=== PATIENT | female | born 1945 | race Asian ===

== ENCOUNTER → 2017-02-09 | Outpatient (CLI) | payer BC ==
[~2017-02-09] MED LIST: CRDCD180 PO; LISI-461 PO; MULT-506 PO
[2017-02-09 10:14] LABS: MANUAL MICROSCOPIC REQUIRED? NO; REVIEW REQ? NO; URINE APPEARANCE CLEAR (CLEAR); URINE BILIRUBIN NEG (NEG); URINE COLOR YELLOW; URINE NITRITE NEG (NEG); URINE SPECIFIC GRAVITY 1.023 (1.000-1.030); UROBILINOGEN NEG (NEG)
[2017-02-09 10:34] LABS: ALT/SGPT 24 U/L (12-78); AST/SGOT 18 U/L (15-37); BLOOD UREA NITROGEN 24 mg/dl (7-18); BUN/CREATININE RATIO 44.8 (10-20); CALCIUM 8.8 mg/dl (8.5-10.1); CARBON DIOXIDE 32 mmol/L (21-32); CHLORIDE 105 mmol/L (98-107); CHOLESTEROL 242 mg/dl (0-200); CREATININE 0.54 mg/dl (0.60-1.20); GLUCOSE 89 mg/dl (70-99); POTASSIUM 4.1 mmol/L (3.5-5.1); SODIUM 140 mmol/L (136-145); TRIGLYCERIDES 47 mg/dl (0-150); VERY LOW DENSITY LIPOPROT CALC 9 mg/dl
[2017-02-09 10:36] LABS: ALB/GLOB RATIO 1.1 (0.9-2); ALKALINE PHOSPHATASE 50 U/L (45-117); CHOLESTEROL/HDL RATIO 2.9; HDL CHOLESTEROL 83 mg/dl; LDL CHOLESTEROL CALCULATED 150 mg/dl
== END | disposition home or self-care (01) ==
LOC: C.LAB1850 09:17
PROVIDERS: ATTEND Internal Medicine
DX: M25.551 Pain in right hip (principal); Z11.59 Encounter for screening for other viral diseases; M81.0 Age-related osteoporosis without current pathological fracture; R31.9 Hematuria, unspecified

== ENCOUNTER → 2017-09-25 | Outpatient (CLI) | payer BC ==
--- NOTE | 2017-09-25 13:20 | DIAGNOSTIC IMAGING REPORT ---
PELVIS AND RIGHT HIP 1 VIEW CLINICAL HISTORY: RIGHT HIP PAIN COMPARISON STUDY: Right hip 07/20/2016. FINDINGS: Progressive deformity/flattening of the right femoral head. There is severe osteoarthritis within the right hip with [id number] articulation. There is a shallow right acetabulum due to the progressive collapse of the acetabular roof. There is subchondral sclerosis and subchondral cystic change within the superior acetabulum and right femoral head. No acute fracture. Persistent lateral subluxation of the right femoral head in relation to the acetabulum due to the shallow acetabulum. The sacrum appears intact. Normal left hip. IMPRESSION: 1. Progressive collapse of the right acetabular roof and progressive deformity/collapse of the right femoral head. 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 2. There is a right-sided shallow acetabulum due to the collapse of the acetabular roof with persistent mild lateral subluxation of the femoral head and relation to the acetabulum. 3. Normal left hip. Electronically signed by: Jules Wang M.D. 09/25/2017 1:19 PM Dictated Date/Time: 09/25/2017 1:15 PM
== END | disposition home or self-care (01) ==
LOC: C.RDSM 11:12
PROVIDERS: ATTEND Physician Assistant
DX: M25.551 Pain in right hip (principal); R93.7 Abnormal findings on diagnostic imaging of other parts of musculoskeletal system

== ENCOUNTER → 2017-09-25 | Outpatient (CLI) | payer BC ==
[2017-09-25 13:49] LABS: ALB/GLOB RATIO 1.2 (0.9-2); ALKALINE PHOSPHATASE 54 U/L (45-117); ALT/SGPT 21 U/L (12-78); AST/SGOT 17 U/L (15-37); BLOOD UREA NITROGEN 34 mg/dl (7-18); BUN/CREATININE RATIO 64.6 (10-20); CALCIUM 8.5 mg/dl (8.5-10.1); CARBON DIOXIDE 27 mmol/L (21-32); CHLORIDE 104 mmol/L (98-107); CHOLESTEROL 232 mg/dl (0-200); CHOLESTEROL/HDL RATIO 2.8; CREATININE 0.53 mg/dl (0.60-1.20); GLUCOSE 86 mg/dl (70-99); HDL CHOLESTEROL 84 mg/dl; LDL CHOLESTEROL CALCULATED 133 mg/dl; POTASSIUM 3.7 mmol/L (3.5-5.1); SODIUM 139 mmol/L (136-145); TRIGLYCERIDES 74 mg/dl (0-150); VERY LOW DENSITY LIPOPROT CALC 15 mg/dl
[2017-09-25 13:55] LABS: THYROID STIMULATING HORMONE 0.274 uIu/ml (0.300-4.500)
[2017-09-25 14:54] LABS: URINE APPEARANCE CLEAR (CLEAR); URINE BILIRUBIN NEG (NEG); URINE COLOR YELLOW; URINE NITRITE NEG (NEG); URINE SPECIFIC GRAVITY 1.026 (1.000-1.030); UROBILINOGEN NEG (NEG); ZZUR CULT IF INDIC CLEAN CATCH NO
[2017-09-25 14:56] LABS: MANUAL MICROSCOPIC REQUIRED? NO; REVIEW REQ? NO
== END | disposition home or self-care (01) ==
LOC: C.LAB1850 12:06
PROVIDERS: ATTEND Internal Medicine
DX: Z11.59 Encounter for screening for other viral diseases (principal); E78.5 Hyperlipidemia, unspecified; M81.0 Age-related osteoporosis without current pathological fracture; R31.9 Hematuria, unspecified

== ENCOUNTER → 2017-10-08 | Outpatient (CLI) | payer BC ==
--- NOTE | 2017-10-08 14:20 | DIAGNOSTIC IMAGING REPORT ---
CT SCAN OF THE RIGHT HIP WITHOUT IV CONTRAST CLINICAL HISTORY: Osteoarthritis. 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 COMPARISON STUDY: Radiographs of the right hip dated 09/25/2017. Pelvic CT dated 04/26/2007. TECHNIQUE: CT scan of the right hip is performed from the bony pelvis to the right femoral shaft. Images are reviewed in the axial, sagittal, and coronal planes. 3-D reformats are created and assessed. IV contrast was not administered for this examination. A dose lowering technique was utilized adhering to the principles of ALARA. CT DOSE: 294.10 mGy.cm FINDINGS: The skeletal structures are osteopenic. No fracture is seen. No lytic or blastic lesion is identified. There is advanced osteoarthritic change and joint space loss in the right hip. There is flattening of the femoral head with extensive bony sclerosis, large osteophytes, and subchondral cyst formation. Similar changes are present within the right acetabulum. The acetabulum appears slightly shallow, and bony overgrowth is noted along the acetabular roof. There is a joint effusion, with fluid in the iliopsoas bursa. The right sacroiliac joint is normal in appearance. There is generalized atrophy of the regional musculature. The bladder is normal as visualized. There is no right pelvic sidewall or inguinal lymphadenopathy. IMPRESSION: 1. Osteopenia with advanced osteoarthritic change involving the right hip as above. 2. There is subchondral collapse of the femoral head. Avascular necrosis is considered less likely due to similar appearing change within the acetabulum. 3. There is a joint effusion, with fluid in the right iliopsoas bursa. Dictated: 10/08/2017 1:46 PM Transcribed: 10/08/2017 2:20 PM [facility] Electronically signed by: Stan Steele M.D. 10/08/2017 2:30 PM Dictated Date/Time: 10/08/2017 1:46 PM
== END | disposition home or self-care (01) ==
LOC: C.CTS 13:28
PROVIDERS: ATTEND Physical Medicine & Rehabilitation Sports Medicine
DX: M16.11 Unilateral primary osteoarthritis, right hip (principal); Q65.89 Other specified congenital deformities of hip; M85.851 Other specified disorders of bone density and structure, right thigh; M25.451 Effusion, right hip

== ENCOUNTER → 2017-10-18 | Outpatient (CLI) | payer BC ==
[2017-10-18 10:27] LABS: THYROID STIMULATING HORMONE 0.578 uIu/ml (0.300-4.500)
== END | disposition home or self-care (01) ==
LOC: C.LAB1850 08:19
PROVIDERS: ATTEND Internal Medicine
DX: R31.9 Hematuria, unspecified (principal); E05.90 Thyrotoxicosis, unspecified without thyrotoxic crisis or storm

== ENCOUNTER → 2017-10-29 | Outpatient (CLI) | payer BC | END | disposition home or self-care (01) | LOC: C.MAMM 08:17 | PROVIDERS: ATTEND Internal Medicine | DX: M81.0 Age-related osteoporosis without current pathological fracture (principal); M25.551 Pain in right hip; Z78.0 Asymptomatic menopausal state ==

== ENCOUNTER → 2017-12-13 | Outpatient (CLI) | payer BC, OTHER ==
--- NOTE | 2017-12-12 10:33 | DIAGNOSTIC IMAGING REPORT ---
PELVIS 1 OR 2 VIEWS CLINICAL HISTORY: Right hip pain. Preoperative evaluation. COMPARISON STUDY: Right hip radiograph July 20, [address] of the right hip October 08, 2017. FINDINGS: The right acetabulum is shallow. There is marked right hip joint space narrowing with extensive subchondral lucency and sclerosis within the right femoral head and acetabulum. No fracture is identified. There is significant remodeling with flattening of the right femoral head. IMPRESSION: 1. End-stage osteoarthritis of the right hip with flattening of the right femoral head, marked joint space narrowing and extensive subchondral sclerosis/cystic change. 2. Shallow right acetabulum. This suggests hip dysplasia. Electronically signed by: Rudolph Monae M.D. 12/12/2017 10:31 AM Dictated Date/Time: 12/12/2017 10:29 AM
[~2017-12-13] MED LIST changes: +ACET-1256 PO; +ASCA500 PO; +CHOL1000 PO; +GLUC10007 PO
== END | disposition home or self-care (01) ==
LOC: C.RDSM 15:10
PROVIDERS: ATTEND Physician Assistant
DX: M16.11 Unilateral primary osteoarthritis, right hip (principal); Q65.89 Other specified congenital deformities of hip

== ENCOUNTER 2018-01-08 08:32 | Inpatient (IN) | payer BC, OTHER ==
[2017-12-14 08:16] VITALS: BMI 21.0
--- NOTE | 2017-12-14 08:49 | PAT Medication Instructions ---
Service Date Dec 14, 2017. Current Home Medication List Acetaminophen (Tylenol), 1,000 MG PO Q8 PRN for Pain Ascorbic Acid (Vitamin C), 1 TAB PO QAM Cholecalciferol (Vitamin D3), 1 TAB PO QAM Diltiazem HCl (Diltiazem HCl ER), 180 MG PO HS Glucosamine Sulfate (Glucosamine), 1,000 MG PO QAM Lisinopril (Lisinopril), 10 MG PO HS Medication Instructions For Your Scheduled Surgery - Hold the following medications 2 weeks prior to surgery: Glucosamine Sulfate (Glucosamine), 1,000 MG PO QAM - Hold the following medications 24 hours prior to surgery: Lisinopril (Lisinopril), 10 MG PO HS - Hold the following medications the morning of surgery: Ascorbic Acid (Vitamin C), 1 TAB PO QAM Cholecalciferol (Vitamin D3), 1 TAB PO QAM - Take the following medications the morning of surgery with a sip of water: Acetaminophen (Tylenol), 1,000 MG PO Q8 PRN for Pain (okay to take up to 4 hours prior to surgery if needed) - Take the following medications as scheduled the night before surgery: Diltiazem HCl (Diltiazem HCl ER), 180 MG PO HS Acetaminophen (Tylenol), 1,000 MG PO Q8 PRN for Pain (if needed) If you have any questions please call us at [phone] or [phone] or [phone]
--- NOTE | 2017-12-14 09:43 | DIAGNOSTIC IMAGING REPORT ---
CHEST 2 VIEWS ROUTINE CLINICAL HISTORY: Preoperative chest COMPARISON STUDY: No previous studies for comparison. FINDINGS: The heart is normal in size. There is mild prominence of central pulmonary arteries. There is no focal pulmonary consolidation. There is no failure. There are no pleural effusions. There is minor right basilar atelectasis. There is a thoracolumbar scoliosis.[ IMPRESSION: No active disease in the chest. Electronically signed by: Apolinar Bean M.D. 12/14/2017 9:42 AM Dictated Date/Time: 12/14/2017 9:41 AM
[2017-12-14 10:15] LABS: BASO % 0.4 %; BASO ABS # 0.02 K/uL (0-0.2); EOS % 2.7 %; EOS ABS # 0.12 K/uL (0-0.5); HEMATOCRIT 37.8 % (37-47); LYMPH % 19.4 %; LYMPH ABS # 0.87 K/uL (1.2-3.4); MEAN CELL VOLUME 97.2 fL (80-100); MEAN CORPUSCULAR HEMOGLOBIN 30.8 pg (25-34); MEAN CORPUSCULAR HGB CONC 31.7 g/dl (32-36); MONO % 7.8 %; MONO ABS # 0.35 K/uL (0.11-0.59); NEUT % 69.7 %; NEUT ABS # 3.13 K/uL (1.4-6.5); PLATELET COUNT 223 K/uL (130-400); RED CELL DISTRIBUTION WIDTH CV 12.7 % (11.5-14.5); RED CELL DISTRIBUTION WIDTH SD 44.6 fL (36.4-46.3); WHITE BLOOD COUNT 4.49 K/uL (4.8-10.8)
[2017-12-14 10:43] LABS: INR 0.9 (0.9-1.1); PTT PATIENT 23.6 SECONDS (21.0-31.0)
[2017-12-14 11:38] LABS: CALCIUM 8.8 mg/dl (8.5-10.1); CREATININE 0.71 mg/dl (0.60-1.20); POTASSIUM 4.2 mmol/L (3.5-5.1)
--- NOTE | 2017-12-25 16:02 | HISTORY & PHYSICAL EXAMINATION ---
DATE OF ADMISSION: 01/08/2018 CHIEF COMPLAINT: Right hip pain. HISTORY OF PRESENT ILLNESS: This 72-year-old female presents to the office with complaints of right hip pain that has been ongoing for the last 3 years. She is unsure if it started after a fall or another injury. She walks for approximately 30-40 minutes daily on her treadmill. Pain has become worse with time. It is causing her to limp. She notes a leg length discrepancy that she thinks has been present from . It did not bother her until the last several years. No numbness or tingling. X-ray and CT scan imaging have been obtained. She elects to proceed with right total hip arthroplasty in hopes of alleviating her discomfort. Pain is affecting her ADLs and is worse with weightbearing. It does radiate around her hip and into the groin as well as the proximal thigh. PAST MEDICAL HISTORY: Significant for hypertension, elevated cholesterol, asthma, and arthritis. PREVIOUS SURGERIES: in 1974 and 1977. FAMILY HISTORY: Noncontributory. SOCIAL HISTORY: The patient is . Lives by herself. Retired. No tobacco use and no ETOH use. ALLERGIES: KNOWN ALLERGY TO PENICILLIN, WHICH CAUSES A RASH. THIS OCCURRED APPROXIMATELY 30 YEARS AGO. CURRENT MEDICATIONS: Tylenol Arthritis p.o. b.i.d., vitamin D 3000 units daily, diltiazem 180 mg p.o. daily, lisinopril 10 mg p.o. daily, tramadol 50 mg p.o. q. 6 hours p.r.n., and OTC calcium tablets daily. REVIEW OF SYSTEMS: Significant for above stated conditions. Otherwise, unremarkable. PHYSICAL EXAMINATION: GENERAL: Well-developed and well-nourished elderly female in no acute distress. Sitting in a chair. Alert and oriented. Small stature. SKIN: Warm and dry with good turgor. No rashes or lesions. No ecchymosis or erythema. HEENT: Normocephalic and atraumatic. Eyes PERRLA, EOMI. Nares patent bilaterally without turbinate enlargement. Oropharynx without erythema or exudate. No lesions noted. Uvula midline. Oral mucosa moist. Dental caps and fillings are noted. HEART: RRR. No MGR. LUNGS: Clear to auscultation bilaterally. No crackles, rhonchi or wheezing. Good air movement. ABDOMEN: Bowel sounds present x4. Soft and nontender. No organomegaly. No masses. MUSCULOSKELETAL: Right hip has no obvious asymmetry or deformity. She has discomfort with palpation over the anterior flexion crease. She has some generalized soreness present around the lateral aspect of the hip and greater trochanter. Supple motion of the hips with passive flexion as well as internal and external rotation. Crepitus is palpable. Significantly antalgic gait with noticeable limp. The right leg is approximately a cm short. NEUROLOGIC: Gross sensation is intact across the upper and lower extremities by soft touch. Cranial nerves II-XII are intact. Peripheral pulses are 2+. DATA: Radiographic imaging previously obtained shows right hip dysplasia with superolateral migration of the femoral head. Periarticular osteophytes, subchondral sclerosis, and joint space narrowing are all present. IMPRESSION: Right hip degenerative joint disease/hip dysplasia. PLAN: Postoperative prescriptions for Percocet and Coumadin will be provided at discharge from the hospital. Medical clearance has been requested from her PCP, Dr. Smith. Prescription has been provided for a walker. She will obtain a cane. Anticipate discharge to either [facility] or [facility]. As a backup, she is willing to consider home health with frequent visits from friends. Informed written consent will be obtained in the morning of surgery.
[2018-01-08] VITALS (9 sets, daily range): BP systolic 100–143; BP diastolic 53–77; PULSE 60–71; TEMP 36.7–36.9; O2SAT 95–100; Ht 152.4 cm; Wt 48.8 kg
[~2018-01-08] VITALS: Ht 152.4 cm; Wt 48.8 kg
[~2018-01-08 08:32] MED LIST changes: +BUPIVACAINE 0.25% 30 ML VIAL ONE; +BUPIVACAINE 0.5 % 5 MG/1 ML PF 10ML VIAL ONE; +CEFAZOLIN 2000MG IV PUSH 15 ML IV SCH; +LACTATED RINGER'S 1000ML 1,000 ML IV SCH; +LACTATED RINGER'S 1000ML 500 ML IV SCH; +LACTATED RINGER'S 1000ML IV SCH; -MULT-506 PO; +ROPIVACAINE 5MG/ML 30 ML 150 MG, BUPIVACAINE 0.5% MPF INJ 30 ML, EpINEphrine HCL INJ 0.... INFIL SCH; +ROPIVACAINE 5MG/ML 30 ML 150 MG, BUPIVACAINE/EPINEPHR 0.5% MPF 30 ML, KETOROLAC TROMETH... INFIL SCH; +TRANEXAMIC ACID INJ 1,000 MG x 1 Bag Preop IV SCH
--- NOTE | 2018-01-08 08:51 | History & Physical Bridge Note ---
H&P Re-Evaluation Bridge Note: I have examined the patient, reviewed the History & Physical and in the interval since the performance of the History & Physical I have noted the following changes of clinical significance: consent obtained.questions answered. No changes noted
[2018-01-08] MEDS ORDERED: EpHEDrine SULFATE INJ 50 MG/ML AMP IV PRN (09:15)
[2018-01-08] MEDS ORDERED: HYDROmorphone INJ 1 MG/ML SYR IV PRN (09:15)
[2018-01-08] MEDS ORDERED: ONDANSETRON INJ 2 MG/ML 2 ML VIAL IV PRN ×2 (09:15→12:30)
[2018-01-08] MEDS ORDERED: PHENYLEPHRINE 100MCG/ML 5ML SYR IV PRN (09:15)
[2018-01-08] MEDS ORDERED: FENTANYL CITRATE INJ 50 MCG/1 ML 2 ML VIAL IV PRN (09:15)
[2018-01-08] MEDS ORDERED: ATROPINE SULFATE 0.1 MG/ML 5ML SYR IV PRN (09:15)
[2018-01-08] MEDS ORDERED: MIDAZOLAM HCL 1 MG/ML 2ML VIAL ONE ×2 (09:19→11:06)
[2018-01-08] MEDS ORDERED: FENTANYL CITRATE INJ 50 MCG/1 ML 2 ML VIAL ONE (09:19)
[2018-01-08] MEDS ORDERED: POVIDONE-IODINE OP SOLN 30 ML BTL ONE (10:27)
[2018-01-08] MEDS ORDERED: ORTHO JOINT ANESTHETIC ONE (10:27)
[2018-01-08] MEDS ORDERED: LIDOCAINE HCL 2% 2 ML VIAL (20MG/ML) ONE (11:14)
[2018-01-08] MEDS ORDERED: PROPOFOL IV EMULSION 10 MG/ML 20 ML VIAL IV ONE (11:14)
[2018-01-08] MEDS ORDERED: ONDANSETRON INJ 2 MG/ML 2 ML VIAL ONE (11:14)
--- NOTE | 2018-01-08 12:11 | [facility] Post Operative Brief Note ---
Immediate Operative Summary Operative Date Jan 08, 2018. Pre-Operative Diagnosis Right Hip Degenerative Joint Disease/Hip Dysplasia Post-Operative Diagnosis Right Hip Degenerative Joint Disease/Hip Dysplasia Procedure(s) Performed Right Total Hip Arthroplasty--Uncemented Surgeon Dr. Dalton Painter Shipyard Surgeon(s) JAIDA Foster Estimated Blood Loss 200 ml Findings Consistent with Post-Op Diagnosis Fluids (cc crystalloids) 1500cc Specimens A. Right Femoral Head Drains None Anesthesia Type Spinal MAC Complication(s) none Disposition Accompanied Pt To Recover: no Disposition: Recovery Room / PACU
[2018-01-08] MEDS ORDERED: DiphenhydrAMINE HCL 50 MG/ML VIAL IV PRN (12:30)
[2018-01-08] MEDS ORDERED: MAGNESIUM HYDROXIDE SUSP 30 ML UDC PO PRN (12:30)
[2018-01-08] MEDS ORDERED: ALUMINUM/MAGNESIUM/SIMETH (MAALOX MAX) 30 ML UDC PO PRN (12:30)
[2018-01-08] MEDS ORDERED: BISACODYL 10 MG SUPP PR PRN (12:30)
[2018-01-08] MEDS ORDERED: MoRPHine SULFATE 2 MG/ML CARP IV PRN ×2 (12:30→14:45)
[2018-01-08] MEDS ORDERED: METOCLOPRAMIDE HCL INJ 5 MG/ML 2 ML VIAL IV PRN (12:30)
--- NOTE | 2018-01-08 12:43 | [facility] Operative Report ---
Operative Report Operative Date Jan 08, 2018. Pre-Operative Diagnosis Right Hip Degenerative Joint Disease/Hip Dysplasia Post-Operative Diagnosis Right Hip Degenerative Joint Disease/Hip Dysplasia Procedure(s) Performed Right Total Hip Arthroplasty--Uncemented Surgeon Dr. Dalton Case Consultant Surgeon(s) JAIDA Paniagua Estimated Blood Loss 200 ml Findings Right hip congenital dysplasia, DJD Fluids 1500cc Specimens A. Right Femoral Head Drains None Anesthesia Type Spinal MAC Complication(s) none Disposition no Recovery Room / PACU Indications This 72 year old female presented to the office with complaints of long- standing right hip pain. She also had a leg length discrepancy from previous congenital dysplasia of the right hip. She had tried conservative care measures including activity modification, oral pain medication, and oral anti- inflammatories without improvement. She elected to proceed with surgical intervention after being educated about potential risks and outcomes. Preoperative imaging was obtained. Description of Procedure Patient was administered a spinal anesthetic and then taken to the operating room where she was given sedation. She was prepped and draped in usual sterile fashion. Please see Dr. Dalton's operative report for specifics of the procedure. I was present for the entire case from initial patient positioning through final wound closure. Assistance was provided in tissue traction, hemostasis, trial implant placement, final implant placement, and final wound closure. Patient was taken to the recovery room in satisfactory condition. I attest to the content of the Intraoperative Record and any orders documented therein. Any exceptions are noted below.
--- NOTE | 2018-01-08 12:43 | OPERATIVE REPORT ---
DATE OF OPERATION: 01/08/2018 SURGEON: Dr. Dalton. ASSISTANTS: Gabino; Adam student, Bryant; no resident or fellow available. PREOPERATIVE DIAGNOSIS: Osteoarthritis, right hip with congenital dysplasia. POSTOPERATIVE DIAGNOSIS: Same. OPERATION PERFORMED: Noncemented right total hip replacement. PERIOPERATIVE SITUATION: Medically cleared female with intractable hip pain. Physical exam, x-ray and CT scan consistent with dysplasia of the hip with roughly a type 2 deformity. At this point in time, options were discussed with her and she wants to proceed with total hip replacement possible femoral head autograft versus shims if needed. I also noted that she was relatively well lateralized and we would be able to medialize by reaming. DESCRIPTION OF PROCEDURE: The patient appropriately identified, site verified, consent verified, 2 grams of Ancef confirmed as being given. The right lower extremity was prepped and draped in usual routine fashion with the patient in the left lateral decubitus position. Posterior approach to the hip was then made, sharp dissection carried to skin and blunt dissection down to the fascia, the fascia was then incised under direct vision. Care was taken to protect the sciatic nerve. She was lean. The short external rotators were all scarred, they were released, the capsule was then T'd and preserved as best as possible. The hip was dislocated. The femoral neck was resected leaving approximately 5 mm above the lesser trochanter. Serial reaming was carried out once the labrum and pulvinar was excised and we found the true center and was reamed from there and enlarged. It was medialized. Once this was done, a 48 cup was able to be positioned with excellent coverage, impacted into position with excellent rim fit. An additional 6.5 x 25 screw was placed with excellent purchase. The trial liner was seated and some minor osteophytes were removed inferiorly. The femur was then flexed and internally rotated and the proximal femur prepared with a box strapper, lateralizing rasp, canal finder and serial broaching up to a size 1. Multiple reductions were carried out with a high offset +9 getting the leg lengths almost equal. The hip was very stable. Flexion to over 110 degrees with internal rotation at 90 degrees to 50-60 degrees with no dislocation was found. Leg lengths were relatively equal, there was no dislocatability in extension and external rotation. The hip was then dislocated. all the trial elements were removed. The hole eliminator seated, permanent liner seated, permanent head and neck seated and the hip reduced, it was stable as was before. The wound was irrigated with Betadine Pulsavac and then closed with #2 Vicryl for the capsule and the short external rotators, #2 Vicryl for the IT band, 2-0 Vicryl for subcutaneous layer and stainless steel clips for skin. ESTIMATED BLOOD LOSS: Roughly 200 mL. CRYSTALLOID: Roughly 1500 mL. PATHOLOGY: Pending on the bone. SUMMARY OF IMPLANTS: A size 48 cup, hole eliminator 6.5 x 25 screw. The cup was an acetabular shell sector multi hole cup, femoral Tri-Lock stem size 1, high offset 32 x 48 neutral liners and a 32 head +9 for the femoral head. This is Articul/Manny femoral head. DISPOSITION: The patient was transferred to recovery room in satisfactory condition having tolerated the procedure well. DVT prophylaxis with Coumadin. I attest to the content of the Intraoperative Record and any orders documented therein. Any exceptions are noted below. BEBED
--- NOTE | 2018-01-08 13:07 | DIAGNOSTIC IMAGING REPORT ---
PELVIS 1 OR 2 VIEW ROUTINE HISTORY: 72 years-old Female R hip s/p LAY status post right hip total joint arthroplasty. Reported dysplasia of the right hip COMPARISON: Pelvis radiographs 12/12/2017 TECHNIQUE: Portable AP view of the pelvis FINDINGS: Postoperative changes from recent right hip total joint arthroplasty. Overlying skin marvin are noted in addition to expected postsurgical soft tissue swelling and deep tissue air. Alignment is satisfactory and the hardware appears to be intact. Mild degenerative changes about the left femoral acetabular joint. IMPRESSION: Right hip total joint arthroplasty with satisfactory alignment. The above report was generated using voice recognition software. It may contain grammatical, syntax or spelling errors. Electronically signed by: Wellington Mendoza M.D. 01/08/2018 1:06 PM Dictated Date/Time: 01/08/2018 1:05 PM
--- NOTE | 2018-01-08 13:49 | Anesthesiology Progress Note ---
Anesthesia Post Op Note Date & Time Jan 08, 2018 at 13:48 Vital Signs Pain Intensity: 0 Vital Signs Past 12 Hours Date Time Temp Pulse Resp B/P (MAP) Pulse Ox O2 Delivery O2 Flow Rate FiO2 01/08/18 13:41 119/59 01/08/18 13:40 36.6 60 16 119/59 100 Nasal Cannula 2 01/08/18 13:38 60 14 100 01/08/18 13:38 60 14 01/08/18 13:36 107/57 01/08/18 13:33 66 15 100 01/08/18 13:33 63 15 01/08/18 13:31 106/56 01/08/18 13:28 58 16 01/08/18 13:28 63 16 100 01/08/18 13:26 112/56 01/08/18 13:23 59 15 01/08/18 13:23 60 15 100 01/08/18 13:21 115/62 01/08/18 13:18 62 16 01/08/18 13:18 61 16 100 01/08/18 13:16 110/61 01/08/18 13:13 60 14 01/08/18 13:13 60 14 100 01/08/18 13:12 61 16 100 01/08/18 13:12 61 16 01/08/18 13:11 108/60 01/08/18 13:07 60 14 100 01/08/18 13:07 60 14 01/08/18 13:06 104/61 01/08/18 13:02 62 14 100 01/08/18 13:02 62 14 01/08/18 13:01 107/60 01/08/18 12:57 64 15 100 01/08/18 12:57 60 15 01/08/18 12:56 105/59 01/08/18 12:52 63 15 01/08/18 12:52 63 15 100 01/08/18 12:51 101/58 01/08/18 12:47 62 14 01/08/18 12:47 62 14 100 01/08/18 12:46 106/59 01/08/18 12:42 63 14 100 01/08/18 12:42 62 14 01/08/18 12:41 103/62 01/08/18 12:37 62 14 100 01/08/18 12:37 63 14 01/08/18 12:36 108/62 01/08/18 12:35 64 14 01/08/18 12:35 64 14 100 01/08/18 12:31 99/61 01/08/18 12:30 65 15 100 01/08/18 12:30 65 15 01/08/18 12:26 103/59 01/08/18 12:25 36.2 68 16 103/59 97 Nasal Cannula 2 01/08/18 12:25 67 77/62 98 01/08/18 12:25 67 01/08/18 08:55 36.9 71 20 143/72 96 Room Air Notes Mental Status: alert / awake / arousable, participated in evaluation Pt Amnestic to Procedure: Yes Nausea / Vomiting: adequately controlled Pain: adequately controlled Airway Patency, RR, SpO2: stable & adequate BP & HR: stable & adequate Hydration State: stable & adequate Neuraxial Anesthesia: was administered, sensory block is resolving Anesthetic Complications: no major complications apparent
[2018-01-08] MEDS ORDERED: MoRPHine SULFATE 4 MG/ML 1 ML CARP\\VIAL IV PRN (14:45)
[2018-01-08] MEDS ORDERED: D5W AND 1/2NSS + 20MEQ KCL 1,000 ML IV SCH (15:00)
[2018-01-08] MEDS: ACETAMINOPHEN IV 1,000 MG in EMPTY BAG 0 ML IV SCH ×2 (15:25→23:14)
[2018-01-08] MEDS ORDERED: WARFARIN SOD 5 MG TAB PO SCH (16:00)
[2018-01-08] MEDS ORDERED: PNEUMOCOCCAL ADMINISTRATION CHARGE ONE (16:00)
[2018-01-08] MEDS ORDERED: PNEUMOCOCCAL POLYSACCHARIDES 25 MCG/0.5 ML VIAL/SYR IM. ONE (16:00)
--- NOTE | 2018-01-08 17:41 | PROGRESS NOTE ---
DATE: 01/08/2018 SUBJECTIVE: Postop check status post right total knee replacement for dysplasia. At this point in time, the patient is comfortable. She ate some lunch. She notes that she has no chest pain, shortness of breath, fever, chills, nausea, vomiting or headache. OBJECTIVE: Vital signs are stable. She is afebrile. Neurovascular check femoral sciatic nerve is intact right lower extremity, left lower extremity. The calves are nontender. DATA: Postop x-rays look excellent. ASSESSMENT AND PLAN: Overall, doing well. Continue with postop care pathway. Likely discharge home tomorrow with home services. Coumadin dose per INR results. Please note that Terell Lloyd will discharge the patient tomorrow as I will be in [place].
[2018-01-08] MEDS: FERROUS GLUCONATE 324 MG TAB PO SCH (17:54)
[2018-01-08] MEDS ORDERED: TRANEXAMIC ACID INJ 1,000 MG in SODIUM CHLORIDE 0.9% 100ML 100 ML IV SCH (18:00)
[2018-01-08] MEDS: KETOROLAC TROMETHAMINE 15 MG/ML VIAL IV. SCH ×2 (18:01→23:14)
[2018-01-08] MEDS: OXYCODONE HCL IR 5 MG TAB (IMMEDIATE RELEASE) PO PRN (19:53)
[2018-01-08] MEDS: DOCUSATE SODIUM 100 MG CAP PO SCH (19:54)
[2018-01-08] MEDS ORDERED: LISINOPRIL 10 MG TAB PO SCH (21:00)
[2018-01-08] MEDS ORDERED: DILTIAZEM HCL 180 MG CAPCR PO SCH (21:00)
[2018-01-08] MEDS ORDERED: CEFTRIAXONE SOD INJ 1 GM in DEXTROSE 5% ADD-VANTAGE 50ML 50 ML IV SCH (22:00)
[2018-01-09 03:47] VITALS: BP 125/70; PULSE 53; TEMP 36.7; O2SAT 98
[2018-01-09] MEDS: OXYCODONE HCL IR 5 MG TAB (IMMEDIATE RELEASE) PO PRN (05:13)
[2018-01-09] MEDS: KETOROLAC TROMETHAMINE 15 MG/ML VIAL IV. SCH ×2 (05:15→12:57)
[2018-01-09 05:54] LABS: EOS % 0.1 %; EOS ABS # 0.01 K/uL (0-0.5); HEMATOCRIT 29.2 % (37-47); HEMOGLOBIN 9.3 g/dL (12.0-16.0); IG# 0.03 K/uL (0.00-0.02); LYMPH % 8.5 %; LYMPH ABS # 0.74 K/uL (1.2-3.4); MEAN CELL VOLUME 96.7 fL (80-100); MEAN CORPUSCULAR HEMOGLOBIN 30.8 pg (25-34); MEAN CORPUSCULAR HGB CONC 31.8 g/dl (32-36); MEAN PLATELET VOLUME 8.7 fL (7.4-10.4); MONO % 7.9 %; MONO ABS # 0.69 K/uL (0.11-0.59); NEUT % 83.2 %; NEUT ABS # 7.27 K/uL (1.4-6.5); PLATELET COUNT 193 K/uL (130-400); RED CELL DISTRIBUTION WIDTH CV 12.8 % (11.5-14.5); RED CELL DISTRIBUTION WIDTH SD 44.7 fL (36.4-46.3); WHITE BLOOD COUNT 8.74 K/uL (4.8-10.8)
[2018-01-09 06:06] LABS: INR 1.1 (0.9-1.1)
[2018-01-09 06:31] LABS: CALCIUM 8.2 mg/dl (8.5-10.1); CREATININE 0.59 mg/dl (0.60-1.20); POTASSIUM 4.1 mmol/L (3.5-5.1)
[2018-01-09] MEDS ORDERED: DEXAMETHASONE INJ 10 MG in SYRINGE 0 ML IV SCH (07:30)
[2018-01-09] MEDS: ACETAMINOPHEN IV 1,000 MG in EMPTY BAG 0 ML IV SCH (07:40)
[2018-01-09 07:49] VITALS: BP 110/67; PULSE 56; TEMP 36.6; O2SAT 97
--- NOTE | 2018-01-09 07:58 | Anesthesiology Progress Note ---
Anesthesia Post Op Note Date & Time Jan 09, 2018 at 07:57 Vital Signs Pain Intensity: 8.0 Vital Signs Past 12 Hours Date Time Temp Pulse Resp B/P (MAP) Pulse Ox O2 Delivery O2 Flow Rate FiO2 01/09/18 07:49 36.6 56 18 110/67 (81) 97 Room Air 01/09/18 03:47 36.7 53 16 125/70 (88) 98 Room Air 01/08/18 23:06 36.8 67 16 107/67 (80) 96 Room Air Notes Mental Status: alert / awake / arousable, participated in evaluation Pt Amnestic to Procedure: Yes Nausea / Vomiting: adequately controlled Pain: adequately controlled Airway Patency, RR, SpO2: stable & adequate BP & HR: stable & adequate Hydration State: stable & adequate Neuraxial Anesthesia: was administered, sensory block resolved Anesthetic Complications: no major complications apparent
[2018-01-09] MEDS ORDERED: MULTIVITAMIN TAB PO SCH (09:00)
[2018-01-09] MEDS ORDERED: PANTOprazole SOD 40 MG TAB PO SCH (09:00)
[2018-01-09] MEDS ORDERED: OXYC-57 PO (09:09)
[2018-01-09] MEDS ORDERED: WARF2TAB PO (09:09)
--- NOTE | 2018-01-09 09:11 | Discharge Instructions ---
Discharge Instructions Date of Service Jan 09, 2018. Admission Reason for Admission: Right Hip Dysplasia Discharge Discharge Diagnosis / Problem: Right hip s/p total hip replacement Discharge Goals Goal(s): Decrease discomfort, Improve function, Increase independence Activity Recommendations Activity Limitations: as noted below Lifting Limitations: gradually increase as tolerated Exercise/Sports Limitations: until after follow-up appointment Shower/Bathe: keep incision dry Driving or Machine Use: No driving until cleared by Dr. Dalton Weightbearing Status: Right weightbearing (as tolerated) . Instructions / Follow-Up Instructions / Follow-Up New Medicine: * You will likely be taking one or more of these medicines: 1. Percocet - Take, as directed, when you need it, every four to six hours to control your pain. 2. Coumadin - Thins your blood to lessen the chance of forming a blood clot. The dose of this is different for each person and is based on your blood tests that are done twice a week. * The most common side effects of pain medicine and iron are nausea and constipation. If nausea or constipation is too much of a problem or if you have any questions about your new medicines or doses, call [facility] at . We will try to help you manage these issues. VERY IMPORTANT TO READ AND REVIEW" Blood Clots and Blood Thinning Medicine: * You are given Coumadin during the immediate post-operative period to lessen the risk of blood clots forming in your legs and/or lungs. Coumadin is usually given for six weeks after surgery. * The prescription is for 2 mg tablets. At discharge, you should understand your dose and take it all at the same time every day, preferably after dinner. * You need to get your blood checked 1 - 2 times per week for six weeks, or as directed. * If your dose needs to change, we will call you. Do not take your medication on the day of the blood test until we call you. * If you don't hear from us after your blood draws, keep taking the same dose. Pain: * The immediate post-operative period after hip replacement surgery is often quite painful. * You are given a prescription for pain medicine. You should take it, as directed, when you need it, especially before physical therapy and before going to bed. Pain that interferes with sleep is very common and can last several months. * You will likely need pain medicine for the first two to four weeks. It will not stop all of the pain. The pain will lessen and as you feel better, you may change to milder pain medicine such as Tylenol. * The most common side effects of pain medicine are nausea and constipation, so don't take more than you need. Physical Therapy: * Follow the "Hip Precautions Instructions." * In some cases, the social sciences instructor at the hospital will arrange to have a therapist come to your house for the first couple of weeks to help you learn these skills. * You need to practice on your own or with the help of a family member as needed. * When you learn these skills, most of the therapy can be done on your own. Home Exercise: * You were shown a series of exercises in the hospital. Do these exercises three to four times each day including the exercises you were shown in physical therapy. Walking: * Get up and walk several times each day. For the first four weeks, try not to stand or walk for more than one hour at a time. If you do stand or walk for more than one hour, you will not hurt anything, but your leg will likely swell. * As you feel comfortable, you may change from the walker or crutches to a cane and then to independent walking. SELF CARE INSTRUCTIONS AFTER TOTAL HIP REPLACEMENT Until the incision and soft tissues around your hip have healed, there is a possibility that the hip prosthesis could dislocate. A. Observe the following precautions to prevent dislocation: 1. Don't bend your hip greater than 90 degrees. 2. Avoid crossing your legs or ankles while standing or lying. 3. Sit with your feet placed 6 inches apart. 4. When sitting, keep your knees below your hips. Sit on a firm surface, avoid deep, soft chairs and couches. Use an elevated toilet seat in the bathroom. 5. Don't bend over at the waist. Use a long handled shoehorn and a sock aid to help you put on your shoes and socks. A granite fabricator can help you pick up attendant objects that are too high or too low to reach. 6. Keep car riding to a minimum for at least one month after surgery. B. Your balance may be shaky for a while. Use crutches or a walker until directed by your doctor. C. Use hand rails when walking on stairs. D. Wear low heeled shoes with non-slip soles. E. Be sure that your floors are free of things that could trip you - throw rugs , electrical cords, small objects. Avoid wet and waxed floors, especially with crutches and canes. F. Try to walk several times a day with rest periods between. G. Continue with all the exercises taught to you in the hospital. Again, make walking a part of your daily routine. VERY IMPORTANT TO READ AND REVIEW A. Take Coumadin, or Lovenox (blood thinning medications) as directed by your doctor. If you are on Coumadin, have a pro-time (blood test) drawn according to your doctor's instructions. This will tell the doctor how well the Coumadin is thinning your blood. B. There are a few signs you need to watch for after you are home. If you notice any of the followin. Increased severe hip pain. Some pain is expected especially when you exercise. 2. Increased swelling in your leg or knee; pain or swelling of the calf muscle in either lower leg. 3. Any fluid drainage from the incision. 4. Shortness of breath or chest pain. TEDs/Elastic Stockings: * The white elastic stockings help limit swelling and prevent blood clots from forming in your legs. The more you wear them, the more they work. * Wear them for six weeks. Prevention of Infection: * Take antibiotics one hour before any dental cleaning, dental work, urological procedure, gastrointestinal procedure or any invasive surgery in order to prevent your new joint from getting infected. * You may get the antibiotics from the doctor performing the procedure or we will call in a prescription to the pharmacy of your choice. Call the office for a prescription at least 2 days prior to your appointment. Things to Watch For: * Drainage from the incision site that occurs more than one week after your surgery. * Severely increased leg pain or swelling. * Increased redness at the incision site. * Fever above 101 degrees Fahrenheit. * Unusual chest pain or shortness of breath. * Unusual pain or burning with urination. Current Hospital Diet Patient's current hospital diet: Regular Diet Discharge Diet Recommended Diet: Regular Diet Procedures Procedures Performed: Right Total Hip Arthroplasty--Uncemented Pending Studies Studies pending at discharge: no Medical Emergencies . Who to Call and When: Medical Emergencies: If at any time you feel your situation is an emergency, please call 911 immediately. . Non-Emergent Contact Non-Emergency issues call your: Primary Care Provider, Surgeon Call Non-Emergent contact if: temperature is above 101, wound has increased drainage, wound has increased redness, wound has increased pain, you have any medication questions . "Provider Documentation" section prepared by Terell Lloyd PA-C. . VTE Core Measure Inpt VTE Proph given/why not?: Warfarin (Coumadin), T.EIwona Stockings, SCD's [place] Drug Monitoring Program Search Results: patient reviewed within database, no issues identified
[2018-01-09] MEDS: DOCUSATE SODIUM 100 MG CAP PO SCH (09:31)
[2018-01-09] MEDS: FERROUS GLUCONATE 324 MG TAB PO SCH ×2 (09:31→12:56)
--- NOTE | 2018-01-09 09:45 | Orthopedic Progress Note ---
Orthopedic Progress Note Date of Service Jan 09, 2018. Subjective Post OP Day: 1 Reports: feeling well, nausea / vomiting, pain controlled w PO medications, Denies: complaints, chest pain, SOB, light headedness, calf pain Additional Notes: States she feels fine. Had nausea earlier but this has resolved. No vomiting. States there is little pain in the hip at this time. Objective calves soft nontender, N/V intact, hip located, capillary refill less than 2 sec., dressing C/D/I, incision C/D/I, A&O x3, toes mobile, CMS intact Scant drainage on dressings. No active bleeding. expected post op edema. Date Time Temp Pulse Resp B/P (MAP) Pulse Ox O2 Delivery O2 Flow Rate FiO2 01/09/18 07:49 36.6 56 18 110/67 (81) 97 Room Air 01/09/18 07:38 Room Air 01/09/18 03:47 36.7 53 16 125/70 (88) 98 Room Air 01/08/18 23:06 36.8 67 16 107/67 (80) 96 Room Air 01/08/18 19:54 60 124/77 (93) 01/08/18 19:30 Room Air 01/08/18 18:16 36.9 66 16 120/71 (87) 95 Room Air 01/08/18 16:55 68 16 104/62 (76) 96 Room Air 01/08/18 15:43 36.8 70 18 100/53 (69) 96 Room Air 01/08/18 15:20 71 16 107/69 (82) 96 Room Air 01/08/18 14:58 68 18 117/68 (84) 99 Room Air 01/08/18 14:20 100 Nasal Cannula 2.0 01/08/18 14:20 36.7 68 17 119/64 (82) 100 Nasal Cannula 2.0 01/08/18 14:20 100 Nasal Cannula 2.0 01/08/18 13:47 61 16 01/08/18 13:47 60 16 100 01/08/18 13:46 120/64 01/08/18 13:42 63 15 01/08/18 13:42 63 15 100 01/08/18 13:41 119/59 01/08/18 13:40 36.6 60 16 119/59 100 Nasal Cannula 2 01/08/18 13:38 60 14 100 01/08/18 13:38 60 14 01/08/18 13:36 107/57 01/08/18 13:33 66 15 100 01/08/18 13:33 63 15 01/08/18 13:31 106/56 01/08/18 13:28 58 16 01/08/18 13:28 63 16 100 01/08/18 13:26 112/56 01/08/18 13:23 59 15 01/08/18 13:23 60 15 100 01/08/18 13:21 115/62 01/08/18 13:18 62 16 01/08/18 13:18 61 16 100 01/08/18 13:16 110/61 01/08/18 13:13 60 14 01/08/18 13:13 60 14 100 01/08/18 13:12 61 16 100 01/08/18 13:12 61 16 01/08/18 13:11 108/60 01/08/18 13:07 60 14 100 01/08/18 13:07 60 14 01/08/18 13:06 104/61 01/08/18 13:02 62 14 100 01/08/18 13:02 62 14 01/08/18 13:01 107/60 01/08/18 12:57 64 15 100 01/08/18 12:57 60 15 01/08/18 12:56 105/59 01/08/18 12:52 63 15 01/08/18 12:52 63 15 100 01/08/18 12:51 101/58 01/08/18 12:47 62 14 01/08/18 12:47 62 14 100 01/08/18 12:46 106/59 01/08/18 12:42 63 14 100 01/08/18 12:42 62 14 01/08/18 12:41 103/62 01/08/18 12:37 62 14 100 01/08/18 12:37 63 14 01/08/18 12:36 108/62 01/08/18 12:35 64 14 01/08/18 12:35 64 14 100 01/08/18 12:31 99/61 01/08/18 12:30 65 15 100 01/08/18 12:30 65 15 01/08/18 12:26 103/59 01/08/18 12:25 36.2 68 16 103/59 97 Nasal Cannula 2 01/08/18 12:25 67 77/62 98 01/08/18 12:25 67 Laboratory Results 24 Hours: Test 01/09/18 05:29 White Blood Count 8.74 K/uL Red Blood Count 3.02 M/uL Hemoglobin 9.3 g/dL Hematocrit 29.2 % Mean Corpuscular Volume 96.7 fL Mean Corpuscular Hemoglobin 30.8 pg Mean Corpuscular Hemoglobin Concent 31.8 g/dl Platelet Count 193 K/uL Mean Platelet Volume 8.7 fL Neutrophils (%) (Auto) 83.2 % Lymphocytes (%) (Auto) 8.5 % Monocytes (%) (Auto) 7.9 % Eosinophils (%) (Auto) 0.1 % Basophils (%) (Auto) 0.0 % Neutrophils # (Auto) 7.27 K/uL Lymphocytes # (Auto) 0.74 K/uL Monocytes # (Auto) 0.69 K/uL Eosinophils # (Auto) 0.01 K/uL Basophils # (Auto) 0.00 K/uL Prothromb Time International Ratio 1.1 Prothrombin Time 11.3 SECONDS Assessment & Plan Assessment: Right hip post op day 1 total hip replacement Plan: PT/OT today then D/C to home with home health coumadin per nomogram. Dose today before D/C Have INR rechecked on Sunday dressing changed this morning by me-wound looks excellent. Ambulating with walker continue TEDs after D/C for 6 weeks Discharge Planning Discharge Planning: home with home health Pain Management: Percocet DVT Prophylaxis: TEDs, SCDs, Coumadin Therapy: Physical Therapy
[2018-01-09 10:14] VITALS: BP 131/56
--- NOTE | 2018-01-09 13:40 | DISCHARGE SUMMARY ---
CHIEF COMPLAINT: Right hip pain. 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 She has been admitted for elective right total hip replacement. 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 It was felt that at this point that she could proceed with reconstruction with potential backup bone extension either by titanium shins or autograft resected femoral head, if needed. HOSPITAL COURSE: Hospital course has been uneventful. She underwent standard replacement by medializing the acetabulum and had no issues. She is ambulatory. She is stable and she is ready for discharge on postop day #1. PAST MEDICAL HISTORY: Marked for hypertension, hypercholesterolemia, asthma, arthritis. PAST SURGICAL HISTORY: Include x2. FAMILY HISTORY: Noncontributory. SOCIAL HISTORY: Reveals she is . She lives by herself. She has a friend that will live with her during her recovery. She is retired. She notes no tobacco or alcohol use. ALLERGIES: PENICILLIN WHICH CAUSES A RASH. She tolerates cephalosporins. PREADMISSION MEDICATIONS: Include Tylenol Arthritis, vitamin D, diltiazem 180 mg p.o. daily, vasotec 10 mg daily, tramadol 50 mg q. 6 hours p.r.n. and [id number] calcium. REVIEW OF SYSTEMS: Reveals no chest pain, shortness of breath, fever, chills, nausea, vomiting or headache. Postop course has been uneventful. ASSESSMENT: Status post right total hip replacement. PLAN AND RECOMMENDATIONS: At this point in time, will discharge home. Coumadin 4 mg daily. Check INR on Sunday. Keep INR 1.8-2.2. Follow up in 2 weeks for staple removal. Continue all her other home medications except anti-inflammatories. JAZZ
[2018-01-09] MEDS ORDERED: ACETAMINOPHEN 325 MG TAB PO PRN (14:00)
[2018-01-09 15:06] VITALS: BP 99/61; PULSE 77; TEMP 36.7; O2SAT 98
[2018-01-09 15:56] VITALS: BP 99/61; PULSE 77; TEMP 36.7; O2SAT 98
[2018-01-09] MEDS ORDERED: WARFARIN SOD 5 MG TAB PO SCH (16:00)
== END 2018-01-09 18:00 | disposition home health service (06) | DRG 470 ==
LOC: C.ACU 08:32 → C.3E 08:35 → ENRESERV 13:39
PROVIDERS: ADMIT Physical Medicine & Rehabilitation Sports Medicine; ATTEND Physical Medicine & Rehabilitation Sports Medicine
PROC: 0SR90JA Replacement of Right Hip Joint with Synthetic Substitute, Uncemented, Open Approach (ICD-10-PCS; principal; 2018-01-08 11:00)
DX: M16.11 Unilateral primary osteoarthritis, right hip (principal); Q65.89 Other specified congenital deformities of hip; E78.00 Pure hypercholesterolemia, unspecified; I10 Essential (primary) hypertension; J45.909 Unspecified asthma, uncomplicated; Z88.0 Allergy status to penicillin

== ENCOUNTER → 2018-01-11 | Outpatient (CLI) | payer BC ==
[~2018-01-11] MED LIST changes: -BUPIVACAINE 0.25% 30 ML VIAL ONE; -BUPIVACAINE 0.5 % 5 MG/1 ML PF 10ML VIAL ONE; -CEFAZOLIN 2000MG IV PUSH 15 ML IV SCH; -GLUC10007 PO; -LACTATED RINGER'S 1000ML 1,000 ML IV SCH; -LACTATED RINGER'S 1000ML 500 ML IV SCH; -LACTATED RINGER'S 1000ML IV SCH; +OXYC-57 PO; -ROPIVACAINE 5MG/ML 30 ML 150 MG, BUPIVACAINE 0.5% MPF INJ 30 ML, EpINEphrine HCL INJ 0.... INFIL SCH; -ROPIVACAINE 5MG/ML 30 ML 150 MG, BUPIVACAINE/EPINEPHR 0.5% MPF 30 ML, KETOROLAC TROMETH... INFIL SCH; -TRANEXAMIC ACID INJ 1,000 MG x 1 Bag Preop IV SCH; +WARF2TAB PO
== END | disposition home or self-care (01) ==
LOC: C.LABSPEC 09:03
PROVIDERS: ATTEND Physical Medicine & Rehabilitation Sports Medicine
DX: Z79.01 Long term (current) use of anticoagulants (principal)

== ENCOUNTER → 2018-01-15 | Outpatient (CLI) | payer BC ==
[2018-01-15 10:50] LABS: INR 2.1 (0.9-1.1)
== END | disposition home or self-care (01) ==
LOC: C.LABSPEC 10:06
PROVIDERS: ATTEND Physical Medicine & Rehabilitation Sports Medicine
DX: Z51.81 Encounter for therapeutic drug level monitoring (principal); Z79.01 Long term (current) use of anticoagulants

== ENCOUNTER → 2018-01-18 | Outpatient (CLI) | payer BC ==
[2018-01-18 10:13] LABS: INR 1.4 (0.9-1.1)
== END | disposition home or self-care (01) ==
LOC: C.LABSPEC 09:58
PROVIDERS: ATTEND Physical Medicine & Rehabilitation Sports Medicine
DX: Z51.81 Encounter for therapeutic drug level monitoring (principal); Z79.01 Long term (current) use of anticoagulants

== ENCOUNTER → 2018-01-22 | Outpatient (CLI) | payer BC ==
[2018-01-22 11:15] LABS: INR 1.5 (0.9-1.1)
== END | disposition home or self-care (01) ==
LOC: C.LABSPEC 10:52
PROVIDERS: ATTEND Physical Medicine & Rehabilitation Sports Medicine
DX: Z79.01 Long term (current) use of anticoagulants (principal); Z51.81 Encounter for therapeutic drug level monitoring

== ENCOUNTER → 2018-03-04 | Outpatient (CLI) | payer BC | END | disposition home or self-care (01) | LOC: C.RDSM 14:33 | PROVIDERS: ATTEND Physical Medicine & Rehabilitation Sports Medicine | DX: Q65.89 Other specified congenital deformities of hip (principal); M16.11 Unilateral primary osteoarthritis, right hip; Z96.641 Presence of right artificial hip joint; Z88.0 Allergy status to penicillin ==

== ENCOUNTER → 2018-03-28 | Outpatient (CLI) | payer BC ==
--- NOTE | 2018-03-28 09:56 | DIAGNOSTIC IMAGING REPORT ---
KUB CLINICAL HISTORY: 72 years-old Female presenting with R31.9 [id number]. TECHNIQUE: Single supine view of the abdomen was obtained. COMPARISON: CT from 04/26/2007. FINDINGS: Cholelithiasis may be present. Moderate stool burden noted throughout the colon with a marked stool burden in the right colon. Nonobstructive bowel gas pattern. No gross pneumoperitoneum allowing for supine technique. Allowing for bowel gas and stool, no calcifications to suggest nephrolithiasis. Degenerative changes of the spine. Dextroscoliotic curvature of the lumbar spine centered at L2-3. Total right hip arthroplasty. IMPRESSION: 1. Significant stool burden suggest constipation. This limits evaluation for renal calculi. Noncontrast CT could be obtained if clinically indicated. 2. Cholelithiasis. Electronically signed by: Darrell Gomez M.D. 03/28/2018 9:55 AM Dictated Date/Time: 03/28/2018 9:53 AM
== END | disposition home or self-care (01) ==
LOC: C.RAD1850 09:43
PROVIDERS: ATTEND Internal Medicine
DX: R31.9 Hematuria, unspecified (principal); K80.20 Calculus of gallbladder without cholecystitis without obstruction

== ENCOUNTER 2019-12-05 08:12 | Inpatient (IN) ==
[2019-12-05] MEDS ORDERED: DEXAMETHASONE SOD INJ 4 MG/ML VIAL IV STA (08:54)
[2019-12-05] MEDS ORDERED: ACETAMINOPHEN 500 MG TAB PO STA (08:55)
[2019-12-05] MEDS ORDERED: GABAPENTIN 100 MG CAP PO ONE (08:57)
[2019-12-05] MEDS ORDERED: SODIUM CHLORIDE 0.9% 1000ML 1,000 ML IV SCH (09:00)
--- NOTE | 2019-12-05 09:01 | Emergency Department Note ---
ED Visit Note I saw this patient in conjunction with Dr. Laura, and agree with the impression and assessment as outlined in his documentation. For all pertinent details and findings regarding this patient's care please see his documentation.. . Resident Activity Tracking Resident Involvement: Resident Care Provided Care Provided: Adult ED
--- NOTE | 2019-12-05 09:12 | Emergency Department Note ---
Entered by Louie Lane acting as a scribe for Aj Laura DO History of Present Illness General Chief complaint: Back Injury/Pain Stated complaint: LOWER BACK PAIN Time Seen by Provider: 12/05/19 08:21 Source: patient Limitations: no limitations History of Present Illness Location: back Pain Consistency: + other (worsening) Maximum Pain Intensity: 10 Quality: + sharp and + constant Exacerbated By: + other (bending over) Associated symptoms: + other (numbness, tingling) The patient is a 74 year old female who presents to the Emergency Room with complaints of constant low back pain. The patient states she was in the ED last week and received an MRI. She states her MRI showed significant spinal changes. She notes she saw Dr. Brian's office and was given Gabapentin. She states her pain is worsening. She notes she has sharp pain in her back when she is trying to bend. She states she has been having numbness and tingling. Home Medications Home Medications Medication Instructions Recorded Confirmed Type diltiazem HCl 180 mg capsule,24 180 mg PO DAILY #90 cap 04/16/19 12/05/19 Rx hr,extended release lisinopril 10 mg tablet 10 mg PO DAILY #90 tab 04/16/19 12/05/19 Rx azathioprine 50 mg tablet 50 mg PO DAILY #30 tab 04/17/19 12/05/19 Rx cholecalciferol (vitamin D3) 400 unit PO DAILY 11/28/19 12/05/19 History [Vitamin D3] gabapentin 100 mg PO Q8H PRN #30 cap 11/28/19 12/05/19 Rx multivitamin 1 tab PO DAILY 11/28/19 12/05/19 History oxycodone 5 mg PO Q8H PRN #10 tab 11/28/19 12/05/19 Rx Allergies Allergy/AdvReac Type Severity Reaction Status Date / Time cat dander Allergy Unknown "HAYFEVER" Verified 12/05/19 08:49 dog dander Allergy Unknown "HAYFEVER, Verified 12/05/19 08:49 ASTHMA SYMPTOMS" Penicillins Allergy Unknown HIVES, Verified 12/05/19 08:49 "OCCURED A LONG TIME AGO" doxycycline AdvReac Verified 12/05/19 08:49 pravastatin AdvReac Verified 12/05/19 08:49 rosuvastatin [From Crestor] AdvReac Verified 12/05/19 08:49 warfarin [From Coumadin] AdvReac Verified 12/05/19 08:49 Past Med/Surg History Medical History Anxiety disorder (Acute) Asthma (Acute) Atopic dermatitis (Acute) DJD (degenerative joint disease) of hip (Resolved) Gait disturbance (Acute) Hematuria (Acute) Hyperlipidemia (Acute) Hypertension (Acute) Hyperthyroidism (Acute) Iliotibial band syndrome (Acute) Leg length discrepancy (Acute) Local reaction to bee sting (Resolved) LVH (left ventricular hypertrophy) (Acute) Menopause (Acute) Nephrolithiasis (Acute) Osteoporosis (Acute) Surgical History H/O section History of hip surgery S/P carpal tunnel release Family History Brother Hypertension Mother Hypertension Sister Hypertension Social History Preferred Language: Somali Communication Ability: Effective Visual Impairment: No Limitations Hearing Ability: Normal Commission Broker Required: No marital status: Current Living Situation: Alone current occupational status: retired Feels Safe at Home: Yes Smoking Status: Never smoker Hx Alcohol Use: No Hx Substance Use: No Childhood Exposure to Second-Hand Smoke: Yes Dental Care, Regularly: Yes Physical Activity Frequency: Daily Seatbelt Use: always Sunscreen Use: No Review of Systems See HPI for pertinent positives & negatives. and A total of 10 systems reviewed and were otherwise negative Physical Exam Vital Signs Vital Signs - 24 hr 12/05/19 08:16 12/05/19 10:09 12/05/19 12:00 Temperature 36.9 C Temperature Source Oral Pulse Rate - Lying Pulse Rate 88 Pulse Rate [Right Finger] 76 74 Pulse Rhythm [Right Finger] Regular Regular Pulse Strength [Right Finger] Normal Normal Respiratory Rate 16 18 16 Respiratory Effort / Characteristics Non-Labored Non-Labored Spontaneous Non-Labored Spontaneous Respiratory Depth Normal Normal Normal Respiratory Pattern Regular Agonal Blood Pressure - Lying Blood Pressure - Sitting Blood Pressure 162/91 H Blood Pressure [Right Arm] 148/71 H 169/89 H Blood Pressure Mean 114 Blood Pressure Mean [Right Arm] 96 115 Blood Pressure Position Sitting Blood Pressure Position [Right Arm] Sitting Lying Pulse Oximetry 100 100 97 Oxygen Delivery Method Room Air Room Air Room Air Sepsis Recent Fever Within 48 Hours No Sepsis New/Unexplained Change in Mental Status No Sepsis Action Taken by Nursing No Action Required 12/05/19 13:49 12/05/19 13:52 Temperature Temperature Source Pulse Rate - Lying 90 Pulse Rate Pulse Rate [Right Finger] Pulse Rhythm [Right Finger] Pulse Strength [Right Finger] Respiratory Rate Respiratory Effort / Characteristics Respiratory Depth Respiratory Pattern Blood Pressure - Lying 151/95 H 151/95 H Blood Pressure - Sitting 173/88 H 173/88 H Blood Pressure Blood Pressure [Right Arm] Blood Pressure Mean Blood Pressure Mean [Right Arm] Blood Pressure Position Blood Pressure Position [Right Arm] Pulse Oximetry 100 Oxygen Delivery Method Sepsis Recent Fever Within 48 Hours Sepsis New/Unexplained Change in Mental Status Sepsis Action Taken by Nursing GENERAL: The patient is awake and alert. She is somewhat anxious appearing but overall comfortable. EYES: The conjunctivae are clear. The pupils are round and reactive. EARS, NOSE, MOUTH AND THROAT: The nose is without any evidence of any deformity. Mucous membranes are moist.Tongue is midline NECK: The neck is nontender and supple. RESPIRATORY: Normal respiratory effort is noted. There is no evidence of wheezing rhonchi or rales to auscultation. CARDIOVASCULAR: Regular rate and rhythm noted. There no murmurs rubs or gallops normal S1 normal S2 GASTROINTESTINAL: The abdomen is soft. Bowel sounds are present in all q uadrants. Abdomen is nontender. BACK: There is low lumbar spine tenderness to palpation. Range of motion appears limited secondary to pain but intact. MUSCULOSKELETAL/EXTREMITIES: There is no evidence of gross deformity. Full range of motion is noted in the hips and shoulders. SKIN: There is no obvious evidence of any rash. There are no petechiae, pallor or cyanosis noted. NEUROLOGIC: Patient is awake alert and oriented x3. Patellar tendon reflexes are 2+ bilaterally. Great toe raise is symmetric. Achilles tendon reflexes are diminished but symmetric. Course Course 0836: The patient was evaluated in room B9, and a complete history and physical examination were performed. Administered Medications Sodium Chloride (Nss 1000ml) 1,000 mls @ 100 mls/hr IV .Q10H BRITTANY Stop: 12/05/19 18:59 Last Admin: 12/05/19 09:39 Dose: 100 mls/hr Documented by: [id number] Discontinued Medications Acetaminophen (Tylenol) 1,000 mg PO NOW STA Stop: 12/05/19 08:56 Last Admin: 12/05/19 09:39 Dose: 1,000 mg Documented by: [id number] Dexamethasone (Decadron) 10 mg IV NOW STA Stop: 12/05/19 08:55 Last Admin: 12/05/19 09:39 Dose: 10 mg Documented by: [id number] Gabapentin (Neurontin) 100 mg PO NOW ONE Stop: 12/05/19 08:58 Last Admin: 12/05/19 09:39 Dose: 100 mg Documented by: [id number] Ceftriaxone Sodium (Rocephin) 1,000 mg in 50 mls @ 100 mls/hr IV NOW STA Stop: 12/05/19 14:06 Last Infusion: 12/05/19 15:22 Dose: 0 mls/hr Documented by: [id number] Admin: 12/05/19 14:30 Dose: 100 mls/hr Documented by: [id number] Oxycodone/Acetaminophen (Percocet 5mg/325mg) 1 tab PO NOW STA Stop: 12/05/19 11:31 Last Admin: 12/05/19 11:36 Dose: 1 tab Documented by: [id number] Medical Decision Making Differential Diagnosis Differential diagnoses includes but is not limited to lumbar radiculopathy, muscle strain, fracture, cauda equina, mass, and disc herniation. Medical Records Attestation: I reviewed the patient's medical records. Home Medications Current Medication List: was personally reviewed by me Laboratory Data Attestation: I reviewed the patient's lab results. Result diagrams: 12/05/19 11:47 12/05/19 11:47 Lab Results 12/05/19 12/05/19 12/05/19 Range/Units 11:47 11:47 11:50 WBC 13.88 H (4.8-10.8) K/uL RBC 3.19 L (4.2-5.4) M/uL Hgb 10.3 L (12.0-16.0) g/dL Hct 32.0 L (37-47) % MCV 100.3 H (80-100) fL MCH 32.3 (25-34) pg MCHC 32.2 (32-36) g/dL RDW Std Deviation 52.2 H (36.4-46.3) fL RDW Coeff of Enedelia 14.3 (11.5-14.5) % Plt Count 343 (130-400) K/uL MPV 8.2 (7.4-10.4) fL Immature Gran % (Auto) 0.9 % Neut % (Auto) 94.5 % Lymph % (Auto) 2.1 % Millard % (Auto) 2.3 % Eos % (Auto) 0.1 % Baso % (Auto) 0.1 % Immature Gran # (Auto) 0.12 H (0.00-0.02) K/uL Neut # (Auto) 13.13 H (1.4-6.5) K/uL Lymph # (Auto) 0.29 L (1.2-3.4) K/uL Millard # (Auto) 0.32 (0.11-0.59) K/uL Eos # (Auto) 0.01 (0-0.5) K/uL Baso # (Auto) 0.01 (0-0.2) K/uL Sodium 138 (136-145) mmol/L Potassium 4.7 (3.5-5.1) mmol/L Chloride 105 (98-107) mmol/L Carbon Dioxide 30 (21-32) mmol/L Anion Gap 3.0 (3-11) BUN 19 H (7-18) mg/dl Creatinine 0.65 (0.6-1.2) mg/dl Est Cr Clr Drug Dosing 55.4 ml/min Est GFR ( Amer) 102.1 Est GFR (Non-Af Amer) 88.1 BUN/Creatinine Ratio 28.7 H (10-20) Glucose 111 H (70-99) mg/dl Calcium 8.5 (8.5-10.1) mg/dl Urine Color Yellow Urine Appearance Cloudy A (Clear) Urine pH 7.0 (4.5-7.5) Ur Specific [place] 1.017 (1.000-1.030) Urine Protein Trace H (Negative) Urine Glucose (UA) 1+ H (Negative) Urine Ketones 1+ H (Negative) Urine Blood 2+ H (Negative) Urine Nitrite Positive A (Negative) Urine Bilirubin Negative (Negative) Urine Urobilinogen Negative (Negative) Ur Leukocyte Esterase 3+ H (Negative) Urine WBC (Auto) >30 H (0-5) /hpf Urine RBC (Auto) 5-10 H (0-4) /hpf U Hyaline Cast (Auto) 10-30 H (0-5) /lpf U Epithel Cells (Auto) 5-10 H (0-5) /lpf Urine Bacteria (Auto) 4+ H (Negative) Blood Pressure Blood Pressure Findings: Elevated blood pressure Blood Pressure Disposition: Referred to patients primary care provider STEPHANIE Houser The patient is a 74-year-old female who presented to the emergency department for an evaluation of back pain. The patient appears to have musculoskeletal back pain. She has pain with movement and her pain is significantly improved with any rest and holding still. Saab a week ago with similar complaints. At that time she had an MRI of the back. No surgical findings were noted and she did follow-up with orthopedic spine follow-up. She was started on medications for pain but is only had minimal relief. The patient was also found to have signs of urinary tract infection on urinalysis today she was treated with pain medication as well as IV antibiotics in the emergency department. She was reevaluated multiple times. Her pain was only minimally improved. We discussed her case with the on-call emergency department nurse case management. The patient was referred to [facility] for inpatient physical therapy. We are still awaiting final disposition. The patient was evaluated by OT and PT in the emergency department. Impression & Plan Low back pain, UTI (urinary tract infection) Discharge Plan Visit Data Chief Complaint: Back Injury/Pain Stated Complaint: LOWER BACK PAIN ED Provider: Aj Laura ED Midlevel Provider: Rajan Chaudhari Discharge Problem: Low back pain, UTI (urinary tract infection) Forms Stand Alone Forms: [employer] Prescriptions Prescriptions: No Action lisinopril 10 mg tablet 10 mg PO DAILY Qty: 90 RF: 3 diltiazem HCl 180 mg capsule,extended release 24 hr 180 mg PO DAILY Qty: 90 RF: 3 azathioprine 50 mg tablet 50 mg PO DAILY Qty: 30 RF: 2 multivitamin Tablet 1 tab PO DAILY RF: 0 cholecalciferol (vitamin D3) [Vitamin D3] 10 mcg (400 unit) Tablet 400 unit PO DAILY RF: 0 gabapentin 100 mg capsule 100 mg PO Q8H PRN (Reason: pain) Qty: 30 RF: 0 oxycodone 5 mg tablet 5 mg PO Q8H PRN (Reason: pain) Qty: 10 RF: 0 Discharge Problem: Low back pain Qualifiers: Chronicity: unspecified Back pain laterality: unspecified Sciatica presence: unspecified whether sciatica present Qualified Code(s): M54.5 - Low back pain UTI (urinary tract infection) Qualifiers: Urinary tract infection type: site unspecified Hematuria presence: without hematuria Qualified Code(s): N39.0 - Urinary tract infection, site not specified The scribe's documentation has been prepared under my direction and personally reviewed by me in its entirety. I confirm that the note above accurately reflects all work, treatment, procedures, and medical decision making performed by me.
[2019-12-05] MEDS ORDERED: OXYCODONE/ACETAMINOPHEN 5mg/325mg TAB PO STA (11:30)
[2019-12-05 12:02] LABS: Basophils # (auto) 0.01 K/uL (0-0.2); Basophils % (auto) 0.1 %; Eosinophils # (auto) 0.01 K/uL (0-0.5); Eosinophils % (auto) 0.1 %; Hemoglobin 10.3 g/dL (12.0-16.0); Immature Granulocytes # (auto) 0.12 K/uL (0.00-0.02); Immature Granulocytes % (auto) 0.9 %; Lymphocytes # (auto) 0.29 K/uL (1.2-3.4); Lymphocytes % (auto) 2.1 %; Mean Corpuscular Hemoglobin 32.3 pg (25-34); Mean Corpuscular Hgb Conc 32.2 g/dL (32-36); Mean Corpuscular Volume 100.3 fL (80-100); Mean Platelet Volume 8.2 fL (7.4-10.4); Monocytes # (auto) 0.32 K/uL (0.11-0.59); Monocytes % (auto) 2.3 %; Neutrophils # (auto) 13.13 K/uL (1.4-6.5); Neutrophils % (auto) 94.5 %; Platelet Count 343 K/uL (130-400); RDW Coefficient of Variation 14.3 % (11.5-14.5); RDW Standard Deviation 52.2 fL (36.4-46.3); Red Blood Count 3.19 M/uL (4.2-5.4); White Blood Count 13.88 K/uL (4.8-10.8)
[2019-12-05 12:10] LABS: Appearance Urine Cloudy (Clear); Bacteria Urine Automated 4+ (Negative); Bilirubin Urine Negative (Negative); Blood Urine 2+ (Negative); Color Urine Yellow; Glucose Urine UA 1+ (Negative); Ketones Urine 1+ (Negative); Leukocyte Esterase Urine 3+ (Negative); Nitrite Urine Positive (Negative); Protein Urine Trace (Negative); Specific Gravity Urine 1.017 (1.000-1.030); Urobilinogen Urine Negative (Negative); WBC Urine Automated >30 /hpf (0-5)
[2019-12-05 12:14] LABS: BUN Creatinine Ratio 28.7 (10-20); Calcium 8.5 mg/dl (8.5-10.1); Creatinine Clr Calc Pharmacy 55.4 ml/min; Est GFR (African American) 102.1; Est GFR (Non-African American) 88.1; Potassium 4.7 mmol/L (3.5-5.1)
[2019-12-05] MEDS ORDERED: cefTRIAXone SODIUM 1,000 MG/50 ML BAG IV STA (13:37)
--- NOTE | 2019-12-05 17:08 | History & Physical Report ---
Date of Service December 05, 2019 Assessment & Plan (1) Spinal stenosis: Admit to [facility] on telemetry Vital signs every 4 hours Pain management Monitor electrolytes and replenish Discussed with Dr. Brian orthopedic he will see the patient and make a plan of treatment. Physical and Occupational Therapy DVT prophylaxis SCDs and teds Full code Present on Admission?: Yes (2) UTI (urinary tract infection): Started ceftriaxone in the ER Continue ceftriaxone empirically Follow-up with urine culture Gentle IV fluid hydration Present on Admission?: Yes (3) Lumbar radiculopathy: As the above Present on Admission?: Yes (4) Hypertension: Continue home medicine diltiazem 180 mg p.o. daily, lisinopril 10 mg p.o. daily. Present on Admission?: Yes (5) Hyperlipidemia: Lipid panel pending. Patient is not on statins due to allergic reactions. Present on Admission?: Yes (6) Gait disturbance: Physical and Occupational Therapy Present on Admission?: Yes History of Present Illness Chief Complaint: Lower back pain Primary Care Provider: Neal Perkins MD The patient is a 74 years old female with past medical history of LVH, hypothyroidism, hypertension, hyperlipidemia, anxiety disorder, low back pain who presented to the emergency room with a complaint of constant low back pain. The patient states that she was in the emergency room last week and she had an MRI done. Patient states that her MRI shows significant spinal stenosis. She stated that she saw Dr. Brian and she was given gabapentin. She has scheduled appointment with Dr. Brian in December. Patient states that her pain is worsening and it is unbearable. Patient reports that she has numbness and tingling in lower extremities. Patient reports that she still is able to control her urine and bowels. Patient denies fever, chills, chest pain, shortness of breath, abdominal pain, hematuria, dysuria, syncope or near syncope. Labs are reviewed: WBC is 13.88, hemoglobin 10.3, hematocrit 32, platelets 343, sodium 138, potassium 4.7, chloride 105, carbon dioxide 30, anion gap 3, BUN 19, creatinine 0.65, GFR 88.1, calcium 8.5. Urine is cloudy with trace protein and 2+ blood positive nitrates positive leukocyte esterase over 30 WBCs and epithelial cells 5-10. Lumbar MRI shows: Severe multilevel degenerative changes. Severe multi focal spinal stenosis L4-L5, moderate narrowing of the left neural foramina. Mild to moderate multi-factorial narrowing of the spinal canal at L2-L3 and L3-L4. 9 mm synovial cyst ganglion cyst posterolateral to the thecal sac at S1. The displaces the thecal sac in the left anterolateral fashion. Severe multilevel degenerative disc changes throughout. Urine culture pending. The decision was made to admit patient to [facility] on telemetry for urinary tract infection and lower back pain associated with moderate to severe spinal stenosis associated with tingling and numbness in the lower extremities. Allergies Allergy/AdvReac Type Severity Reaction Status Date / Time cat dander Allergy Unknown "HAYFEVER" Verified 12/05/19 08:49 dog dander Allergy Unknown "HAYFEVER, Verified 12/05/19 08:49 ASTHMA SYMPTOMS" Penicillins Allergy Unknown HIVES, Verified 12/05/19 08:49 "OCCURED A LONG TIME AGO" doxycycline AdvReac Verified 12/05/19 08:49 pravastatin AdvReac Verified 12/05/19 08:49 rosuvastatin [From Crestor] AdvReac Verified 12/05/19 08:49 warfarin [From Coumadin] AdvReac Verified 12/05/19 08:49 Home Medications Home Medications Medication Instructions Recorded Confirmed Type diltiazem HCl 180 mg capsule,24 180 mg PO DAILY #90 cap 04/16/19 12/05/19 Rx hr,extended release lisinopril 10 mg tablet 10 mg PO DAILY #90 tab 04/16/19 12/05/19 Rx azathioprine 50 mg tablet 50 mg PO DAILY #30 tab 04/17/19 12/05/19 Rx cholecalciferol (vitamin D3) 400 unit PO DAILY 11/28/19 12/05/19 History [Vitamin D3] gabapentin 100 mg PO Q8H PRN #30 cap 11/28/19 12/05/19 Rx multivitamin 1 tab PO DAILY 11/28/19 12/05/19 History oxycodone 5 mg PO Q8H PRN #10 tab 11/28/19 12/05/19 Rx Past Med/Surg History Medical History Anxiety disorder (Acute) Asthma (Acute) Atopic dermatitis (Acute) DJD (degenerative joint disease) of hip (Resolved) Gait disturbance (Acute) Hematuria (Acute) Hyperlipidemia (Acute) Hypertension (Acute) Hyperthyroidism (Acute) Iliotibial band syndrome (Acute) Leg length discrepancy (Acute) Local reaction to bee sting (Resolved) LVH (left ventricular hypertrophy) (Acute) Menopause (Acute) Nephrolithiasis (Acute) Osteoporosis (Acute) Surgical History H/O section History of hip surgery S/P carpal tunnel release Family History Brother Hypertension Mother Hypertension Sister Hypertension Social History Preferred Language: Icelandic Communication Ability: Effective Visual Impairment: No Limitations Hearing Ability: Normal Regional Maintenance Manager Required: No Beliefs That Will Affect Care: None marital status: Current Living Situation: Alone current occupational status: retired Other Information That Helps Us Care for You: No Feels Safe at Home: Yes Safety Concerns: Feels Safe At This Time Smoking Status: Never smoker Do You Dip or Chew Tobacco: No ; Hx Alcohol Use: No Hx Substance Use: No Childhood Exposure to Second-Hand Smoke: Yes Dental Care, Regularly: Yes Physical Activity Frequency: Daily Seatbelt Use: always Sunscreen Use: No Review of Systems Review of Systems: All systems reviewed & are unremarkable except as noted in HPI & below Physical Exam Constitutional: WD/WN, vitals as above well developed and + ill appearing Eyes: PERRL, conjunctivae normal, anicteric sclerae ENMT: external ear and nose normal, oropharynx normal Neck: trachea midline, no thyromegaly Respiratory: normal respiratory effort, lungs clear to auscultation Cardiovascular: Heart Sounds: normal S1 and normal S2 Palpation: + palpable S3 Vessels: dorsalis pedis pulses present Gastrointestinal (Abdomen): normal bowel sounds, soft, nontender, no hepatosplenomegaly Musculoskeletal: no cyanosis or clubbing, extremities motor strength 5/5 Skin: no rashes, warm and dry Neurologic: Gait: + shuffling gait Decreased sensation in lower extremities bilaterally and burning neuropathy. Psychiatric: A+Ox3, euthymic affect Lymphatic: no cervical or axillary lymphadenopathy Results & Data Vital Signs (Past 12 Hours) Vital Signs Temp Pulse Pulse Resp BP BP Pulse Ox 12/05/19 16:00 65 16 149/81 H 99 12/05/19 13:52 100 12/05/19 12:00 74 16 169/89 H 97 12/05/19 10:09 76 18 148/71 H 100 12/05/19 08:16 36.9 C 88 16 162/91 H 100 Code Status & VTE Plan Code Status Full code VTE Prophylaxis Plan VTE Prophylaxis will be ordered: Yes PG Care Time/CCT Total # of Minutes Spent Total Time Spent with Patient: Total time spent is greater than 50% in coordination of care (as documented) at patient's floor/unit and/or counseling patient: Coding Level of Care Code 70715 Initial Inpt Care Lvl 3 Diagnoses Spinal stenosis M48.00 UTI (urinary tract infection) N39.0 Hematuria presence: without hematuria Urinary tract infection type: site unspecified Lumbar radiculopathy M54.16 Hypertension I10 Hyperlipidemia E78.5 Gait disturbance R26.9 (1) UTI (urinary tract infection) Hematuria presence: without hematuria Urinary tract infection type: site unspecified Qualified Code(s): N39.0 - Urinary tract infection, site not specified
[2019-12-05] MEDS ORDERED: GABAPENTIN 100 MG CAP PO PRN (18:03)
[2019-12-05] MEDS ORDERED: cefTRIAXone SODIUM 2,000 MG in DEXTROSE 5% 50 ML IV SCH (18:03)
[2019-12-05] MEDS ORDERED: ONDANSETRON INJ 2 MG/ML 2 ML VIAL IV PRN (18:03)
[2019-12-05] MEDS ORDERED: MAGNESIUM HYDROXIDE SUSP 30 ML UDC PO PRN (18:03)
[2019-12-05] MEDS ORDERED: ALUMINUM/MAGNESIUM SUSP 30 ML UDC PO PRN (18:03)
[2019-12-05] MEDS ORDERED: PHENAZOPYRIDINE HCL 100 MG TAB PO PRN (18:03)
[2019-12-05] MEDS ORDERED: ACETAMINOPHEN 325 MG TAB PO PRN (18:03)
[2019-12-05] MEDS ORDERED: POLYETHYLENE (MIRALAX) 17 GM PACK PO PRN (18:03)
[2019-12-05] MEDS: OXYCODONE/ACETAMINOPHEN 5mg/325mg TAB PO PRN (18:42)
[2019-12-05] MEDS: SODIUM CHLORIDE 0.9% 1000ML 1,000 ML IV SCH (19:08)
[2019-12-06] MEDS: OXYCODONE/ACETAMINOPHEN 5mg/325mg TAB PO PRN (00:05)
[2019-12-06] MEDS: OXYCODONE HCL IR 5 MG TAB (IMMEDIATE RELEASE) PO PRN ×3 (01:49→17:04)
[2019-12-06] MEDS: SODIUM CHLORIDE 0.9% 1000ML 1,000 ML IV SCH (07:08)
[2019-12-06] MEDS: lisinopriL 10 MG TAB PO SCH (08:19)
[2019-12-06] MEDS: dilTIAZem ER 180 MG CAPCR PO SCH (08:19)
[2019-12-06] MEDS: GABAPENTIN 100 MG CAP PO SCH ×3 (08:19→23:53)
[2019-12-06] MEDS: MULTIVITAMIN TAB PO SCH (08:20)
[2019-12-06] MEDS: azaTHIOprine 50 MG TAB PO SCH (08:20)
[2019-12-06] MEDS: CHOLECALCIFEROL (VITAMIN D) 400 UNITS TABLET PO SCH (08:20)
[2019-12-06 08:28] LABS: Hematocrit (blood only) 30.9 % (37-47); Hemoglobin 10.1 g/dL (12.0-16.0); Immature Granulocytes # (auto) 0.05 K/uL (0.00-0.02); Immature Granulocytes % (auto) 0.4 %; Mean Corpuscular Hemoglobin 32.3 pg (25-34); Mean Corpuscular Hgb Conc 32.7 g/dL (32-36); Mean Corpuscular Volume 98.7 fL (80-100); Mean Platelet Volume 8.4 fL (7.4-10.4); Monocytes # (auto) 0.55 K/uL (0.11-0.59); Monocytes % (auto) 4.6 %; Neutrophils # (auto) 10.81 K/uL (1.4-6.5); Platelet Count 370 K/uL (130-400); RDW Coefficient of Variation 14.2 % (11.5-14.5); RDW Standard Deviation 51.2 fL (36.4-46.3); Red Blood Count 3.13 M/uL (4.2-5.4); White Blood Count 12.01 K/uL (4.8-10.8)
[2019-12-06 09:04] LABS: Albumin Level 2.1 gm/dl (3.4-5.0); BUN Creatinine Ratio 33.6 (10-20); Calcium 8.4 mg/dl (8.5-10.1); Creatinine Clr Calc Pharmacy 55.4 ml/min; Est GFR (African American) 102.1; Est GFR (Non-African American) 88.1; Potassium 4.2 mmol/L (3.5-5.1)
[2019-12-06 09:07] LABS: Albumin Globulin Ratio 0.5 (0.9-2); Bilirubin,Total 0.3 mg/dl (0.2-1); Globulin 4.4 gm/dl (2.5-4.0); Total Protein 6.5 gm/dl (6.4-8.2)
[2019-12-06 09:49] LABS: Estimated Average Glucose 103 mg/dl; Hemoglobin A1C 5.2 % (4.5-5.6)
--- NOTE | 2019-12-06 10:43 | Orthopedic Consultation ---
Date of Consultation December 06, 2019 Assessment & Plan (1) Neurogenic claudication due to lumbar spinal stenosis: I will discuss with this patient regarding her diagnosis and clinical presentation. This time she could consider surgical intervention. Would require a lumbar decompression and fusion at L4-5 and L5-S1. Risk benefits pros cons and alternatives were outlined in detail. At this point we will have her cleared medically and plan for possible surgery Sunday. As soon as possible to alleviate her neural pressure and begin recovery ambulation. Patient understands and agrees. Present on Admission?: Yes History of Present Illness Reason for Consultation: Back and leg pain Attending Physician: Henrique Hernandez, DO History of Present Illness This is a very pleasant 74-year-old female that presents with a marked decline in status over the past several weeks. She does have evidence of severe spinal stenosis that is affected her ability to stand and ambulate due to significant bilateral leg pain. She has been in the emergency room twice now. We have seen her in the office and were considering a course of epidural injections however her symptom complex has progressed we are now considering surgical intervention. She denies any loss of bowel bladder function. She does have marked decline in ability to stand and ambulate for any length of time secondary to pain. Allergies Allergy/AdvReac Type Severity Reaction Status Date / Time cat dander Allergy Unknown "HAYFEVER" Verified 12/05/19 08:49 dog dander Allergy Unknown "HAYFEVER, Verified 12/05/19 08:49 ASTHMA SYMPTOMS" Penicillins Allergy Unknown HIVES, Verified 12/05/19 08:49 "OCCURED A LONG TIME AGO" doxycycline AdvReac Verified 12/05/19 08:49 pravastatin AdvReac Verified 12/05/19 08:49 rosuvastatin [From Crestor] AdvReac Verified 12/05/19 08:49 warfarin [From Coumadin] AdvReac Verified 12/05/19 08:49 Home Medications Home Medications Medication Instructions Recorded Confirmed Type diltiazem HCl 180 mg capsule,24 180 mg PO DAILY #90 cap 04/16/19 12/05/19 Rx hr,extended release lisinopril 10 mg tablet 10 mg PO DAILY #90 tab 04/16/19 12/05/19 Rx azathioprine 50 mg tablet 50 mg PO DAILY #30 tab 04/17/19 12/05/19 Rx cholecalciferol (vitamin D3) 400 unit PO DAILY 11/28/19 12/05/19 History [Vitamin D3] gabapentin 100 mg PO Q8H PRN #30 cap 11/28/19 12/05/19 Rx multivitamin 1 tab PO DAILY 11/28/19 12/05/19 History oxycodone 5 mg PO Q8H PRN #10 tab 11/28/19 12/05/19 Rx Patient History Medical History Anxiety disorder (Acute) Asthma (Acute) Atopic dermatitis (Acute) DJD (degenerative joint disease) of hip (Resolved) Gait disturbance (Acute) Hematuria (Acute) Hyperlipidemia (Acute) Hypertension (Acute) Hyperthyroidism (Acute) Iliotibial band syndrome (Acute) Leg length discrepancy (Acute) Local reaction to bee sting (Resolved) LVH (left ventricular hypertrophy) (Acute) Menopause (Acute) Nephrolithiasis (Acute) Osteoporosis (Acute) Surgical History H/O section History of hip surgery S/P carpal tunnel release Family History Brother Hypertension Mother Hypertension Sister Hypertension Social History Preferred Language: Dominican Communication Ability: Effective Visual Impairment: No Limitations Hearing Ability: Normal Goring Cutter Required: No Beliefs That Will Affect Care: None marital status: Current Living Situation: Alone current occupational status: retired Other Information That Helps Us Care for You: No Feels Safe at Home: Yes Safety Concerns: Feels Safe At This Time Smoking Status: Never smoker Do You Dip or Chew Tobacco: No ; Hx Alcohol Use: No Hx Substance Use: No Childhood Exposure to Second-Hand Smoke: Yes Dental Care, Regularly: Yes Physical Activity Frequency: Daily Seatbelt Use: always Sunscreen Use: No Physical Exam Physical Exam: On exam in bed she has reasonable strength testing is able to sit up however not capable of prolonged standing and walking secondary to neurogenic claudicatory complaints. Results & Data Vital Signs (Past 12 Hours) Vital Signs Temp Pulse Pulse Resp BP BP Pulse Ox 12/06/19 07:40 36.7 C 63 18 154/76 H 98 12/06/19 04:15 36.9 C 69 20 163/74 H 99 12/06/19 00:11 69
--- NOTE | 2019-12-06 12:17 | Hospitalist Progress Note ---
Date of Service December 06, 2019 Assessment & Plan (1) Spinal stenosis: - Presented with worsening LLE radiculopathy related to lumbar stenosis. - Most recent MRI 11/28 showed severe multilevel changes, severe stenosis at L4- L5 with moderate left neural foramina narrowing and 9 mm cyst at S1. - Dr. Brian consulted, will likely proceed with surgical intervention on Sunday. - EKG pending for pre-op evaluation. - Tylenol, Toradol and Oxycodone prn pain. - Will need PT/OT evaluation post op - may require rehab placement. (2) Lumbar radiculopathy: - As noted above. (3) UTI (urinary tract infection): - U/a positive, UC pending. - Continue Ceftriaxone for empiric coverage. - IV fluids at 80 cc/hr. (4) Hypertension: - Continue home Diltiazem and Lisinopril as prescribed. (5) Hyperlipidemia: - H/o statin intolerance. - Lipid panel showed total chol 180, LDL 126. (6) Gait disturbance: - Related to spinal stenosis. - PT/OT evaluation prior to discharge. (7) Immunosuppression: - Currently on Imuran 50 mg daily -- will need to discuss with patient to determine indication for medication. (8) Anemia: - Borderline macrocytic anemia noted on labs -- unclear etiology. ?Diagnosis of Rheumatoid arthritis, on Imuran at home -- may be related to previous use of methotrexate. - Will continue to monitor H/H daily -- expect levels to trend down post op. - Will need type and screen for 2 units pre op. - Consider B12 and folate levels. (9) DVT prophylaxis: - SCDs; Heparin q12hr, hold on Sunday for procedure. Dispo: Med/surg with tele; plan for surgical intervention on Sunday with Dr. Brian. Subjective Pt. c/o left leg numbness/tingling that occurs only with movement. She also had right calf pain with movement. Denies pain in low back/legs at rest. She has trouble ambulating due to pain, has not been able to travel far distances. Appetite is also very poor due to pain. Is urinating without difficulty, denies dysuria. Regular BMs at home. Denies improvement in symptoms after starting Gabapentin 100 mg TID over the last month. Evaluated by Dr. Brian this morning, plan for surgical intervention likely on Sunday. Review of Systems Review of Systems: All systems reviewed & are unremarkable except as noted in HPI & below Constitutional: + fatigue, + weakness and + anorexia; no fever and no chills Respiratory: no cough, no dyspnea and no dyspnea on exertion Cardiovascular: no chest pain, no palpitations and no edema Gastrointestinal: no abdominal pain, no nausea, no change in bowel habits, no constipation, no diarrhea/loose stools and no fecal incontinence Genitourinary: no difficulty urinating and no decreased urination Musculoskeletal: + back pain and + radicular pain; no joint pain, no swelling and no body aches Integumentary: no non-healing lesions Physical Exam Physical Exam: General: Resting comfortably HEENT: NC/AT; PERRLA with EOMI; [place] conjunctiva, MMM. No erythema of posterior pharynx Neck: Supple and nontender Cardiac: RRR Lungs: CTA bilaterally Abdomen: Bowel normoactive X 4; Nontender to palpation Back: No spinous tenderness Extremities: Warm. No edema present Neuro: No focal weakness; muscle strength +2/5 bilaterally in lower extremities. Skin: No rash Results & Data Vital Signs (Past 12 Hours) Vital Signs Temp Pulse Resp BP BP Pulse Ox 12/06/19 07:40 36.7 C 63 18 154/76 H 98 12/06/19 04:15 36.9 C 69 20 163/74 H 99 Laboratory Results 12/06/19 12/06/19 12/06/19 Range/Units 08:10 08:10 08:10 WBC 12.01 H (4.8-10.8) K/uL RBC 3.13 L (4.2-5.4) M/uL Hgb 10.1 L (12.0-16.0) g/dL Hct 30.9 L (37-47) % MCV 98.7 (80-100) fL MCH 32.3 (25-34) pg MCHC 32.7 (32-36) g/dL RDW Std Deviation 51.2 H (36.4-46.3) fL RDW Coeff of Enedelia 14.2 (11.5-14.5) % Plt Count 370 (130-400) K/uL MPV 8.4 (7.4-10.4) fL Immature Gran % (Auto) 0.4 % Neut % (Auto) 90.0 % Lymph % (Auto) 5.0 % Divide % (Auto) 4.6 % Eos % (Auto) 0.0 % Baso % (Auto) 0.0 % Immature Gran # (Auto) 0.05 H (0.00-0.02) K/uL Neut # (Auto) 10.81 H (1.4-6.5) K/uL Lymph # (Auto) 0.60 L (1.2-3.4) K/uL Divide # (Auto) 0.55 (0.11-0.59) K/uL Eos # (Auto) 0.00 (0-0.5) K/uL Baso # (Auto) 0.00 (0-0.2) K/uL Sodium 137 (136-145) mmol/L Potassium 4.2 (3.5-5.1) mmol/L Chloride 105 (98-107) mmol/L Carbon Dioxide 28 (21-32) mmol/L Anion Gap 4.0 (3-11) BUN 22 H (7-18) mg/dl Creatinine 0.65 (0.6-1.2) mg/dl Est Cr Clr Drug Dosing 55.4 ml/min Est GFR ( Amer) 102.1 Est GFR (Non-Af Amer) 88.1 BUN/Creatinine Ratio 33.6 H (10-20) Glucose 107 H (70-99) mg/dl Estimat Average Glucose 103 mg/dl Hemoglobin A1c 5.2 (4.5-5.6) % Calcium 8.4 L (8.5-10.1) mg/dl Total Bilirubin 0.3 (0.2-1) mg/dl AST 8 L (15-37) U/L ALT 11 L (12-78) U/L Alkaline Phosphatase 65 (45-117) U/L Total Protein 6.5 (6.4-8.2) gm/dl Albumin 2.1 L (3.4-5.0) gm/dl Globulin 4.4 H (2.5-4.0) gm/dl Albumin/Globulin Ratio 0.5 L (0.9-2) Triglycerides 72 (0-150) mg/dl Cholesterol 180 (0-200) mg/dl LDL Cholesterol, Calc 126 mg/dl VLDL Cholesterol, Calc 14 mg/dl HDL Cholesterol 40 mg/dl Cholesterol/HDL Ratio 5 Urine Color Urine Appearance (Clear) Urine pH (4.5-7.5) Ur Specific [place] (1.000-1.030) Urine Protein (Negative) Urine Glucose (UA) (Negative) Urine Ketones (Negative) Urine Blood (Negative) Urine Nitrite (Negative) Urine Bilirubin (Negative) Urine Urobilinogen (Negative) Ur Leukocyte Esterase (Negative) Urine WBC (Auto) (0-5) /hpf Urine RBC (Auto) (0-4) /hpf U Hyaline Cast (Auto) (0-5) /lpf U Epithel Cells (Auto) (0-5) /lpf Urine Bacteria (Auto) (Negative) 12/05/19 Range/Units 11:50 WBC (4.8-10.8) K/uL RBC (4.2-5.4) M/uL Hgb (12.0-16.0) g/dL Hct (37-47) % MCV (80-100) fL MCH (25-34) pg MCHC (32-36) g/dL RDW Std Deviation (36.4-46.3) fL RDW Coeff of Enedelia (11.5-14.5) % Plt Count (130-400) K/uL MPV (7.4-10.4) fL Immature Gran % (Auto) % Neut % (Auto) % Lymph % (Auto) % Divide % (Auto) % Eos % (Auto) % Baso % (Auto) % Immature Gran # (Auto) (0.00-0.02) K/uL Neut # (Auto) (1.4-6.5) K/uL Lymph # (Auto) (1.2-3.4) K/uL Divide # (Auto) (0.11-0.59) K/uL Eos # (Auto) (0-0.5) K/uL Baso # (Auto) (0-0.2) K/uL Sodium (136-145) mmol/L Potassium (3.5-5.1) mmol/L Chloride (98-107) mmol/L Carbon Dioxide (21-32) mmol/L Anion Gap (3-11) BUN (7-18) mg/dl Creatinine (0.6-1.2) mg/dl Est Cr Clr Drug Dosing ml/min Est GFR ( Amer) Est GFR (Non-Af Amer) BUN/Creatinine Ratio (10-20) Glucose (70-99) mg/dl Estimat Average Glucose mg/dl Hemoglobin A1c (4.5-5.6) % Calcium (8.5-10.1) mg/dl Total Bilirubin (0.2-1) mg/dl AST (15-37) U/L ALT (12-78) U/L Alkaline Phosphatase (45-117) U/L Total Protein (6.4-8.2) gm/dl Albumin (3.4-5.0) gm/dl Globulin (2.5-4.0) gm/dl Albumin/Globulin Ratio (0.9-2) Triglycerides (0-150) mg/dl Cholesterol (0-200) mg/dl LDL Cholesterol, Calc mg/dl VLDL Cholesterol, Calc mg/dl HDL Cholesterol mg/dl Cholesterol/HDL Ratio Urine Color Yellow Urine Appearance Cloudy A (Clear) Urine pH 7.0 (4.5-7.5) Ur Specific [place] 1.017 (1.000-1.030) Urine Protein Trace H (Negative) Urine Glucose (UA) 1+ H (Negative) Urine Ketones 1+ H (Negative) Urine Blood 2+ H (Negative) Urine Nitrite Positive A (Negative) Urine Bilirubin Negative (Negative) Urine Urobilinogen Negative (Negative) Ur Leukocyte Esterase 3+ H (Negative) Urine WBC (Auto) >30 H (0-5) /hpf Urine RBC (Auto) 5-10 H (0-4) /hpf U Hyaline Cast (Auto) 10-30 H (0-5) /lpf U Epithel Cells (Auto) 5-10 H (0-5) /lpf Urine Bacteria (Auto) 4+ H (Negative) PG Care Time/CCT Total # of Minutes Spent Total Time Spent with Patient: Total time spent is greater than 50% in coordination of care (as documented) at patient's floor/unit and/or counseling patient: Coding Level of Care Code 25114 Subseq Hosp Care Lvl 3 Diagnoses Spinal stenosis M48.00 Lumbar radiculopathy M54.16 UTI (urinary tract infection) N39.0 Hematuria presence: without hematuria Urinary tract infection type: site unspecified Hypertension I10 Hyperlipidemia E78.5 Gait disturbance R26.9 Immunosuppression D89.9 Anemia D64.9 DVT prophylaxis Z29.9 (1) UTI (urinary tract infection) Hematuria presence: without hematuria Urinary tract infection type: site unspecified Qualified Code(s): N39.0 - Urinary tract infection, site not specified
[2019-12-06] MEDS: HEPARIN SOD 5,000 UNIT/0.5 ML VIAL SQ SCH ×2 (13:31→23:53)
[2019-12-06] MEDS ORDERED: cefTRIAXone SODIUM 2,000 MG in DEXTROSE 5% 50 ML IV SCH (14:00)
[2019-12-06] MEDS: KETOROLAC TROMETHAMINE 15 MG/ML VIAL IV PRN ×2 (14:58→20:48)
--- NOTE | 2019-12-06 20:20 | Electrocardiogram Report ---
Test Reason : Blood Pressure : / mmHG Vent. Rate : 068 BPM Atrial Rate : 068 BPM P-R Int : 156 ms QRS Dur : 090 ms QT Int : 394 ms P-R-T Axes : -39 -09 030 degrees QTc Int : 418 ms Unusual P axis, possible ectopic atrial rhythm with Premature atrial complexes Abnormal ECG When compared with ECG of 14-DEC-2017 09:01, Ectopic atrial rhythm has replaced Sinus rhythm T wave inversion now evident in Anterior leads Confirmed by Rk Moreland ([id number]) on 12/06/2019 8:20:17 PM Referred By: REFERRED SELF Confirmed By:Espinoza Moreland
[2019-12-07] MEDS: OXYCODONE HCL IR 5 MG TAB (IMMEDIATE RELEASE) PO PRN ×3 (00:48→21:40)
[2019-12-07] MEDS: KETOROLAC TROMETHAMINE 15 MG/ML VIAL IV PRN ×2 (05:51→14:59)
[2019-12-07] MEDS: CHOLECALCIFEROL (VITAMIN D) 400 UNITS TABLET PO SCH (07:52)
[2019-12-07] MEDS: GABAPENTIN 100 MG CAP PO SCH ×2 (07:53→15:00)
[2019-12-07] MEDS: MULTIVITAMIN TAB PO SCH ×2 (07:53→08:45)
[2019-12-07] MEDS: azaTHIOprine 50 MG TAB PO SCH (07:53)
[2019-12-07] MEDS: lisinopriL 10 MG TAB PO SCH (07:54)
[2019-12-07] MEDS: dilTIAZem ER 180 MG CAPCR PO SCH (07:54)
[2019-12-07] MEDS: HEPARIN SOD 5,000 UNIT/0.5 ML VIAL SQ SCH (07:55)
[2019-12-07] MEDS: NITROFURANTOIN MONOHYDRATE 100 MG CAP PO SCH ×2 (08:46→20:24)
--- NOTE | 2019-12-07 10:42 | Hospitalist Progress Note ---
Date of Service December 07, 2019 Assessment & Plan (1) Spinal stenosis: - Presented with worsening LLE radiculopathy related to lumbar stenosis. - Most recent MRI 11/28 showed severe multilevel changes, severe stenosis at L4- L5 with moderate left neural foramina narrowing and 9 mm cyst at S1. - Dr. Brian consulted, plan to proceed with surgical intervention on Sunday. - EKG for pre-op testing showed new T wave inversions, Trop was negative; difficult to eval as pt. cannot ambulate well but she was walking on treadmill 3 miles/day ~2 weeks ago, denied cardiac symptoms with prolonged exercise. - Tylenol, Toradol and Oxycodone prn pain. - PT/OT evaluation post op - may require rehab placement. (2) Lumbar radiculopathy: - As noted above. (3) UTI (urinary tract infection): - U/a positive, UC +MSSA. - Convert Ceftriaxone to Macrobid for 5 day course per sensitivities. (4) Hypertension: - Continue home Diltiazem and Lisinopril as prescribed. (5) Hyperlipidemia: - H/o statin intolerance. - Lipid panel showed total chol 180, LDL 126. (6) Gait disturbance: - Related to spinal stenosis. - PT/OT evaluation prior to discharge. (7) Immunosuppression: - On Imuran 50 mg daily due to h/o atopic dermatitis. (8) Anemia: - Borderline macrocytic anemia noted on labs -- unclear etiology. - Continue to monitor H/H -- expect levels to trend down post op. - Consider B12 and folate levels. (9) DVT prophylaxis: - SCDs; Heparin q12hr, hold Sunday for procedure. Dispo: Med/surg with tele; plan for surgical intervention on Sunday with Dr. Milady sabillon. Subjective Pt. reports back pain/radiculopathy is well controlled with pain medications. She is urinating without difficulty, had BMs yesterday. C/o a headache. Pt. was walking 3 miles daily on the treadmill until ~2 weeks ago, denied chest pain or SOB with exercise. She has not been able to walk far distances since developing increased spinal pain. Denies cardiac history leading to increased surgical risk. Pt. did have T wave inversion changes in anterior leads on pre op EKG, Trop was negative. Review of Systems Review of Systems: All systems reviewed & are unremarkable except as noted in HPI & below Constitutional: + fatigue and + weakness; no fever, no chills and no anorexia Respiratory: no cough, no dyspnea and no dyspnea on exertion Cardiovascular: no chest pain, no palpitations and no edema Gastrointestinal: no abdominal pain, no nausea, no vomiting and no constipation Genitourinary: no difficulty urinating Musculoskeletal: + back pain and + radicular pain; no joint pain Integumentary: no non-healing lesions Physical Exam Physical Exam: General: Resting comfortably HEENT: NC/AT; PERRLA with EOMI; [place] conjunctiva, MMM. No erythema of posterior pharynx Neck: Supple and nontender Cardiac: RRR Lungs: CTA bilaterally Abdomen: Bowel normoactive X 4; Nontender to palpation Back: No spinous tenderness Extremities: Warm. No edema present Neuro: No focal weakness; muscle strength +3/5 bilaterally in lower extremities. Skin: No rash Results & Data Vital Signs (Past 12 Hours) Vital Signs Temp Pulse Pulse Resp BP BP Pulse Ox 12/07/19 07:30 37.0 C 63 18 133/73 97 12/07/19 07:24 64 12/07/19 04:50 36.9 C 62 18 123/71 97 12/07/19 00:00 61 12/06/19 23:29 36.9 C 59 L 18 95/52 L 99 Laboratory Results 12/07/19 Range/Units 08:03 Troponin I < 0.015 (0-0.045) ng/ml PG Care Time/CCT Total # of Minutes Spent Total Time Spent with Patient: Total time spent is greater than 50% in coordination of care (as documented) at patient's floor/unit and/or counseling patient: Coding Level of Care Code 62103 Subseq Hosp Care Lvl 2 Diagnoses Spinal stenosis M48.00 Lumbar radiculopathy M54.16 UTI (urinary tract infection) N39.0 Hematuria presence: without hematuria Urinary tract infection type: site unspecified Hypertension I10 Hyperlipidemia E78.5 Gait disturbance R26.9 Immunosuppression D89.9 Anemia D64.9 DVT prophylaxis Z29.9 (1) UTI (urinary tract infection) Hematuria presence: without hematuria Urinary tract infection type: site unspecified Qualified Code(s): N39.0 - Urinary tract infection, site not specified
--- NOTE | 2019-12-07 10:47 | Orthopedic Progress Note ---
Date of Service December 07, 2019 Assessment & Plan (1) Neurogenic claudication due to lumbar spinal stenosis: This time we will make her n.p.o. after midnight plan for OR in the a.m. Present on Admission?: Yes Subjective Patient still struggling with back and bilateral leg pain Physical Exam Physical Exam: Patient alert and oriented neurologically intact Results & Data Vital Signs (Past 12 Hours) Vital Signs Temp Pulse Pulse Resp BP BP Pulse Ox 12/07/19 07:30 37.0 C 63 18 133/73 97 12/07/19 07:24 64 12/07/19 04:50 36.9 C 62 18 123/71 97 12/07/19 00:00 61 12/06/19 23:29 36.9 C 59 L 18 95/52 L 99
[2019-12-08] MEDS: GABAPENTIN 100 MG CAP PO SCH ×4 (00:38→23:29)
[2019-12-08] MEDS: KETOROLAC TROMETHAMINE 15 MG/ML VIAL IV PRN (02:26)
[2019-12-08 06:47] LABS: Hematocrit (blood only) 29.8 % (37-47); Hemoglobin 9.6 g/dL (12.0-16.0); Mean Corpuscular Hemoglobin 32.3 pg (25-34); Mean Corpuscular Hgb Conc 32.2 g/dL (32-36); Mean Corpuscular Volume 100.3 fL (80-100); Mean Platelet Volume 7.9 fL (7.4-10.4); Platelet Count 270 K/uL (130-400); RDW Standard Deviation 51.7 fL (36.4-46.3); Red Blood Count 2.97 M/uL (4.2-5.4)
[2019-12-08 06:56] LABS: Prothrombin Time 9.9 Seconds (9.0-12.0)
[2019-12-08 07:36] LABS: BUN Creatinine Ratio 31.3 (10-20); Calcium 8.4 mg/dl (8.5-10.1); Est GFR (African American) 103.7; Est GFR (Non-African American) 89.5; Potassium 3.9 mmol/L (3.5-5.1)
[2019-12-08] MEDS: OXYCODONE HCL IR 5 MG TAB (IMMEDIATE RELEASE) PO PRN ×2 (08:25→17:31)
[2019-12-08] MEDS: azaTHIOprine 50 MG TAB PO SCH (08:26)
[2019-12-08] MEDS: NITROFURANTOIN MONOHYDRATE 100 MG CAP PO SCH ×2 (08:26→20:50)
[2019-12-08] MEDS: lisinopriL 10 MG TAB PO SCH (08:26)
[2019-12-08] MEDS: dilTIAZem ER 180 MG CAPCR PO SCH (08:27)
[2019-12-08] MEDS: MULTIVITAMIN TAB PO SCH (08:28)
[2019-12-08] MEDS: CHOLECALCIFEROL (VITAMIN D) 400 UNITS TABLET PO SCH (08:28)
--- NOTE | 2019-12-08 10:48 | Anesthesiology Consultation ---
Date of Service December 08, 2019 Assessment & Plan (1) Encounter for pre-operative examination: Chart Review Chart Review: Acceptable Risk for Surgery History Surgery Operation Date: 12/08/19 08:40 Proposed Procedures p L4-L5, L5-S1 Decompression and Fusion - Rufus Brian DO Height/Weight Height: 5 ft Weight: 48.3 kg Allergies Allergy/AdvReac Type Severity Reaction Status Date / Time cat dander Allergy Unknown "HAYFEVER" Verified 12/05/19 08:49 dog dander Allergy Unknown "HAYFEVER, Verified 12/05/19 08:49 ASTHMA SYMPTOMS" Penicillins Allergy Unknown HIVES, Verified 12/05/19 08:49 "OCCURED A LONG TIME AGO" doxycycline AdvReac Verified 12/05/19 08:49 pravastatin AdvReac Verified 12/05/19 08:49 rosuvastatin [From Crestor] AdvReac Verified 12/05/19 08:49 warfarin [From Coumadin] AdvReac Verified 12/05/19 08:49 Medications Home Medications Medication Instructions Recorded Confirmed Last Taken diltiazem HCl 180 mg capsule,24 180 mg PO DAILY #90 cap 04/16/19 12/05/19 11/27/19 hr,extended release lisinopril 10 mg tablet 10 mg PO DAILY #90 tab 04/16/19 12/05/19 11/27/19 azathioprine 50 mg tablet 50 mg PO DAILY #30 tab 04/17/19 12/05/19 11/27/19 cholecalciferol (vitamin D3) 400 unit PO DAILY 11/28/19 12/05/19 11/27/19 [Vitamin D3] gabapentin 100 mg PO Q8H PRN #30 cap 11/28/19 12/05/19 Unknown multivitamin 1 tab PO DAILY 11/28/19 12/05/19 11/27/19 oxycodone 5 mg PO Q8H PRN #10 tab 11/28/19 12/05/19 Unknown Active Medications Generic Name Dose Route Start Last Admin Trade Name Freq PRN Reason Stop Dose Admin Azathioprine 50 mg 12/06/19 09:00 12/08/19 08:26 Imuran PO 01/05/20 08:59 Not Given DAILY BRITTANY Diltiazem HCl 180 mg 12/06/19 09:00 12/08/19 08:27 Tiazac PO 01/05/20 08:59 180 mg DAILY BRITTANY Administration Gabapentin 100 mg 12/06/19 08:00 12/08/19 08:25 Neurontin PO 01/05/20 07:59 100 mg Q8H BRITTANY Administration Heparin Sodium (Porcine) 5,000 units 12/06/19 13:15 12/07/19 07:55 Heparin Sodium (Porcine) SQ 01/05/20 13:14 5,000 units Q12 BRITTANY Administration Ketorolac Tromethamine 15 mg 12/05/19 18:03 12/08/19 02:26 Toradol IV 12/10/19 18:02 15 mg Q6H PRN Administration Pain Protocol Lisinopril 10 mg 12/06/19 09:00 12/08/19 08:26 Zestril PO 01/05/20 08:59 10 mg DAILY BRITTANY Administration Multivitamins 1 tab 12/06/19 09:00 12/08/19 08:28 Multivitamin Tab PO 01/05/20 08:59 Not Given DAILY BRITTANY Nitrofurantoin Macrocrystals 100 mg 12/07/19 09:00 12/08/19 08:26 Macrobid PO 12/12/19 08:59 100 mg BID BRITTANY Administration Oxycodone HCl 5 mg 12/05/19 18:03 12/08/19 08:25 Roxicodone Immediate Rel PO 12/19/19 18:02 5 mg Q8H PRN Administration pain Phenazopyridine HCl 100 mg 12/05/19 18:03 12/07/19 06:06 Pyridium PO 01/04/20 18:02 100 mg TID PRN Administration Pain Vitamin D 400 units 12/06/19 09:00 12/08/19 08:28 Vitamin D3 PO 01/05/20 08:59 Not Given DAILY BRITTANY NPO Date Last Intake of Fluids: 12/08/19 Time Last Intake of Fluids: 00:00 Past Medical History Medical History (Updated 12/08/19 @ 10:52 by Enrike Dixon MD) Anemia Anxiety disorder (Acute) Asthma (Acute) Atopic dermatitis (Acute) DJD (degenerative joint disease) of hip (Resolved) Gait disturbance (Acute) Hematuria (Acute) Hyperlipidemia (Acute) Hypertension (Acute) Hyperthyroidism (Acute) Iliotibial band syndrome (Acute) Leg length discrepancy (Acute) Local reaction to bee sting (Resolved) LVH (left ventricular hypertrophy) (Acute) Menopause (Acute) Nephrolithiasis (Acute) Osteoporosis (Acute) Past Family History Family History Brother Hypertension Mother Hypertension Sister Hypertension Past Surgical History Surgical History H/O section History of hip surgery S/P carpal tunnel release Social History Smoking Status: Never smoker Do You Dip or Chew Tobacco: No Hx Alcohol Use: No Hx Substance Use: No Physical Exam Vital Signs Last Vital Signs Temp 36.9 C 12/08/19 07:08 Pulse 66 12/08/19 09:38 Resp 16 12/08/19 07:08 BP 132/73 12/08/19 07:08 Pulse Ox 95 12/08/19 07:08 Testing Laboratory Results 12/08/19 06:32 12/08/19 06:32 PT 9.9 Seconds (9.0-12.0) 12/08/19 06:32 INR 1.0 (0.9-1.1) 12/08/19 06:32 Hemoglobin A1c 5.2 % (4.5-5.6) 12/06/19 08:10 Urine Color Yellow 12/05/19 11:50 Urine Appearance Cloudy (Clear) A 12/05/19 11:50 Urine pH 7.0 (4.5-7.5) 12/05/19 11:50 Ur Specific [place] 1.017 (1.000-1.030) 12/05/19 11:50 Urine Protein Trace (Negative) H 12/05/19 11:50 Urine Glucose (UA) 1+ (Negative) H 12/05/19 11:50 Urine Ketones 1+ (Negative) H 12/05/19 11:50 Urine Nitrite Positive (Negative) A 12/05/19 11:50 Ur Leukocyte Esterase 3+ (Negative) H 12/05/19 11:50 Urine WBC (Auto) >30 /hpf (0-5) H 12/05/19 11:50 Urine RBC (Auto) 5-10 /hpf (0-4) H 12/05/19 11:50 U Hyaline Cast (Auto) 10-30 /lpf (0-5) H 12/05/19 11:50 U Epithel Cells (Auto) 5-10 /lpf (0-5) H 12/05/19 11:50 Urine Bacteria (Auto) 4+ (Negative) H 12/05/19 11:50 12/05/19 11:50 Urine Culture - Final Urine,Clean Catch Staphylococcus aureus Electrocardiogram Date: 12/06/19 ectopic atrial rhythm 68 PAC's
[2019-12-08] MEDS ORDERED: ROCURONIUM BROMIDE 10 MG/ML 5 ML VIAL ONE (10:56)
[2019-12-08] MEDS ORDERED: GLYCOPYRROLATE 0.2 MG/ML VIAL ONE (10:56)
[2019-12-08] MEDS ORDERED: ONDANSETRON INJ 2 MG/ML 2 ML VIAL ONE (10:56)
[2019-12-08] MEDS ORDERED: PROPOFOL IV EMULSION 10 MG/ML 20 ML VIAL IV ONE (10:56)
[2019-12-08] MEDS ORDERED: LIDOCAINE HCL 2% 2 ML VIAL/AMP(20MG/ML) INFIL ONE (10:56)
[2019-12-08] MEDS ORDERED: NEOSTIGMINE METHYLSULFATE 1 MG/ML 10ML VIAL ONE (10:56)
[2019-12-08] MEDS ORDERED: DEXAMETHASONE SOD INJ 4 MG/ML VIAL ONE (10:56)
[2019-12-08] MEDS ORDERED: MIDAZOLAM HCL 1 MG/ML 2ML VIAL ONE (10:57)
[2019-12-08] MEDS ORDERED: fentaNYL citrate 100 MCG/2 ML VIAL ONE (10:57)
[2019-12-08] MEDS ORDERED: HYDROmorphone INJ 2 MG/ML SYR/VIAL ONE (10:57)
[2019-12-08] MEDS ORDERED: ONDANSETRON INJ 2 MG/ML 2 ML VIAL IV PRN ×2 (11:15→15:22)
[2019-12-08] MEDS ORDERED: ATROPINE SULFATE 0.1 MG/ML 10ML SYR IV PRN (11:15)
[2019-12-08] MEDS ORDERED: HYDROmorphone INJ 1 MG/ML SYRINGE IV PRN ×2 (11:15→15:22)
[2019-12-08] MEDS ORDERED: DiphenhydrAMINE HCL 50 MG/ML VIAL IV PRN (11:15)
--- NOTE | 2019-12-08 11:20 | History & Physical Bridge Note ---
Date of Service December 08, 2019 History & Physical Bridge Note I have examined the patient, reviewed the History & Physical and in the interval since the performance of the History & Physical I have noted the following changes of clinical significance: Plan for lumbar decompression fusion L4-5 L5-S1
[2019-12-08] MEDS ORDERED: BACITRACIN INJ 50,000 UNIT VIAL ONE (11:27)
[2019-12-08] MEDS ORDERED: BUPIVACAINE/EPINEPHRINE 0.5% MPF 1:200,000 10 ML VIAL ONE (11:27)
[2019-12-08] MEDS ORDERED: GENTAMICIN SULFATE 40 MG/ML 2 ML VIAL ONE (11:28)
[2019-12-08] MEDS ORDERED: VANCOMYCIN HCL 1000MG/20ML VIAL ONE (11:29)
[2019-12-08] MEDS ORDERED: LARYING-O-JET KIT (LTA) ONE (11:56)
--- NOTE | 2019-12-08 12:27 | Hospitalist Progress Note ---
Date of Service December 08, 2019 Assessment & Plan (1) Spinal stenosis: - Presented with worsening LLE radiculopathy related to lumbar stenosis. - Most recent MRI 11/28 showed severe multilevel changes, severe stenosis at L4- L5 with moderate left neural foramina narrowing and 9 mm cyst at S1. - Dr. Brian consulted, plan to proceed with surgical intervention today. - EKG for pre-op with minor T wave inversions; she was walking on treadmill 3 miles/day ~2 weeks ago, denies cardiac symptoms with prolonged exercise. - Tylenol, Toradol and Oxycodone prn pain. - PT/OT evaluation post op - will likely require rehab at discharge. (2) Lumbar radiculopathy: - As noted above. (3) UTI (urinary tract infection): - U/a positive, UC +MSSA. - Continue Macrobid for 5 day course per sensitivities. (4) Hypertension: - Continue home Diltiazem and Lisinopril as prescribed. (5) Hyperlipidemia: - H/o statin intolerance. - Lipid panel showed total chol 180, LDL 126. (6) Gait disturbance: - Related to spinal stenosis. - PT/OT evaluation prior to discharge. (7) Immunosuppression: - On Imuran 50 mg daily due to h/o atopic dermatitis. (8) Anemia: - Borderline macrocytic anemia noted on labs -- unclear etiology. - Continue to monitor H/H -- levels will trend down post op, may require transfusion support. (9) DVT prophylaxis: - SCDs; hold pharmacologic ppx for procedure. Dispo: Med/surg with tele; PT/OT evaluation post op, may require rehab placement. Subjective Pt. is doing well post op. She c/o nausea, denies vomiting. Has mild pain post op as expected & loss of appetite. Review of Systems Review of Systems: All systems reviewed & are unremarkable except as noted in HPI & below Constitutional: + fatigue, + weakness and + anorexia; no fever and no chills Respiratory: no cough, no dyspnea, no dyspnea on exertion and no wheezing Cardiovascular: no chest pain, no palpitations and no edema Gastrointestinal: + nausea; no abdominal pain, no vomiting and no constipation Genitourinary: no difficulty urinating Musculoskeletal: + back pain and + radicular pain; no joint pain Integumentary: no non-healing lesions Physical Exam Physical Exam: General: Resting comfortably HEENT: NC/AT; PERRLA with EOMI; [place] conjunctiva, MMM. No erythema of posterior pharynx Neck: Supple and nontender Cardiac: RRR Lungs: CTA bilaterally Abdomen: Bowel normoactive X 4; Nontender to palpation Extremities: Warm. No edema present Neuro: No focal weakness Skin: No rash Results & Data Vital Signs (Past 12 Hours) Vital Signs Temp Pulse Pulse Resp BP BP Pulse Ox 12/08/19 10:27 36.8 C 65 18 139/73 98 12/08/19 09:38 66 12/08/19 07:08 36.9 C 65 16 132/73 95 12/08/19 03:36 36.9 C 64 18 145/71 H 96 12/08/19 00:46 74 Laboratory Results 12/08/19 12/08/19 12/08/19 Range/Units 06:32 06:32 06:32 WBC 5.90 (4.8-10.8) K/uL RBC 2.97 L (4.2-5.4) M/uL Hgb 9.6 L (12.0-16.0) g/dL Hct 29.8 L (37-47) % MCV 100.3 H (80-100) fL MCH 32.3 (25-34) pg MCHC 32.2 (32-36) g/dL RDW Std Deviation 51.7 H (36.4-46.3) fL RDW Coeff of Enedelia 14.0 (11.5-14.5) % Plt Count 270 (130-400) K/uL MPV 7.9 (7.4-10.4) fL PT 9.9 (9.0-12.0) Seconds INR 1.0 (0.9-1.1) Sodium 139 (136-145) mmol/L Potassium 3.9 (3.5-5.1) mmol/L Chloride 104 (98-107) mmol/L Carbon Dioxide 31 (21-32) mmol/L Anion Gap 4.0 (3-11) BUN 19 H (7-18) mg/dl Creatinine 0.62 (0.6-1.2) mg/dl Est Cr Clr Drug Dosing 58.0 ml/min Est GFR ( Amer) 103.7 Est GFR (Non-Af Amer) 89.5 BUN/Creatinine Ratio 31.3 H (10-20) Glucose 95 (70-99) mg/dl Calcium 8.4 L (8.5-10.1) mg/dl Troponin I (0-0.045) ng/ml 12/07/19 Range/Units 12:10 WBC (4.8-10.8) K/uL RBC (4.2-5.4) M/uL Hgb (12.0-16.0) g/dL Hct (37-47) % MCV (80-100) fL MCH (25-34) pg MCHC (32-36) g/dL RDW Std Deviation (36.4-46.3) fL RDW Coeff of [place] (11.5-14.5) % Plt Count (130-400) K/uL MPV (7.4-10.4) fL PT (9.0-12.0) Seconds INR (0.9-1.1) Sodium (136-145) mmol/L Potassium (3.5-5.1) mmol/L Chloride (98-107) mmol/L Carbon Dioxide (21-32) mmol/L Anion Gap (3-11) BUN (7-18) mg/dl Creatinine (0.6-1.2) mg/dl Est Cr Clr Drug Dosing ml/min Est GFR ( Amer) Est GFR (Non-Af Amer) BUN/Creatinine Ratio (10-20) Glucose (70-99) mg/dl Calcium (8.5-10.1) mg/dl Troponin I < 0.015 (0-0.045) ng/ml PG Care Time/CCT Total # of Minutes Spent Total Time Spent with Patient: Total time spent is greater than 50% in coordination of care (as documented) at patient's floor/unit and/or counseling patient: Coding Level of Care Code 21313 Subseq Hosp Care Lvl 2 Diagnoses Spinal stenosis M48.00 Lumbar radiculopathy M54.16 UTI (urinary tract infection) N39.0 Hematuria presence: without hematuria Urinary tract infection type: site unspecified Hypertension I10 Hyperlipidemia E78.5 Gait disturbance R26.9 Immunosuppression D89.9 Anemia D64.9 DVT prophylaxis Z29.9 (1) UTI (urinary tract infection) Hematuria presence: without hematuria Urinary tract infection type: site unspecified Qualified Code(s): N39.0 - Urinary tract infection, site not specified
[2019-12-08] MEDS ORDERED: FLOSEAL HEMOSTATIC MATRIX 10ML TOP ONE (12:30)
[2019-12-08] MEDS ORDERED: CEFAZOLIN 1000MG 1,000 MG/7.5 ML SYR IV ONE (12:30)
[2019-12-08] MEDS ORDERED: CEFAZOLIN 250 MG/ML 1 GM VIAL ONE (12:58)
[2019-12-08] MEDS ORDERED: SODIUM CHLORIDE 0.9% INJ 10 ML VIAL ONE (12:58)
--- NOTE | 2019-12-08 14:07 | Operative Report ---
Post Operative Report Pre & Post Diagnosis Operation Date: 12/08/19 08:40 Pre-Op Diagnosis: Lumbar Spinal Stenosis with Neurogenic Claudication Spondylolisthesis L4-5 Post-Op Diagnosis: Lumbar Spinal Stenosis with Neurogenic Claudication Spondylolisthesis L4-5 I identified the patient and participated in the time-out.: Yes Procedure Operation Date: 12/08/19 08:40 Actual Procedures #1 lumbar decompression with bilateral medial facetectomies and foraminotomies L3-4 L4-5 L5-S1. #2 posterior spinal fusion L4-5 L5-S1. #3 placement posterior instrumentation L4-5 L5-S1. #4 interbody fusion L4-5 L5-S1. #5 placement of peek cage 10 x 22 mm at L4-5 and 11 x 22 mm at L5-S1 peer #6 placement locally harvested morselized autograft in the posterior lateral gutters. #7 placement infuse collagen sponge combined master graft in the posterior lateral gutters and ostial amp and interbody space. Surgeon Rufus Brian DO Topology Professor Clari Bulter Estimated Blood Loss 200 Findings Consistent with Post-Op Diagnosis Specimens None Indications This is a 74-year-old female who presents with a marked decline in status and ability to ambulate secondary to back and leg pain. After failing a course of nonoperative care she is here for surgical intervention. Description of Procedure Patient was met with preop the case discussed all questions were addressed at that point patient was taken back to the operative suite underwent intubation placed in a prone position the Wesley table on top of the Victoriano frame. All bony prominences well-padded eyes inspected to ensure no external pressure placed upon them. This point the lumbar spine was prepped and draped in normal sterile fashion. Sharp dissection with the assistance pericardial performed down to and exposing the lamina and transverse processes of L4-L5 and sacral ala bilaterally. From caudal cephalad fashion complete laminectomy of L5 L4 and partial laminectomy of L3 was performed including medial facetectomies and foraminotomies addressing severe spinal stenosis. Pedicle screws were then placed in L4-L5 and S1 levels bilaterally with assistance of fluoroscopy and by way of a transforaminal approach on the right a complete discectomy of L5-S1 was performed endplates curetted to subcortical bleeding bone and then 11 x 22 mm peek cage filled with osteo-bone graft tapped in position. And then proceeded to L4-5 and at this time a transforaminal approach on the left was performed complete discectomy performed endplates curetted to subcortical being bone and a 10 x 22 mm peek cage filled with osteo-bone graft tapped position. Appropriate sized rods were then placed locked in position bilaterally. The transverse processes of L for L5 and sacral ala burred to subcortical bleeding bone. Infuse collagen sponge master graft and local autograft was placed in the posterior lateral gutters. 15 round KALYN drain inserted. Incision was then closed with 1 Vicryl the fascia 2-0 Vicryl subcutaneously and 4 Monocryl for final skin closure Steri-Strips dressings placed. Patient will continue PACU stable condition. Please note Clari Butler was present at the entire procedure involved the patient positioning complex portions of the surgery and final skin closure. Lastly spinal cord monitoring was utilized that the procedure no changes noted. I attest to the content of the Intraoperative Record and any orders documented therein. Any exceptions are noted below.
--- NOTE | 2019-12-08 14:22 | Fluoroscopy Report ---
[place] lumbar spine 2-3V CLINICAL HISTORY: L4-L5, L5-S1 Decompression and fusion COMPARISON STUDY: Lumbar spine radiographs November 24, 2019. Lumbar spine MRI November 28, 2019. FLUOROSCOPY TIME: 26 seconds. FLUOROSCOPIC IMAGES: 2 FINDINGS: Fluoroscopy was provided for L4-L5 and L5-S1 discectomies with interbody spacer placement. There is a posterior decompression with bilateral pedicle screws at the L4, L5 and S1 levels. IMPRESSION: Fluoroscopy provided for L4-L5 and L5-S1 discectomies, posterior decompression bilateral pedicle screw fusion. ACT 112: Negative or not required by law. Electronically signed by: Rudolph Monae M.D. 12/08/2019 2:21 PM
--- NOTE | 2019-12-08 14:47 | Anesthesiology Progress Note ---
Date of Service December 08, 2019 Anesthesia Post Procedure Vital Signs Vital Signs: Temp Pulse Pulse Pulse Resp BP BP 12/08/19 14:40 63 18 127/64 12/08/19 14:30 60 17 120/67 12/08/19 14:22 37.2 C 68 18 121/62 12/08/19 10:27 36.8 C 65 18 139/73 12/08/19 09:38 66 12/08/19 07:08 36.9 C 65 16 132/73 12/08/19 03:36 36.9 C 64 18 145/71 H 12/08/19 00:46 74 12/07/19 23:18 37.4 C 71 18 138/73 12/07/19 19:58 37.1 C 69 18 151/78 H 12/07/19 16:20 37.1 C 67 16 131/63 12/07/19 15:07 69 Pulse Ox 12/08/19 14:40 100 12/08/19 14:30 100 12/08/19 14:22 100 12/08/19 10:27 98 12/08/19 09:38 12/08/19 07:08 95 12/08/19 03:36 96 12/08/19 00:46 12/07/19 23:18 97 12/07/19 19:58 99 12/07/19 16:20 97 12/07/19 15:07 Pain Intensity Bilateral Lower Back: Pain Intensity: 8 Transfer of Care Handoff Completed per policy Notes Mental Status: alert / awake / arousable Patient Amnestic to Procedure: Yes Nausea / Vomiting: adequately controlled Pain: adequately controlled Airway Patency, RR, SpO2: stable & adequate BP & HR: stable & adequate Hydration State: stable & adequate Anesthetic Complications: no major complications apparent
[2019-12-08] MEDS ORDERED: ACETAMINOPHEN 500 MG TAB PO PRN (15:22)
[2019-12-08] MEDS ORDERED: TRAMADOL HCL 50 MG TABLET PO PRN (15:22)
[2019-12-08] MEDS ORDERED: HYDROmorphone INJ 0.5 MG/0.5 ML SYR IV PRN (15:22)
[2019-12-08] MEDS ORDERED: METOCLOPRAMIDE HCL INJ 5 MG/ML 2 ML VIAL IV PRN (15:22)
[2019-12-08] MEDS ORDERED: ONDANSETRON 4 MG OD TAB PO PRN (15:22)
[2019-12-08] MEDS ORDERED: MAGNESIUM HYDROXIDE SUSP 30 ML UDC PO PRN (15:22)
[2019-12-08] MEDS ORDERED: bisacodyL 10 MG SUPP PR PRN (15:22)
[2019-12-08] MEDS ORDERED: ALUMINUM/MAGNESIUM SUSP 30 ML UDC PO PRN (15:22)
[2019-12-08] MEDS ORDERED: LORazepam 0.5 MG/1 ML VIAL IV PRN (15:22)
[2019-12-08] MEDS ORDERED: LORazepam 0.5 MG TAB PO PRN (15:22)
[2019-12-08] MEDS ORDERED: DO NOT ADMINISTER FLU VACCINE PRN (15:22)
[2019-12-08] MEDS ORDERED: FAMOTIDINE 20 MG TAB PO PRN (15:22)
[2019-12-08] MEDS ORDERED: PROMETHAZINE HCL 12.5 MG in SODIUM CHLORIDE 0.9% 50 ML IV PRN (15:22)
[2019-12-08] MEDS ORDERED: ACETAMINOPHEN 1,000 MG/100 ML VIAL IV PRN (15:22)
[2019-12-08] MEDS ORDERED: SOD PHOSPHATE/SOD BIPHOSPHATE ENEMA 132 ML BTL PR PRN (15:22)
[2019-12-08] MEDS ORDERED: NALOXONE HCL 0.4 MG/1 ML VIAL/CARP IV PRN (15:22)
[2019-12-08] MEDS ORDERED: DO NOT ADMINISTER PNEUMOCOCCAL VACCINE PRN (15:22)
[2019-12-08] MEDS: SODIUM CHLORIDE 0.9% 1000ML 1,000 ML IV SCH (20:05)
[2019-12-08] MEDS: CEFAZOLIN 1000MG 1,000 MG/7.5 ML SYR IV SCH (20:33)
[2019-12-08] MEDS: DOCUSATE SODIUM/SENNA 50/8.6MG TAB PO SCH (20:33)
[2019-12-09] MEDS: SODIUM CHLORIDE 0.9% 1000ML 1,000 ML IV SCH (00:51)
[2019-12-09] MEDS: CEFAZOLIN 1000MG 1,000 MG/7.5 ML SYR IV SCH (04:47)
[2019-12-09] MEDS: POLYETHYLENE (MIRALAX) 17 GM PACK PO SCH ×4 (04:47→23:08)
[2019-12-09] MEDS: OXYCODONE HCL IR 5 MG TAB (IMMEDIATE RELEASE) PO PRN ×3 (04:57→22:23)
[2019-12-09 05:40] LABS: Hematocrit (blood only) 28.2 % (37-47); Hemoglobin 9.1 g/dL (12.0-16.0); Immature Granulocytes # (auto) 0.04 K/uL (0.00-0.02); Immature Granulocytes % (auto) 0.5 %; Lymphocytes # (auto) 0.54 K/uL (1.2-3.4); Lymphocytes % (auto) 6.6 %; Mean Corpuscular Hgb Conc 32.3 g/dL (32-36); Mean Corpuscular Volume 99.3 fL (80-100); Mean Platelet Volume 8.2 fL (7.4-10.4); Monocytes # (auto) 0.29 K/uL (0.11-0.59); Monocytes % (auto) 3.5 %; Neutrophils # (auto) 7.34 K/uL (1.4-6.5); Neutrophils % (auto) 89.4 %; Platelet Count 290 K/uL (130-400); RDW Coefficient of Variation 14.4 % (11.5-14.5); RDW Standard Deviation 52.2 fL (36.4-46.3); Red Blood Count 2.84 M/uL (4.2-5.4); White Blood Count 8.21 K/uL (4.8-10.8)
--- NOTE | 2019-12-09 07:52 | Anesthesiology Progress Note ---
Date of Service December 09, 2019 Anesthesia Post Procedure Vital Signs Vital Signs: Temp Pulse Pulse Pulse Pulse Resp BP 12/09/19 03:14 36.7 C 60 18 12/08/19 23:24 36.6 C 66 18 12/08/19 20:13 36.4 C L 57 L 16 12/08/19 18:23 64 18 12/08/19 17:26 36.8 C 61 16 12/08/19 16:21 37.0 C 68 16 12/08/19 15:52 36.8 C 67 16 12/08/19 15:20 37.0 C 64 16 12/08/19 15:02 37.5 C 61 18 12/08/19 14:50 37.5 C 61 18 12/08/19 14:40 63 18 12/08/19 14:30 60 17 12/08/19 14:22 37.2 C 68 18 12/08/19 10:27 36.8 C 65 18 139/73 12/08/19 09:38 66 BP Pulse Ox 12/09/19 03:14 116/63 95 12/08/19 23:24 107/54 L 98 12/08/19 20:13 101/56 L 98 12/08/19 18:23 109/52 L 96 12/08/19 17:26 106/57 L 96 12/08/19 16:21 122/62 99 12/08/19 15:52 122/68 98 12/08/19 15:20 124/66 95 12/08/19 15:02 128/63 95 12/08/19 14:50 123/62 97 12/08/19 14:40 127/64 100 12/08/19 14:30 120/67 100 12/08/19 14:22 121/62 100 12/08/19 10:27 98 12/08/19 09:38 Pain Intensity Bilateral Lower Back: Pain Intensity: 8 Back: Pain Intensity: 7 Notes Mental Status: alert / awake / arousable and participated in evaluation Nausea / Vomiting: adequately controlled Pain: adequately controlled Airway Patency, RR, SpO2: stable & adequate BP & HR: stable & adequate Hydration State: stable & adequate
[2019-12-09] MEDS: CHOLECALCIFEROL (VITAMIN D) 400 UNITS TABLET PO SCH (08:38)
[2019-12-09] MEDS: NITROFURANTOIN MONOHYDRATE 100 MG CAP PO SCH ×2 (08:38→20:11)
[2019-12-09] MEDS: GABAPENTIN 100 MG CAP PO SCH ×3 (08:39→23:18)
[2019-12-09] MEDS: lisinopriL 10 MG TAB PO SCH (09:08)
[2019-12-09] MEDS: dilTIAZem ER 180 MG CAPCR PO SCH (09:08)
[2019-12-09] MEDS: MULTIVITAMIN TAB PO SCH (09:08)
--- NOTE | 2019-12-09 13:05 | Orthopedic Progress Note ---
Date of Service December 09, 2019 Assessment & Plan (1) Neurogenic claudication due to lumbar spinal stenosis: This time we will continue physical therapy monitor KALYN output anticipate discharge home with home health in the next few days. Present on Admission?: Yes Subjective Back pain controlled leg symptoms improved Physical Exam Physical Exam: Patient is sitting the chair at the bedside is good strength testing. Appears comfortable. Results & Data ([facility]) Vital Signs (Past 12 Hours) Vital Signs Temp Pulse Resp BP Pulse Ox 12/09/19 12:00 36.7 C 76 16 117/66 100 12/09/19 08:12 36.7 C 62 16 117/61 99 12/09/19 03:14 36.7 C 60 18 116/63 95
--- NOTE | 2019-12-09 14:15 | Hospitalist Progress Note ---
Date of Service December 09, 2019 Assessment & Plan (1) Spinal stenosis: - Presented with worsening LLE radiculopathy related to lumbar stenosis. - Most recent MRI 11/28 showed severe multilevel changes, severe stenosis at L4- L5 with moderate left neural foramina narrowing and 9 mm cyst at S1. - Dr. Brian consulted, s/p lumbar procedure on 12/08 --> POD#1. - Pain management per orthopedics. - Holding DVT ppx post op; restart per Dr. Brian. - PT/OT evaluation - can likely be discharged to home over next 48 hours. (2) Lumbar radiculopathy: - As noted above. (3) Acute blood loss anemia: - Hgb is trending down post op as expected. - Will continue to monitor, transfuse hgb <8. (4) UTI (urinary tract infection): - U/a positive, UC +MSSA. - Continue Macrobid for 5 day course per sensitivities. - Franco was removed post op, voiding without difficulty. (5) Hypertension: - Continue home Diltiazem and Lisinopril as prescribed. (6) Hyperlipidemia: - H/o statin intolerance. - Lipid panel showed total chol 180, LDL 126. (7) Gait disturbance: - Related to spinal stenosis. - PT/OT - can likely discharge to home. (8) Immunosuppression: - On Imuran 50 mg daily due to h/o atopic dermatitis. (9) DVT prophylaxis: - SCDs; hold pharmacologic ppx due to recent lumbar procedure. Dispo: Med/surg with tele; discharge likely on Sun or . Subjective Pt. c/o mild nausea and feeling lightheaded at times but is otherwise doing well. Is passing gas, no BM yet. Walked to the restroom, did well with PT. Review of Systems Review of Systems: All systems reviewed & are unremarkable except as noted in HPI & below Constitutional: no fever, no chills, no fatigue, no weakness and no anorexia Respiratory: no cough, no dyspnea, no dyspnea on exertion and no wheezing Cardiovascular: + lightheadedness; no chest pain, no palpitations and no edema Gastrointestinal: + nausea and + constipation; no abdominal pain and no vomiting Genitourinary: no difficulty urinating Musculoskeletal: + back pain; no joint pain Integumentary: no non-healing lesions Physical Exam Physical Exam: General: Resting comfortably HEENT: NC/AT; PERRLA with EOMI; [place] conjunctiva, MMM. No erythema of posterior pharynx Neck: Supple and nontender Cardiac: RRR Lungs: CTA bilaterally Abdomen: Bowel normoactive X 4; Nontender to palpation Extremities: Warm. No edema present Neuro: No focal weakness Skin: No rash; surgical dressing with no drainage noted. Results & Data Vital Signs (Past 12 Hours) Vital Signs Temp Pulse Resp BP Pulse Ox 12/09/19 12:00 36.7 C 76 16 117/66 100 12/09/19 08:12 36.7 C 62 16 117/61 99 12/09/19 03:14 36.7 C 60 18 116/63 95 Laboratory Results 12/09/19 Range/Units 05:22 WBC 8.21 (4.8-10.8) K/uL RBC 2.84 L (4.2-5.4) M/uL Hgb 9.1 L (12.0-16.0) g/dL Hct 28.2 L (37-47) % MCV 99.3 (80-100) fL MCH 32.0 (25-34) pg MCHC 32.3 (32-36) g/dL RDW Std Deviation 52.2 H (36.4-46.3) fL RDW Coeff of Enedelia 14.4 (11.5-14.5) % Plt Count 290 (130-400) K/uL MPV 8.2 (7.4-10.4) fL Immature Gran % (Auto) 0.5 % Neut % (Auto) 89.4 % Lymph % (Auto) 6.6 % Owen % (Auto) 3.5 % Eos % (Auto) 0.0 % Baso % (Auto) 0.0 % Immature Gran # (Auto) 0.04 H (0.00-0.02) K/uL Neut # (Auto) 7.34 H (1.4-6.5) K/uL Lymph # (Auto) 0.54 L (1.2-3.4) K/uL Owen # (Auto) 0.29 (0.11-0.59) K/uL Eos # (Auto) 0.00 (0-0.5) K/uL Baso # (Auto) 0.00 (0-0.2) K/uL PG Care Time/CCT Total # of Minutes Spent Total Time Spent with Patient: Total time spent is greater than 50% in coord ination of care (as documented) at patient's floor/unit and/or counseling patient: Coding Level of Care Code 49244 Subseq Hosp Care Lvl 2 Diagnoses Spinal stenosis M48.00 Lumbar radiculopathy M54.16 Acute blood loss anemia D62 UTI (urinary tract infection) N39.0 Hematuria presence: without hematuria Urinary tract infection type: site unspecified Hypertension I10 Hyperlipidemia E78.5 Gait disturbance R26.9 Immunosuppression D89.9 DVT prophylaxis Z29.9 (1) UTI (urinary tract infection) Hematuria presence: without hematuria Urinary tract infection type: site unspecified Qualified Code(s): N39.0 - Urinary tract infection, site not specified
[2019-12-09] MEDS: DOCUSATE SODIUM/SENNA 50/8.6MG TAB PO SCH (20:11)
[2019-12-10] MEDS: POLYETHYLENE (MIRALAX) 17 GM PACK PO SCH ×3 (05:28→18:56)
[2019-12-10 06:15] LABS: Hematocrit (blood only) 27.8 % (37-47); Hemoglobin 8.9 g/dL (12.0-16.0); Mean Corpuscular Hemoglobin 32.5 pg (25-34); Mean Corpuscular Volume 101.5 fL (80-100); Mean Platelet Volume 8.1 fL (7.4-10.4); Platelet Count 298 K/uL (130-400); RDW Coefficient of Variation 14.8 % (11.5-14.5); RDW Standard Deviation 53.7 fL (36.4-46.3); Red Blood Count 2.74 M/uL (4.2-5.4); White Blood Count 7.23 K/uL (4.8-10.8)
[2019-12-10 06:40] LABS: BUN Creatinine Ratio 38.3 (10-20); Calcium 8.4 mg/dl (8.5-10.1); Est GFR (African American) 96.3; Est GFR (Non-African American) 83.1; Potassium 4.2 mmol/L (3.5-5.1)
[2019-12-10] MEDS: OXYCODONE HCL IR 5 MG TAB (IMMEDIATE RELEASE) PO PRN ×2 (07:31→19:03)
[2019-12-10] MEDS: GABAPENTIN 100 MG CAP PO SCH ×2 (07:33→16:30)
[2019-12-10] MEDS: dilTIAZem ER 180 MG CAPCR PO SCH (09:00)
[2019-12-10] MEDS: NITROFURANTOIN MONOHYDRATE 100 MG CAP PO SCH ×2 (09:00→21:44)
[2019-12-10] MEDS: CHOLECALCIFEROL (VITAMIN D) 400 UNITS TABLET PO SCH (09:01)
[2019-12-10] MEDS: lisinopriL 10 MG TAB PO SCH (09:01)
[2019-12-10] MEDS: MULTIVITAMIN TAB PO SCH (09:02)
[2019-12-10] MEDS: SODIUM CHLORIDE 0.9% 1000ML 500 ML IV ONE ×2 (10:30→11:09)
--- NOTE | 2019-12-10 13:18 | Orthopedic Progress Note ---
Date of Service December 10, 2019 Assessment & Plan (1) Neurogenic claudication due to lumbar spinal stenosis: This time we will continue physical therapy monitor KALYN output hopefully discharge home tomorrow. Present on Admission?: Yes Subjective Back pain controlled leg symptoms markedly improved. Physical Exam Physical Exam: Patient is good strength testing appears comfortable. Results & Data ([facility]) Vital Signs (Past 12 Hours) Vital Signs Temp Pulse Resp BP Pulse Ox 12/10/19 07:27 37.1 C 75 16 128/73 98
--- NOTE | 2019-12-10 17:24 | Hospitalist Progress Note ---
Date of Service December 10, 2019 Assessment & Plan (1) Spinal stenosis: - Presented with worsening LLE radiculopathy related to lumbar stenosis. - Most recent MRI 11/28 showed severe multilevel changes, severe stenosis at L4- L5 with moderate left neural foramina narrowing and 9 mm cyst at S1. - Dr. Brian consulted, s/p lumbar procedure on 12/08 --> POD#2. - Holding DVT ppx post op. - PT/OT evaluation - discharge to home on . (2) Lumbar radiculopathy: - As noted above. (3) Acute blood loss anemia: - Hgb is below baseline as expected post op. - Transfuse hgb <8; monitor CBC daily. (4) UTI (urinary tract infection): - U/a positive, UC +MSSA. - Continue Macrobid for 5 day course per sensitivities. - Franco was removed post op, no evidence of urinary retention. (5) Hypertension: - Continue home Diltiazem and Lisinopril as prescribed. (6) Hyperlipidemia: - H/o statin intolerance. - Lipid panel showed total chol 180, LDL 126. (7) Gait disturbance: - Related to spinal stenosis. - PT/OT - discharge to home. (8) Immunosuppression: - On Imuran 50 mg daily due to h/o atopic dermatitis. (9) DVT prophylaxis: - SCDs; holding pharmacologic ppx due to recent lumbar procedure. Dispo: Med/surg with tele; discharge likely on . Subjective Pt. is doing well -- back pain is well controlled. Is passing gas, no BM yet. Is urinating, no retention noted. Eating/drinking. Review of Systems Review of Systems: All systems reviewed & are unremarkable except as noted in HPI & below Constitutional: no fever, no chills, no fatigue and no weakness Respiratory: no cough, no dyspnea and no dyspnea on exertion Cardiovascular: no chest pain, no palpitations and no edema Gastrointestinal: + constipation; no abdominal pain, no nausea and no vomiting Genitourinary: no difficulty urinating Musculoskeletal: + back pain; no joint pain Integumentary: no non-healing lesions Physical Exam Physical Exam: General: Resting comfortably HEENT: NC/AT; PERRLA with EOMI; [place] conjunctiva, MMM. No erythema of posterior pharynx Neck: Supple and nontender Cardiac: RRR Lungs: CTA bilaterally Abdomen: Bowel normoactive X 4; Nontender to palpation Extremities: Warm. No edema present Neuro: No focal weakness Skin: No rash Results & Data Vital Signs (Past 12 Hours) Vital Signs Temp Pulse Resp BP Pulse Ox 12/10/19 15:03 37.1 C 78 16 123/70 97 12/10/19 07:27 37.1 C 75 16 128/73 98 Laboratory Results 12/10/19 12/10/19 Range/Units 05:53 05:53 WBC 7.23 (4.8-10.8) K/uL RBC 2.74 L (4.2-5.4) M/uL Hgb 8.9 L (12.0-16.0) g/dL Hct 27.8 L (37-47) % MCV 101.5 H (80-100) fL MCH 32.5 (25-34) pg MCHC 32.0 (32-36) g/dL RDW Std Deviation 53.7 H (36.4-46.3) fL RDW Coeff of Enedelia 14.8 H (11.5-14.5) % Plt Count 298 (130-400) K/uL MPV 8.1 (7.4-10.4) fL Sodium 134 L (136-145) mmol/L Potassium 4.2 (3.5-5.1) mmol/L Chloride 101 (98-107) mmol/L Carbon Dioxide 31 (21-32) mmol/L Anion Gap 2.0 L (3-11) BUN 28 H (7-18) mg/dl Creatinine 0.72 (0.6-1.2) mg/dl Est Cr Clr Drug Dosing 50.0 ml/min Est GFR ( Amer) 96.3 Est GFR (Non-Af Amer) 83.1 BUN/Creatinine Ratio 38.3 H (10-20) Glucose 104 H (70-99) mg/dl Calcium 8.4 L (8.5-10.1) mg/dl PG Care Time/CCT Total # of Minutes Spent Total Time Spent with Patient: Total time spent is greater than 50% in coordination of care (as documented) at patient's floor/unit and/or counseling patient: Coding Level of Care Code 17913 Subseq Hosp Care Lvl 2 Diagnoses Spinal stenosis M48.00 Lumbar radiculopathy M54.16 Acute blood loss anemia D62 UTI (urinary tract infection) N39.0 Hematuria presence: without hematuria Urinary tract infection type: site unspecified Hypertension I10 Hyperlipidemia E78.5 Gait disturbance R26.9 Immunosuppression D89.9 DVT prophylaxis Z29.9 (1) UTI (urinary tract infection) Hematuria presence: without hematuria Urinary tract infection type: site unspecified Qualified Code(s): N39.0 - Urinary tract infection, site not specified
[2019-12-10] MEDS: DOCUSATE SODIUM/SENNA 50/8.6MG TAB PO SCH (21:44)
[2019-12-11] MEDS: GABAPENTIN 100 MG CAP PO SCH ×2 (00:22→07:53)
[2019-12-11 06:28] LABS: Hematocrit (blood only) 26.7 % (37-47); Hemoglobin 8.7 g/dL (12.0-16.0); Mean Corpuscular Hemoglobin 32.6 pg (25-34); Mean Corpuscular Hgb Conc 32.6 g/dL (32-36); Platelet Count 226 K/uL (130-400); RDW Coefficient of Variation 14.9 % (11.5-14.5); RDW Standard Deviation 53.9 fL (36.4-46.3); Red Blood Count 2.67 M/uL (4.2-5.4); White Blood Count 6.05 K/uL (4.8-10.8)
[2019-12-11 07:22] LABS: BUN Creatinine Ratio 27.6 (10-20); Calcium 8.4 mg/dl (8.5-10.1); Creatinine Clr Calc Pharmacy 57.1 ml/min; Est GFR (African American) 103.1; Potassium 3.8 mmol/L (3.5-5.1)
[2019-12-11] MEDS: OXYCODONE HCL IR 5 MG TAB (IMMEDIATE RELEASE) PO PRN (07:53)
[2019-12-11] MEDS: NITROFURANTOIN MONOHYDRATE 100 MG CAP PO SCH (07:53)
[2019-12-11] MEDS: lisinopriL 10 MG TAB PO SCH (07:54)
[2019-12-11] MEDS: MULTIVITAMIN TAB PO SCH (07:54)
[2019-12-11] MEDS: CHOLECALCIFEROL (VITAMIN D) 400 UNITS TABLET PO SCH (07:54)
[2019-12-11] MEDS: dilTIAZem ER 180 MG CAPCR PO SCH (07:54)
--- NOTE | 2019-12-11 08:48 | Orthopedic Progress Note ---
Date of Service December 11, 2019 Assessment & Plan (1) Neurogenic claudication due to lumbar spinal stenosis: At this time will allow her to discharge home today. Discharge orders instructions from the chart for further review. Present on Admission?: Yes Subjective Back pain is markedly improved leg symptoms improved Physical Exam Physical Exam: Patient is seen at the bedside is good strength testing peers comfortable. Results & Data ([facility]) Vital Signs (Past 12 Hours) Vital Signs Temp Pulse Pulse Resp BP Pulse Ox 12/11/19 07:36 36.9 C 83 16 115/69 98 12/11/19 00:23 100/64 12/10/19 23:05 37.3 C 70 16 91/50 L 97
--- NOTE | 2019-12-11 13:56 | Discharge Summary ---
Date of Service December 11, 2019 Admission HPI Per Admitting Provider The patient is a 74 years old female with past medical history of LVH, hypothyroidism, hypertension, hyperlipidemia, anxiety disorder, low back pain who presented to the emergency room with a complaint of constant low back pain. The patient states that she was in the emergency room last week and she had an MRI done. Patient states that her MRI shows significant spinal stenosis. She stated that she saw Dr. Brian and she was given gabapentin. She has scheduled appointment with Dr. Brian in December. Patient states that her pain is worsening and it is unbearable. Patient reports that she has numbness and tingling in lower extremities. Patient reports that she still is able to control her urine and bowels. Patient denies fever, chills, chest pain, shortness of breath, abdominal pain, hematuria, dysuria, syncope or near syncope. Labs are reviewed: WBC is 13.88, hemoglobin 10.3, hematocrit 32, platelets 343, sodium 138, potassium 4.7, chloride 105, carbon dioxide 30, anion gap 3, BUN 19, creatinine 0.65, GFR 88.1, calcium 8.5. Urine is cloudy with trace protein and 2+ blood positive nitrates positive leukocyte esterase over 30 WBCs and epithelial cells 5-10. Lumbar MRI shows: Severe multilevel degenerative changes. Severe multi focal spinal stenosis L4-L5, moderate narrowing of the left neural foramina. Mild to moderate multi-factorial narrowing of the spinal canal at L2-L3 and L3-L4. 9 mm synovial cyst ganglion cyst posterolateral to the thecal sac at S1. The displaces the thecal sac in the left anterolateral fashion. Severe multilevel degenerative disc changes throughout. Urine culture pending. The decision was made to admit patient to [facility] on telemetry for urinary tract infection and lower back pain associated with moderate to severe spinal stenosis associated with tingling and numbness in the lower extremities. Admission Exam Per Admitting Provider Constitutional: WD/WN, vitals as above well developed and + ill appearing Eyes: PERRL, conjunctivae normal, anicteric sclerae ENMT: external ear and nose normal, oropharynx normal Neck: trachea midline, no thyromegaly Respiratory: normal respiratory effort, lungs clear to auscultation Cardiovascular: Heart Sounds: normal S1 and normal S2 Palpation: + palpable S3 Vessels: dorsalis pedis pulses present Gastrointestinal (Abdomen): normal bowel sounds, soft, nontender, no hepatosplenomegaly Musculoskeletal: no cyanosis or clubbing, extremities motor strength 5/5 Skin: no rashes, warm and dry Neurologic: Gait: + shuffling gait Decreased sensation in lower extremities bilaterally and burning neuropathy. Psychiatric: A+Ox3, euthymic affect Lymphatic: no cervical or axillary lymphadenopathy Principal Diagnosis Spinal stenosis Discharge Exam General: Resting comfortably HEENT: NC/AT; PERRLA with EOMI; [place] conjunctiva, MMM. No erythema of posterior pharynx Neck: Supple and nontender Cardiac: RRR Lungs: CTA bilaterally Abdomen: Bowel normoactive X 4; Nontender to palpation Extremities: Warm. No edema present Neuro: No focal weakness Skin: No rash Discharge Data Allergies Allergy/AdvReac Type Severity Reaction Status Date / Time cat dander Allergy Unknown "HAYFEVER" Verified 12/05/19 08:49 dog dander Allergy Unknown "HAYFEVER, Verified 12/05/19 08:49 ASTHMA SYMPTOMS" Penicillins Allergy Unknown HIVES, Verified 12/05/19 08:49 "OCCURED A LONG TIME AGO" doxycycline AdvReac Verified 12/05/19 08:49 pravastatin AdvReac Verified 12/05/19 08:49 rosuvastatin [From Crestor] AdvReac Verified 12/05/19 08:49 warfarin [From Coumadin] AdvReac Verified 12/05/19 08:49 Consultations 12/05/19 16:34 ED Decision to Admit Stat 12/05/19 18:03 Consult General Surgery Routine 12/08/19 15:22 Consult Case Management - Discharge Planning Routine Procedures Performed Operation Date: 12/08/19 08:40 Actual Procedures p L4-L5, L5-S1 Decompression and Fusion with Interbody, Spinal Cord Monitoring(Not Applicable) - Rufus Brian, Ordered Studies 12/08/19 07:00 FL fluoroscopy <1hr Routine FL lumbar spine 2-3V Routine Hospital Course (1) Spinal stenosis: Presented with worsening LLE radiculopathy related to lumbar stenosis. Most recent MRI 11/28 showed severe multilevel changes, severe stenosis at L4-L5 with moderate left neural foramina narrowing and 9 mm cyst at S1. Dr. Brian consulted, s/p lumbar procedure on 12/08. Held DVT ppx post op. PT/OT evaluation - discharge to home today. (2) Lumbar radiculopathy: As noted above. (3) Acute blood loss anemia: Hgb is below baseline as expected post op. Transfuse hgb <8; did not require transfusion support. (4) UTI (urinary tract infection): U/a positive, UC +MSSA. Continued Macrobid for 5 day course per sensitivities. Franco was removed post op, no evidence of urinary retention. (5) Hypertension: Continued home Diltiazem and Lisinopril as prescribed. (6) Hyperlipidemia: H/o statin intolerance. Lipid panel showed total chol 180, LDL 126. (7) Gait disturbance: Related to spinal stenosis. PT/OT - discharged to home. (8) Immunosuppression: On Imuran 50 mg daily due to h/o atopic dermatitis. (9) DVT prophylaxis: SCDs; held pharmacologic ppx due to recent lumbar procedure. Discharged to home on 12/11/19. Total Time Total Time Spent Total Time Spent (In Minutes): >30 minutes Total Time Includes: Examination of the Patient, Discharge Planning, Medication Reconciliation, Communication With Other Providers and Other Discharge Plan Discharge Items Patient Disposition: Home - Home Health Services Reason For Visit: LOWER BACK PAIN Discharge Diagnosis: Lumbar spinal stenosis with neurogenic claudication Condition on Discharge: Good Activity: As commented below Non-emergency contact: Primary Care Provider and Surgeon Call non-emergency contact if: you have any medication questions, your symptoms worsen and you have a fever Follow-up/Referrals: Neal Ward MD [Primary Care Provider] - Diet: Heart Healthy Addtl Attending Provider Instructions: ACTIVITY RECOMMENDATIONS: SELF CARE INSTRUCTIONS AFTER THORACIC/LUMBAR FUSIONS 1. You may walk to your tolerance. It is good exercise for your legs and back. Expect some back and intermittent leg aches and pains. 2. You may perform "counter-top" level activities (make a sandwich, kannan with a project, etc.). 3. No bending or lifting of more than 10 pounds or back twisting of any nature (roll like a log when turning in bed). 4. You may ride in a car for 20-30 minutes at a time. No driving until after your first visit with your doctor. 5. Frequent changes of position and restricting sitting to 30 minutes at a time will help limit the amount of back spasms and stiffness you may experience. 6. You may discontinue the use of ambulatory aids (cane, crutches, etc.) once your strength and confidence allow. 7. You may material combiner the shower and let water strike your incision when you arrive home at least once daily. Do not take a tub bath, sit in a hot tub or go into a swimming pool until after your first recheck in the office. SPECIAL CARE INSTRUCTIONS: VERY IMPORTANT TO READ AND REVIEW A. Your surgical incision has been closed with a cosmetic suture under the skin that will dissolve in about 6 weeks. In 14 days, you can use a pair of clean scissors and cut the suture that is left outside of the skin at the ends of your incision. 1. The small skin tapes can be removed 7 days after surgery if they have not fallen off by that point. 2. You may keep the wound open to air as much as possible to promote healing after post-op day number 5 unless told otherwise by your doctor. 3. If you think the wound looks like it is becoming infected (redness or worsening drainage) and/or you are experiencing fever, chill or worsening back pain and muscle spasms, contact the office so that we may evaluate you as soon as possible. B. Complications are uncommon, but please contact us if you have any signs or symptoms of: 1. wound infection (fever higher than 102.5 degrees F, redness, separation of wound, drainage, or increasing pain from the incision) 2. blood clots in legs (pain, swelling, redness and warmth in legs) 3. urinary tract infection (fever higher than 102.5 degrees F, burning upon urination or increased frequency of urination) 4. nerve problems (inability to walk on your toes or heels, numbness, loss of bowel or bladder control) 5. any other symptoms that concern you C. Please call the office at if you have any concerns or questions about your operation or recovery. D. No smoking! Smoking drastically decreases the chance of a solid fusion. E. Do not take any anti-inflammatory medications (Indocin, Advil, Motrin, Aspirin, Naprosyn, etc.) as these may inhibit the chance of a solid fusion. Tylenol is okay to take for pain. MANAGING PAIN AFTER SPINAL SURGERY 1. Narcotic medication is intended for short-term use and will be provided for surgical pain. Surgical pain usually lasts for a period of 4-6 weeks. Narcotic medication includes Percocet, Vicodin, Darvocet, Tylenol #3 or Lortab. 2. Longer-term pain is more appropriately treated with non-narcotic medication such as Tylenol ES. 3. Muscle spasm is not appropriately treated with narcotics. Muscle relaxers such as Soma, Flexeril or Skelaxin can be used along with Tylenol ES. 4. Remember that we all live with some "aches and pains". This is not unusual or uncommon after an injury or as we get older. a. Back pain is expected and may include muscle spasms for 4 to 6 weeks after surgery. The pain should gradually improve. If the pain worsens for no apparent reason, please contact the office. b. Intermittent leg pain may also be experienced and should not be concerned about unless it worsens for no apparent reason. If so, please contact the office. 5. We will provide appropriate medication within the normal guidelines of their prescribed use. We will also be very cautious and aware of potential abuse and extended duration of patients' medication needs. a. Pain medications are for your comfort and to assist with sleep and rest so that the tissue can heal. They are not provided in order to return to normal activity and should not be used through the day. To do so or worsening pain at night can result from ongoing tissue damage and development of tolerance to the prescribed medicine. 6. Please allow 2-3 days to process refills. Prescriptions will not be mailed but must be picked up at the office. FOLLOW UP VISIT: Keep your scheduled follow-up appointment. Any questions, please call the office at . Pending Studies at Discharge: No Stand-Alone Forms: My [facility] Medications and DC Order Prescriptions: New tramadol 50 mg tablet 50 mg PO Q6H PRN (Reason: pain, moderate) Qty: 30 RF: 0 oxycodone 5 mg tablet 5 mg PO Q6H PRN (Reason: pain, severe) Qty: 30 RF: 0 nitrofurantoin monohyd/m-cryst [Macrobid] 100 mg capsule 100 mg PO BID Qty: 3 RF: 0 Continued lisinopril 10 mg tablet 10 mg PO DAILY Qty: 90 RF: 3 diltiazem HCl 180 mg capsule,extended release 24 hr 180 mg PO DAILY Qty: 90 RF: 3 azathioprine 50 mg tablet 50 mg PO DAILY Qty: 30 RF: 2 multivitamin Tablet 1 tab PO DAILY RF: 0 cholecalciferol (vitamin D3) [Vitamin D3] 10 mcg (400 unit) Tablet 400 unit PO DAILY RF: 0 gabapentin 100 mg capsule 100 mg PO Q8H PRN (Reason: pain) Qty: 30 RF: 0 Discontinued oxycodone 5 mg tablet 5 mg PO Q8H PRN (Reason: pain) Qty: 10 RF: 0 Discharge Orders: Discharge Order (Routine); Ordered 12/11/19 Ordered By: Rufus Brian Admission Data Admit Date/Time: 12/05/19 17:07 Attending Provider: Aaron Mena Admit Provider: Terrence Alfonso Primary Care Provider: Neal Ward V. Other Providers: [facility] ; Terrence Alfonso ; Rufus Brian Other Interventions: Discharge Summary Assessment (RN) Last Done: 12/11/19 10:53 DC Date/Time DO NOT enter until pt leaves facility: 12/11/19 11:43 Coding Level of Care Code D/C Day Management >30 mins Diagnoses Spinal stenosis M48.00 Lumbar radiculopathy M54.16 Acute blood loss anemia D62 UTI (urinary tract infection) N39.0 Hematuria presence: without hematuria Urinary tract infection type: site unspecified Hypertension I10 Hyperlipidemia E78.5 Gait disturbance R26.9 Immunosuppression D89.9 DVT prophylaxis Z29.9
== END 2019-12-11 11:43 | disposition home health service (06) | DRG 454 ==
LOC: ED 08:12 → SUATTDRO 17:07 → 2N 17:07 → 3E 12-08 15:33

== ENCOUNTER 2020-01-28 04:50 | Inpatient (IN) ==
--- NOTE | 2020-01-27 12:01 | PAT Medication Instructions ---
Medication Instructions Date of Service January 27, 2020 Home Medications Medication Instructions Recorded cephalexin 500 mg capsule 500 mg PO TID #9 cap 01/16/20 cholecalciferol (vitamin D3) [Vitamin D3] 400 unit PO DAILY multivitamin 1 tab PO DAILY cephalexin 500 mg capsule 500 mg PO TID calcium carbonate [Calcium 500] 500 mg PO QAM diltiazem HCl 180 mg PO QAM lisinopril 10 mg PO QAM vitamin E 400 unit PO QAM Continue as directed cephalexin 500 mg capsule 500 mg PO TID STOP taking 2 weeks before surgery vitamin E 400 unit PO QAM (or as soon as possible) DO NOT take the morning of surgery lisinopril 10 mg PO QAM calcium carbonate [Calcium 500] 500 mg PO QAM cholecalciferol (vitamin D3) [Vitamin D3] 400 unit PO DAILY multivitamin 1 tab PO DAILY Take morning of surgery With a small sip of water, OTHERWISE NOTHING TO EAT OR DRINK AFTER MIDNIGHT: diltiazem HCl 180 mg PO QAM Other Notes If you have any questions please call us at [phone] or [phone] or [phone] or [phone]
--- NOTE | 2020-01-27 12:22 | Anesthesiology Consultation ---
Date of Service January 27, 2020 Assessment & Plan (1) Encounter for pre-operative examination: *S/P Lumbar decompression/fusion 12/08/19 @ [facility]. Otf #2, ETT 7.0, grade view I, atraumatic DL x 1 Given recent lumbar fusion and septic joint, patient educated for GENERAL ANESTHESIA at PAT appointment. Chart Review Chart Review: Acceptable Risk for Surgery and Patient seen in Pre Admission Testing Teaching & Discussion Instructed NPO after midnight before surgery, except medications with 15 cc of water. Medication instructions provided according to the [facility] guidelines. History Surgery Operation Date: 01/28/20 07:00 Proposed Procedures p Removal Right Total Hip Anthroplasty, Insert Cemet Spacer - Vinicius Dalton MD Height/Weight Height: 4 ft 10 in Weight: 47.9 kg Allergies Allergy/AdvReac Type Severity Reaction Status Date / Time warfarin [From Coumadin] Allergy Intermediate FELT Verified 01/27/20 11:51 HOT/COLD cat dander Allergy Mild "HAYFEVER" Verified 01/27/20 11:51 dog dander Allergy Mild "HAYFEVER, Verified 01/27/20 11:51 ASTHMA SYMPTOMS" Penicillins Allergy Mild Hives Verified 01/27/20 11:51 pravastatin Allergy Mild LEG PAIN Verified 01/27/20 11:51 rosuvastatin [From Crestor] Allergy Mild LEG PAIN Verified 01/27/20 11:51 doxycycline Allergy Unknown Unknown Verified 01/27/20 11:51 Medications Home Medications Medication Instructions Recorded Confirmed Last Taken cholecalciferol (vitamin D3) 400 unit PO DAILY 11/28/19 01/27/20 11/27/19 [Vitamin D3] multivitamin 1 tab PO DAILY 11/28/19 01/27/20 11/27/19 cephalexin 500 mg capsule 500 mg PO TID #9 cap 01/16/20 01/16/20 Unknown calcium carbonate [Calcium 500] 500 mg PO QAM 01/27/20 01/27/20 Unknown diltiazem HCl 180 mg PO QAM 01/27/20 01/27/20 Unknown lisinopril 10 mg PO QAM 01/27/20 01/27/20 Unknown vitamin E 400 unit PO QAM 01/27/20 01/27/20 Unknown Past Medical History Medical History (Updated 01/27/20 @ 14:25 by Jam Nunez) DJD (degenerative joint disease) of hip (Resolved) History of asthma NO USE OF INHALER PER PATIENT Hyperlipidemia Hypertension Hyperthyroidism HX OF OVER YEARS AGO (NO CURRENT PROBLEM) Leg length discrepancy Nephrolithiasis Osteoporosis Exercise / Class Metabolic Activity II 4-5 Yardwork/Stairs/Walk up hill (Denies CP or SOB with 1 FOS) Past Family History Family History Brother Hypertension Mother Hypertension Sister Hypertension Denies family history of Colon cancer Ovarian cancer Prostate cancer Myocardial infarction Breast cancer Colorectal cancer Past Surgical History Surgical History Fusion of spine LUMBAR FUSION H/O section X 2 History of bilateral tubal ligation History of cataract surgery RT/LEFT History of tooth extraction History of total hip arthroplasty RT S/P carpal tunnel release Past Anesthesia History No Hx of Anesthesia Complications and No Family Hx of Anesthesia Complications History of PONV No Hx of PONV and No Hx of Motion Sickness Social History Smoking Status: Never smoker Do You Dip or Chew Tobacco: No Hx Alcohol Use: No Hx Substance Use: No substance use type: does not use Review of Systems Pt denies any recent chest pain, shortness of breath, palpitations, cough, fever or URI. Physical Exam Vital Signs Last Vital Signs Temp 36.9 C 01/27/20 12:09 Pulse 75 01/27/20 12:09 Resp 16 01/27/20 12:09 BP 129/81 01/27/20 12:09 Pulse Ox 99 01/27/20 12:09 ENMT Mouth: + dentures (upper); no chipped teeth and no loose teeth Thyromental Distance: > or= 3.5 Finger Breadths (4) Mallampati Class: I Neck normal visual inspection; neck extension not limited Respiratory normal respiratory effort Auscultation: lungs clear to auscultation bilaterally Cardiovascular Rate/Rhythm: regular rate and regular rhythm Heart Sounds: no murmur Extremities: no edema Testing Laboratory Results 01/27/20 12:41 Blood Type A Positive 01/27/20 12:41 Antibody Screen NEGATIVE 01/27/20 12:41 01/09/20 WBC: 9.11 H/H: 10.5/34.3 PLATELETS: 411 12/08/19 PT: 9.9 INR: 1.0 Electrocardiogram Date: 01/25/20 Unusual P axis, possible ectopic atrial rhythm with premature atrial complexes at 68 bpm.
[2020-01-27 13:54] LABS: Albumin Level 3.3 gm/dl (3.4-5.0); BUN Creatinine Ratio 22.3 (10-20); Calcium 9.3 mg/dl (8.5-10.1); Creatinine Clr Calc Pharmacy 41.5 ml/min; Est GFR (African American) 87.4; Est GFR (Non-African American) 75.4; Potassium 4.3 mmol/L (3.5-5.1)
[2020-01-27 13:56] LABS: Albumin Globulin Ratio 0.7 (0.9-2); Bilirubin,Total 0.5 mg/dl (0.2-1); Total Protein 8.3 gm/dl (6.4-8.2)
[2020-01-27 14:34] LABS: Appearance Urine Clear (Clear); Bacteria Urine Automated Negative (Negative); Bilirubin Urine Negative (Negative); Blood Urine 1+ (Negative); Color Urine Dark Yellow; Glucose Urine UA Negative (Negative); Ketones Urine 1+ (Negative); Leukocyte Esterase Urine Negative (Negative); Nitrite Urine Negative (Negative); Protein Urine Negative (Negative); Specific Gravity Urine 1.028 (1.000-1.030); Urobilinogen Urine Negative (Negative)
[2020-01-27 15:22] LABS: Mucus Urine Present (None Prsent)
[2020-01-27 15:23] LABS: RBC Urine Automated 0-4 /hpf (0-4)
--- NOTE | 2020-01-27 16:56 | History & Physical Report ---
Date of Service January 27, 2020 Assessment & Plan (1) Septic hip: Patient is scheduled to undergo a exchange removal of right total hip arthroplasty hardware with cement spacer placement and Left 1st MTP aspiration. Informed consent and risks were review with patient by Dr. Dalton and patient signed consent to proceed with surgical intervention tomorrow 01/28/20. Patient has appt with Anesthesia this afternoon and will obtain CBC with diff, CMP, PT/INR, blood type and screen, UA, urine culture, EKG and nasal culture for MRSA. She has a walker she will bring with her. She will be placed into post op hip brace with partial weight bearing on the Right LE. Culture of MTP aspirate will be sent for pathology. She will be admitted overnight and most likely need either inpatient rehab or go to a SNF. Case management will decide. 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 She was seen in the clinic by Dr. Dalton yesterday for a "lump" over her Right trochanteric bursa. He and I&D in the clinic with purulent discharge that was sent for evaluation. Patient states that the lumb and some swelling in left great toe developed a few days after undergoing a lumbar fusion on 12/08/19. Patient denies CP, SOB, nausea, vomiting, fever, chills, sweats or lethargy. Allergies Allergy/AdvReac Type Severity Reaction Status Date / Time warfarin [From Coumadin] Allergy Intermediate FELT Verified 01/27/20 11:51 HOT/COLD cat dander Allergy Mild "HAYFEVER" Verified 01/27/20 11:51 dog dander Allergy Mild "HAYFEVER, Verified 01/27/20 11:51 ASTHMA SYMPTOMS" Penicillins Allergy Mild Hives Verified 01/27/20 11:51 pravastatin Allergy Mild LEG PAIN Verified 01/27/20 11:51 rosuvastatin [From Crestor] Allergy Mild LEG PAIN Verified 01/27/20 11:51 doxycycline Allergy Unknown Unknown Verified 01/27/20 11:51 Home Medications Home Medications Medication Instructions Recorded Confirmed Type cholecalciferol (vitamin D3) 400 unit PO DAILY 11/28/19 01/27/20 History [Vitamin D3] multivitamin 1 tab PO DAILY 11/28/19 01/27/20 History cephalexin 500 mg capsule 500 mg PO TID #9 cap 01/16/20 01/16/20 Rx calcium carbonate [Calcium 500] 500 mg PO QAM 01/27/20 01/27/20 History diltiazem HCl 180 mg PO QAM 01/27/20 01/27/20 History lisinopril 10 mg PO QAM 01/27/20 01/27/20 History vitamin E 400 unit PO QAM 01/27/20 01/27/20 History Past Med/Surg History Medical History DJD (degenerative joint disease) of hip (Resolved) History of asthma NO USE OF INHALER PER PATIENT Hyperlipidemia Hypertension Hyperthyroidism HX OF OVER YEARS AGO (NO CURRENT PROBLEM) Leg length discrepancy Nephrolithiasis Osteoporosis Surgical History Fusion of spine LUMBAR FUSION H/O section X 2 History of bilateral tubal ligation History of cataract surgery RT/LEFT History of tooth extraction History of total hip arthroplasty RT S/P carpal tunnel release Family History Brother Hypertension Mother Hypertension Sister Hypertension Denies family history of Colon cancer Ovarian cancer Prostate cancer Myocardial infarction Breast cancer Colorectal cancer Social History Preferred Language: Telugu Communication Ability: Effective Visual Impairment: No Limitations Hearing Ability: Normal 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 Beliefs That Will Affect Care: None marital status: Current Living Situation: Alone current occupational status: retired Feels Safe at Home: Yes Smoking Status: Never smoker Second Hand Exposure: Yes ( A CHILD) ; Hx Alcohol Use: No Hx Substance Use: No Childhood Exposure to Second-Hand Smoke: Yes Dental Care, Regularly: Yes Physical Activity Frequency: Daily Seatbelt Use: always Sunscreen Use: No Review of Systems All systems reviewed & are unremarkable except as noted in HPI & below Physical Exam Physical Exam: Skin: open incision site over greater trochanter of right hip with bloody discharge and mild surrounding erythema. Eyes: PERRLA; EOM intact Throat: Posterior oropharynx is clear with no erythema, edema or exudate Heart: Regular rate and rhythm with no murmurs or gallops Lungs: Clear to auscultation with no wheezing, rales or rhonchi Abdomen: Non-obese, non-tender and non-distended: normoactive bowel sounds Extremities: Right Hip; see skin. No pain with 90 degrees of flexion. No pain with light passive internal / external rotation. Quad strength 4/5. NV intact. Able to perform SLRT. Left great toe: edema at MTP joint with referred pain with resisted extension at IP joint. NV intact. Periph pulses easily palpable. Cap refill < 2 seconds. Neuro: CN II-XII intact with no motor or sensory deficit General/Psych: A&O x 3 with proper grooming and hygiene. Results & Data Vital Signs (Past 12 Hours) Vital Signs Temp Pulse Resp BP Pulse Ox 01/27/20 12:09 36.9 C 75 16 129/81 99 Laboratory Results 01/27/20 01/27/20 01/27/20 Range/Units Unknown Unknown 12:41 Sodium 137 (136-145) mmol/L Potassium 4.3 (3.5-5.1) mmol/L Chloride 104 (98-107) mmol/L Carbon Dioxide 28 (21-32) mmol/L Anion Gap 5.0 (3-11) BUN 17 (7-18) mg/dl Creatinine 0.78 (0.6-1.2) mg/dl Est Cr Clr Drug Dosing 41.5 ml/min Est GFR ( Amer) 87.4 Est GFR (Non-Af Amer) 75.4 BUN/Creatinine Ratio 22.3 H (10-20) Glucose 91 (70-99) mg/dl Calcium 9.3 (8.5-10.1) mg/dl Total Bilirubin 0.5 (0.2-1) mg/dl AST 13 L (15-37) U/L ALT 13 (12-78) U/L Alkaline Phosphatase 100 (45-117) U/L Total Protein 8.3 H (6.4-8.2) gm/dl Albumin 3.3 L (3.4-5.0) gm/dl Globulin 5.0 H (2.5-4.0) gm/dl Albumin/Globulin Ratio 0.7 L (0.9-2) Urine Color Dark Yellow Urine Appearance Clear (Clear) Urine pH 5.0 (4.5-7.5) Ur Specific [place] 1.028 (1.000-1.030) Urine Protein Negative (Negative) Urine Glucose (UA) Negative (Negative) Urine Ketones 1+ H (Negative) Urine Blood 1+ H (Negative) Urine Nitrite Negative (Negative) Urine Bilirubin Negative (Negative) Urine Urobilinogen Negative (Negative) Ur Leukocyte Esterase Negative (Negative) Urine WBC (Auto) 1-5 (0-5) /hpf Urine RBC (Auto) 0-4 (0-4) /hpf U Hyaline Cast (Auto) 5-10 H (0-5) /lpf U Epithel Cells (Auto) 10-20 H (0-5) /lpf Urine Bacteria (Auto) Negative (Negative) Urine Mucus Present A (None Prsent) Urine Yeast Not Reportable Nasal Screen MRSA (PCR) Negative (Negative) Blood Type Antibody Screen 01/27/20 Range/Units 12:41 Sodium (136-145) mmol/L Potassium (3.5-5.1) mmol/L Chloride (98-107) mmol/L Carbon Dioxide (21-32) mmol/L Anion Gap (3-11) BUN (7-18) mg/dl Creatinine (0.6-1.2) mg/dl Est Cr Clr Drug Dosing ml/min Est GFR ( Amer) Est GFR (Non-Af Amer) BUN/Creatinine Ratio (10-20) Glucose (70-99) mg/dl Calcium (8.5-10.1) mg/dl Total Bilirubin (0.2-1) mg/dl AST (15-37) U/L ALT (12-78) U/L Alkaline Phosphatase (45-117) U/L Total Protein (6.4-8.2) gm/dl Albumin (3.4-5.0) gm/dl Globulin (2.5-4.0) gm/dl Albumin/Globulin Ratio (0.9-2) Urine Color Urine Appearance (Clear) Urine pH (4.5-7.5) Ur Specific [place] (1.000-1.030) Urine Protein (Negative) Urine Glucose (UA) (Negative) Urine Ketones (Negative) Urine Blood (Negative) Urine Nitrite (Negative) Urine Bilirubin (Negative) Urine Urobilinogen (Negative) Ur Leukocyte Esterase (Negative) Urine WBC (Auto) (0-5) /hpf Urine RBC (Auto) (0-4) /hpf U Hyaline Cast (Auto) (0-5) /lpf U Epithel Cells (Auto) (0-5) /lpf Urine Bacteria (Auto) (Negative) Urine Mucus (None Prsent) Urine Yeast Nasal Screen MRSA (PCR) (Negative) Blood Type A Positive Antibody Screen NEGATIVE
[2020-01-28] MEDS ORDERED: ROPIVACAINE 0.5% HCL/PF 150 MG, BUPIVACAINE 0.5% MPF 30 ML, EPINEPHrine 0.15 MG, Ketoro... INFIL SCH (06:00)
[2020-01-28] MEDS ORDERED: VANCOMYCIN HCL 750 MG in SODIUM CHLORIDE 0.9% 250 ML IV SCH ×2 (06:00→13:43)
[2020-01-28] MEDS ORDERED: LR 15ML/HR IV SCH (06:00)
[2020-01-28] MEDS ORDERED: TRANEXAMIC ACID 1,000 MG **IV Pre-op IV SCH (06:00)
[2020-01-28] MEDS ORDERED: LR 60ML/HR IV SCH (06:00)
[2020-01-28] MEDS ORDERED: BUPIVACAINE 0.5 % 5 MG/1 ML PF 10ML VIAL ONE (06:31)
--- NOTE | 2020-01-28 06:32 | History & Physical Bridge Note ---
Date of Service January 28, 2020 History & Physical Bridge Note I have examined the patient, reviewed the History & Physical and in the interval since the performance of the History & Physical I have noted the following changes of clinical significance: consent and sites verified.no changes noted
[2020-01-28] MEDS ORDERED: ORTHO JOINT ANESTHETIC ONE (06:34)
[2020-01-28] MEDS ORDERED: fentaNYL citrate 100 MCG/2 ML VIAL ONE ×3 (06:35→10:34)
[2020-01-28] MEDS ORDERED: VANCOMYCIN HCL 1000MG/20ML VIAL ONE (06:35)
[2020-01-28] MEDS ORDERED: MIDAZOLAM HCL 1 MG/ML 2ML VIAL ONE (06:35)
[2020-01-28] MEDS ORDERED: GENTAMICIN SULFATE 40 MG/ML 2 ML VIAL ONE (06:35)
[2020-01-28] MEDS ORDERED: ONDANSETRON INJ 2 MG/ML 2 ML VIAL IV PRN (06:41)
[2020-01-28] MEDS ORDERED: fentaNYL citrate 100 MCG/2 ML VIAL IV PRN (06:41)
[2020-01-28] MEDS ORDERED: ePHEDrine sulfate 50 MG/ML AMP IV PRN (06:41)
[2020-01-28] MEDS ORDERED: HYDROmorphone INJ 1 MG/ML SYRINGE IV PRN (06:41)
[2020-01-28] MEDS ORDERED: ATROPINE SULFATE 0.1 MG/ML 10ML SYR IV PRN (06:41)
[2020-01-28] MEDS ORDERED: MINERAL OIL LIGHT 10 ML BTL ONE (06:58)
[2020-01-28] MEDS: CEFAZOLIN 2000MG 2,000 MG/15 ML SYR IV SCH ×2 (07:00→07:38)
[2020-01-28] MEDS ORDERED: BACITRACIN INJ 50,000 UNIT VIAL ONE (07:20)
[2020-01-28] MEDS ORDERED: GLYCOPYRROLATE 0.2 MG/ML VIAL ONE (08:05)
[2020-01-28] MEDS ORDERED: PROPOFOL IV EMULSION 10 MG/ML 20 ML VIAL IV ONE ×2 (08:05)
[2020-01-28] MEDS ORDERED: NEOSTIGMINE METHYLSULFATE 5 MG/5 ML SYR ONE (08:05)
[2020-01-28] MEDS ORDERED: ONDANSETRON INJ 2 MG/ML 2 ML VIAL ONE (08:05)
[2020-01-28] MEDS ORDERED: LIDOCAINE HCL 2% 2 ML VIAL/AMP(20MG/ML) INFIL ONE (08:05)
[2020-01-28] MEDS ORDERED: ALBUMIN HUMAN 5% 12.5 GM/250 ML VIAL IV ONE (08:59)
[2020-01-28] MEDS ORDERED: PHENYLEPHRINE 100MCG/ML 5ML SYR ONE (08:59)
[2020-01-28] MEDS ORDERED: SODIUM CHLORIDE 0.9% 250 ML IV PRN (09:21)
[2020-01-28 09:32] LABS: iSTAT Creatinine 0.6 mg/dl (0.6-1.3); iSTAT Hemoglobin 8.2 g/dl (12.0-16.0); iSTAT Ionized Calcium 1.2 mmol/l (1.12-1.32)
[2020-01-28] MEDS ORDERED: ROCURONIUM BROMIDE 10 MG/ML 5 ML VIAL ONE (09:50)
--- NOTE | 2020-01-28 10:48 | Post Operative Brief Note ---
Immediate Post Op Note v1 Date of Surgery January 28, 2020 Pre & Post Diagnosis Operation Date: 01/28/20 07:00 Pre-Op Diagnosis: Left Metatarsophalangeal Joint: Destructive Arthritis, questionable septic/septic right LAY Post-Op Diagnosis: Left Metatarsophalangeal Joint: Destructive Arthritis, questionable septic?septic Right LAY I identified the patient and participated in the time-out.: Yes Procedure Operation Date: 01/28/20 07:00 Actual Procedures p Right Hip: Excision Septic Total Hip Arthroplasty, with Iatrogenic Trochanteric Osteotomy, and Insertion of Cement Spacer with Application of Stimulan Beads and Application of Trading Analyst Plate and Stabilization Cables x4(Right) - Vinicius Dalton MD s Aspiration of Left First Metatarsophalangeal Joint(Left) - Vinicius Dalton MD Surgeon Vinicius Dalton MD Weed Burner ang/marc Estimated Blood Loss 250 Findings Consistent with Post-Op Diagnosis
--- NOTE | 2020-01-28 11:11 | Operative Report ---
Post Operative Report Pre & Post Diagnosis Operation Date: 01/28/20 07:00 Pre-Op Diagnosis: Left Metatarsophalangeal Joint: Destructive Arthritis, questionable septic Post-Op Diagnosis: Left Metatarsophalangeal Joint: Destructive Arthritis, questionable septic I identified the patient and participated in the time-out.: Yes Procedure Operation Date: 01/28/20 07:00 Actual Procedures p Right Hip: Excision Septic Total Hip Arthroplasty, Introgenic Trochanteric Osteotomy, and Insertion of Cement Spacer with Application of Stimulan Beads and Application of Review Analyst Plate and Stabilization Cables x4(Right) - Vinicius Dalton MD s Aspiration of Left First Metatarsophalangeal Joint(Left) - Vinicius Dalton MD Surgeon Vinicius Dalton MD Cost Consultant ang/marc Estimated Blood Loss 250 Findings Consistent with Post-Op Diagnosis Specimens as per the procedure notes Complications as per the procedure notes Disposition Accompanied Patient To Recovery: Yes Disposition: Recovery Room Description of Procedure Lateral decubitus, standard prep and drape, time out p Right Hip: Excision Septic Total Hip Arthroplasty, Introgenic Trochanteric Osteotomy, and Insertion of Cement Spacer with Application of Stimulan Beads and Application of Review Analyst Plate and Stabilization Cables x4(Right) - Vinicius Dalton MD s Aspiration of Left First Metatarsophalangeal Joint(Left) - Vinicius valentino MD Please see Dr Dalton's procedure notes for specific details I was present throughout the case, assisted for wound closure and transferred the patient to PACU in stable condition I attest to the content of the Intraoperative Record and any orders documented therein. Any exceptions are noted below.
--- NOTE | 2020-01-28 11:24 | Operative Report ---
Post Operative Report Pre & Post Diagnosis Operation Date: 01/28/20 07:00 Pre-Op Diagnosis: Left Metatarsophalangeal Joint: Destructive Arthritis, questionable septic Post-Op Diagnosis: Left Metatarsophalangeal Joint: Destructive Arthritis, questionable septic I identified the patient and participated in the time-out.: Yes Procedure Operation Date: 01/28/20 07:00 Actual Procedures p Right Hip: Excision Septic Total Hip Arthroplasty, Iatrogenic Trochanteric Osteotomy, and Insertion of Cement Spacer with Application of Stimulan Beads and Application of Manager Community Outreach Plate and Stabilization Cables x4(Right) - Vinicius Dalton MD s Aspiration of Left First Metatarsophalangeal Joint(Left) - Vinicius Dalton MD Surgeon Vinicius Dalton M.D. Indirect Sales Representative ang/marc [email or web address] Estimated Blood Loss 250 Findings Consistent with Post-Op Diagnosis Specimens right hip fluid and right hip tissue Drains None Anesthesia Type General Complications none Disposition Accompanied Patient To Recovery: Yes Disposition: Recovery Room Description of Procedure Patient was taken to the operating room, placed under general anesthesia. Time out performed, prepped and draped in routine sterile fashion. I was present during the entire case, and assisted with positioning, exposure, removal of hardware, implantation of cement spacer, repair of iatrogenic trochanteric osteotomy and closure. Please see Dr. Dalton's operative report for further detail. Patient was awakened and taken to the recovery room in stable condition. I attest to the content of the Intraoperative Record and any orders documented therein. Any exceptions are noted below.
--- NOTE | 2020-01-28 11:28 | Operative Report (OR) ---
DATE OF OPERATION: 01/28/2020 SURGEON: Vinicius Dalton MD LIVESTOCK COUNTER: Dr. Hemphill. SECOND LIVESTOCK COUNTER: CASSANDRA Farrell. PREOPERATIVE DIAGNOSIS: Septic total hip replacement, likely from urinary tract source with a culture positive in 11/2419. POSTOPERATIVE DIAGNOSIS: Same. Aspiration for culture. SECOND DIAGNOSIS: Destructive arthritis, left foot MTP joint first postoperative diagnosis. OPERATION PERFORMED: 1. Exchange arthroplasty with cement spacer with trochanteric iatrogenic osteotomy fixed with a claw plate and cables. Prostalac implant articulating spacer placed. 2. Aspiration of left great toe MTP joint. PERIOPERATIVE SITUATION: Medically cleared female who presented roughly 3 1/2- 4 weeks after the onset of noting some redness and swelling of the lateral aspect of her right total hip replacement. She has done well for 2 years. She had a recent spine surgery and had a urinary tract infection with staph aureus. At this point in time, she was cultured in the office with cultures revealing gram positive. Her sed rate was 90 and her CRP was 1.09. Due to the fact that she had essentially a virtual draining sinus it was deemed appropriate to proceed with surgical exploration and explantation if indicated. This was discussed in detail with the patient including all complications including fracture, shortening lengthening of the limb, neurologic injury and blood loss. SUMMARY OF IMPLANTS: Acetabular cup 42 mm outer diameter and 32 mm inner diameter. Prostalac hip stem size 1, broached to a size 2 mold, Articul/Manny head 32+1 160 mm large trochanteric plate four 2.0 cables. DESCRIPTION OF PROCEDURE: The patient appropriately identified, site verified, consent verified. Antibiotics vancomycin given prior. The Ancef held. The left great toe was aspirated roughly 1 mL of bloody tinged fluid was removed. This was sent for culture. The patient was then prepped and draped in usual routine fashion with the patient in left lateral decubitus position with the right hip with exposed. A generous incision was utilized utilizing her old incision and extending it slightly proximal and distal. The sinus tract was excised and followed all the way down through the bursa down into the capsule. As a result, it was deemed appropriate to exchange and remove the implant. Once no exposure was obtained care taken to place the retractor with care taken to protect the sciatic nerve; she was quite small. It was palpated, but not exposed. There was exuberant scar tissue and inflammation. This was all excised. Once the capsule was excised the hip was dislocated. The head was removed. Tedious dissection around the proximal femur including osteotomes failed to create any type of movement to the implant. Options were discussed including doing a trochanteric osteotomy with several more blows. It was clear that this was occurring on its own so this was completed and the tissue to the trochanter was well preserved as well as the muscle. This was opened like a book and then the implant was able to be removed. One could see that there was bone welding to the lateral mid stem and to the medial proximal stem. This prevented things from coming out nicely despite having a significant decompression of the bone with the bur and the osteotomes. Once the stem was removed the canal was then reamed and opened and curetted to clean bone. It was irrigated with the long stem Pulsavac system. Once this was done the capsule remaining around the rim of the acetabulum was then excised. The liner was removed, the hole eliminator was removed, the screw was removed. The explant system was then utilized and removed the cup. The cup was then curetted and then irrigated and then once this was all done a Prostalac system 42 cup was cemented into position loosely. Care was taken to place at about 40 degrees of abduction and 20 degrees of anteversion. Once this was done, the stem was then broached again up to a size 2. The appropriate mold was then made with a size 1 Prostalac. Once this was secured in 15 minutes the implant was then seated with appropriate anteversion about 20 degrees. The leg lengths were actually a little bit longer, but due to the issues of stability was left that way. Once this was all verified and the permanent stem seated, the permanent head seated the hip was reduced with its audible and palpable clunk that occurs with the Prostalac system. Once this was carried out the trochanteric and medial pieces were reduced to the stem and secured with a trochanteric plate and 4 cables. It should be mentioned that the incision distally was extended approximately an inch and a half to get the system in place. The hip was nice and stable. The pieces moved as a unit. There were no issues with major bleeding; EBL was roughly 200-250 mL. Pathology is pending on the cultures. The wound was then irrigated copiously and closed with multiple layers using #2 Vicryl, 2-0 Vicryl and stainless steel clips. Appropriate dressing applied. The patient was straight cathed in the operating room prior to discharge to recovery room. The patient will receive internal medicine consult, likely 6 weeks of IV antibiotics. She will be kept nonweightbearing to touchdown weightbearing only. Once the areas cure from infection and the areas heal will be able to replace her hip with a total hip replacement. At this point in time she will likely require a virtually 5/8 length porous coated stem with proximal large metaphyseal fit such as AML with a standard cup. The patient was then transferred to recovery room in satisfactory condition having tolerated the procedure well. Pathology pending on cultures, stem and cup were not sent as they were not loose. This was clearly secondary infection from a UTI. Culture reports today is growing the same organism that she had in her urine. I attest to the content of the Intraoperative Record and any orders documented therein. Any exceptions are noted below. JAZZ
[2020-01-28 11:54] LABS: Hematocrit (blood only) 30.1 % (37-47); Hemoglobin 9.4 g/dL (12.0-16.0); Mean Corpuscular Volume 99.3 fL (80-100); Mean Platelet Volume 8.3 fL (7.4-10.4); Platelet Count 191 K/uL (130-400); RDW Coefficient of Variation 15.8 % (11.5-14.5); RDW Standard Deviation 57.8 fL (36.4-46.3); Red Blood Count 3.03 M/uL (4.2-5.4); White Blood Count 13.22 K/uL (4.8-10.8)
[2020-01-28 12:03] LABS: Mean Corpuscular Hgb Conc 31.2 g/dL (32-36)
--- NOTE | 2020-01-28 12:18 | XRay Report ---
XR hip 1V RT w pelvis CLINICAL HISTORY: IN PACU - A/P PELVIS and LATERAL HIP COMPARISON: 01/26/2020 DISCUSSION: Interval revision of the patient's previously described total right hip prosthetic. Resec tion of the components of the bone of the proximal femur. Several circumferential wires as well as a linear plate traversing the residual bony contents. Multiple radiopaque pellets are present. There is no evidence for soft tissue swelling. IMPRESSION: Anatomic alignment posttotal right hip revision. ACT 112: Negative or not required by law. The above report was generated using voice recognition software. It may contain grammatical, syntax or spelling errors. Electronically signed by: Peter Garcia M.D. 01/28/2020 12:16 PM
[2020-01-28] MEDS ORDERED: NALOXONE HCL 0.4 MG/1 ML VIAL/CARP ONE (13:14)
[2020-01-28 13:17] LABS: Albumin Level 2.8 gm/dl (3.4-5.0); BUN Creatinine Ratio 27.5 (10-20); Creatinine Clr Calc Pharmacy 46.2 ml/min; Est GFR (African American) 93.2; Est GFR (Non-African American) 80.4; Magnesium 1.9 mg/dl (1.8-2.4); Potassium 4.3 mmol/L (3.5-5.1)
[2020-01-28 13:24] LABS: Albumin Globulin Ratio 0.8 (0.9-2); Bilirubin,Total 1.2 mg/dl (0.2-1); Globulin 3.4 gm/dl (2.5-4.0); Phosphorus 3.4 mg/dl (2.5-4.9); Total Protein 6.2 gm/dl (6.4-8.2)
[2020-01-28] MEDS ORDERED: MAGNESIUM HYDROXIDE SUSP 30 ML UDC PO PRN (13:43)
[2020-01-28] MEDS ORDERED: HYDROmorphone INJ 0.5 MG/0.5 ML SYR IV PRN (13:43)
[2020-01-28] MEDS ORDERED: OXYCODONE HCL IR 5 MG TAB (IMMEDIATE RELEASE) PO PRN (13:43)
[2020-01-28] MEDS ORDERED: VANCOMYCIN CONSULT ACTIVE PRN ×2 (13:43→13:55)
[2020-01-28] MEDS ORDERED: NALOXONE HCL 0.4 MG/1 ML VIAL/CARP IV PRN (13:43)
[2020-01-28] MEDS ORDERED: CEFAZOLIN 1000MG 1,000 MG/7.5 ML SYR IV SCH (13:43)
[2020-01-28] MEDS ORDERED: METOCLOPRAMIDE HCL INJ 5 MG/ML 2 ML VIAL IV PRN (13:43)
[2020-01-28] MEDS ORDERED: ICU PROTOCOL FOR HYPERGLYCEMIA PRN (13:43)
--- NOTE | 2020-01-28 13:50 | CT Scan Report ---
CT head/brain wo con CT DOSE: 614.27 mGy.cm HISTORY: AMS, MSSA in hip ?septic emboli/CVA TECHNIQUE: Multiaxial CT images of the head were performed without the use of intravenous contrast. A dose lowering technique was utilized adhering to the principles of ALARA. Comparison: None. Findings: The paranasal sinuses and mastoid air cells are clear. The calvarium and skull base are int act. The ventricles and sulci are within normal limits. There is no mass, hematoma, midline shift, or acute infarct. Impression: No acute intracranial abnormality. ACT 112: Negative or not required by law. The above report was generated using voice recognition software. It may contain grammatical, syntax or spelling errors. Electronically signed by: Peter Garcia M.D. 01/28/2020 1:48 PM
[2020-01-28] MEDS ORDERED: PIPERACILL/TAZOBAC CONSULT ACTIVE PRN (13:53)
--- NOTE | 2020-01-28 13:57 | Hospitalist Consultation ---
Date of Consultation January 28, 2020 Assessment & Plan (1) Altered mental state: Unclear why she hasn't recovered from the anesthetic from the operation. Normal respiratory rate and O2 sats therefore do not suspect opiate overdose. Possibly just delayed recovery from anaesthesia in the setting of bacteremia as above. CT head to rule out bleed, large stroke or septic emboli - no acute intracranial abnormality (2) Airway compromise: Currently without gag reflex therefore discussed with Dr Hairston and patient will be monitored in ICU. (3) MSSA bacteremia: Presumed based on prior cultures from urine back in November and more recent I&D in clinic. Suspect ongoing source is hardware in her back but UTI prior to this and will need to consult Dr Brian if blood cultures are positive. Discussed with Dr Hairston and will place on broad spectrum coverage until cultures confirmed. Vancomycin and Zosyn. Noted vancomycin given pre-operatively and Cefazolin 2g IV given during operation after cultures taken. TTE ordered. If confirmed MSSA will get ID consult Blood cultures x2 Hold routine post op dexamethasone to avoid immunosuppresion (4) Septic hip: Appreciate orthopedic management. Exchange arthroplasty and Prostalac spacer placed on 01/27. Vanc and Zosyn as above Follow up cultures from operation (5) Spinal stenosis: s/p spinal surgery 12/08. If bacteremic confirmed will consult Dr Brian as hardware possibly will need to be removed (6) Anemia: Suspected blood loss from surgeries as relatively new since her operations. Iron studies added to AM labs. s/p 1 unit packed RBCs given during operation. Since mildly macrocytic will get B12 and folate levels. (7) Hypertension: Hold diltiazem and lisinopril currently given relatively post operative hypotension (8) DVT prophylaxis: Will defer to primary team and ICU regarding starting chemical VTE prophylaxis given recent surgery. SCDs History of Present Illness Attending Physician: Vinicius Dalton MD History of Present Illness Emma Jhaveri is a 74 year old female who underwent septic total hip replacement by Dr Shah earlier today. Consult placed due to patient not waking up after her operation. Unobtainable history from the patient since she was not alert at the time of evaluation. History obtained from anesthesiology (Dr Curry) and Dr Dalton and clinical notes. In November she presented to the ER during a course of prednisone given for with right lower leg and back pain which got worse. She was diagnosed with lumbar spinal stenosis on MRI and discharged from the ER on 11/28 with outpatient follow up with Dr Brian. She was given gabapentin in the office but her pain got worse and returned to ER on 12/05. Of note she had a urine culture positive for MSSA at that time initially treated with ceftriaxone but switched to macrobid after 2 days. She underwent lumbar decompression with posterior instrumentation L4-5 L5- S1 with placement of peek cage on 12/[address] Brian during the same admission. She next presented to her PCP with swelling of left 1st toe since approximately 12/22 (possibly longer). This was treated initially on 01/01 with a medrol dosepak with minimal improvement. Returned to her PCP on 01/09 and started on keflex for 7 days. She was then seen by Dr Dalton due to lump over right trochanteric bursa and I&D in clinic was purulent and positive for MSSA on 01/26/2020. Urine culture negative from 01/27/20. She was prescribed Levaquin which she took only two doses of prior to today. She was taken for right sided Excision Septic Total Hip Arthroplasty, Trochanteric Osteotomy, and Insertion of Cement Spacer with Application of Stimulan Beads and Application of Supervisor Speech Plate and Stabilization Cables x4 today. She was under general anaesthetic and has tolerated prior procedures without issue. Given Versed, Fentanyl but had this during prior operations. Renal function normal. Allergies Allergy/AdvReac Type Severity Reaction Status Date / Time cat dander Allergy Mild "HAYFEVER" Verified 01/28/20 05:19 dog dander Allergy Mild "HAYFEVER, Verified 01/28/20 05:19 ASTHMA SYMPTOMS" Penicillins Allergy Mild Hives Verified 01/28/20 05:19 pravastatin Allergy Mild LEG PAIN Verified 01/28/20 05:19 rosuvastatin [From Crestor] Allergy Mild LEG PAIN Verified 01/28/20 05:19 doxycycline Allergy Unknown Unknown Verified 01/28/20 05:19 warfarin [From Coumadin] AdvReac Intermediate FELT Verified 01/28/20 17:02 HOT/COLD Home Medications Home Medications Medication Instructions Recorded Confirmed Type cholecalciferol (vitamin D3) 400 unit PO DAILY 11/28/19 01/28/20 History [Vitamin D3] multivitamin 1 tab PO DAILY 11/28/19 01/28/20 History calcium carbonate [Calcium 500] 500 mg PO QAM 01/27/20 01/28/20 History diltiazem HCl 180 mg PO QAM 01/27/20 01/28/20 History lisinopril 10 mg PO QAM 01/27/20 01/28/20 History vitamin E 400 unit PO QAM 01/27/20 01/28/20 History Patient History Medical History DJD (degenerative joint disease) of hip (Resolved) History of asthma NO USE OF INHALER PER PATIENT Hyperlipidemia Hypertension Hyperthyroidism HX OF OVER YEARS AGO (NO CURRENT PROBLEM) Leg length discrepancy Nephrolithiasis Osteoporosis Surgical History Fusion of spine LUMBAR FUSION H/O section X 2 History of bilateral tubal ligation History of cataract surgery RT/LEFT History of tooth extraction History of total hip arthroplasty RT S/P carpal tunnel release Family History Brother Hypertension Mother Hypertension Sister Hypertension Denies family history of Colon cancer Ovarian cancer Prostate cancer Myocardial infarction Breast cancer Colorectal cancer Social History Preferred Language: Romansh Communication Ability: Effective Visual Impairment: No Limitations Hearing Ability: Normal Emergency Care Attendant Required: No Beliefs That Will Affect Care: None marital status: Current Living Situation: Alone current occupational status: retired Feels Safe at Home: Yes Safety Concerns: Feels Safe At This Time Smoking Status: Never smoker Do You Dip or Chew Tobacco: No ; Second Hand Exposure: Yes ( A CHILD) ; Tobacco Cessation Education Requested by Patient: No Hx Alcohol Use: No Hx Substance Use: No Childhood Exposure to Second-Hand Smoke: Yes Dental Care, Regularly: Yes Physical Activity Frequency: Daily Seatbelt Use: always Sunscreen Use: No Review of Systems Review of Systems: Unobtainable due to reduced consciousness Physical Exam Constitutional: WD/WN, vitals as above + lethargic; + uncooperative Eyes: + anicteric sclerae and PERRL (pupils small but equal and reactive); pupils not irregular and normal pupil size ENMT: external ear and nose normal, oropharynx normal Neck: normal visual inspection and trachea midline Respiratory: normal respiratory effort, lungs clear to auscultation Cardiovascular: RRR, no murmur, no edema Extremities: normal capillary refill Gastrointestinal (Abdomen): normal bowel sounds, soft, nontender, no hepatosplenomegaly Musculoskeletal: no cyanosis or clubbing, extremities motor strength 5/5 Skin: mild erythema surrounding left great toe Neurologic: + not awake Psychiatric: Orientation: + not alert (reacts to pain but no purposeful movements) Genitourinary: no CVA tenderness Lymphatic: no cervical or axillary lymphadenopathy Results & Data ([facility]) Vital Signs (Past 12 Hours) Vital Signs Temp Pulse Pulse Resp BP BP Pulse Ox 01/28/20 13:25 65 21 97/52 L 96 01/28/20 13:15 67 22 94/51 L 96 01/28/20 13:05 66 21 103/55 L 95 01/28/20 12:55 36.7 C 63 20 91/50 L 96 01/28/20 12:45 64 19 99/47 L 96 01/28/20 12:35 64 21 92/50 L 97 01/28/20 12:25 63 19 92/53 L 94 01/28/20 12:15 62 20 98/58 L 96 01/28/20 12:05 63 20 104/58 L 94 01/28/20 11:55 69 22 136/82 94 01/28/20 11:45 57 L 19 106/56 L 96 01/28/20 11:35 60 21 107/58 L 96 01/28/20 11:25 64 21 128/67 98 01/28/20 11:15 66 20 101/59 L 98 01/28/20 11:07 36.1 C L 69 15 109/59 L 95 01/28/20 05:43 36.5 C 70 18 133/[address] head/brain wo con Impression: No acute intracranial abnormality. ECG Indication: other (AMS) Rate (beats per minute): 82 Rhythm: normal sinus Findings: + T-wave inversion Comparison ECG Date: from (12/06/2019) Change: the following changes noted (TWI as above) PG Care Time/CCT Total # of Minutes Spent Total Time Spent with Patient: Total time spent is greater than 50% in coordination of care (as documented) at patient's floor/unit and/or counseling patient: Coding Level of Care Code 76075 Inpt Consult Level 5 Diagnoses Altered mental state R41.82 Altered mental status type: unspecified Airway compromise J98.8 MSSA bacteremia R78.81; B95.61 Septic hip M00.9 Spinal stenosis M48.062 Spinal region: lumbar Neurogenic claudication status: with neurogenic claudication Anemia D64.9 Anemia type: unspecified type Hypertension I10 Hypertension type: essential hypertension DVT prophylaxis Z29.9 (1) Altered mental state Altered mental status type: unspecified Qualified Code(s): R41.82 - Altered mental status, unspecified (2) Spinal stenosis Spinal region: lumbar Neurogenic claudication status: with neurogenic claudication Qualified Code(s): M48.062 - Spinal stenosis, lumbar region with neurogenic claudication (3) Anemia Anemia type: unspecified type Qualified Code(s): D64.9 - Anemia, unspecified (4) Hypertension Hypertension type: essential hypertension Qualified Code(s): I10 - Essential (primary) hypertension
[2020-01-28] MEDS ORDERED: ORTHO WARFARIN NOMOGRAM SCH (14:00)
--- NOTE | 2020-01-28 14:19 | Anesthesiology Progress Note ---
Date of Service January 28, 2020 Anesthesia Post Procedure Vital Signs Vital Signs: Temp Pulse Pulse Resp BP BP Pulse Ox 01/28/20 13:55 36.9 C 63 19 102/53 L 96 01/28/20 13:35 66 22 110/60 96 01/28/20 13:25 65 21 97/52 L 96 01/28/20 13:15 67 22 94/51 L 96 01/28/20 13:05 66 21 103/55 L 95 01/28/20 12:55 36.7 C 63 20 91/50 L 96 01/28/20 12:45 64 19 99/47 L 96 01/28/20 12:35 64 21 92/50 L 97 01/28/20 12:25 63 19 92/53 L 94 01/28/20 12:15 62 20 98/58 L 96 01/28/20 12:05 63 20 104/58 L 94 01/28/20 11:55 69 22 136/82 94 01/28/20 11:45 57 L 19 106/56 L 96 01/28/20 11:35 60 21 107/58 L 96 01/28/20 11:25 64 21 128/67 98 01/28/20 11:15 66 20 101/59 L 98 01/28/20 11:07 36.1 C L 69 15 109/59 L 95 01/28/20 05:43 36.5 C 70 18 133/71 97 Transfer of Care Handoff Completed per policy Notes Mental Status: participated in evaluation Patient Amnestic to Procedure: Yes Nausea / Vomiting: adequately controlled Pain: adequately controlled Airway Patency, RR, SpO2: stable & adequate BP & HR: stable & adequate Hydration State: stable & adequate Anesthetic Complications: see Notes below and Pt Satisfied with anesthetic care Notes: Pt very to slow to wake in recovery. Patient would respond to voice (her name) with barely opening eyes and had minimal b/l upper and lower extremity movement. Blood sugar 120's. VSS. Minimal oxygen requirement with NC oxygen. Mild grimace to deep suction. CMP with mag/phos ordered to r/o electrolyte derangement. Contacted hospitalist service and they came and evaluated the patient at bedside. CT scan of the head was ordered (no abnormalities noted). Plan to have patient be admitted to ICU. Spoke with ICU PA to give report. Questions answered.
[2020-01-28] MEDS ORDERED: PIPERACILLIN/TAZOBACTAM 4.5 GM in DEXTROSE 5% 100 ML IV STA (14:35)
[2020-01-28] MEDS: SODIUM CHLORIDE 0.9% 1000ML 1,000 ML IV SCH (14:49)
[2020-01-28] MEDS: ACETAMINOPHEN 500 MG TAB PO SCH ×2 (14:56→21:18)
[2020-01-28] MEDS: KETOROLAC TROMETHAMINE 15 MG/ML VIAL IV SCH ×2 (14:58→21:25)
--- NOTE | 2020-01-28 15:05 | Pharmacy Report ---
Pharmacy Abx Dose Short Note - Date of Service January 28, 2020 - Assessment & Plan Assessment * Ms Jhaveri is a 74 year old F receiving Vanc/Zosyn for treatment of septic hip. * Pt is POD 0 s/p septic hip replacement. * Pt rec'd Ancef and Vancomycin pre-op this morning. * Pt placed on broad spectrum empiric antibiotics post-op. * Recent culture data: * 12/05/19 - Urine cx: MSSA * 01/26/20 - Hip cx: MSSA (resistant to erythromycin) * 01/27/20 - nasal swab: MRSA negative * 01/27/20 - Urine cx, L toe cx, R hip cx X3 pending * Urinalysis on 01/26 unremarkable, except for the presence of mucus * Labs today: WBC 13.2, SCr 0.74 (CrCl ~46mL/min). Patient has been afebrile. Plan Vancomycin * Vanc 750mg (~16mg/kg) x1 dose pre-op, then * Vanc 500mg IV q12h * Goal trough level for bone/joint infection: 15 to 20 mcg/mL * Trough level ordered prior to the 4th maintenance dose Zosyn 4.5gm IV x1, then 3.375gm IV q8h Pharmacy will continue to follow and will adjust dose/frequency as necessary. Thank you.
[2020-01-28] MEDS: VANCOMYCIN HCL 500 MG in SODIUM CHLORIDE 0.9% 250 ML IV SCH (15:51)
--- NOTE | 2020-01-28 16:19 | Electrocardiogram Report ---
Test Reason : Blood Pressure : / mmHG Vent. Rate : 082 BPM Atrial Rate : 082 BPM P-R Int : 130 ms QRS Dur : 084 ms QT Int : 376 ms P-R-T Axes : 067 049 073 degrees QTc Int : 439 ms Normal sinus rhythm with sinus arrhythmia Nonspecific ST and T wave abnormality Abnormal ECG When compared with ECG of 06-DEC-2019 13:14, Criteria for Septal infarct are no longer Present Nonspecific T wave abnormality now evident in Anterolateral leads Confirmed by Dov Sanchez ([id number]) on 01/28/2020 4:19:48 PM Referred By: Vinicius Dalton Confirmed By:Dov Sanchez
--- NOTE | 2020-01-28 16:49 | Progress Notes ---
DATE: 01/28/2020 At this point in time, the patient remains with altered mental status. Her vital signs are stable. Wound dressing is clean, dry and intact. She does not have any active to command movement at this point due to her altered mental status. Of note is the concern that her troponin is elevated, although EKG does not look any worse. ASSESSMENT: Medically unclear situation here. Will discuss with family. Continue with supportive care. Will discuss with business development engineer. JAZZ
--- NOTE | 2020-01-28 16:51 | XCELERA ---
[id number] \\[id number]
[2020-01-28] MEDS ORDERED: TRANEXAMIC ACID / 0.7% NACL 1,000 MG/100 ML BAG IV SCH (17:15)
[2020-01-28 17:16] LABS: Hematocrit (blood only) 29.2 % (37-47); Hemoglobin 9.2 g/dL (12.0-16.0)
[2020-01-28 17:34] LABS: Albumin Level 2.6 gm/dl (3.4-5.0); BUN Creatinine Ratio 29.3 (10-20); Bilirubin Direct 0.3 mg/dl (0-0.2); Calcium 8.1 mg/dl (8.5-10.1); Creatinine Clr Calc Pharmacy 42.7 ml/min; Est GFR (African American) 84.8; Est GFR (Non-African American) 73.1; Potassium 4.3 mmol/L (3.5-5.1)
[2020-01-28 17:37] LABS: Total Protein 5.9 gm/dl (6.4-8.2)
--- NOTE | 2020-01-28 17:38 | Critical Care Consultation ---
Date of Consultation January 28, 2020 Assessment & Plan (1) Altered mental state: Emma Jhaveri is a 74 year old female who underwent septic total hip replacement by Dr Shah earlier today. NEURO: - [facility] ICU: positive - altered mental status, opens eyes to verbal command, moves all extremitities spontaneously - unclear etiology of decreased mental status at this time - CT head did not demonstrate acute intracranial abnormality CARDIAC/VASCULAR: - Echo demonstrated EF 60-65%, no regional wall motion abnormalities, mild concentric LVH, mild biatrial dilation, sclerotic aortic valve without significant stenosis, moderate tricuspid regurgitation, and severe pulmonary hypertension - EKG normal sinus rhythm with sinus arrhythmia, with nonspecific T wave abnormality in anterolateral leads - troponin 0.156 RESPIRATORY: - maintaining sats >92% on 2L NC - no previous pulmonary disease GI/NUTRITION: - NPO RENAL/LYTES: - no significant electrolyte abnormalities - Ca 8.1, ionized calcium 1.10 - Cr stable from previous hospital admissions - continue to monitor BMPs : - obrien in place - continue to monitor I/Os ENDO: - no history of hypo/hyperthyroidism, or T2DM HEME: - H&H stable from previous admissions ID: - Lactate 1.4 - Vancomycin & Zosyn - previously had MSSA growing from wound specimen on 01/25, also had urine on 12/05 that grew S. aureus LINES/IV ACCESS: - peripheral IVs DVT PROPHYLAXIS: - will hold in immediate post-operative setting (2) MSSA bacteremia: (3) Septic hip: (4) LVH (left ventricular hypertrophy): Supervising Physician Co-Signing Physician Notes Dr. Chaudhari was resident physician during care of patient. I separately evaluated patient for blake portions of the history and the exam. I was present during the critical portion of medical decision making, and I discussed the case with the resident. I generally agree with the findings and plan. When I initially evaluated the patient she seemed to have shallow breathing, using a twitch monitor, the patient was able to exhibit signs of sustained tetany, I do not believe there is a pseudocholinesterase deficiency or any form of residual neuromuscular blockade. Patient has acute encephalopathy, ammonia is within normal limits, she could still be exhibiting residual sedation from anesthetic gases. There was an elevation in her troponins and a echo demonstrated signs consistent with pulmonary hypertension. Of note there was no pulmonary regurgitant jet, left ventricle appears to be within normal limits. Since initial evaluation the patient appears to be increasing in responsiveness. History of Present Illness Attending Physician: Vinicius Dalton MD History of Present Illness Emma Jhaveri is a 74 y/o F who underwent a septic total hip replacement today. Follwoing the operation, she was difficult to arouse, and had maintained sedation and non-responsiveness In November she presented to the ER during a course of prednisone given for with right lower leg and back pain which got worse. She was diagnosed with lumbar spinal stenosis on MRI and discharged from the ER on 11/28 with outpatient follow up with Dr Brian. She was given gabapentin in the office but her pain got worse and returned to ER on 12/05. Of note she had a urine culture positive for MSSA at that time initially treated with ceftriaxone but switched to macrobid after 2 days. She underwent lumbar decompression with posterior instrumentation L4-5 L5- S1 with placement of peek cage on 12/[address] Brian during the same admission. She next presented to her PCP with swelling of left 1st toe since approximately 12/22. This was treated initially on 01/01 with a medrol dosepak with minimal improvement. Returned to her PCP on 01/09 and started on keflex for 7 days. She was then seen by Dr Dalton due to lump over right trochanteric bursa and I&D in clinic was purulent and positive for MSSA on 01/26/2020. Urine culture negative from 01/27/20. She was prescribed Levaquin which she took only two doses of prior to today. Allergies Allergy/AdvReac Type Severity Reaction Status Date / Time cat dander Allergy Mild "HAYFEVER" Verified 01/28/20 05:19 dog dander Allergy Mild "HAYFEVER, Verified 01/28/20 05:19 ASTHMA SYMPTOMS" Penicillins Allergy Mild Hives Verified 01/28/20 05:19 pravastatin Allergy Mild LEG PAIN Verified 01/28/20 05:19 rosuvastatin [From Crestor] Allergy Mild LEG PAIN Verified 01/28/20 05:19 doxycycline Allergy Unknown Unknown Verified 01/28/20 05:19 warfarin [From Coumadin] AdvReac Intermediate FELT Verified 01/28/20 17:02 HOT/COLD Home Medications Home Medications Medication Instructions Recorded Confirmed Type cholecalciferol (vitamin D3) 400 unit PO DAILY 11/28/19 01/28/20 History [Vitamin D3] multivitamin 1 tab PO DAILY 11/28/19 01/28/20 History calcium carbonate [Calcium 500] 500 mg PO QAM 01/27/20 01/28/20 History diltiazem HCl 180 mg PO QAM 01/27/20 01/28/20 History lisinopril 10 mg PO QAM 01/27/20 01/28/20 History vitamin E 400 unit PO QAM 01/27/20 01/28/20 History Patient History Medical History DJD (degenerative joint disease) of hip (Resolved) History of asthma NO USE OF INHALER PER PATIENT Hyperlipidemia Hypertension Hyperthyroidism HX OF OVER YEARS AGO (NO CURRENT PROBLEM) Leg length discrepancy Nephrolithiasis Osteoporosis Surgical History Fusion of spine LUMBAR FUSION H/O section X 2 History of bilateral tubal ligation History of cataract surgery RT/LEFT History of tooth extraction History of total hip arthroplasty RT S/P carpal tunnel release Family History Brother Hypertension Mother Hypertension Sister Hypertension Denies family history of Colon cancer Ovarian cancer Prostate cancer Myocardial infarction Breast cancer Colorectal cancer Social History Preferred Language: Persian Communication Ability: Effective Visual Impairment: No Limitations Hearing Ability: Normal 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 Required: No Beliefs That Will Affect Care: None marital status: Current Living Situation: Alone current occupational status: retired Feels Safe at Home: Yes Safety Concerns: Feels Safe At This Time Smoking Status: Never smoker Do You Dip or Chew Tobacco: No ; Second Hand Exposure: Yes ( A CHILD) ; Tobacco Cessation Education Requested by Patient: No Hx Alcohol Use: No Hx Substance Use: No Childhood Exposure to Second-Hand Smoke: Yes Dental Care, Regularly: Yes Physical Activity Frequency: Daily Seatbelt Use: always Sunscreen Use: No Review of Systems Review of Systems: Unobtainable due to reduced consciousness Physical Exam Constitutional: WD/WN, vitals as above + lethargic Eyes: PERRL, conjunctivae normal, anicteric sclerae ENMT: external ear and nose normal, oropharynx normal Neck: normal visual inspection Respiratory: normal respiratory effort, lungs clear to auscultation Cardiovascular: Rate/Rhythm: regular rate and regular rhythm Heart Sounds: normal S1 and normal S2; no gallop, no murmur and no cardiac rub Vessels: no JVD Extremities: no pedal edema Gastrointestinal (Abdomen): Inspection/Auscultation: normal bowel sounds Percussion/Palpation: abdomen soft; abdomen nontender, no guarding and no hepatosplenomegaly Musculoskeletal: spontaneous movement of all extremities Skin: incision site over R hip, intact and well approximated Neurologic: deep tendon reflexes 2+ bilaterally and moves all extremities; no focal motor deficits Motor/Sensory: no tremor opens eyes to verbal command, spontaneous movement of all extremities, withdraws from pain, unable to follow commands Lymphatic: no cervical or axillary lymphadenopathy Results & Data Vital Signs (Past 12 Hours) Vital Signs Temp Pulse Pulse Pulse Resp BP BP 01/28/20 16:53 81 116/61 01/28/20 16:15 88 01/28/20 16:00 83 22 01/28/20 15:44 37.2 C 85 22 107/53 L 01/28/20 15:29 85 20 107/58 L 01/28/20 15:14 71 21 116/58 L 01/28/20 15:00 79 22 01/28/20 14:59 75 20 108/57 L 01/28/20 14:44 88 21 106/61 01/28/20 13:55 36.9 C 63 19 01/28/20 13:43 37.1 C 71 71 18 105/56 L 01/28/20 13:35 66 22 01/28/20 13:25 65 21 01/28/20 13:15 67 22 01/28/20 13:05 66 21 01/28/20 12:55 36.7 C 63 20 01/28/20 12:45 64 19 01/28/20 12:35 64 21 01/28/20 12:25 63 19 01/28/20 12:15 62 20 01/28/20 12:05 63 20 01/28/20 11:55 69 22 01/28/20 11:45 57 L 19 01/28/20 11:35 60 21 01/28/20 11:25 64 21 01/28/20 11:15 66 20 01/28/20 11:07 36.1 C L 69 15 01/28/20 05:43 36.5 C 70 18 133/71 BP Pulse Ox 01/28/20 16:53 93 01/28/20 16:15 01/28/20 16:00 94 01/28/20 15:44 95 01/28/20 15:29 94 01/28/20 15:14 96 01/28/20 15:00 94 01/28/20 14:59 94 01/28/20 14:44 98 01/28/20 13:55 102/53 L 96 01/28/20 13:43 92 01/28/20 13:35 110/60 96 01/28/20 13:25 97/52 L 96 01/28/20 13:15 94/51 L 96 01/28/20 13:05 103/55 L 95 01/28/20 12:55 91/50 L 96 01/28/20 12:45 99/47 L 96 01/28/20 12:35 92/50 L 97 01/28/20 12:25 92/53 L 94 01/28/20 12:15 98/58 L 96 01/28/20 12:05 104/58 L 94 01/28/20 11:55 136/82 94 01/28/20 11:45 106/56 L 96 01/28/20 11:35 107/58 L 96 01/28/20 11:25 128/67 98 01/28/20 11:15 101/59 L 98 01/28/20 11:07 109/59 L 95 01/28/20 05:43 97 Laboratory Results 01/28/20 01/28/20 01/28/20 Range/Units 17:30 17:08 17:08 WBC (4.8-10.8) K/uL RBC (4.2-5.4) M/uL Hgb 9.2 L (12.0-16.0) g/dL POC Hgb 8.5 L (12.0-16.0) g/dl Hct 29.2 L (37-47) % POC Hct 25 L (37-47) % MCV (80-100) fL MCH (25-34) pg MCHC (32-36) g/dL RDW Std Deviation (36.4-46.3) fL RDW Coeff of Enedelia (11.5-14.5) % Plt Count (130-400) K/uL MPV (7.4-10.4) fL Sample Site R Radial POC pH 7.39 (7.35-7.45) POC pCO2 36 (35-46) mmHg POC pO2 56 L (80-95) mmHg POC HCO3 22 (19-24) ld/L POC Base Excess -3.0 (-9-1.8) ld/L ABG pH (Temp Correct) 7.394 (7.35-7.45) ABG pCO2 (Temp Corrct 36 (35-46) mmHg POC ABG pO2 at Pt Temp 56 Vikram Test Pass POC Sodium 137 (135-144) mmol/L Sodium (136-145) mmol/L POC Potassium 4.2 (3.3-5.0) mmol/L Potassium (3.5-5.1) mmol/L POC Chloride (101-112) mmol/L Chloride (98-107) mmol/L Carbon Dioxide (21-32) mmol/L POC Total CO2 23 L (24-31) mEq/l Anion Gap (3-11) POC Anion Gap (16-25) mmol/L POC BUN (7-18) mg/dl BUN (7-18) mg/dl Creatinine (0.6-1.2) mg/dl POC Creatinine (0.6-1.3) mg/dl Est Cr Clr Drug Dosing ml/min Est GFR ( Amer) Est GFR (Non-Af Amer) BUN/Creatinine Ratio (10-20) Glucose (70-99) mg/dl POC Glucose (70-99) mg/dl POC Glucose (other) (70-99) mg/dl Lactate 1.4 (0.4-2.0) mmol/L Calcium (8.5-10.1) mg/dl POC Ioniz Calcium P[place] (1.12-1.32) mmol/l Ionized Calcium (1.12-1.32) mmol/L Phosphorus (2.5-4.9) mg/dl Magnesium (1.8-2.4) mg/dl Total Bilirubin (0.2-1) mg/dl Direct Bilirubin (0-0.2) mg/dl AST (15-37) U/L ALT (12-78) U/L Alkaline Phosphatase (45-117) U/L Ammonia (11-32) umol/L Troponin I (0-0.045) ng/ml Total Protein (6.4-8.2) gm/dl Albumin (3.4-5.0) gm/dl Globulin (2.5-4.0) gm/dl Albumin/Globulin Ratio (0.9-2) Nasal Screen MRSA (PCR) (Negative) Blood Type Antibody Screen Crossmatch 01/28/20 01/28/20 01/28/20 Range/Units 17:07 17:07 17:07 WBC (4.8-10.8) K/uL RBC (4.2-5.4) M/uL Hgb (12.0-16.0) g/dL POC Hgb (12.0-16.0) g/dl Hct (37-47) % POC Hct (37-47) % MCV (80-100) fL MCH (25-34) pg MCHC (32-36) g/dL RDW Std Deviation (36.4-46.3) fL RDW Coeff of Enedelia (11.5-14.5) % Plt Count (130-400) K/uL MPV (7.4-10.4) fL Sample Site POC pH (7.35-7.45) POC pCO2 (35-46) mmHg POC pO2 (80-95) mmHg POC HCO3 (19-24) ld/L POC Base Excess (-9-1.8) ld/L ABG pH (Temp Correct) (7.35-7.45) ABG pCO2 (Temp Corrct (35-46) mmHg POC ABG pO2 at Pt Temp Vikram Test POC Sodium (135-144) mmol/L Sodium 139 (136-145) mmol/L POC Potassium (3.3-5.0) mmol/L Potassium 4.3 (3.5-5.1) mmol/L POC Chloride (101-112) mmol/L Chloride 108 H (98-107) mmol/L Carbon Dioxide 23 (21-32) mmol/L POC Total CO2 (24-31) mEq/l Anion Gap 8.0 (3-11) POC Anion Gap (16-25) mmol/L POC BUN (7-18) mg/dl BUN 23 H (7-18) mg/dl Creatinine 0.80 (0.6-1.2) mg/dl POC Creatinine (0.6-1.3) mg/dl Est Cr Clr Drug Dosing 42.7 ml/min Est GFR ( Amer) 84.8 Est GFR (Non-Af Amer) 73.1 BUN/Creatinine Ratio 29.3 H (10-20) Glucose 131 H (70-99) mg/dl POC Glucose (70-99) mg/dl POC Glucose (other) (70-99) mg/dl Lactate (0.4-2.0) mmol/L Calcium 8.1 L (8.5-10.1) mg/dl POC Ioniz Calcium [place] (1.12-1.32) mmol/l Ionized Calcium 1.10 L (1.12-1.32) mmol/L Phosphorus (2.5-4.9) mg/dl Magnesium (1.8-2.4) mg/dl Total Bilirubin 1.0 (0.2-1) mg/dl Direct Bilirubin 0.3 H (0-0.2) mg/dl AST 23 (15-37) U/L ALT 16 (12-78) U/L Alkaline Phosphatase 63 (45-117) U/L Ammonia < 10.0 L (11-32) umol/L Troponin I (0-0.045) ng/ml Total Protein 5.9 L (6.4-8.2) gm/dl Albumin 2.6 L (3.4-5.0) gm/dl Globulin (2.5-4.0) gm/dl Albumin/Globulin Ratio (0.9-2) Nasal Screen MRSA (PCR) (Negative) Blood Type Antibody Screen Crossmatch 01/28/20 01/28/20 01/28/20 Range/Units 14:45 12:46 12:44 WBC (4.8-10.8) K/uL RBC (4.2-5.4) M/uL Hgb (12.0-16.0) g/dL POC Hgb (12.0-16.0) g/dl Hct (37-47) % POC Hct (37-47) % MCV (80-100) fL MCH (25-34) pg MCHC (32-36) g/dL RDW Std Deviation (36.4-46.3) fL RDW Coeff of Enedelia (11.5-14.5) % Plt Count (130-400) K/uL MPV (7.4-10.4) fL Sample Site POC pH (7.35-7.45) POC pCO2 (35-46) mmHg POC pO2 (80-95) mmHg POC HCO3 (19-24) ld/L POC Base Excess (-9-1.8) ld/L ABG pH (Temp Correct) (7.35-7.45) ABG pCO2 (Temp Corrct (35-46) mmHg POC ABG pO2 at Pt Temp Vikram Test POC Sodium (135-144) mmol/L Sodium (136-145) mmol/L POC Potassium (3.3-5.0) mmol/L Potassium (3.5-5.1) mmol/L POC Chloride (101-112) mmol/L Chloride (98-107) mmol/L Carbon Dioxide (21-32) mmol/L POC Total CO2 (24-31) mEq/l Anion Gap (3-11) POC Anion Gap (16-25) mmol/L POC BUN (7-18) mg/dl BUN (7-18) mg/dl Creatinine (0.6-1.2) mg/dl POC Creatinine (0.6-1.3) mg/dl Est Cr Clr Drug Dosing ml/min Est GFR ( Amer) Est GFR (Non-Af Amer) BUN/Creatinine Ratio (10-20) Glucose (70-99) mg/dl POC Glucose 120 H (70-99) mg/dl POC Glucose (other) (70-99) mg/dl Lactate (0.4-2.0) mmol/L Calcium (8.5-10.1) mg/dl POC Ioniz Calcium [place] (1.12-1.32) mmol/l Ionized Calcium (1.12-1.32) mmol/L Phosphorus (2.5-4.9) mg/dl Magnesium (1.8-2.4) mg/dl Total Bilirubin (0.2-1) mg/dl Direct Bilirubin (0-0.2) mg/dl AST (15-37) U/L ALT (12-78) U/L Alkaline Phosphatase (45-117) U/L Ammonia (11-32) umol/L Troponin I 0.156 H* (0-0.045) ng/ml Total Protein (6.4-8.2) gm/dl Albumin (3.4-5.0) gm/dl Globulin (2.5-4.0) gm/dl Albumin/Globulin Ratio (0.9-2) Nasal Screen MRSA (PCR) Negative (Negative) Blood Type Antibody Screen Crossmatch 01/28/20 01/28/20 01/28/20 Range/Units 12:44 11:40 09:17 WBC 13.22 H (4.8-10.8) K/uL RBC 3.03 L (4.2-5.4) M/uL Hgb 9.4 L (12.0-16.0) g/dL POC Hgb 8.2 L (12.0-16.0) g/dl Hct 30.1 L (37-47) % POC Hct 24 L (37-47) % MCV 99.3 (80-100) fL MCH 31.0 (25-34) pg MCHC 31.2 L (32-36) g/dL RDW Std Deviation 57.8 H (36.4-46.3) fL RDW Coeff of Enedelia 15.8 H (11.5-14.5) % Plt Count 191 (130-400) K/uL MPV 8.3 (7.4-10.4) fL Sample Site POC pH (7.35-7.45) POC pCO2 (35-46) mmHg POC pO2 (80-95) mmHg POC HCO3 (19-24) ld/L POC Base Excess (-9-1.8) ld/L ABG pH (Temp Correct) (7.35-7.45) ABG pCO2 (Temp Corrct (35-46) mmHg POC ABG pO2 at Pt Temp Vikram Test POC Sodium 137 (135-144) mmol/L Sodium 138 (136-145) mmol/L POC Potassium 4.0 (3.3-5.0) mmol/L Potassium 4.3 (3.5-5.1) mmol/L POC Chloride 106 (101-112) mmol/L Chloride 109 H (98-107) mmol/L Carbon Dioxide 23 (21-32) mmol/L POC Total CO2 24 (24-31) mEq/l Anion Gap 6.0 (3-11) POC Anion Gap 12.0 L (16-25) mmol/L POC BUN 18 (7-18) mg/dl BUN 20 H (7-18) mg/dl Creatinine 0.74 (0.6-1.2) mg/dl POC Creatinine 0.6 (0.6-1.3) mg/dl Est Cr Clr Drug Dosing 46.2 ml/min Est GFR ( Amer) 93.2 Est GFR (Non-Af Amer) 80.4 BUN/Creatinine Ratio 27.5 H (10-20) Glucose 129 H (70-99) mg/dl POC Glucose (70-99) mg/dl POC Glucose (other) 102 H (70-99) mg/dl Lactate (0.4-2.0) mmol/L Calcium 8.0 L (8.5-10.1) mg/dl POC Ioniz Calcium [place] 1.20 (1.12-1.32) mmol/l Ionized Calcium (1.12-1.32) mmol/L Phosphorus 3.4 (2.5-4.9) mg/dl Magnesium 1.9 (1.8-2.4) mg/dl Total Bilirubin 1.2 H D (0.2-1) mg/dl Direct Bilirubin (0-0.2) mg/dl AST 25 (15-37) U/L ALT 15 (12-78) U/L Alkaline Phosphatase 71 (45-117) U/L Ammonia (11-32) umol/L Troponin I (0-0.045) ng/ml Total Protein 6.2 L D (6.4-8.2) gm/dl Albumin 2.8 L (3.4-5.0) gm/dl Globulin 3.4 (2.5-4.0) gm/dl Albumin/Globulin Ratio 0.8 L (0.9-2) Nasal Screen MRSA (PCR) (Negative) Blood Type Antibody Screen Crossmatch 01/27/20 Range/Units 12:41 WBC (4.8-10.8) K/uL RBC (4.2-5.4) M/uL Hgb (12.0-16.0) g/dL POC Hgb (12.0-16.0) g/dl Hct (37-47) % POC Hct (37-47) % MCV (80-100) fL MCH (25-34) pg MCHC (32-36) g/dL RDW Std Deviation (36.4-46.3) fL RDW Coeff of Enedelia (11.5-14.5) % Plt Count (130-400) K/uL MPV (7.4-10.4) fL Sample Site POC pH (7.35-7.45) POC pCO2 (35-46) mmHg POC pO2 (80-95) mmHg POC HCO3 (19-24) ld/L POC Base Excess (-9-1.8) ld/L ABG pH (Temp Correct) (7.35-7.45) ABG pCO2 (Temp Corrct (35-46) mmHg POC ABG pO2 at Pt Temp Vikram Test POC Sodium (135-144) mmol/L Sodium (136-145) mmol/L POC Potassium (3.3-5.0) mmol/L Potassium (3.5-5.1) mmol/L POC Chloride (101-112) mmol/L Chloride (98-107) mmol/L Carbon Dioxide (21-32) mmol/L POC Total CO2 (24-31) mEq/l Anion Gap (3-11) POC Anion Gap (16-25) mmol/L POC BUN (7-18) mg/dl BUN (7-18) mg/dl Creatinine (0.6-1.2) mg/dl POC Creatinine (0.6-1.3) mg/dl Est Cr Clr Drug Dosing ml/min Est GFR ( Amer) Est GFR (Non-Af Amer) BUN/Creatinine Ratio (10-20) Glucose (70-99) mg/dl POC Glucose (70-99) mg/dl POC Glucose (other) (70-99) mg/dl Lactate (0.4-2.0) mmol/L Calcium (8.5-10.1) mg/dl POC Ioniz Calcium Pablito (1.12-1.32) mmol/l Ionized Calcium (1.12-1.32) mmol/L Phosphorus (2.5-4.9) mg/dl Magnesium (1.8-2.4) mg/dl Total Bilirubin (0.2-1) mg/dl Direct Bilirubin (0-0.2) mg/dl AST (15-37) U/L ALT (12-78) U/L Alkaline Phosphatase (45-117) U/L Ammonia (11-32) umol/L Troponin I (0-0.045) ng/ml Total Protein (6.4-8.2) gm/dl Albumin (3.4-5.0) gm/dl Globulin (2.5-4.0) gm/dl Albumin/Globulin Ratio (0.9-2) Nasal Screen MRSA (PCR) (Negative) Blood Type A Positive Antibody Screen NEGATIVE Crossmatch See Detail Resident Activity Tracking Resident Involvement: Resident Care Provided Care Provided: Adult Hospital Medicine (1) Altered mental state Altered mental status type: unspecified Qualified Code(s): R41.82 - Altered mental status, unspecified
[2020-01-28 17:43] LABS: iSTAT Allen Test Pass; iSTAT Art Bld Gas pCO2 Correct 36 mmHg (35-46); iSTAT Art Bld Gas pH Corrected 7.394 (7.35-7.45); iSTAT Arterial Blood Gas HCO3 22 meg/L (19-24); iSTAT Arterial Blood Gas pCO2 36 mmHg (35-46); iSTAT Arterial Blood Gas pH 7.39 (7.35-7.45); iSTAT Arterial Blood Gas pO2 56 mmHg (80-95); iSTAT Arterial Blood Gas pO2 C 56; iSTAT Carbon Dioxide 23 mmol/L (24-31); iSTAT Hematocrit 25 % (37-47); iSTAT Hemoglobin 8.5 g/dl (12.0-16.0); iSTAT Potassium 4.2 mmol/L (3.3-5.0); iSTAT Site R Radial; iSTAT Sodium 137 mmol/L (135-144)
--- NOTE | 2020-01-28 20:32 | Billing Data ---
Date of Service January 28, 2020 Coding Level of Care Code 98844 Inpt Consult Level 5
[2020-01-28] MEDS ORDERED: SENNA 8.6 MG TAB PO SCH (21:00)
[2020-01-28] MEDS: PIPERACILLIN/TAZOBACTAM 3.375 GM in DEXTROSE 5% 100 ML IV SCH (21:18)
[2020-01-28] MEDS: DOCUSATE SODIUM 100 MG CAP PO SCH (21:18)
[2020-01-28 22:54] LABS: Hematocrit (blood only) 28.7 % (37-47); Hemoglobin 9.2 g/dL (12.0-16.0)
[2020-01-29] MEDS: SODIUM CHLORIDE 0.9% 1000ML 1,000 ML IV SCH (02:56)
[2020-01-29] MEDS: KETOROLAC TROMETHAMINE 15 MG/ML VIAL IV SCH ×2 (02:57→08:37)
[2020-01-29] MEDS: PIPERACILLIN/TAZOBACTAM 3.375 GM in DEXTROSE 5% 100 ML IV SCH ×3 (03:49→21:14)
[2020-01-29] MEDS: VANCOMYCIN HCL 500 MG in SODIUM CHLORIDE 0.9% 250 ML IV SCH ×2 (03:49→18:22)
[2020-01-29 04:19] LABS: Hematocrit (blood only) 26.7 % (37-47); Hemoglobin 8.4 g/dL (12.0-16.0); Mean Corpuscular Hemoglobin 30.5 pg (25-34); Mean Corpuscular Hgb Conc 31.5 g/dL (32-36); Mean Corpuscular Volume 97.1 fL (80-100); Mean Platelet Volume 8.8 fL (7.4-10.4); Platelet Count 165 K/uL (130-400); RDW Coefficient of Variation 16.3 % (11.5-14.5); RDW Standard Deviation 57.7 fL (36.4-46.3); Red Blood Count 2.75 M/uL (4.2-5.4); White Blood Count 12.58 K/uL (4.8-10.8)
[2020-01-29 04:30] LABS: Prothrombin Time 10.5 Seconds (9.0-12.0)
[2020-01-29 04:38] LABS: BUN Creatinine Ratio 30.5 (10-20); Calcium 8.9 mg/dl (8.5-10.1); Creatinine Clr Calc Pharmacy 36.4 ml/min; Est GFR (African American) 69.8; Est GFR (Non-African American) 60.2; Potassium 4.1 mmol/L (3.5-5.1)
[2020-01-29 05:05] LABS: Immature Granulocytes # (auto) 0.03 K/uL (0.00-0.02); Immature Granulocytes % (auto) 0.2 %; Lymphocytes # (auto) 1.12 K/uL (1.2-3.4); Lymphocytes % (auto) 8.9 %; Monocytes # (auto) 0.79 K/uL (0.11-0.59); Monocytes % (auto) 6.3 %; Neutrophils # (auto) 10.64 K/uL (1.4-6.5); Neutrophils % (auto) 84.6 %
[2020-01-29] MEDS: ACETAMINOPHEN 500 MG TAB PO SCH (06:19)
--- NOTE | 2020-01-29 07:21 | Anesthesiology Progress Note ---
Date of Service January 29, 2020 Anesthesia Post Procedure Vital Signs Vital Signs: Temp Pulse Pulse Resp BP BP BP 01/29/20 06:00 86 17 123/61 01/29/20 05:00 87 21 104/63 01/29/20 04:00 37.8 C H 91 H 22 103/56 L 01/29/20 03:00 103 H 24 85/50 L 01/29/20 02:00 89 22 114/56 L 01/29/20 01:00 88 20 97/48 L 01/29/20 00:00 37.9 C H 85 20 90/60 L 01/28/20 23:00 103 H 20 102/54 L 01/28/20 22:00 100 H 20 114/55 L 01/28/20 21:30 83 01/28/20 21:00 102 H 01/28/20 20:53 95 H 97/56 L 01/28/20 20:30 86 01/28/20 20:00 37.4 C 103 H 01/28/20 19:53 100 H 109/56 L 01/28/20 19:30 107 H 01/28/20 19:00 86 01/28/20 18:00 90 01/28/20 17:53 86 109/59 L 01/28/20 16:53 81 116/61 01/28/20 16:15 88 01/28/20 16:00 83 22 01/28/20 15:44 37.2 C 85 22 107/53 L 01/28/20 15:29 85 20 107/58 L 01/28/20 15:14 71 21 116/58 L 01/28/20 15:00 79 22 01/28/20 14:59 75 20 108/57 L 01/28/20 14:44 88 21 106/61 01/28/20 13:55 36.9 C 63 19 102/53 L 01/28/20 13:43 37.1 C 71 71 18 105/56 L 01/28/20 13:35 66 22 110/60 01/28/20 13:25 65 21 97/52 L 01/28/20 13:15 67 22 94/51 L 01/28/20 13:05 66 21 103/55 L 01/28/20 12:55 36.7 C 63 20 91/50 L 03/18/20 12:45 64 19 99/47 L 01/28/20 12:35 64 21 92/50 L 01/28/20 12:25 63 19 92/53 L 01/28/20 12:15 62 20 98/58 L 01/28/20 12:05 63 20 104/58 L 01/28/20 11:55 69 22 136/82 01/28/20 11:45 57 L 19 106/56 L 01/28/20 11:35 60 21 107/58 L 01/28/20 11:25 64 21 128/67 01/28/20 11:15 66 20 101/59 L 01/28/20 11:07 36.1 C L 69 15 109/59 L Pulse Ox 01/29/20 06:00 99 01/29/20 05:00 98 01/29/20 04:00 98 01/29/20 03:00 96 01/29/20 02:00 97 01/29/20 01:00 97 01/29/20 00:00 98 01/28/20 23:00 96 01/28/20 22:00 95 01/28/20 21:30 99 01/28/20 21:00 95 01/28/20 20:53 96 01/28/20 20:30 96 01/28/20 20:00 93 01/28/20 19:53 94 01/28/20 19:30 99 01/28/20 19:00 100 01/28/20 18:00 92 01/28/20 17:53 93 01/28/20 16:53 93 01/28/20 16:15 01/28/20 16:00 94 01/28/20 15:44 95 01/28/20 15:29 94 01/28/20 15:14 96 01/28/20 15:00 94 01/28/20 14:59 94 01/28/20 14:44 98 01/28/20 13:55 96 01/28/20 13:43 92 01/28/20 13:35 96 01/28/20 13:25 96 01/28/20 13:15 96 01/28/20 13:05 95 01/28/20 12:55 96 01/28/20 12:45 96 01/28/20 12:35 97 01/28/20 12:25 94 01/28/20 12:15 96 01/28/20 12:05 94 01/28/20 11:55 94 01/28/20 11:45 96 01/28/20 11:35 96 01/28/20 11:25 98 01/28/20 11:15 98 01/28/20 11:07 95 Notes Mental Status: alert / awake / arousable and participated in evaluation Patient Amnestic to Procedure: Yes Nausea / Vomiting: adequately controlled Pain: adequately controlled Airway Patency, RR, SpO2: stable & adequate BP & HR: stable & adequate Hydration State: stable & adequate Anesthetic Complications: no major complications apparent and Pt Satisfied with anesthetic care
--- NOTE | 2020-01-29 07:31 | Critical Care Progress Note ---
Date of Service January 29, 2020 Assessment & Plan (1) Altered mental state: Emma Jhaveri is a 74 year old female who underwent septic total hip replacement by Dr Shah on 01/27 NEURO: - [facility] ICU: positive - altered mental status, opens eyes to verbal command, moves all extremities spontaneously - this decreased mentation potentially represents encephalopathy of unknown origin - neurologic exam inconsistent with any single neurologic deficit - inverted ankles on exam are consistent with previous examination when patient seen in ED by this provider - CT head did not demonstrate acute intracranial abnormality - CTA Head: No significant stenosis, occlusion, or aneurysm within the iliamna of [place]. Mild narrowing within the ophthalmic segment of the left internal carotid artery due to the endoscopic plaque. - CTA Neck: No significant stenosis, occlusion, or dissection identified within the carotid or vertebral arteries. Minimal scattered plaque formation - CT Head: No acute intracranial abnormality. - CT Venogram: No acute intracranial abnormality. No evidence for dural venous sinus thrombosis. - Neurology consulted - EEG suggestive of a moderate to severe nonspecific encephalopathy CARDIAC/VASCULAR: - Echo demonstrated EF 60-65%, no regional wall motion abnormalities, mild concentric LVH, mild biatrial dilation, sclerotic aortic valve without significant stenosis, moderate tricuspid regurgitation, and severe pulmonary hypertension - EKG normal sinus rhythm with sinus arrhythmia, with nonspecific T wave abnormality in anterolateral leads - troponin 0.156 RESPIRATORY: - maintaining sats >92% on 2L NC - no previous pulmonary disease GI/NUTRITION: - NPO - Coresafe inserted; KUB demonstrated tip within gastric lumen - Dietitian consulted RENAL/LYTES: - no significant electrolyte abnormalities - Ca 8.1, ionized calcium 1.10 - Cr stable from previous hospital admissions - continue to monitor BMPs : - obrien in place - continue to monitor I/Os ENDO: - no history of hypo/hyperthyroidism, or T2DM HEME: - H&H stable from previous admissions - iron 15, Transferrin 8%, Transferrin 131 ID: - Lactate 1.4 - wound specimen from 01/27 have grown S. aureus - previously had MSSA growing from wound specimen on 01/25, and urine on 12/05 - continue Vancomycin, and zosyn for now; recommend discontinuing Zosyn in AM after further speciation of wound S. aureus LINES/IV ACCESS: - peripheral IVs DVT PROPHYLAXIS: - SQ Lovenox Admission and Anticipated Discharge Date Admission Date: January 28, 2020 Supervising Physician Co-Signing Physician Notes Dr. Chaudhari was resident physician during care of patient. I separately evaluated patient for blake portions of the history and the exam. I was present during the critical portion of medical decision making, and I discussed the case with the resident. I generally agree with the findings and plan. Patient shows signs of dense encephalopathy. Pupils are equal round reactive to light, her gaze does go across midline. She does not appear to have significant strength of the right upper extremity she is able to internally rotate mildly at the shoulder. She does withdraw from painful stimuli in the left upper and bilateral lower extremities, she does appear to respond to painful stimuli of the right upper extremity. She has 2 out of 4 reflexes of the bilateral patellar tendons, upgoing Babinski's bilaterally. She does open her eyes to noise, no sounds. Discussed with orthopedic surgery regarding obtaining MRI, it would not change immediate management and will proceed with CT scans to rule out venous sinus thrombosis as well as vascular occlusion. EEG results reviewed no evidence of status. Neurology consult pending. Placed a course safe feeding tube and will start supplying nutrition. Subjective Patient with no improved mentation overnight, still minimally arousable to verbal command, however rapidly returns to sleep this morning. Continuing to move all extremities spontaneously. Review of Systems Review of Systems: Unobtainable due to reduced consciousness Physical Exam Constitutional: WD/WN, vitals as above + lethargic Eyes: PERRL, conjunctivae normal, anicteric sclerae ENMT: external ear and nose normal, oropharynx normal Neck: normal visual inspection Respiratory: normal respiratory effort, lungs clear to auscultation Cardiovascular: Rate/Rhythm: regular rate and regular rhythm Heart Sounds: normal S1 and normal S2; no gallop, no murmur and no cardiac rub Vessels: no JVD Extremities: no pedal edema Gastrointestinal (Abdomen): Inspection/Auscultation: normal bowel sounds Percussion/Palpation: abdomen soft; abdomen nontender, no guarding and no hepatosplenomegaly Musculoskeletal: Inverted ankles b/l Neurologic: GCS 8, opens eyes to verbal command, moves 3 out of 4 extremities spontaneously, withdraws to pain in all extremities, PERRLA, eyes pass midline, no strabismus, no pupillary defect, Biceps reflex 2+ on L, 1+ on R; 2+ b/l patellar reflexes, Positive Babinski b/l Lymphatic: no cervical or axillary lymphadenopathy Results & Data ([facility]) Vital Signs (Past 12 Hours) Vital Signs Temp Pulse Pulse Resp BP BP BP 01/29/20 06:00 86 17 123/61 01/29/20 05:00 87 21 104/63 01/29/20 04:00 37.8 C H 91 H 22 103/56 L 01/29/20 03:00 103 H 24 85/50 L 01/29/20 02:00 89 22 114/56 L 01/29/20 01:00 88 20 97/48 L 01/29/20 00:00 37.9 C H 85 20 90/60 L 01/28/20 23:00 103 H 20 102/54 L 01/28/20 22:00 100 H 20 114/55 L 01/28/20 21:30 83 01/28/20 21:00 102 H 01/28/20 20:53 95 H 97/56 L 01/28/20 20:30 86 01/28/20 20:00 37.4 C 103 H 01/28/20 19:53 100 H 109/56 L Pulse Ox 01/29/20 06:00 99 01/29/20 05:00 98 01/29/20 04:00 98 01/29/20 03:00 96 01/29/20 02:00 97 01/29/20 01:00 97 01/29/20 00:00 98 01/28/20 23:00 96 01/28/20 22:00 95 01/28/20 21:30 99 01/28/20 21:00 95 01/28/20 20:53 96 01/28/20 20:30 96 01/28/20 20:00 93 01/28/20 19:53 94 Laboratory Results 01/29/20 01/29/20 01/29/20 Range/Units 04:05 04:00 04:00 WBC (4.8-10.8) K/uL RBC (4.2-5.4) M/uL Hgb (12.0-16.0) g/dL POC Hgb (12.0-16.0) g/dl Hct (37-47) % POC Hct (37-47) % MCV (80-100) fL MCH (25-34) pg MCHC (32-36) g/dL RDW Std Deviation (36.4-46.3) fL RDW Coeff of Enedelia (11.5-14.5) % Plt Count (130-400) K/uL MPV (7.4-10.4) fL Immature Gran % (Auto) % Neut % (Auto) % Lymph % (Auto) % [place] % (Auto) % Eos % (Auto) % Baso % (Auto) % Immature Gran # (Auto) (0.00-0.02) K/uL Neut # (Auto) (1.4-6.5) K/uL Lymph # (Auto) (1.2-3.4) K/uL [place] # (Auto) (0.11-0.59) K/uL Eos # (Auto) (0-0.5) K/uL Baso # (Auto) (0-0.2) K/uL PT (9.0-12.0) Seconds INR (0.9-1.1) Sample Site POC pH (7.35-7.45) POC pCO2 (35-46) mmHg POC pO2 (80-95) mmHg POC HCO3 (19-24) ld/L POC Base Excess (-9-1.8) ld/L ABG pH (Temp Correct) (7.35-7.45) ABG pCO2 (Temp Corrct (35-46) mmHg POC ABG pO2 at Pt Temp Vikram Test POC Sodium (135-144) mmol/L Sodium 140 (136-145) mmol/L POC Potassium (3.3-5.0) mmol/L Potassium 4.1 (3.5-5.1) mmol/L POC Chloride (101-112) mmol/L Chloride 111 H (98-107) mmol/L Carbon Dioxide 21 (21-32) mmol/L POC Total CO2 (24-31) mEq/l Anion Gap 8.0 (3-11) POC Anion Gap (16-25) mmol/L POC BUN (7-18) mg/dl BUN 29 H (7-18) mg/dl Creatinine 0.94 (0.6-1.2) mg/dl POC Creatinine (0.6-1.3) mg/dl Est Cr Clr Drug Dosing 36.4 ml/min Est GFR ( Amer) 69.8 Est GFR (Non-Af Amer) 60.2 BUN/Creatinine Ratio 30.5 H (10-20) Glucose 130 H (70-99) mg/dl POC Glucose 142 H (70-99) mg/dl POC Glucose (other) (70-99) mg/dl Lactate (0.4-2.0) mmol/L Calcium 8.9 (8.5-10.1) mg/dl POC Ioniz Calcium [place] (1.12-1.32) mmol/l Ionized Calcium (1.12-1.32) mmol/L Phosphorus (2.5-4.9) mg/dl Magnesium (1.8-2.4) mg/dl Iron 15 L (35-150) mcg/dl Transferrin 131 L (200-360) mg/dl Transferrin % Sat 8 L (15-50) % Total Bilirubin (0.2-1) mg/dl Direct Bilirubin (0-0.2) mg/dl AST (15-37) U/L ALT (12-78) U/L Alkaline Phosphatase (45-117) U/L Ammonia (11-32) umol/L Troponin I (0-0.045) ng/ml Total Protein (6.4-8.2) gm/dl Albumin (3.4-5.0) gm/dl Globulin (2.5-4.0) gm/dl Albumin/Globulin Ratio (0.9-2) Vitamin B12 459 (211-911) pg/ml Folate 13.65 (>5.38) ng/ml Nasal Screen MRSA (PCR) (Negative) Blood Type Antibody Screen Crossmatch 01/29/20 01/29/20 01/28/20 Range/Units 04:00 04:00 22:45 WBC 12.58 H (4.8-10.8) K/uL RBC 2.75 L (4.2-5.4) M/uL Hgb 8.4 L 9.2 L (12.0-16.0) g/dL POC Hgb (12.0-16.0) g/dl Hct 26.7 L 28.7 L (37-47) % POC Hct (37-47) % MCV 97.1 (80-100) fL MCH 30.5 (25-34) pg MCHC 31.5 L (32-36) g/dL RDW Std Deviation 57.7 H (36.4-46.3) fL RDW Coeff of Enedelia 16.3 H (11.5-14.5) % Plt Count 165 (130-400) K/uL MPV 8.8 (7.4-10.4) fL Immature Gran % (Auto) 0.2 % Neut % (Auto) 84.6 % Lymph % (Auto) 8.9 % [place] % (Auto) 6.3 % Eos % (Auto) 0.0 % Baso % (Auto) 0.0 % Immature Gran # (Auto) 0.03 H (0.00-0.02) K/uL Neut # (Auto) 10.64 H (1.4-6.5) K/uL Lymph # (Auto) 1.12 L (1.2-3.4) K/uL [place] # (Auto) 0.79 H (0.11-0.59) K/uL Eos # (Auto) 0.00 (0-0.5) K/uL Baso # (Auto) 0.00 (0-0.2) K/uL PT 10.5 (9.0-12.0) Seconds INR 1.0 (0.9-1.1) Sample Site POC pH (7.35-7.45) POC pCO2 (35-46) mmHg POC pO2 (80-95) mmHg POC HCO3 (19-24) ld/L POC Base Excess (-9-1.8) ld/L ABG pH (Temp Correct) (7.35-7.45) ABG pCO2 (Temp Corrct (35-46) mmHg POC ABG pO2 at Pt Temp Vikram Test POC Sodium (135-144) mmol/L Sodium (136-145) mmol/L POC Potassium (3.3-5.0) mmol/L Potassium (3.5-5.1) mmol/L POC Chloride (101-112) mmol/L Chloride (98-107) mmol/L Carbon Dioxide (21-32) mmol/L POC Total CO2 (24-31) mEq/l Anion Gap (3-11) POC Anion Gap (16-25) mmol/L POC BUN (7-18) mg/dl BUN (7-18) mg/dl Creatinine (0.6-1.2) mg/dl POC Creatinine (0.6-1.3) mg/dl Est Cr Clr Drug Dosing ml/min Est GFR ( Amer) Est GFR (Non-Af Amer) BUN/Creatinine Ratio (10-20) Glucose (70-99) mg/dl POC Glucose (70-99) mg/dl POC Glucose (other) (70-99) mg/dl Lactate (0.4-2.0) mmol/L Calcium (8.5-10.1) mg/dl POC Ioniz Calcium [place] (1.12-1.32) mmol/l Ionized Calcium (1.12-1.32) mmol/L Phosphorus (2.5-4.9) mg/dl Magnesium (1.8-2.4) mg/dl Iron (35-150) mcg/dl Transferrin (200-360) mg/dl Transferrin % Sat (15-50) % Total Bilirubin (0.2-1) mg/dl Direct Bilirubin (0-0.2) mg/dl AST (15-37) U/L ALT (12-78) U/L Alkaline Phosphatase (45-117) U/L Ammonia (11-32) umol/L Troponin I (0-0.045) ng/ml Total Protein (6.4-8.2) gm/dl Albumin (3.4-5.0) gm/dl Globulin (2.5-4.0) gm/dl Albumin/Globulin Ratio (0.9-2) Vitamin B12 (211-911) pg/ml Folate (>5.38) ng/ml Nasal Screen MRSA (PCR) (Negative) Blood Type Antibody Screen Crossmatch 01/28/20 01/28/20 01/28/20 Range/Units 22:16 17:30 17:08 WBC (4.8-10.8) K/uL RBC (4.2-5.4) M/uL Hgb 9.2 L (12.0-16.0) g/dL POC Hgb 8.5 L (12.0-16.0) g/dl Hct 29.2 L (37-47) % POC Hct 25 L (37-47) % MCV (80-100) fL MCH (25-34) pg MCHC (32-36) g/dL RDW Std Deviation (36.4-46.3) fL RDW Coeff of Enedelia (11.5-14.5) % Plt Count (130-400) K/uL MPV (7.4-10.4) fL Immature Gran % (Auto) % Neut % (Auto) % Lymph % (Auto) % [place] % (Auto) % Eos % (Auto) % Baso % (Auto) % Immature Gran # (Auto) (0.00-0.02) K/uL Neut # (Auto) (1.4-6.5) K/uL Lymph # (Auto) (1.2-3.4) K/uL [place] # (Auto) (0.11-0.59) K/uL Eos # (Auto) (0-0.5) K/uL Baso # (Auto) (0-0.2) K/uL PT (9.0-12.0) Seconds INR (0.9-1.1) Sample Site R Radial POC pH 7.39 (7.35-7.45) POC pCO2 36 (35-46) mmHg POC pO2 56 L (80-95) mmHg POC HCO3 22 (19-24) ld/L POC Base Excess -3.0 (-9-1.8) ld/L ABG pH (Temp Correct) 7.394 (7.35-7.45) ABG pCO2 (Temp Corrct 36 (35-46) mmHg POC ABG pO2 at Pt Temp 56 Vikram Test Pass POC Sodium 137 (135-144) mmol/L Sodium (136-145) mmol/L POC Potassium 4.2 (3.3-5.0) mmol/L Potassium (3.5-5.1) mmol/L POC Chloride (101-112) mmol/L Chloride (98-107) mmol/L Carbon Dioxide (21-32) mmol/L POC Total CO2 23 L (24-31) mEq/l Anion Gap (3-11) POC Anion Gap (16-25) mmol/L POC BUN (7-18) mg/dl BUN (7-18) mg/dl Creatinine (0.6-1.2) mg/dl POC Creatinine (0.6-1.3) mg/dl Est Cr Clr Drug Dosing ml/min Est GFR ( Amer) Est GFR (Non-Af Amer) BUN/Creatinine Ratio (10-20) Glucose (70-99) mg/dl POC Glucose 136 H (70-99) mg/dl POC Glucose (other) (70-99) mg/dl Lactate (0.4-2.0) mmol/L Calcium (8.5-10.1) mg/dl POC Ioniz Calcium [place] (1.12-1.32) mmol/l Ionized Calcium (1.12-1.32) mmol/L Phosphorus (2.5-4.9) mg/dl Magnesium (1.8-2.4) mg/dl Iron (35-150) mcg/dl Transferrin (200-360) mg/dl Transferrin % Sat (15-50) % Total Bilirubin (0.2-1) mg/dl Direct Bilirubin (0-0.2) mg/dl AST (15-37) U/L ALT (12-78) U/L Alkaline Phosphatase (45-117) U/L Ammonia (11-32) umol/L Troponin I (0-0.045) ng/ml Total Protein (6.4-8.2) gm/dl Albumin (3.4-5.0) gm/dl Globulin (2.5-4.0) gm/dl Albumin/Globulin Ratio (0.9-2) Vitamin B12 (211-911) pg/ml Folate (>5.38) ng/ml Nasal Screen MRSA (PCR) (Negative) Blood Type Antibody Screen Crossmatch 01/28/20 01/28/20 01/28/20 Range/Units 17:08 17:07 17:07 WBC (4.8-10.8) K/uL RBC (4.2-5.4) M/uL Hgb (12.0-16.0) g/dL POC Hgb (12.0-16.0) g/dl Hct (37-47) % POC Hct (37-47) % MCV (80-100) fL MCH (25-34) pg MCHC (32-36) g/dL RDW Std Deviation (36.4-46.3) fL RDW Coeff of Enedelia (11.5-14.5) % Plt Count (130-400) K/uL MPV (7.4-10.4) fL Immature Gran % (Auto) % Neut % (Auto) % Lymph % (Auto) % [place] % (Auto) % Eos % (Auto) % Baso % (Auto) % Immature Gran # (Auto) (0.00-0.02) K/uL Neut # (Auto) (1.4-6.5) K/uL Lymph # (Auto) (1.2-3.4) K/uL [place] # (Auto) (0.11-0.59) K/uL Eos # (Auto) (0-0.5) K/uL Baso # (Auto) (0-0.2) K/uL PT (9.0-12.0) Seconds INR (0.9-1.1) Sample Site POC pH (7.35-7.45) POC pCO2 (35-46) mmHg POC pO2 (80-95) mmHg POC HCO3 (19-24) ld/L POC Base Excess (-9-1.8) ld/L ABG pH (Temp Correct) (7.35-7.45) ABG pCO2 (Temp Corrct (35-46) mmHg POC ABG pO2 at Pt Temp Vikrma Test POC Sodium (135-144) mmol/L Sodium 139 (136-145) mmol/L POC Potassium (3.3-5.0) mmol/L Potassium 4.3 (3.5-5.1) mmol/L POC Chloride (101-112) mmol/L Chloride 108 H (98-107) mmol/L Carbon Dioxide 23 (21-32) mmol/L POC Total CO2 (24-31) mEq/l Anion Gap 8.0 (3-11) POC Anion Gap (16-25) mmol/L POC BUN (7-18) mg/dl BUN 23 H (7-18) mg/dl Creatinine 0.80 (0.6-1.2) mg/dl POC Creatinine (0.6-1.3) mg/dl Est Cr Clr Drug Dosing 42.7 ml/min Est GFR ( Amer) 84.8 Est GFR (Non-Af Amer) 73.1 BUN/Creatinine Ratio 29.3 H (10-20) Glucose 131 H (70-99) mg/dl POC Glucose (70-99) mg/dl POC Glucose (other) (70-99) mg/dl Lactate 1.4 (0.4-2.0) mmol/L Calcium 8.1 L (8.5-10.1) mg/dl POC Ioniz Calcium [place] (1.12-1.32) mmol/l Ionized Calcium 1.10 L (1.12-1.32) mmol/L Phosphorus (2.5-4.9) mg/dl Magnesium (1.8-2.4) mg/dl Iron (35-150) mcg/dl Transferrin (200-360) mg/dl Transferrin % Sat (15-50) % Total Bilirubin 1.0 (0.2-1) mg/dl Direct Bilirubin 0.3 H (0-0.2) mg/dl AST 23 (15-37) U/L ALT 16 (12-78) U/L Alkaline Phosphatase 63 (45-117) U/L Ammonia (11-32) umol/L Troponin I (0-0.045) ng/ml Total Protein 5.9 L (6.4-8.2) gm/dl Albumin 2.6 L (3.4-5.0) gm/dl Globulin (2.5-4.0) gm/dl Albumin/Globulin Ratio (0.9-2) Vitamin B12 (211-911) pg/ml Folate (>5.38) ng/ml Nasal Screen MRSA (PCR) (Negative) Blood Type Antibody Screen Crossmatch 01/28/20 01/28/20 01/28/20 Range/Units 17:07 14:45 12:46 WBC (4.8-10.8) K/uL RBC (4.2-5.4) M/uL Hgb (12.0-16.0) g/dL POC Hgb (12.0-16.0) g/dl Hct (37-47) % POC Hct (37-47) % MCV (80-100) fL MCH (25-34) pg MCHC (32-36) g/dL RDW Std Deviation (36.4-46.3) fL RDW Coeff of Enedelia (11.5-14.5) % Plt Count (130-400) K/uL MPV (7.4-10.4) fL Immature Gran % (Auto) % Neut % (Auto) % Lymph % (Auto) % [place] % (Auto) % Eos % (Auto) % Baso % (Auto) % Immature Gran # (Auto) (0.00-0.02) K/uL Neut # (Auto) (1.4-6.5) K/uL Lymph # (Auto) (1.2-3.4) K/uL [place] # (Auto) (0.11-0.59) K/uL Eos # (Auto) (0-0.5) K/uL Baso # (Auto) (0-0.2) K/uL PT (9.0-12.0) Seconds INR (0.9-1.1) Sample Site POC pH (7.35-7.45) POC pCO2 (35-46) mmHg POC pO2 (80-95) mmHg POC HCO3 (19-24) ld/L POC Base Excess (-9-1.8) ld/L ABG pH (Temp Correct) (7.35-7.45) ABG pCO2 (Temp Corrct (35-46) mmHg POC ABG pO2 at Pt Temp Vikram Test POC Sodium (135-144) mmol/L Sodium (136-145) mmol/L POC Potassium (3.3-5.0) mmol/L Potassium (3.5-5.1) mmol/L POC Chloride (101-112) mmol/L Chloride (98-107) mmol/L Carbon Dioxide (21-32) mmol/L POC Total CO2 (24-31) mEq/l Anion Gap (3-11) POC Anion Gap (16-25) mmol/L POC BUN (7-18) mg/dl BUN (7-18) mg/dl Creatinine (0.6-1.2) mg/dl POC Creatinine (0.6-1.3) mg/dl Est Cr Clr Drug Dosing ml/min Est GFR ( Amer) Est GFR (Non-Af Amer) BUN/Creatinine Ratio (10-20) Glucose (70-99) mg/dl POC Glucose 120 H (70-99) mg/dl POC Glucose (other) (70-99) mg/dl Lactate (0.4-2.0) mmol/L Calcium (8.5-10.1) mg/dl POC Ioniz Calcium [place] (1.12-1.32) mmol/l Ionized Calcium (1.12-1.32) mmol/L Phosphorus (2.5-4.9) mg/dl Magnesium (1.8-2.4) mg/dl Iron (35-150) mcg/dl Transferrin (200-360) mg/dl Transferrin % Sat (15-50) % Total Bilirubin (0.2-1) mg/dl Direct Bilirubin (0-0.2) mg/dl AST (15-37) U/L ALT (12-78) U/L Alkaline Phosphatase (45-117) U/L Ammonia < 10.0 L (11-32) umol/L Troponin I (0-0.045) ng/ml Total Protein (6.4-8.2) gm/dl Albumin (3.4-5.0) gm/dl Globulin (2.5-4.0) gm/dl Albumin/Globulin Ratio (0.9-2) Vitamin B12 (211-911) pg/ml Folate (>5.38) ng/ml Nasal Screen MRSA (PCR) Negative (Negative) Blood Type Antibody Screen Crossmatch 01/28/20 01/28/20 01/28/20 Range/Units 12:44 12:44 11:40 WBC 13.22 H (4.8-10.8) K/uL RBC 3.03 L (4.2-5.4) M/uL Hgb 9.4 L (12.0-16.0) g/dL POC Hgb (12.0-16.0) g/dl Hct 30.1 L (37-47) % POC Hct (37-47) % MCV 99.3 (80-100) fL MCH 31.0 (25-34) pg MCHC 31.2 L (32-36) g/dL RDW Std Deviation 57.8 H (36.4-46.3) fL RDW Coeff of Enedelia 15.8 H (11.5-14.5) % Plt Count 191 (130-400) K/uL MPV 8.3 (7.4-10.4) fL Immature Gran % (Auto) % Neut % (Auto) % Lymph % (Auto) % [place] % (Auto) % Eos % (Auto) % Baso % (Auto) % Immature Gran # (Auto) (0.00-0.02) K/uL Neut # (Auto) (1.4-6.5) K/uL Lymph # (Auto) (1.2-3.4) K/uL [place] # (Auto) (0.11-0.59) K/uL Eos # (Auto) (0-0.5) K/uL Baso # (Auto) (0-0.2) K/uL PT (9.0-12.0) Seconds INR (0.9-1.1) Sample Site POC pH (7.35-7.45) POC pCO2 (35-46) mmHg POC pO2 (80-95) mmHg POC HCO3 (19-24) ld/L POC Base Excess (-9-1.8) ld/L ABG pH (Temp Correct) (7.35-7.45) ABG pCO2 (Temp Corrct (35-46) mmHg POC ABG pO2 at Pt Temp Vikram Test POC Sodium (135-144) mmol/L Sodium 138 (136-145) mmol/L POC Potassium (3.3-5.0) mmol/L Potassium 4.3 (3.5-5.1) mmol/L POC Chloride (101-112) mmol/L Chloride 109 H (98-107) mmol/L Carbon Dioxide 23 (21-32) mmol/L POC Total CO2 (24-31) mEq/l Anion Gap 6.0 (3-11) POC Anion Gap (16-25) mmol/L POC BUN (7-18) mg/dl BUN 20 H (7-18) mg/dl Creatinine 0.74 (0.6-1.2) mg/dl POC Creatinine (0.6-1.3) mg/dl Est Cr Clr Drug Dosing 46.2 ml/min Est GFR ( Amer) 93.2 Est GFR (Non-Af Amer) 80.4 BUN/Creatinine Ratio 27.5 H (10-20) Glucose 129 H (70-99) mg/dl POC Glucose (70-99) mg/dl POC Glucose (other) (70-99) mg/dl Lactate (0.4-2.0) mmol/L Calcium 8.0 L (8.5-10.1) mg/dl POC Ioniz Calcium [place] (1.12-1.32) mmol/l Ionized Calcium (1.12-1.32) mmol/L Phosphorus 3.4 (2.5-4.9) mg/dl Magnesium 1.9 (1.8-2.4) mg/dl Iron (35-150) mcg/dl Transferrin (200-360) mg/dl Transferrin % Sat (15-50) % Total Bilirubin 1.2 H D (0.2-1) mg/dl Direct Bilirubin (0-0.2) mg/dl AST 25 (15-37) U/L ALT 15 (12-78) U/L Alkaline Phosphatase 71 (45-117) U/L Ammonia (11-32) umol/L Troponin I 0.156 H* (0-0.045) ng/ml Total Protein 6.2 L D (6.4-8.2) gm/dl Albumin 2.8 L (3.4-5.0) gm/dl Globulin 3.4 (2.5-4.0) gm/dl Albumin/Globulin Ratio 0.8 L (0.9-2) Vitamin B12 (211-911) pg/ml Folate (>5.38) ng/ml Nasal Screen MRSA (PCR) (Negative) Blood Type Antibody Screen Crossmatch 01/28/20 01/27/20 Range/Units 09:17 12:41 WBC (4.8-10.8) K/uL RBC (4.2-5.4) M/uL Hgb (12.0-16.0) g/dL POC Hgb 8.2 L (12.0-16.0) g/dl Hct (37-47) % POC Hct 24 L (37-47) % MCV (80-100) fL MCH (25-34) pg MCHC (32-36) g/dL RDW Std Deviation (36.4-46.3) fL RDW Coeff of Enedelia (11.5-14.5) % Plt Count (130-400) K/uL MPV (7.4-10.4) fL Immature Gran % (Auto) % Neut % (Auto) % Lymph % (Auto) % [place] % (Auto) % Eos % (Auto) % Baso % (Auto) % Immature Gran # (Auto) (0.00-0.02) K/uL Neut # (Auto) (1.4-6.5) K/uL Lymph # (Auto) (1.2-3.4) K/uL [place] # (Auto) (0.11-0.59) K/uL Eos # (Auto) (0-0.5) K/uL Baso # (Auto) (0-0.2) K/uL PT (9.0-12.0) Seconds INR (0.9-1.1) Sample Site POC pH (7.35-7.45) POC pCO2 (35-46) mmHg POC pO2 (80-95) mmHg POC HCO3 (19-24) ld/L POC Base Excess (-9-1.8) ld/L ABG pH (Temp Correct) (7.35-7.45) ABG pCO2 (Temp Corrct (35-46) mmHg POC ABG pO2 at Pt Temp Vikram Test POC Sodium 137 (135-144) mmol/L Sodium (136-145) mmol/L POC Potassium 4.0 (3.3-5.0) mmol/L Potassium (3.5-5.1) mmol/L POC Chloride 106 (101-112) mmol/L Chloride (98-107) mmol/L Carbon Dioxide (21-32) mmol/L POC Total CO2 24 (24-31) mEq/l Anion Gap (3-11) POC Anion Gap 12.0 L (16-25) mmol/L POC BUN 18 (7-18) mg/dl BUN (7-18) mg/dl Creatinine (0.6-1.2) mg/dl POC Creatinine 0.6 (0.6-1.3) mg/dl Est Cr Clr Drug Dosing ml/min Est GFR ( Amer) Est GFR (Non-Af Amer) BUN/Creatinine Ratio (10-20) Glucose (70-99) mg/dl POC Glucose (70-99) mg/dl POC Glucose (other) 102 H (70-99) mg/dl Lactate (0.4-2.0) mmol/L Calcium (8.5-10.1) mg/dl POC Ioniz Calcium [place] 1.20 (1.12-1.32) mmol/l Ionized Calcium (1.12-1.32) mmol/L Phosphorus (2.5-4.9) mg/dl Magnesium (1.8-2.4) mg/dl Iron (35-150) mcg/dl Transferrin (200-360) mg/dl Transferrin % Sat (15-50) % Total Bilirubin (0.2-1) mg/dl Direct Bilirubin (0-0.2) mg/dl AST (15-37) U/L ALT (12-78) U/L Alkaline Phosphatase (45-117) U/L Ammonia (11-32) umol/L Troponin I (0-0.045) ng/ml Total Protein (6.4-8.2) gm/dl Albumin (3.4-5.0) gm/dl Globulin (2.5-4.0) gm/dl Albumin/Globulin Ratio (0.9-2) Vitamin B12 (211-911) pg/ml Folate (>5.38) ng/ml Nasal Screen MRSA (PCR) (Negative) Blood Type A Positive Antibody Screen NEGATIVE Crossmatch See Detail Medications Administered Current Inpatient Medications Acetaminophen (Tylenol) 1,000 mg PO Q8 [facility] Stop: 02/27/20 14:29 Last Admin: 01/29/20 06:19 Dose: Not Given Documented by: Bisacodyl (Dulcolax) 10 mg [place] DAILY PRN PRN Reason: Constipation Stop: 02/27/20 13:42 Calcium Carbonate (Os-Adriano 500) 1,250 mg PO QAM [facility] Stop: 02/28/20 08:59 Docusate Sodium (Colace) 100 mg PO BID [facility] Stop: 02/27/20 20:59 Last Admin: 01/28/20 21:18 Dose: Not Given Documented by: Hydromorphone HCl (Dilaudid) 0.5 mg IV Q2H PRN PRN Reason: Pain or Pre PT Stop: 02/11/20 13:42 Vancomycin HCl 500 mg/ Sodium (Chloride) 260 mls @ 125 mls/hr IV Q12H [facility] Stop: 01/30/20 15:59 Last Infusion: 01/29/20 06:00 Dose: Infused Documented by: Piperacillin Sod/Tazobactam (Sod 3.375 gm/ Dextrose) 115 mls @ 28.75 mls/hr IV Q8H [facility]; Protocol Stop: 01/30/20 19:59 Last Admin: 01/29/20 03:49 Dose: 28.8 mls/hr Documented by: Ketorolac Tromethamine (Toradol) 15 mg IV Q6H [facility] Stop: 01/29/20 09:01 Last Admin: 01/29/20 02:57 Dose: Not Given Documented by: Magnesium Hydroxide (Milk Of Magnesia) 30 ml PO Q6H PRN PRN Reason: Constipation Stop: 02/27/20 13:42 Metoclopramide HCl (Reglan) 10 mg IV Q6H PRN PRN Reason: Nausea And Vomiting Stop: 02/27/20 13:42 Miscellaneous (Icu Protocol For Hyperglycemia) 1 ea N/A PRN PRN; Protocol PRN Reason: Hyperglycemia Protocol Stop: 01/30/20 13:42 Miscellaneous Information (Orthopaedic Warfarin Sliding Scale) 1 ea N/A DAILY@1400 BRITTANY; Protocol Stop: 02/27/20 13:59 Last Admin: 01/28/20 17:22 Dose: Not Given Documented by: Miscellaneous Information (Consult) 1 ea N/A UD PRN PRN Reason: Consult Stop: 02/27/20 13:52 Miscellaneous Information (Consult) 1 ea N/A UD PRN PRN Reason: Consult Stop: 02/27/20 13:54 Multivitamins (Multivitamin Tab) 1 tab PO DAILY [facility]ITTANY Stop: 02/28/20 08:59 Naloxone HCl (Narcan) 0.1 mg IV Q5M PRN PRN Reason: Oversedation/Resp Depression Stop: 02/27/20 13:42 Ondansetron HCl (Zofran) 4 mg IV Q6H PRN PRN Reason: Nausea And Vomiting Stop: 02/27/20 13:42 Oxycodone HCl (Roxicodone Immediate Rel) 5 - 10 mg PO Q4H PRN PRN Reason: Pain or Pre PT Stop: 02/11/20 13:42 Sennosides (Senokot) 17.2 mg PO HS [facility] Stop: 02/27/20 20:59 Last Admin: 01/28/20 21:18 Dose: Not Given Documented by: Vitamin D (Vitamin D3) 400 units PO DAILY [facility] Stop: 02/28/20 08:59 Resident Activity Tracking Resident Involvement: Resident Care Provided Care Provided: Adult Hospital Medicine (1) Altered mental state Altered mental status type: unspecified Qualified Code(s): R41.82 - Altered mental status, unspecified
[2020-01-29 07:37] LABS: Folate (Folic Acid) 13.65 ng/ml (>5.38)
[2020-01-29] MEDS ORDERED: dexAMETHasone 10 MG in SYRINGE 0 ML IV SCH (08:00)
--- NOTE | 2020-01-29 08:10 | Progress Notes ---
DATE: 01/29/2020 SUBJECTIVE: Orthopedic rounds, postop day #1 status post exchange extraction arthroplasty for septic right total hip replacement with trochanteric osteotomy. At this point in time, the patient remains encephalopathic. She briefly opens eyes to verbal stimulation. She moves all 4 extremities. Her wound dressing is clean, dry and intact. She has active extension of both ankles. No gross abdominal tenderness to palpation. I did not see any transient petechiae. LABORATORY WORK: White count this morning is at 12.58, hematocrit is slightly decreased to 26.7 consistent with procedure and hydration. INR is 1.0. Electrolytes are within normal limits with the exception of chloride being slightly high. Calcium is within normal limits. Albumin down. ASSESSMENT AND PLAN: Postop as stated above for procedure noted above. At this point in time, remains encephalopathic. Included in the differential would be embolic phenomenon such as fat and/or septic emboli. Reviewed report on echo, did not reveal any substantial foramen ovale. At this point, continue maximum supportive care. Discussed in detail with her spouse, Luis Jhaveri, multiple occasions yesterday and this morning. I have offered to discuss with other family members as well. He stated that she would like to be the target person for discussions. At this point, I will respect his wishes. We will continue with maximum support and as stated have described this in detail to her . Will follow carefully. DVT prophylaxis etc. per humanities coordinator/hospitalist. Antibiotic support per hospitalist. We will hold off on doing any kind of dressing change at this point in time.Hip precautions with turning.Use abduction pillow and no internal rotation. MTDD
[2020-01-29] MEDS: DOCUSATE SODIUM 100 MG CAP PO SCH (08:36)
[2020-01-29] MEDS ORDERED: MULTIVITAMIN TAB PO SCH (09:00)
[2020-01-29] MEDS ORDERED: lisinopriL 10 MG TAB PO SCH (09:00)
[2020-01-29] MEDS ORDERED: CHOLECALCIFEROL (VITAMIN D) 400 UNITS TABLET PO SCH (09:00)
[2020-01-29] MEDS ORDERED: CALCIUM CARBONATE 1250MG TAB PO SCH (09:00)
[2020-01-29] MEDS ORDERED: dilTIAZem ER 180 MG CAPCR PO SCH (09:00)
[2020-01-29] MEDS ORDERED: OPTIRAY 320 125ml IV PRN (10:58)
--- NOTE | 2020-01-29 11:24 | CT Scan Report ---
CT head venogram wo/w con HISTORY: increased sedation in post op TECHNIQUE: Multiaxial CT images of the head were performed both before and after the intravenous admi nistration of contrast to evaluate the major cerebral veins. Maximal intensity projection images were also performed at the workstation by the radiologist. COMPARISON STUDY: Noncontrast head CT 01/28/2020. FINDINGS: There is no mass, hematoma, midline shift, acute infarct. Mild atrophy and microvascular is chemic changes are again noted. The calvarium and skull base are intact. The paranasal sinuses and ma stoid air cells are clear. Postcontrast sequences show no areas of abnormal enhancement. The visualiz ed internal jugular veins, sigmoid sinuses, transverse sinuses, sagittal sinuses, straight sinus, vei n of Amrik, and internal cerebral veins are patent. No evidence for dural venous sinus thrombosis. IMPRESSION: 1. No acute intracranial abnormality. 2. No evidence for dural venous sinus thrombosis. ACT 112: Negative or not required by law. Electronically signed by: Jules Wang M.D. 01/29/2020 11:23 AM
--- NOTE | 2020-01-29 11:26 | CT Scan Report ---
CT angio neck with con HISTORY: Mental status change increased sedation in post-op TECHNIQUE: Multiaxial CT angiography of the neck was performed IV contrast: None. All measurements w ere calculated based on NASCET criteria. Maximum intensity projection images were also obtained. A dose lowering technique was utilized adhering to the principles of ALARA. COMPARISON STUDY: None. FINDINGS: The aortic arch and proximal great vessels are widely patent. There is no significant sten osis, occlusion, or dissection identified within the bilateral common carotid, internal carotid, or v ertebral arteries. IMPRESSION: No significant stenosis, occlusion, or dissection identified within the carotid or vertebral arteries . Minimal scattered plaque formation ACT 112: Negative or not required by law. The above report was generated using voice recognition software. It may contain grammatical, syntax or spelling errors. Electronically signed by: Peter Garcia M.D. 01/29/2020 11:25 AM
--- NOTE | 2020-01-29 11:28 | CT Scan Report ---
HEAD CTA HISTORY: increased sedation in post-op TECHNIQUE: Multiaxial CT images of the head were performed both before and after the intravenous admi nistration of contrast to evaluate the major cerebral vessels. Maximum intensity projection images we re also obtained. A dose lowering technique was utilized adhering to the principles of ALARA. COMPARISON: Head CT 01/28/2020. FINDINGS: There is no mass, hematoma, midline shift, or acute infarct. Mild narrowing within the opht halmic segment of the left internal carotid artery due to the calcified plaque. The intracranial righ t internal carotid artery is patent. The bilateral ACAs, MCAs, industrial maintenance millwright show no significant stenosis, occ lusion, or aneurysm. Incidental note is made of a hypoplastic right P1 segment. The visualized distal vertebral arteries and basilar artery are widely patent. IMPRESSION: 1. No significant stenosis, occlusion, or aneurysm within the [place]. 2. Mild narrowing within the ophthalmic segment of the left internal carotid artery due to the endosc opic plaque. ACT 112: Negative or not required by law. Electronically signed by: Jules Wang M.D. 01/29/2020 11:27 AM
[2020-01-29] MEDS: ENOXAPARIN INJ 30 MG/0.3 ML SYR SQ SCH (12:38)
--- NOTE | 2020-01-29 16:14 | Hospitalist Progress Note ---
Date of Service January 29, 2020 Assessment & Plan (1) Altered level of consciousness: GCS [id number] - 7. Worse exam than previous day. Now with superior gaze and worse eye opening response, withdrawal to pain occasionally but most of the time without motor response. Possibly some decorticate posturing of left UE. Upgoing plantars equal b/l. Exam and lack of findings on CT concerning anoxic brain injury during the operation. She continues to have no gag reflex. Agree with EEG ordered by ICU. Discussed with Dr Augustine who will review patient tomorrow. (2) Airway compromise: Still without gag reflex. (3) MSSA bacteremia: Presumed based on prior cultures from urine back in November and more recent I&D in clinic. Suspect ongoing source is hardware in her back but UTI prior to this and will need to consult Dr Brian if blood cultures are positive. Blood cultures currently negative at 24 hours - either way she should have 6 weeks of IV antibiotics if she recovers from presumed anoxic brain injury. No vegetations on TTE. If confirmed MSSA bacteremia will get ID consult (4) Septic hip: Appreciate orthopedic management. Exchange arthroplasty and Prostalac spa cer placed on 01/27. Vanc and Zosyn as above Follow up cultures from operation (5) Spinal stenosis: s/p spinal surgery 12/08. If bacteremic confirmed will consult Dr Brian as hardware possibly will need to be removed (6) Anemia: Suspected blood loss from surgeries as relatively new since her operations. Iron studies added to AM labs. s/p 1 unit packed RBCs given during operation. B12 and folate WNL (7) Hypertension: Hold diltiazem and lisinopril currently given relatively post operative hypotension (8) DVT prophylaxis: Lovenox as per ICU management SCDs (9) Pulmonary hypertension: Admission and Anticipated Discharge Date Admission Date: January 28, 2020 Subjective No significant improvement in mentation overnight. Appears to be struggling to open her eyes more. Unable to get history from patient. Called her daughter three times without answer in the afternoon. Review of Systems Review of Systems: Unobtainable due to reduced consciousness Physical Exam Constitutional: well developed, + altered mental status and + lethargic; no acute distress Eyes: + anicteric sclerae and PERRL (pupils small but equal and reactive); pupils not irregular and normal pupil size ENMT: external ear and nose normal, oropharynx normal Neck: normal visual inspection and trachea midline Respiratory: normal respiratory effort, lungs clear to auscultation Cardiovascular: RRR, no murmur, no edema Extremities: normal capillary refill Gastrointestinal (Abdomen): normal bowel sounds, soft, nontender, no hepatosplenomegaly Musculoskeletal: no cyanosis or clubbing, extremities motor strength 5/5 Neurologic: + not awake plantar flexed ankles b/l with upgoing plantar reflexes. Unable to test pupil response. No gag reflex. Occasional withdrawal to pain. Possible decorticate posturing of LUE but no still contractures. Psychiatric: Orientation: + not alert (reacts to pain but no purposeful movements) Genitourinary: no CVA tenderness Lymphatic: no cervical or axillary lymphadenopathy Results & Data ([facility]) Vital Signs (Past 12 Hours) Vital Signs Temp Pulse Pulse Resp BP BP Pulse Ox 01/29/20 14:00 108 H 98 01/29/20 13:54 112 H 145/85 H 97 01/29/20 13:00 101 H 98 01/29/20 12:53 101 H 125/67 97 01/29/20 12:00 37.4 C 103 H 97 01/29/20 11:53 100 H 112/64 97 01/29/20 11:30 116 H 94 01/29/20 10:30 105 H 95 01/29/20 10:00 99 H 97 01/29/20 09:53 99 H 127/66 97 01/29/20 09:30 104 H 97 01/29/20 09:00 102 H 97 01/29/20 08:53 115 H 128/83 96 01/29/20 08:30 37.5 C 110 H 97 01/29/20 08:00 106 H 96 01/29/20 07:53 104 H 130/71 96 01/29/20 07:40 96 H 117/61 97 01/29/20 07:30 92 H 98 01/29/20 07:00 105 H 96 01/29/20 06:00 86 17 123/61 99 01/29/20 05:00 87 21 104/63 98 PG Care Time/CCT Total # of Minutes Spent Total Time Spent with Patient: Total time spent is greater than 50% in coordination of care (as documented) at patient's floor/unit and/or counseling patient: Coding Level of Care Code 96978 Subseq Hosp Care Lvl 3 Diagnoses Altered level of consciousness R40.4 Airway compromise J98.8 MSSA bacteremia R78.81; B95.61 Septic hip M00.9 Spinal stenosis M48.062 Neurogenic claudication status: with neurogenic claudication Spinal region: lumbar Anemia D64.9 Anemia type: unspecified type Hypertension I10 Hypertension type: essential hypertension DVT prophylaxis Z29.9 Pulmonary hypertension I27.20 (1) Anemia Anemia type: unspecified type Qualified Code(s): D64.9 - Anemia, unspecified (2) Spinal stenosis Neurogenic claudication status: with neurogenic claudication Spinal region: lumbar Qualified Code(s): M48.062 - Spinal stenosis, lumbar region with neurogenic claudication (3) Hypertension Hypertension type: essential hypertension Qualified Code(s): I10 - Essential (primary) hypertension
--- NOTE | 2020-01-29 16:39 | Electroencephalogram ---
EEG Procedure Note Date of Service January 29, 2020 Start / End Times Start Time: 3:16 PM End Time: 3:36 PM Referring Physician Rajan Chaudhari MD History Persistent postop sedation, encephalopathy, evaluate for cerebral anoxia versus subclinical seizure activity. Home Medication List Home Medications Medication Instructions Recorded Confirmed Type cholecalciferol (vitamin D3) 400 unit PO DAILY 11/28/19 01/28/20 History [Vitamin D3] multivitamin 1 tab PO DAILY 11/28/19 01/28/20 History calcium carbonate [Calcium 500] 500 mg PO QAM 01/27/20 01/28/20 History diltiazem HCl 180 mg PO QAM 01/27/20 01/28/20 History lisinopril 10 mg PO QAM 01/27/20 01/28/20 History vitamin E 400 unit PO QAM 01/27/20 01/28/20 History Inpatient Medication List Calcium Carbonate (Os-Adriano 500) [facility] Stop: 02/28/20 08:59 Last Admin: 01/29/20 08:37 Dose: Not Given Documented by: [id number] Docusate Sodium (Colace) 100 mg PO BID [facility] Stop: 02/27/20 20:59 Last Admin: 01/29/20 08:36 Dose: Not Given Documented by: [id number] Admin: 01/28/20 21:18 Dose: Not Given Documented by: [id number] Enoxaparin Sodium (Lovenox) 30 mg SQ QAM [facility] Stop: 02/28/20 10:59 Last Admin: 01/29/20 12:38 Dose: 30 mg Documented by: [id number] Vancomycin HCl 500 mg/ Sodium (Chloride) 260 mls @ 125 mls/hr IV Q12H [facility] Stop: 01/30/20 15:59 Last Infusion: 01/29/20 06:00 Dose: 0 mls/hr Documented by: [id number] Admin: 01/29/20 03:49 Dose: 125 mls/hr Documented by: [id number] Infusion: 01/28/20 17:53 Dose: 0 mls/hr Documented by: [id number] Admin: 01/28/20 15:51 Dose: 125 mls/hr Documented by: [id number] Piperacillin Sod/Tazobactam (Sod 3.375 gm/ Dextrose) 115 mls @ 28.75 mls/hr IV Q8H [facility]; Protocol Stop: 01/30/20 19:59 Last Infusion: 01/29/20 16:34 Dose: 0 mls/hr Documented by: [id number] Admin: 01/29/20 12:38 Dose: 28.8 mls/hr Documented by: [id number] Infusion: 01/29/20 07:50 Dose: 0 mls/hr Documented by: [id number] Admin: 01/29/20 03:49 Dose: 28.8 mls/hr Documented by: [id number] Infusion: 01/29/20 01:20 Dose: 0 mls/hr Documented by: [id number] Admin: 01/28/20 21:18 Dose: 28.8 mls/hr Documented by: [id number] Ioversol (Optiray 320 125ml) 119 ml IV ONCE PRN PRN Reason: Interaction Checking Stop: 02/02/20 10:57 Last Admin: 01/29/20 10:58 Dose: 119 ml Documented by: [id number] Multivitamins (Multivitamin Tab) 1 tab PO DAILY [facility] Stop: 02/28/20 08:59 Last Admin: 01/29/20 08:36 Dose: Not Given Documented by: [id number] Sennosides (Senokot) 17.2 mg PO HS [facility] Stop: 02/27/20 20:59 Last Admin: 01/28/20 21:18 Dose: Not Given Documented by: [id number] Vitamin D (Vitamin D3) 400 units PO DAILY [facility] Stop: 02/28/20 08:59 Last Admin: 01/29/20 08:41 Dose: Not Given Documented by: [id number] Discontinued Medications Acetaminophen (Tylenol) 1,000 mg PO Q8 [facility] Stop: 02/27/20 14:29 Last Admin: 01/29/20 06:19 Dose: Not Given Documented by: [id number] Admin: 01/28/20 21:18 Dose: Not Given Documented by: [id number] Admin: 01/28/20 14:56 Dose: Not Given Documented by: [id number] Bacitracin (Bacitracin) Confirm Administered Dose 50,000 units .ROUTE .STK-MED ONE Stop: 01/28/20 07:21 Last Admin: 01/28/20 10:44 Dose: 50,000 units Documented by: [id number] Gentamicin Sulfate (Garamycin) Confirm Administered Dose 240 mg .ROUTE .STK-MED ONE Stop: 01/28/20 06:36 Last Admin: 01/28/20 08:22 Dose: 240 mg Documented by: [id number] Ropivacaine 150 mg/Bupivacaine HCl 30 ml/Epinephrine HCl 0.15 mg/Ketorolac Tromethamine 30 mg/Dexamethasone 4 mg/ Ketamine HCl 10 mg/ Clonidine HCl 100 mcg/ Sodium Chloride 93.35 mls @ 0 mls/hr INFIL PREOP [facility]; Protocol Stop: 01/28/20 18:00 Last Admin: 01/28/20 08:22 Dose: Not Given Documented by: [id number] Lactated Ringer's (Lr) 1,000 mls @ 15 mls/hr IV .Q24H [facility] Stop: 01/29/20 05:59 Last Infusion: 01/28/20 07:00 Dose: 0 mls/hr Documented by: [id number] Admin: 01/28/20 05:42 Dose: 15 mls/hr Documented by: [id number] Lactated Ringer's (Lr) 1,000 mls @ 60 mls/hr IV .Q47H10G [facility] Stop: 01/28/20 22:39 Last Admin: 01/28/20 05:42 Dose: Not Given Documented by: [id number] Cefazolin Sodium (Ancef 2000mg) 2,000 mg in 15 mls @ 3.75 mls/min IV PREOP [facility]; Protocol Stop: 01/28/20 18:00 Last Admin: 01/28/20 07:38 Dose: 3.75 mls/min Documented by: [id number] Vancomycin HCl 750 mg/ Sodium (Chloride) 265 mls @ 250 mls/hr IV PREOP [facility] Stop: 01/28/20 18:00 Last Infusion: 01/28/20 14:56 Dose: 0 mls/hr Documented by: [id number] Admin: 01/28/20 05:42 Dose: 250 mls/hr Documented by: [id number] Tranexamic Acid (Tranexamic Acid / 0.7% Nacl) 1,000 mg in 100 mls @ 600 mls/hr IV TODAY@0600 [facility] Stop: 01/28/20 18:00 Last Infusion: 01/28/20 07:10 Dose: 0 mls/hr Documented by: [id number] Admin: 01/28/20 07:00 Dose: 600 mls/hr Documented by: [id number] Sodium Chloride (Nss 1000ml) 1,000 mls @ 100 mls/hr IV .Q10H [facility] Stop: 01/29/20 06:00 Last Infusion: 01/29/20 16:34 Dose: 0 mls/hr Documented by: [id number] Admin: 01/29/20 02:56 Dose: 100 mls/hr Documented by: [id number] Infusion: 01/29/20 02:53 Dose: 100 mls/hr Documented by: [id number] Infusion: 01/28/20 17:54 Dose: 100 mls/hr Documented by: [id number] Infusion: 01/28/20 15:50 Dose: 0 mls/hr Documented by: [id number] Admin: 01/28/20 14:49 Dose: 100 mls/hr Documented by: [id number] Tranexamic Acid (Tranexamic Acid / 0.7% Nacl) 1,000 mg in 100 mls @ 600 mls/hr IV Q6H [facility] Stop: 01/28/20 17:24 Last Infusion: 01/28/20 17:53 Dose: 0 mls/hr Documented by: [id number] Admin: 01/28/20 17:28 Dose: 600 mls/hr Documented by: [id number] Piperacillin Sod/Tazobactam (Sod 4.5 gm/ Dextrose) 120 mls @ 30 mls/hr IV NOW STA; Protocol Stop: 01/28/20 18:34 Last Infusion: 01/28/20 18:33 Dose: 0 mls/hr Documented by: [id number] Admin: 01/28/20 14:48 Dose: 30 mls/hr Documented by: [id number] Ketorolac Tromethamine (Toradol) 15 mg IV Q6H [facility] Stop: 01/29/20 09:01 Last Admin: 01/29/20 08:37 Dose: Not Given Documented by: [id number] Admin: 01/29/20 02:57 Dose: Not Given Documented by: [id number] Admin: 01/28/20 21:25 Dose: Not Given Documented by: [id number] Admin: 01/28/20 14:58 Dose: 15 mg Documented by: [id number] Mineral Oil (Muri-Lube Oil) Confirm Administered Dose 10 ml .ROUTE .STK-MED ONE Stop: 01/28/20 06:59 Last Admin: 01/28/20 08:25 Dose: 10 ml Documented by: [id number] Miscellaneous (Ortho Joint Anesthetic) Confirm Administered Dose 1 ea .ROUTE .STK-MED ONE Stop: 01/28/20 06:35 Last Admin: 01/28/20 08:22 Dose: Not Given Documented by: [id number] Miscellaneous Information (Orthopaedic Warfarin Sliding Scale) 1 ea N/A DAILY@1400 [facility]; Protocol Stop: 02/27/20 13:59 Last Admin: 01/28/20 17:22 Dose: Not Given Documented by: [id number] Naloxone HCl (Narcan) Confirm Administered Dose 0.4 mg .ROUTE .STK-MED ONE Stop: 01/28/20 13:15 Last Admin: 01/28/20 14:55 Dose: Not Given Documented by: [id number] Vancomycin HCl (Vancomycin Hcl) Confirm Administered Dose 100 mg .ROUTE .STK-MED ONE Stop: 01/28/20 06:36 Last Admin: 01/28/20 08:24 Dose: 100 mg Documented by: [id number] Description This is a 21 electrode EEG with a single channel dedicated to limited EKG. The electrodes were placed in accordance with the International 10-20 system. The predominant rhythm consists of generalized moderate amplitude slowing in the theta frequency range. There is a minimal degree of admixed frontal delta activity. There is admixed discontinuous alpha rhythm as well. Photic stimulation is unremarkable. There were no spike wave abnormalities. There are no triphasic waves. There is no prominent beta rhythm. There is no focal or lateralized slowing. There are no epileptiform abnormalities. There is no burst suppression pattern. Interpretation Abnormal awake/drowsy EEG revealing changes suggestive of a moderate to severe nonspecific encephalopathy. There is no supportive evidence of subclinical seizure activity. The observed encephalopathy pattern is nonspecific. Further clinical correlation needed. [facility] EEG Procedure Codes Indication for Procedure (1) Encephalopathy: Neurology Neurology: 54412 EEG include record awake & drowsy
--- NOTE | 2020-01-29 18:02 | XRay Report ---
KUB HISTORY: Status post placement of a feeding tube coresafe placement COMPARISON: KUB 03/28/2018 FINDINGS: Feeding tube has been placed, distal tip projected over the abdominal left upper quadrant w ithin the spectrum location of the mid gastric lumen. Calcifications of the abdominal right upper eufemia drant are suggestive of cholelithiasis. The left lateral and lower abdomen are excluded from the fiel d-of-view. Lower lumbar spinal fusion hardware with laminectomy and discectomy changes. Degenerative changes of the spine. Possible subacute nondisplaced fracture of the anterolateral right 10th rib.. C ardiomegaly. Small pleural effusions with left lung base opacities. No definite urolith. Nonobstructi ve bowel gas pattern without pneumoperitoneum. IMPRESSION: 1. Status post placement of a feeding tube, distal tip terminating in the expected location of the mi d gastric lumen. 2. Probable cholelithiasis. 3. Small pleural effusions with left lung base opacities. 4. Cardiomegaly. 5. Possible subacute nondisplaced fracture of the anterolateral right 10th rib. ACT 112: Negative or not required by law. The above report was generated using voice recognition software. It may contain grammatical, syntax o r spelling errors. Electronically signed by: Wellington Mendoza M.D. 01/29/2020 6:01 PM
[2020-01-29] MEDS: PEPTAMEN 1.5 CAL 1,000 ML BAG PO SCH (21:15)
[2020-01-30 03:27] LABS: Basophils # (auto) 0.01 K/uL (0-0.2); Basophils % (auto) 0.1 %; Eosinophils # (auto) 0.02 K/uL (0-0.5); Eosinophils % (auto) 0.2 %; Hematocrit (blood only) 23.6 % (37-47); Hemoglobin 7.7 g/dL (12.0-16.0); Immature Granulocytes # (auto) 0.03 K/uL (0.00-0.02); Immature Granulocytes % (auto) 0.3 %; Lymphocytes # (auto) 1.37 K/uL (1.2-3.4); Lymphocytes % (auto) 12.1 %; Mean Corpuscular Hemoglobin 31.3 pg (25-34); Mean Corpuscular Hgb Conc 32.6 g/dL (32-36); Mean Corpuscular Volume 95.9 fL (80-100); Mean Platelet Volume 7.8 fL (7.4-10.4); Monocytes # (auto) 0.77 K/uL (0.11-0.59); Monocytes % (auto) 6.8 %; Neutrophils # (auto) 9.15 K/uL (1.4-6.5); Neutrophils % (auto) 80.5 %; Platelet Count 126 K/uL (130-400); RDW Coefficient of Variation 15.8 % (11.5-14.5); RDW Standard Deviation 55.3 fL (36.4-46.3); Red Blood Count 2.46 M/uL (4.2-5.4); White Blood Count 11.35 K/uL (4.8-10.8)
[2020-01-30] MEDS ORDERED: VANCOMYCIN TROUGH ONE (03:30)
[2020-01-30 03:43] LABS: Prothrombin Time 10.6 Seconds (9.0-12.0)
[2020-01-30 03:50] LABS: RBC Morphology Unremarkable
[2020-01-30 03:52] LABS: Calcium 9.8 mg/dl (8.5-10.1); Creatinine Clr Calc Pharmacy 52.6 ml/min; Est GFR (African American) 102.1; Est GFR (Non-African American) 88.1; Magnesium 1.6 mg/dl (1.8-2.4); Phosphorus 1.9 mg/dl (2.5-4.9); Potassium 3.2 mmol/L (3.5-5.1)
[2020-01-30] MEDS: VANCOMYCIN HCL 500 MG in SODIUM CHLORIDE 0.9% 250 ML IV SCH (04:03)
[2020-01-30] MEDS: PIPERACILLIN/TAZOBACTAM 3.375 GM in DEXTROSE 5% 100 ML IV SCH (04:04)
[2020-01-30] MEDS ORDERED: POTASSIUM CHLORIDE / WTR 10 MEQ/100 ML PLCT IV ONE ×2 (04:15→20:00)
[2020-01-30] MEDS ORDERED: POTASSIUM PHOS 3 MMOL/1 ML INFUSION IV STA (04:15)
[2020-01-30] MEDS ORDERED: MAGNESIUM SULFATE / D5W 1 GM/100 ML BAG IV ONE (04:16)
[2020-01-30] MEDS ORDERED: POTASSIUM PHOSPHATE 21 MMOL in SODIUM CHLORIDE 0.9% 500 ML IV ONE (04:30)
[2020-01-30] MEDS: ACETAMINOPHEN SOLN 650 MG/20.3 ML UDC NG PRN (04:55)
--- NOTE | 2020-01-30 06:45 | Critical Care Progress Note ---
Date of Service January 30, 2020 Assessment & Plan (1) Altered mental state: Emma Jhaveri is a 74 year old female who underwent septic total hip replacement by Dr Shah on 01/27 NEURO: - [facility] ICU: positive - altered mental status, opens eyes to verbal command, moves all extremities spontaneously - this decreased mentation potentially represents encephalopathy of unknown origin - neurologic exam inconsistent with any single neurologic deficit - inverted ankles on exam are consistent with previous examination when patient seen in ED by this provider - LP ordered for encephalopathy rule-out - CT head did not demonstrate acute intracranial abnormality - CTA Head: No significant stenosis, occlusion, or aneurysm within the [place] of [place]. Mild narrowing within the ophthalmic segment of the left internal carotid artery due to the endoscopic plaque. - CTA Neck: No significant stenosis, occlusion, or dissection identified within the carotid or vertebral arteries. Minimal scattered plaque formation - CT Head: No acute intracranial abnormality. - CT Venogram: No acute intracranial abnormality. No evidence for dural venous sinus thrombosis. - Neurology consulted - EEG suggestive of a moderate to severe nonspecific encephalopathy - appropriate for downgrade from ICU care CARDIAC/VASCULAR: - Echo demonstrated EF 60-65%, no regional wall motion abnormalities, mild concentric LVH, mild biatrial dilation, sclerotic aortic valve without significant stenosis, moderate tricuspid regurgitation, and severe pulmonary hypertension - EKG normal sinus rhythm with sinus arrhythmia, with nonspecific T wave abnormality in anterolateral leads - troponin 0.156 RESPIRATORY: - maintaining sats >92% on 2L NC - no previous pulmonary disease GI/NUTRITION: - Coresafe inserted measured at 48 - KUB demonstrated tip within gastric lumen - on Peptamen 1.5 at 30mL/hr RENAL/LYTES: - no significant electrolyte abnormalities - Ca 8.1, ionized calcium 1.10 - Cr stable from previous hospital admissions - continue to monitor BMPs : - obrien in place - continue to monitor I/Os ENDO: - no history of hypo/hyperthyroidism, or T2DM HEME: - H&H downtrending, down to 7.7 this AM - vitals remaining stable, would consider transfusion if decline in vitals or drop below 7.0 - iron 15, Transferrin 8%, Transferrin 131 ID: - wound specimen from 01/27 have grown MSSA - previously had MSSA growing from wound specimen on 01/25, and urine on 12/05 - discontinued Vanc/Zosyn this AM; started Cefazolin Q8h LINES/IV ACCESS: - peripheral IVs - PICC line to be placed today DVT PROPHYLAXIS: - SQ Lovenox Admission and Anticipated Discharge Date Admission Date: January 28, 2020 Supervising Physician Co-Signing Physician Notes Dr. Chaudhari was resident physician during care of patient. I separately evaluated patient for blake portions of the history and the exam. I was present during the critical portion of medical decision making, and I discussed the case with the resident. I generally agree with the findings and plan. No significant change in mental status. Patient was discussed in multidisciplinary rounds also discussed the patient with Dr. Rory Winter as well as Dr. Augustine of neurology. While an MRI may be helpful for prognosis and diagnosis it does not appear to be critical to current treatment. At this time I am concerned that the patient may have suffered a cerebral infarction this could include anoxia: I think it is rather unlikely, infectious emboli: No significant findings on the valves during her initial TTE, and the differential could include fat emboli which may have transversed a PFO, there is no evidence of PFO on the current echo however a bubble study was not performed. I had extensive discussion with Dr. Dalton and the patient's daughter: Power of attorney general Haydee Young as well as the patient's ex- after obtaining permission from Ms. Young. Patient was a very independent person and would not want to be dependent upon others for medical care. With regards to resuscitation status both Dr. Dalton and I agree that if she was to suffer a cardiac arrest and successfully have return of spontaneous circulation, the resuscitative efforts would likely cause significant additional injuries which she would need recover from, these injuries would highly likely prevent her from living independently, therefore all were in agreement that the patient would not want heroic measures undertaken in event of cardiac arrest. We were able to obtain a copy of the patient's healthcare proxy, this came from the law offices of [employer] and [place]. In the event of a terminal condition or state of permanent unconsciousness the patient would not want cardiac resuscitation, would not want mechanical respiration, would not want tube feeding or artificial forms of nutrition nor hydration. She would not want blood products, she would not want any form of surgery or invasive diagnostic tests, she would not want kidney dialysis, and she would not want antibiotics. All are in agreement that we have not reached criteria of a permanent state of unconsciousness or terminal condition at this time, additional testing and observation is warranted; however, given the significant injuries she will be converted to a DO NOT RESUSCITATE in event of cardiac arrest. Patient is stable for downgrade out of the ICU. Subjective Patient bladder scanned a couple times over night approximately 300 in bladder, straight cathed once and after repeat check had an episode of urinary incontinence; No improved mentation overnight, still minimally arousable to verbal command, however rapidly returns to sleep this morning. Continuing to move all extremities spontaneously. Review of Systems Review of Systems: Unobtainable due to reduced consciousness Physical Exam Constitutional: WD/WN, vitals as above + lethargic Eyes: PERRL, conjunctivae normal, anicteric sclerae ENMT: external ear and nose normal, oropharynx normal Neck: normal visual inspection Respiratory: normal respiratory effort, lungs clear to auscultation Cardiovascular: Rate/Rhythm: regular rate and regular rhythm Heart Sounds: normal S1 and normal S2; no gallop, no murmur and no cardiac rub Vessels: no JVD Extremities: no pedal edema Gastrointestinal (Abdomen): Inspection/Auscultation: normal bowel sounds Percussion/Palpation: abdomen soft; abdomen nontender, no guarding and no hepatosplenomegaly Neurologic: GCS 8, opens eyes to verbal command, moves 3 out of 4 extremities spontaneously, withdraws to pain in all extremities, PERRLA, eyes pass midline, no strabismus, no pupillary defect, Biceps reflex 2+ on L, 1+ on R; 2+ b/l patellar reflexes, Positive Babinski b/l Lymphatic: no cervical or axillary lymphadenopathy Results & Data ([facility]) Vital Signs (Past 12 Hours) Vital Signs Temp Pulse Resp BP Pulse Ox 01/30/20 05:54 96 H 26 H 110/63 97 01/30/20 04:54 38 C H 100 H 120/75 97 01/30/20 03:54 112 H 121/66 94 01/30/20 02:54 117 H 134/59 L 94 01/30/20 01:54 98 H 117/64 95 01/30/20 00:54 89 109/64 97 01/29/20 23:54 37.3 C 106 H 130/81 95 01/29/20 22:30 90 97 03/19/20 22:01 99 H 96 01/29/20 21:54 100 H 130/74 96 01/29/20 21:30 104 H 96 01/29/20 21:00 90 99 01/29/20 20:54 93 H 120/66 100 01/29/20 20:30 110 H 96 01/29/20 20:00 37.3 C 100 H 99 01/29/20 19:54 107 H 158/76 H 97 01/29/20 19:30 101 H 99 01/29/20 19:00 105 H 97 01/29/20 18:55 115 H 129/117 H 96 Laboratory Results 01/30/20 01/30/20 01/30/20 Range/Units 03:15 03:15 03:15 WBC 11.35 H (4.8-10.8) K/uL RBC 2.46 L (4.2-5.4) M/uL Hgb 7.7 L (12.0-16.0) g/dL Hct 23.6 L (37-47) % MCV 95.9 (80-100) fL MCH 31.3 (25-34) pg MCHC 32.6 (32-36) g/dL RDW Std Deviation 55.3 H (36.4-46.3) fL RDW Coeff of Enedelia 15.8 H (11.5-14.5) % Plt Count 126 L (130-400) K/uL MPV 7.8 (7.4-10.4) fL Immature Gran % (Auto) 0.3 % Neut % (Auto) 80.5 % Lymph % (Auto) 12.1 % [place] % (Auto) 6.8 % Eos % (Auto) 0.2 % Baso % (Auto) 0.1 % Immature Gran # (Auto) 0.03 H (0.00-0.02) K/uL Neut # (Auto) 9.15 H (1.4-6.5) K/uL Lymph # (Auto) 1.37 (1.2-3.4) K/uL [place] # (Auto) 0.77 H (0.11-0.59) K/uL Eos # (Auto) 0.02 (0-0.5) K/uL Baso # (Auto) 0.01 (0-0.2) K/uL RBC Morphology Unremarkable PT (9.0-12.0) Seconds INR (0.9-1.1) Sodium 141 (136-145) mmol/L Potassium 3.2 L D (3.5-5.1) mmol/L Chloride 111 H (98-107) mmol/L Carbon Dioxide 24 (21-32) mmol/L Anion Gap 6.0 (3-11) BUN 22 H (7-18) mg/dl Creatinine 0.65 (0.6-1.2) mg/dl Est Cr Clr Drug Dosing 52.6 ml/min Est GFR ( Amer) 102.1 Est GFR (Non-Af Amer) 88.1 BUN/Creatinine Ratio 34.0 H (10-20) Glucose 135 H (70-99) mg/dl POC Glucose (70-99) mg/dl Calcium 9.8 (8.5-10.1) mg/dl Phosphorus 1.9 L D (2.5-4.9) mg/dl Magnesium 1.6 L (1.8-2.4) mg/dl Vitamin B12 (211-911) pg/ml Folate (>5.38) ng/ml Vancomycin Trough 18.4 (See Comment) mcg/ml 01/30/20 01/29/20 01/29/20 Range/Units 03:15 12:23 04:00 WBC (4.8-10.8) K/uL RBC (4.2-5.4) M/uL Hgb (12.0-16.0) g/dL Hct (37-47) % MCV (80-100) fL MCH (25-34) pg MCHC (32-36) g/dL RDW Std Deviation (36.4-46.3) fL RDW Coeff of Enedelia (11.5-14.5) % Plt Count (130-400) K/uL MPV (7.4-10.4) fL Immature Gran % (Auto) % Neut % (Auto) % Lymph % (Auto) % [place] % (Auto) % Eos % (Auto) % Baso % (Auto) % Immature Gran # (Auto) (0.00-0.02) K/uL Neut # (Auto) (1.4-6.5) K/uL Lymph # (Auto) (1.2-3.4) K/uL [place] # (Auto) (0.11-0.59) K/uL Eos # (Auto) (0-0.5) K/uL Baso # (Auto) (0-0.2) K/uL RBC Morphology PT 10.6 (9.0-12.0) Seconds INR 1.0 (0.9-1.1) Sodium (136-145) mmol/L Potassium (3.5-5.1) mmol/L Chloride (98-107) mmol/L Carbon Dioxide (21-32) mmol/L Anion Gap (3-11) BUN (7-18) mg/dl Creatinine (0.6-1.2) mg/dl Est Cr Clr Drug Dosing ml/min Est GFR ( Amer) Est GFR (Non-Af Amer) BUN/Creatinine Ratio (10-20) Glucose (70-99) mg/dl POC Glucose 128 H (70-99) mg/dl Calcium (8.5-10.1) mg/dl Phosphorus (2.5-4.9) mg/dl Magnesium (1.8-2.4) mg/dl Vitamin B12 459 (211-911) pg/ml Folate 13.65 (>5.38) ng/ml Vancomycin Trough (See Comment) mcg/ml Medications Administered Current Inpatient Medications Acetaminophen (Tylenol) 650 mg NG Q6 PRN PRN Reason: Fever Stop: 02/29/20 04:22 Last Admin: 01/30/20 04:55 Dose: 650 mg Documented by: Bisacodyl (Dulcolax) 10 mg RI DAILY PRN PRN Reason: Constipation Stop: 02/27/20 13:42 Calcium Carbonate (Os-Adriano 500) 1,250 mg PO QAM [facility] Stop: 02/28/20 08:59 Last Admin: 01/29/20 08:37 Dose: Not Given Documented by: Docusate Sodium (Colace) 100 mg PO BID [facility] Stop: 02/27/20 20:59 Last Admin: 01/29/20 08:36 Dose: Not Given Documented by: Enoxaparin Sodium (Lovenox) 30 mg SQ QAM [facility] Stop: 02/28/20 10:59 Last Admin: 01/29/20 12:38 Dose: 30 mg Documented by: Enteral Nutritional Formula (Peptamen 1.5 Adriano) 1,000 ml PO [facility]; Protocol Stop: 02/28/20 18:29 Last Admin: 01/29/20 21:15 Dose: 1,000 ml Documented by: Hydromorphone HCl (Dilaudid) 0.5 mg IV Q2H PRN PRN Reason: Pain or Pre PT Stop: 02/11/20 13:42 Vancomycin HCl 500 mg/ Sodium (Chloride) 260 mls @ 125 mls/hr IV Q12H [facility] Stop: 01/30/20 15:59 Last Infusion: 01/30/20 06:21 Dose: Infused Documented by: Piperacillin Sod/Tazobactam (Sod 3.375 gm/ Dextrose) 115 mls @ 28.75 mls/hr IV Q8H [facility]; Protocol Stop: 01/30/20 19:59 Last Admin: 01/30/20 04:04 Dose: 28.8 mls/hr Documented by: Potassium Phosphate 21 mmol/ (Sodium Chloride) 507 mls @ 88 mls/hr IV ONE ONE Stop: 01/30/20 10:15 Last Admin: 01/30/20 06:02 Dose: 88 mls/hr Documented by: Ioversol (Optiray 320 125ml) 119 ml IV ONCE PRN PRN Reason: Interaction Checking Stop: 02/02/20 10:57 Last Admin: 01/29/20 10:58 Dose: 119 ml Documented by: Magnesium Hydroxide (Milk Of Magnesia) 30 ml PO Q6H PRN PRN Reason: Constipation Stop: 02/27/20 13:42 Metoclopramide HCl (Reglan) 10 mg IV Q6H PRN PRN Reason: Nausea And Vomiting Stop: 02/27/20 13:42 Miscellaneous (Icu Protocol For Hyperglycemia) 1 ea N/A PRN PRN; Protocol PRN Reason: Hyperglycemia Protocol Stop: 01/30/20 13:42 Miscellaneous Information (Consult) 1 ea N/A UD PRN PRN Reason: Consult Stop: 02/27/20 13:52 Miscellaneous Information (Consult) 1 ea N/A UD PRN PRN Reason: Consult Stop: 02/27/20 13:54 Multivitamins (Multivitamin Tab) 1 tab PO DAILY [facility] Stop: 02/28/20 08:59 Last Admin: 01/29/20 08:36 Dose: Not Given Documented by: Naloxone HCl (Narcan) 0.1 mg IV Q5M PRN PRN Reason: Oversedation/Resp Depression Stop: 02/27/20 13:42 Ondansetron HCl (Zofran) 4 mg IV Q6H PRN PRN Reason: Nausea And Vomiting Stop: 02/27/20 13:42 Oxycodone HCl (Roxicodone Immediate Rel) 5 - 10 mg PO Q4H PRN PRN Reason: Pain or Pre PT Stop: 02/11/20 13:42 Sennosides (Senokot) 17.2 mg PO HS [facility] Stop: 02/27/20 20:59 Last Admin: 01/28/20 21:18 Dose: Not Given Documented by: Vitamin D (Vitamin D3) 400 units PO DAILY [facility] Stop: 02/28/20 08:59 Last Admin: 01/29/20 08:41 Dose: Not Given Documented by: Resident Activity Tracking Resident Involvement: Resident Care Provided Care Provided: Adult Hospital Medicine (1) Altered mental state Altered mental status type: unspecified Qualified Code(s): R41.82 - Altered mental status, unspecified
--- NOTE | 2020-01-30 07:50 | Progress Notes ---
DATE: 01/30/2020 Postop day #2, status post hip revision for infection, trochanteric osteotomy. At this point in time, the patient remains very encephalopathic. She moves all 4 extremities to noxious stimuli. Intermittently opens her eyes to verbal stimulation. Vital signs are stable. Temperature is 38 degrees centigrade. Oxygenating well on through nasal cannula. Blood pressure is stable. Pulse is in the 80s and 90s. Hematocrit is 24, white count is at 11.3. Calcium is at 9.8 that will need to be followed based on the Stimulan beads. Wound dressing is clean, dry and intact. Noxious stimuli in both lower extremities induces active dorsiflexion of the feet indicating intact nerve function in the lower motor neuron system. ASSESSMENT: Difficult situation based on encephalopathic state. Unclear etiology at this point. EEG reveals generalized encephalopathy. Other studies revealed no occlusive disease or hemorrhagic bleed. At this point in time, please keep an abduction pillow between the knees. Also, please check calcium levels based on Stimulan beads. Discussed with Wang Jhaveri as she requested verbally preop and based on family's wishes. JAZZ
[2020-01-30] MEDS: ENOXAPARIN INJ 30 MG/0.3 ML SYR SQ SCH (08:57)
--- NOTE | 2020-01-30 10:10 | Hospitalist Progress Note ---
Date of Service January 30, 2020 Assessment & Plan (1) Altered level of consciousness: GCS [id number] - 8. Better eye response than yesterday but minimal improvement. No longer has superior gaze and PERRL today. Possible posturing/rigidity of b/l lower extremities although she most her ankles spon taneously at times. She continues to have no gag reflex. EEG with non specific Concerning for anoxic brain injury during the operation. Alternative explanations including septic emboli vs. fat emboli. Neurology consulted to see today, repeat CT head. MRI can be done once marvin removed in approximately 10 days post op (2) Encephalopathy acute: See above (3) Airway compromise: Still without gag reflex. Monitor for now. Discussed with Dr Hairston and will transfer to PCU. (4) MSSA bacteremia: Possible given cultures taken after initial antibiotics but currently BC still negative. Continue cefazolin 2g IV Q8H No vegetations on TTE. If confirmed MSSA bacteremia will get ID consult (5) Septic hip: Appreciate orthopedic management. Exchange arthroplasty and Prostalac spacer placed on 01/27. (6) Spinal stenosis: s/p spinal surgery 12/08. (7) Acute blood loss anemia: Suspected blood loss from surgeries as relatively new since her o perations. s/p 1 unit packed RBCs given during operation. B12 and folate WNL Iron sats 8% Continue to monitor CBC (8) Hypertension: Hold diltiazem and lisinopril given current BP. Likely having some rebound tachycardia related to holding diltiazem. (9) Pulmonary hypertension: Severe (estimated from echo) with moderate to severe tricuspid regurgitation. Since this was performed just after surgery possibly just related to this. No known hypertensive disease. Possible fat embolus to lungs although no tachycardia post op would suggest against this. (10) DVT prophylaxis: Lovenox 30mg SQ daily - If Hgb continues to decrease may need to hold this. SCDs Admission and Anticipated Discharge Date Admission Date: January 28, 2020 Subjective No acute events overnight. Unobtainable history from patient given reduced mental status Review of Systems Review of Systems: Unobtainable due to reduced consciousness Physical Exam Constitutional: well developed, + altered mental status and + lethargic; no acute distress Eyes: + anicteric sclerae and PERRL (pupils small but equal and reactive); nor mal pupil size ENMT: Mouth: + dry oral mucous membranes NG tube in place Neck: trachea midline Respiratory: normal respiratory effort Auscultation: + rhonchi (mild b/l equal); no diminished lung sounds, no crackles and no wheezes Cardiovascular: RRR, no murmur, no edema Extremities: normal capillary refill Gastrointestinal (Abdomen): Inspection/Auscultation: normal bowel sounds Percussion/Palpation: abdomen soft; abdomen nontender, no guarding and abdomen not rigid Musculoskeletal: no splinter hemorrhages, no janeway lesions Skin: no rashes, warm and dry Neurologic: + not awake Comatose Patient: no decerebrate rigidity and no decorticate rigidity Opens eyes to voice, withdraws to pain. Ankles b/l in internal rotation and plantar flexed positioning. Upgoing plantars b/l. Occasional spontaneous movements of ankles Psychiatric: Orientation: + not alert (reacts to pain but no purposeful movements) Results & Data ([facility]) Vital Signs (Past 12 Hours) Vital Signs Temp Pulse Resp BP Pulse Ox 01/30/20 07:54 37.3 C 85 16 101/58 L 98 01/30/20 06:54 102 H 121/74 97 01/30/20 05:54 96 H 26 H 110/63 97 01/30/20 04:54 38 C H 100 H 120/75 97 01/30/20 03:54 112 H 121/66 94 01/30/20 02:54 117 H 134/59 L 94 01/30/20 01:54 98 H 117/64 95 01/30/20 00:54 89 109/64 97 01/29/20 23:54 37.3 C 106 H 130/81 95 01/29/20 22:30 90 97 PG Care Time/CCT Total # of Minutes Spent Total Time Spent with Patient: Total time spent is greater than 50% in coordination of care (as documented) at patient's floor/unit and/or counseling patient: Coding Level of Care Code 83351 Subseq Hosp Care Lvl 3 Diagnoses Altered level of consciousness R40.4 Encephalopathy acute G93.40 Airway compromise J98.8 MSSA bacteremia R78.81; B95.61 Septic hip M00.9 Spinal stenosis M48.062 Neurogenic claudication status: with neurogenic claudication Spinal region: lumbar Acute blood loss anemia D62 Hypertension I10 Hypertension type: essential hypertension Pulmonary hypertension I27.20 DVT prophylaxis Z29.9 (1) Spinal stenosis Neurogenic claudication status: with neurogenic claudication Spinal region: lumbar Qualified Code(s): M48.062 - Spinal stenosis, lumbar region with neurogenic claudication (2) Hypertension Hypertension type: essential hypertension Qualified Code(s): I10 - Essential (primary) hypertension
--- NOTE | 2020-01-30 10:30 | Neurology Consultation ---
Date of Consultation January 30, 2020 Assessment & Plan (1) Encephalopathy: Persistent, severe encephalopathy following surgical revision of septic right hip arthroplasty 2 days ago. Patient's neurological examination is nonlocalizing. She is nonverbal, stuporous, and withdrawals her limbs to noxious stimulation. She has not exhibited any abnormal posturing or seizure- like activity. Her repeat CT of the head completed this morning is negative for hemorrhage or any obvious acute abnormality that would explain her clinical status. Her recently completed EEG reveals a nonspecific encephalopathy and is negative for epileptiform abnormalities. Differential diagnosis would include diffuse fat or septic emboli. Cerebral anoxia not completely excluded. A brain MRI would be very helpful to further evaluate for embolic phenomena as above. Please attempt to have this test completed when cleared by orthopedics given her recent surgical procedure. Consider completion of a lumbar puncture to evaluate for encephalitis. However, this diagnosis would seem much less likely given the context of this patient's clinical history. Continue supportive medical care including antimicrobial therapy. History of Present Illness Reason for Consultation: Encephalopathy Requesting Physician: Rajan Chaudhari MD Attending Physician: Vinicius Dalton MD History of Present Illness The patient is a 74-year-old female with persistent encephalopathy following exchange arthroplasty for aseptic right hip 2 days ago. She remains minimally responsive. Her history is also notable for lumbar spinal fusion completed December 08, 2019. Patient has presumed MSSA bacteremia. She has been receiving antibiotics. Recent blood cultures negative. An echocardiogram completed 2 days ago did not reveal findings suggestive of endocarditis. A CT of the head completed January 28, 2020 is negative for hemorrhage or acute abnormality. CT angiography of the head and neck revealed mild atherosclerotic change and were otherwise unremarkable. A CT venogram of the head was negative as well. Imaging described in further detail below. A CT of the head completed yesterday reveals changes suggestive of a moderate to severe nonspecific encephalopathy. The patient has not had any observed seizure activity. She remains minimally responsive and nonverbal. She withdrawals the limbs to noxious stimulation and has a nonlocalizing neurological examination. She has not exhibited any posturing type movements. Additional details as below. Allergies Allergy/AdvReac Type Severity Reaction Status Date / Time cat dander Allergy Mild "HAYFEVER" Verified 01/28/20 05:19 dog dander Allergy Mild "HAYFEVER, Verified 01/28/20 05:19 ASTHMA SYMPTOMS" Penicillins Allergy Mild Hives Verified 01/28/20 05:19 pravastatin Allergy Mild LEG PAIN Verified 01/28/20 05:19 rosuvastatin [From Crestor] Allergy Mild LEG PAIN Verified 01/28/20 05:19 doxycycline Allergy Unknown Unknown Verified 01/28/20 05:19 warfarin [From Coumadin] AdvReac Intermediate FELT Verified 01/28/20 17:02 HOT/COLD Home Medications Home Medications Medication Instructions Recorded Confirmed Type cholecalciferol (vitamin D3) 400 unit PO DAILY 11/28/19 01/28/20 History [Vitamin D3] multivitamin 1 tab PO DAILY 11/28/19 01/28/20 History calcium carbonate [Calcium 500] 500 mg PO QAM 01/27/20 01/28/20 History diltiazem HCl 180 mg PO QAM 01/27/20 01/28/20 History lisinopril 10 mg PO QAM 01/27/20 01/28/20 History vitamin E 400 unit PO QAM 01/27/20 01/28/20 History Patient History Medical History DJD (degenerative joint disease) of hip (Resolved) History of asthma NO USE OF INHALER PER PATIENT Hyperlipidemia Hypertension Hyperthyroidism HX OF OVER YEARS AGO (NO CURRENT PROBLEM) Leg length discrepancy Nephrolithiasis Osteoporosis Surgical History Fusion of spine LUMBAR FUSION H/O section X 2 History of bilateral tubal ligation History of cataract surgery RT/LEFT History of tooth extraction History of total hip arthroplasty RT S/P carpal tunnel release Family History Brother Hypertension Mother Hypertension Sister Hypertension Denies family history of Colon cancer Ovarian cancer Prostate cancer Myocardial infarction Breast cancer Colorectal cancer Social History Preferred Language: Lithuanian Communication Ability: Impaired Visual Impairment: No Limitations Hearing Ability: Normal 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 Required: No Beliefs That Will Affect Care: None marital status: Current Living Situation: Alone current occupational status: retired Feels Safe at Home: Yes Safety Concerns: Feels Safe At This Time Smoking Status: Never smoker Do You Dip or Chew Tobacco: No ; Second Hand Exposure: Yes ( A CHILD) ; Tobacco Cessation Education Requested by Patient: No Hx Alcohol Use: No Hx Substance Use: No Childhood Exposure to Second-Hand Smoke: Yes Dental Care, Regularly: Yes Physical Activity Frequency: Daily Seatbelt Use: always Sunscreen Use: No Review of Systems Review of Systems: Unobtainable due to reduced consciousness Physical Exam Physical Exam: The patient is a well-developed, well-nourished elderly female. She is minimally responsive. Patient will open her eyes to a limited degree to loud voice. She is nonverbal and does not follow commands or respond to questions. She is inattentive and stuporous. Memory, concentration, speech pattern, and fund of knowledge cannot be assessed. Visual liao and acuity cannot be assessed. Pupils are equal round and reactive to light. Oculocephalic reflex is intact. Corneal reflexes intact bilaterally. Patient does not have a gross facial droop although facial movements cannot be reliably assessed. Hearing probably intact as patient does briefly open eyes to a minimal degree to loud voice. Shoulder shrug, palate elevation, and tongue protrusion cannot be evaluated. Sensation to primary modalities cannot be ass essed. Patient does not localize to noxious stimulation. She does withdraw all 4 limbs to noxious stimulation, however. Withdraws the left lower limb to a greater degree than the right. (Status post right hip exchange arthroplasty 2 days ago.) Deep tendon reflexes diminished throughout although patient withdraws both lower limbs to plantar stimulation, left greater than right. Coordination cannot be evaluated. Ophthalmoscopic examination reveals normal- appearing optic disks and posterior segments. No papilledema or hemorrhages. Carotid pulses normal bilaterally, no bruits to auscultation. Gait and station cannot be tested. Muscle strength cannot be tested. Muscle tone normal throughout. No spasticity or rigidity. No atrophy. No abnormal movements observed. Results & Data Vital Signs (Past 12 Hours) Vital Signs Temp Pulse Resp BP Pulse Ox 01/30/20 07:54 37.3 C 85 16 101/58 L 98 01/30/20 06:54 102 H 121/74 97 01/30/20 05:54 96 H 26 H 110/63 97 01/30/20 04:54 38 C H 100 H 120/75 97 01/30/20 03:54 112 H 121/66 94 01/30/20 02:54 117 H 134/59 L 94 01/30/20 01:54 98 H 117/64 95 01/30/20 00:54 89 109/64 97 01/29/20 23:54 37.3 C 106 H 130/81 95 01/29/20 22:30 90 97 Laboratory Results WBC 11.35, hemoglobin 7.7, hematocrit 23.6, platelet count 126, sodium 141, potassium 3.2, BUN 22, creatinine 0.65, glucose 135, calcium 9.8, magnesium 1.6, ammonia less than 10.0, transaminases normal, vitamin B12 level 459 Blood cultures from January 28, 2020 revealed no growth Staph aureus identified on wound specimen from right hip. Staph aureus identified on urine culture from December 05, [address] of the head completed January 28, 2020- for hemorrhage or acute findings. There is minimal chronic microvascular ischemic change. I reviewed the images as well as the radiologist interpretation of this test. CT angiogram of the neck negative for significant stenosis, occlusion, or dissec tion within the carotid or vertebral arteries. There is minimal scattered atherosclerotic plaque. CT angiogram of the head negative for significant stenosis, occlusion, or aneurysm. There is mild narrowing within the ophthalmic segment of the left internal carotid artery due to atherosclerotic plaque. A CT venogram is negative for dural venous sinus thrombosis or acute abnormality. A repeat CT of the head completed today is negative for hemorrhage or acute abnormality. No significant change compared with the previous head CT done January 29, 2020. I reviewed the images as well as the radiologist interpretation of this test. An echocardiogram completed January 28, 2020 reveals normal left ventricular size and systolic function, ejection fraction 60 to 65%, no regional wall motion abnormalities. There is severe pulmonary hypertension. No findings suggestive of endocarditis. No evidence of atrial septal defect. PFO not excluded. An electroencephalogram completed yesterday reveals generalized slowing suggestive of a moderate to severe nonspecific encephalopathy. No supportive evidence of subclinical seizure activity. Coding Level of Care Code 73577 Initial Inpt Care Lvl 3 Diagnoses Encephalopathy G93.40
--- NOTE | 2020-01-30 10:58 | CT Scan Report ---
CT head/brain wo con CT DOSE: 537.48 mGy.cm HISTORY: Mental status change increased sedation post-op TECHNIQUE: Multiaxial CT images of the head were performed without the use of intravenous contrast. A dose lowering technique was utilized adhering to the principles of ALARA. Comparison: 01/29/2020 Findings: The paranasal sinuses and mastoid air cells are clear. The calvarium and skull base are int act. The ventricles and sulci are within normal limits. There is no mass, hematoma, midline shift, or acute infarct. Impression: No acute intracranial abnormality. No change from the prior exam. ACT 112: Negative or not required by law. The above report was generated using voice recognition software. It may contain grammatical, syntax or spelling errors. Electronically signed by: Peter Gracia M.D. 01/30/2020 10:57 AM
[2020-01-30] MEDS: CEFAZOLIN 2000MG 2,000 MG/15 ML SYR IV SCH ×2 (13:50→22:34)
--- NOTE | 2020-01-30 14:55 | XRay Report ---
XR chest 1V portable HISTORY: hypoxia COMPARISON: Chest 12/14/2017. FINDINGS: No pneumothorax. Small bilateral pleural effusions. The heart is mildly enlarged. There is perihilar interstitial and vascular thickening suggestive of mild pulmonary edema. Feeding tube termi nates in the body of the stomach. Hazy bibasilar densities. This may represent layering pleural fluid . IMPRESSION: 1. Interval development of pulmonary edema and small bilateral pleural effusions. 2. Hazy bibasilar densities favor the layering pleural fluid. 3. Feeding tube terminates in the stomach. ACT 112: Negative or not required by law. Electronically signed by: Jules Wang M.D. 01/30/2020 2:53 PM
--- NOTE | 2020-01-30 18:07 | Billing Data ---
Date of Service January 30, 2020 Coding Level of Care Code 75379 Subseq Hosp Care Lvl 3
--- NOTE | 2020-01-30 18:07 | Billing Data ---
Date of Service January 29, 2020 Coding Level of Care Code 25493 Subseq Hosp Care Lvl 3
--- NOTE | 2020-01-30 18:09 | Fluoroscopy Report ---
FLUOROSCOPICALLY GUIDED LUMBAR PUNCTURE CLINICAL HISTORY: encephalopathy FLUOROSCOPY TIME: 8 seconds. NUMBER OF FLUOROSCOPIC IMAGES: 1 PROCEDURE: The procedure, risks and benefits were discussed with the patient's daughter given the pa johnie's altered mental status including the risk of spinal headache, bleeding and infection. The westley ent's daughter agreed to the procedure and informed written consent was obtained. The procedure was p erformed by Dr. Monae following a timeout. Laminectomy site at the L4 level was targeted. Skin ov erlying the space was prepped and draped in sterile fashion and local anesthesia was achieved with 1% lidocaine. Under intermittent fluoroscopic guidance, a 5 inch, 22-gauge spinal needle was directed i nto the thecal sac with immediate return of cerebrospinal fluid. CSF was blood-tinged but quickly richard ared. A total of 11 cc of CSF was collected in 4 vials and sent to the laboratory as ordered. The nee dle was removed. The patient tolerated the procedure well and no immediate complications were evident . IMPRESSION: Successful fluoroscopically guided lumbar puncture with collection of 11 cc of CSF which was sent to the laboratory for analysis. CSF initially blood-tinged but quickly cleared. ACT 112: Negative or not required by law. Electronically signed by: Rudolph Monae M.D. 01/30/2020 6:08 PM
[2020-01-30 18:46] LABS: Hematocrit (blood only) 23.3 % (37-47); Hemoglobin 7.4 g/dL (12.0-16.0)
[2020-01-30 19:03] LABS: BUN Creatinine Ratio 37.5 (10-20); Calcium 9.6 mg/dl (8.5-10.1); Est GFR (African American) 110.6; Est GFR (Non-African American) 95.4; Potassium 3.3 mmol/L (3.5-5.1)
[2020-01-30 21:30] LABS: Appearance CSF Clear; CSF Count Tube # 3
[2020-01-30 21:31] LABS: CSF Xanthrochromic No xanthochromia; Color CSF Colorless; Red Blood Cell CSF (A) 290 /uL (0-); Red Blood Cell CSF (B) 280 /uL (0-); White Blood Cell CSF (A) 2 /uL (0-5); White Blood Cell CSF (B) 0 /uL (0-5)
[2020-01-30 21:41] LABS: CSF Glucose 77 mg/dl (40-70)
[2020-01-30 21:50] LABS: CSF Chemistry Tube # 1
[2020-01-30] MEDS: bisacodyL 10 MG SUPP PR PRN (22:34)
[2020-01-30] MEDS: PEPTAMEN 1.5 CAL 1,000 ML BAG PO SCH (22:37)
[2020-01-31] MEDS: CEFAZOLIN 2000MG 2,000 MG/15 ML SYR IV SCH ×3 (06:21→21:05)
[2020-01-31 06:24] LABS: Prothrombin Time 10.9 Seconds (9.0-12.0)
[2020-01-31] MEDS: MULTI VIT W/MINERALS LIQUID 15 ML UDP PO SCH (08:42)
--- NOTE | 2020-01-31 08:55 | Progress Notes ---
DATE: 01/31/2020 Postop rounds status post excision of septic total hip trochanteric osteotomy as previously documented. At this point in time, situation remains critical. Vital signs reveal blood pressure of 150/87, pulse is in the 100 range. Respiratory rate in the high 20s, temperature is 36.9, O2 sats 97.Troponin elevated. No additional lab work back yet.. CSF tap revealed no gross purulence, had high protein; rest of the material was waiting. PHYSICAL EXAMINATION: Reveals dressing clean, dry and intact. Hip is located. Responds to noxious stimuli in all 4 extremities, opens her eyes to voice. ASSESSMENT: Not much substitutive change in her clinical situation.Cardiac/embolic phenomenon fat vs clot. At this point in time, continue with supportive care. Living will obtained, wishes have been fulfilled with that. I had a long and detailed discussion with Luis Jhaveri and her daughter, Haydee Young, yesterday with Dr. Hairston. At this point in time, everyone identifies the critical nature of this and that despite everybody's best efforts, we continue to have very critical medical situation. We will follow daily.labs back and HCT 22 range. Transfusion per medicine/cardology. MTDD
--- NOTE | 2020-01-31 09:05 | Neurology Progress Note ---
Date of Service January 31, 2020 Assessment & Plan (1) Encephalopathy acute: Persistent severe encephalopathy following surgical revision of a septic right hip arthroplasty 3 days ago. Patient's neurological examination remains nonlocalizing and is unchanged from my assessment of her yesterday. She remains minimally responsive, stuporous, nonverbal, and will withdraw her limbs to noxious stimulation. I still have some concern for fat or septic emboli in this patient. Encephalitis excluded on the basis of her recent lumbar puncture. Diffuse cerebral anoxia not excluded. No evidence of subclinical seizures on EEG. Would recommend a repeat noncontrast CT of the head tomorrow to continue to assess for evolving emboli/subacute infarct. MRI of the brain when able given stainless steel surgical marvin. Further cardiopulmonary evaluation per hospitalist/cardiology service. Case discussed with Dr. Hunt. Subjective Follow-up for encephalopathy The patient is a 74-year-old female with persistent encephalopathy status post exchange arthroplasty for a septic right hip 3 days ago. She remains minimally responsive and will open her eyes briefly to voice. She withdraws the limbs to noxious stimulation and otherwise has a nonlocalizing neurological examination. She has had 2 head CTs which have been generally unrevealing in the context of her persistent encephalopathy. No evidence of hemorrhage or obvious acute process per CT criteria. An EEG has revealed a nonspecific encephalopathy, without evidence of seizure activity. The patient did have a lumbar puncture completed yesterday as suggested. The study was done in radiology under fluoroscopy guidance. CSF was clear, colorless, without xanthochromia, and no significant elevation in cell counts. Gram stain was unremarkable. Patient's troponin yesterday was 9.95. Electrocardiogram completed yesterday revealed a normal sinus rhythm, 100 bpm, potential T wave abnormality seen inferolaterally, unofficial report. An echocardiogram completed on January 27 had revealed a normal left ventricular size and systolic function with a normal ejection fraction and no regional wall motion abnormalities at that time. The study was notable for severe pulmonary hypertension. A chest x-ray completed yesterday suggested interval development of pulmonary edema and small bilateral pulmonary effusions. As above, the patient remains minimally responsive and is unable to provide any additional details pertaining to her present illness or review of systems. Review of Systems Review of Systems: Unobtainable due to reduced consciousness Physical Exam Physical Exam: The patient is a well-developed elderly female. She is lying quietly in bed and is minimally responsive. She will open her eyes minimally to loud voice. She is inattentive and drifts back to sleep. She does not speak or follow commands. She does not produce any vocalizations. Pupils equal round reactive to light. Oculocephalic reflexes intact. Corneal reflexes intact. Patient withdraws all 4 limbs to noxious stimulation. She withdraws both lower limbs to plantar stimulation, left greater than right. Both plantar responses are upgoing. Patient does not exhibit any abnormal spontaneous movements such as tremors or dyskinesias. No abnormal stimulus-induced movements. No posturing. Tone is normal throughout. No flaccidity, spasticity, or rigidity. No fasciculations or muscular twitching observed. Patient does have a mild petechial rash in her axilla bilaterally. No obvious petechiae at the fingertips or toes. Results & Data Vital Signs (Past 12 Hours) Vital Signs Temp Pulse Pulse Pulse Resp BP Pulse Ox 01/31/20 07:45 36.9 C 106 H 29 H 150/87 H 97 01/31/20 03:50 37.2 C 105 H 30 H 149/86 H 98 01/30/20 23:05 37.5 C 95 H 26 H 133/74 98 01/30/20 23:00 107 H Laboratory Results Lumbar puncture/CSF analysis completed yesterday. CSF appearance clear, colorless, no xanthochromia, WBC 2, RBC 290, CSF glucose 77, protein 73. CSF Gram stain, few WBCs, no organisms, culture pending Diagnostic Findings Lumbar puncture completed under fluoroscopy yesterday with collection of 11 cc of CSF, initially blood-tinged but cleared quickly. I again reviewed the images and radiologist interpretation of her CT of the head completed yesterday and January 27. There is no evidence of hemorrhage or obvious acute process on either of these studies. There is minimal periventricular whi te matter lucency probably consistent with chronic small vessel ischemic change. There is no hydrocephalus. There is no significant difference or evidence of interval change between the [address] angiography of the head and neck were generally unrevealing as was her CT venography of the head. No evidence of any significant stenosis or occlusion of any large vessel. She does have minimal scattered atherosclerotic plaque. No dissection. Electroencephalography completed January 28 suggested a moderate to severe nonspecific encephalopathy. No seizure activity or epileptiform abnormalities. Coding Level of Care Code 76065 Subseq Hosp Care Lvl 3 Diagnoses Encephalopathy acute G93.40
[2020-01-31 09:29] LABS: Basophils # (auto) 0.01 K/uL (0-0.2); Basophils % (auto) 0.1 %; Eosinophils # (auto) 0.12 K/uL (0-0.5); Eosinophils % (auto) 1.4 %; Hematocrit (blood only) 22.7 % (37-47); Hemoglobin 7.2 g/dL (12.0-16.0); Immature Granulocytes # (auto) 0.03 K/uL (0.00-0.02); Immature Granulocytes % (auto) 0.3 %; Lymphocytes # (auto) 1.14 K/uL (1.2-3.4); Lymphocytes % (auto) 13.1 %; Mean Corpuscular Hgb Conc 31.7 g/dL (32-36); Mean Corpuscular Volume 97.8 fL (80-100); Mean Platelet Volume 8.5 fL (7.4-10.4); Monocytes # (auto) 0.61 K/uL (0.11-0.59); Neutrophils # (auto) 6.79 K/uL (1.4-6.5); Neutrophils % (auto) 78.1 %; Platelet Count 126 K/uL (130-400); RDW Coefficient of Variation 15.5 % (11.5-14.5); RDW Standard Deviation 55.1 fL (36.4-46.3); Red Blood Count 2.32 M/uL (4.2-5.4)
--- NOTE | 2020-01-31 09:32 | Cardiology Consultation ---
Date of Consultation January 31, 2020 Assessment & Plan (1) Elevated troponin: The patient is elevated cardiac biomarkers suggestive of cardiac injury. A repeat troponin obtained today was lower than yesterday suggesting that the peak elevation occurred sometime between the afternoon of January 27 and January 29. The mechanism of the injury is uncertain. Acute coronary syndrome is possible although there were no objective findings on EKG an acute infarct. There were some nonspecific changes in the EKG is not 100 percent sensitive for these events. Her echocardiogram did not demonstrate any regional wall motion abnormalities or severe LV dysfunction consistent with an acute infarct, specifically an acute coronary syndrome. Unfortunately, the patient cannot give any history regarding the presence or absence of chest pain in the perioperative period. As this event appears to have happened 3 days ago, I do not believe there is any indication for systemic anticoagulation. A daily aspirin would be a reasonable intervention provided she does not have continued bleeding risk. Demand ischemia is also a possible explanation for her elevated markers. This could be related to right heart strain in the setting of elevated pulmonary pressures. A review of her anesthetic record did not suggest any prolonged periods of hypoxia or hypotension. She is anemic, and did have acute blood loss. I would have low threshold for additional transfusion. Outside of aspirin administration, I think that care is simply supportive at this point. Provided she has meaningful neurologic recovery we can discuss options for additional evaluation including the possibility of coronary angiogr aphy. (2) Pulmonary hypertension: The patient has had previous echocardiography. On her last examination of pulmonary pressures are estimated to be normal. It is unclear if she suffered an acute rise in her pulmonary pressures consistent with fat embolization or pulmonary embolus from venous thrombosis. The right ventricle did not appear enlarged or hypokinetic on her echocardiogram. She seems to be oxygenating well. A limited echocardiogram will be repeated today for measurement of her estimated pulmonary pressures in evaluation of both right and left heart function. History of Present Illness Reason for Consultation: Elevated troponin Requesting Physician: Marilee Attending Physician: Vinicius Dalton MD History of Present Illness The patient is a 74-year-old woman without a known history of cardiac disease who recently underwent a right hip operation. It seems the patient had previously undergone replacement of the right hip in presented with a suspected infection of her prosthesis. She underwent operative evaluation and prosthetic hip exchange but in the postoperative period was noted to have evidence of encephalopathy. During her evaluation cardiac biomarkers were obtained and were elevated. Patient currently suffers from encephalopathy and no history can be obtained directly. History of her admission and clinical course were obtained from the chart and other providers. Over the past 2 days does not appear to have been significant improvement in her mental status. Allergies Allergy/AdvReac Type Severity Reaction Status Date / Time cat dander Allergy Mild "HAYFEVER" Verified 01/28/20 05:19 dog dander Allergy Mild "HAYFEVER, Verified 01/28/20 05:19 ASTHMA SYMPTOMS" Penicillins Allergy Mild Hives Verified 01/28/20 05:19 pravastatin Allergy Mild LEG PAIN Verified 01/28/20 05:19 rosuvastatin [From Crestor] Allergy Mild LEG PAIN Verified 01/28/20 05:19 doxycycline Allergy Unknown Unknown Verified 01/28/20 05:19 warfarin [From Coumadin] AdvReac Intermediate FELT Verified 01/28/20 17:02 HOT/COLD Home Medications Home Medications Medication Instructions Recorded Confirmed Type cholecalciferol (vitamin D3) 400 unit PO DAILY 11/28/19 01/28/20 History [Vitamin D3] multivitamin 1 tab PO DAILY 11/28/19 01/28/20 History calcium carbonate [Calcium 500] 500 mg PO QAM 01/27/20 01/28/20 History diltiazem HCl 180 mg PO QAM 01/27/20 01/28/20 History lisinopril 10 mg PO QAM 01/27/20 01/28/20 History vitamin E 400 unit PO QAM 01/27/20 01/28/20 History Patient History Medical History DJD (degenerative joint disease) of hip (Resolved) History of asthma NO USE OF INHALER PER PATIENT Hyperlipidemia Hypertension Hyperthyroidism HX OF OVER YEARS AGO (NO CURRENT PROBLEM) Leg length discrepancy Nephrolithiasis Osteoporosis Surgical History Fusion of spine LUMBAR FUSION H/O section X 2 History of bilateral tubal ligation History of cataract surgery RT/LEFT History of tooth extraction History of total hip arthroplasty RT S/P carpal tunnel release Family History Brother Hypertension Mother Hypertension Sister Hypertension Denies family history of Colon cancer Ovarian cancer Prostate cancer Myocardial infarction Breast cancer Colorectal cancer Social History Preferred Language: [place] Communication Ability: Impaired Visual Impairment: No Limitations Hearing Ability: Normal Physical Sciences Instructor Required: No Beliefs That Will Affect Care: None marital status: Current Living Situation: Alone current occupational status: retired Feels Safe at Home: Yes Safety Concerns: Feels Safe At This Time Smoking Status: Never smoker Do You Dip or Chew Tobacco: No ; Second Hand Exposure: Yes ( A CHILD) ; Tobacco Cessation Education Requested by Patient: No Hx Alcohol Use: No Hx Substance Use: No Childhood Exposure to Second-Hand Smoke: Yes Dental Care, Regularly: Yes Physical Activity Frequency: Daily Seatbelt Use: always Sunscreen Use: No Review of Systems Review of Systems: Unobtainable due to reduced consciousness Physical Exam Physical Exam: Patient was very lethargic. She may have responded to verbal stimuli with an attempt to open her eyes, but did not follow other commands. Reportedly responsive to painful stimuli. HEENT: Sclerae are anicteric. Neuro: Evaluation could not be obtained due to reduce level of consciousness Neck: Examination of the submandibular region did not reveal any significant lymphadenopathy. Carotids are palpable bilaterally and free of bruits on auscultation. There was no evidence of jugular venous distention. The thyroid was not enlarged. Lungs: Lungs are clear to auscultation but she could not participate in the examination for full evaluation. No expiratory wheezing. Increased respiratory rate Cardiac: The rhythm was regular. S1 and S2 were normal. There are no murmurs on examination. The PMI was not markedly displaced on palpation. Abdomen: The abdomen was soft and nontender. Extremities: Her right leg is bandaged to the hip. She is wearing sequential compression devices. Also wearing surgical stockings. No evidence of peripheral edema. Palpable radial pulses. Skin: There are no rashes noted on examination today. Results & Data ([facility]) Vital Signs (Past 12 Hours) Vital Signs Temp Pulse Pulse Pulse Resp BP Pulse Ox 01/31/20 07:45 36.9 C 106 H 29 H 150/87 H 97 01/31/20 03:50 37.2 C 105 H 30 H 149/86 H 98 01/30/20 23:05 37.5 C 95 H 26 H 133/74 98 01/30/20 23:00 107 H Laboratory Results Abnormal Lab Results 01/27/20 01/30/20 01/30/20 12:41 03:15 17:46 WBC RBC Hgb Hct MCV MCH MCHC RDW Std Deviation RDW Coeff of Enedelia Plt Count MPV Immature Gran % (Auto) Neut % (Auto) Lymph % (Auto) Conway % (Auto) Eos % (Auto) Baso % (Auto) Immature Gran # (Auto) Neut # (Auto) Lymph # (Auto) Conway # (Auto) Eos # (Auto) Baso # (Auto) PT INR Sodium Potassium Chloride Carbon Dioxide Anion Gap BUN Creatinine Est Cr Clr Drug Dosing Est GFR ( Amer) Est GFR (Non-Af Amer) BUN/Creatinine Ratio Glucose POC Glucose Calcium Troponin I 9.950 H* CSF Appearance Clear CSF Color Colorless Xanthrochromic No xanthochromia CSF WBC 2 CSF RBC 290 CSF Cell Count Tube # 3 CSF Chemistry Tube # 1 CSF Glucose 77 H CSF Total Protein 73.0 H Stool Occult Bld Scrn Crossmatch See Detail 01/30/20 01/30/20 01/30/20 18:30 18:30 18:32 WBC RBC Hgb 7.4 L Hct 23.3 L MCV MCH MCHC RDW Std Deviation RDW Coeff of Enedelia Plt Count MPV Immature Gran % (Auto) Neut % (Auto) Lymph % (Auto) Conway % (Auto) Eos % (Auto) Baso % (Auto) Immature Gran # (Auto) Neut # (Auto) Lymph # (Auto) Conway # (Auto) Eos # (Auto) Baso # (Auto) PT INR Sodium 142 Potassium 3.3 L Chloride 111 H Carbon Dioxide 27 Anion Gap 4.0 BUN 19 H Creatinine 0.51 L Est Cr Clr Drug Dosing 67.0 Est GFR ( Amer) 110.6 Est GFR (Non-Af Amer) 95.4 BUN/Creatinine Ratio 37.5 H Glucose 143 H POC Glucose 154 H Calcium 9.6 Troponin I CSF Appearance CSF Color Xanthrochromic CSF WBC CSF RBC CSF Cell Count Tube # CSF Chemistry Tube # CSF Glucose CSF Total Protein Stool Occult Bld Scrn Crossmatch 01/30/20 01/31/20 01/31/20 20:21 00:24 04:00 WBC RBC Hgb Hct MCV MCH MCHC RDW Std Deviation RDW Coeff of Enedelia Plt Count MPV Immature Gran % (Auto) Neut % (Auto) Lymph % (Auto) Conway % (Auto) Eos % (Auto) Baso % (Auto) Immature Gran # (Auto) Neut # (Auto) Lymph # (Auto) Conway # (Auto) Eos # (Auto) Baso # (Auto) PT INR Sodium Potassium Chloride Carbon Dioxide Anion Gap BUN Creatinine Est Cr Clr Drug Dosing Est GFR ( Amer) Est GFR (Non-Af Amer) BUN/Creatinine Ratio Glucose 133 H POC Glucose 159 H Calcium Troponin I CSF Appearance CSF Color Xanthrochromic CSF WBC CSF RBC CSF Cell Count Tube # CSF Chemistry Tube # CSF Glucose CSF Total Protein Stool Occult Bld Scrn Negative Crossmatch 01/31/20 01/31/20 01/31/20 05:15 06:08 09:18 WBC 8.70 RBC 2.32 L Hgb 7.2 L Hct 22.7 L MCV 97.8 MCH 31.0 MCHC 31.7 L RDW Std Deviation 55.1 H RDW Coeff of Enedelia 15.5 H Plt Count 126 L MPV 8.5 Immature Gran % (Auto) 0.3 Neut % (Auto) 78.1 Lymph % (Auto) 13.1 Conway % (Auto) 7.0 Eos % (Auto) 1.4 Baso % (Auto) 0.1 Immature Gran # (Auto) 0.03 H Neut # (Auto) 6.79 H Lymph # (Auto) 1.14 L Conway # (Auto) 0.61 H Eos # (Auto) 0.12 Baso # (Auto) 0.01 PT 10.9 INR 1.0 Sodium Potassium Chloride Carbon Dioxide Anion Gap BUN Creatinine Est Cr Clr Drug Dosing Est GFR ( Amer) Est GFR (Non-Af Amer) BUN/Creatinine Ratio Glucose POC Glucose 153 H Calcium Troponin I CSF Appearance CSF Color Xanthrochromic CSF WBC CSF RBC CSF Cell Count Tube # CSF Chemistry Tube # CSF Glucose CSF Total Protein Stool Occult Bld Scrn Crossmatch Diagnostic Findings Chest x-ray obtained today revealed a suggestion of pulmonary vascular congestion. Head CT did not demonstrate any acute intracranial findings Head CTA did not demonstrate any acute occlusions Echocardiogram performed on 01/28/2020 revealed preserved LV systolic function with moderate to severe tricuspid regurgitation and elevated pulmonary pressures. ECG Additional Comments: Serial EKGs have been obtained. These all reveal sinus rhythm. Compared to old EKGs there are some nonspecific ST and T-wave changes and T-wave inversions. Telemetry revealed 1 episode of wide complex tachycardia which appears to be artifactual in nature. PG Care Time/CCT Total # of Minutes Spent Total Time Spent with Patient: Total time spent is greater than 50% in coordination of care (as documented) at patient's floor/unit and/or counseling patient: Coding Level of Care Code 04915 Initial Inpt Care Lvl 3 Diagnoses Elevated troponin R79.89 Pulmonary hypertension I27.20
[2020-01-31 09:56] LABS: Albumin Level 2.2 gm/dl (3.4-5.0); BUN Creatinine Ratio 29.6 (10-20); Calcium 9.6 mg/dl (8.5-10.1); Creatinine Clr Calc Pharmacy 45.6 ml/min; Est GFR (African American) 108.5; Est GFR (Non-African American) 93.6; Potassium 3.1 mmol/L (3.5-5.1)
[2020-01-31] MEDS ORDERED: SODIUM CHLORIDE 0.9% 250 ML IV PRN (10:02)
[2020-01-31 10:07] LABS: Polychromasia 1+
[2020-01-31 10:08] LABS: Albumin Globulin Ratio 0.6 (0.9-2); Bilirubin,Total 0.3 mg/dl (0.2-1); Globulin 3.5 gm/dl (2.5-4.0); Total Protein 5.7 gm/dl (6.4-8.2); Troponin I 6.36 ng/ml (0-0.045)
[2020-01-31] MEDS ORDERED: FUROSEMIDE 20 MG in SYRINGE 0 ML IV ONE (10:15)
[2020-01-31 10:43] LABS: Magnesium 1.7 mg/dl (1.8-2.4); Phosphorus 1.4 mg/dl (2.5-4.9)
--- NOTE | 2020-01-31 10:47 | Electrocardiogram Report ---
Test Reason : Blood Pressure : / mmHG Vent. Rate : 100 BPM Atrial Rate : 100 BPM P-R Int : 144 ms QRS Dur : 084 ms QT Int : 356 ms P-R-T Axes : 058 010 245 degrees QTc Int : 459 ms Normal sinus rhythm nsgt Abnormal ECG When compared with ECG of 28-JAN-2020 15:04, Nonspecific T wave abnormality now evident in Inferior leads Confirmed by Rk Moreland ([id number]) on 01/31/2020 10:47:27 AM Referred By: Vinicius Dalton Confirmed By:Espinoza Moreland
[2020-01-31] MEDS ORDERED: POTASSIUM PHOS 3 MMOL/1 ML INFUSION IV STA (10:59)
[2020-01-31] MEDS ORDERED: POTASSIUM PHOSPHATE 30 MMOL in SODIUM CHLORIDE 0.9% 500 ML IV ONE (11:15)
--- NOTE | 2020-01-31 11:57 | XCELERA ---
[id number] \\[email or web address]\[id number]
--- NOTE | 2020-01-31 14:55 | Hospitalist Progress Note ---
Date of Service January 31, 2020 Assessment & Plan (1) Altered level of consciousness: GCS E4V1M4 - 9. Eyes open but no eye movement or response to voice. PERRL. Withdraws to pain. No gag reflex. EEG with non specific encephalopathy but no seizure. Appreciate neurology consult and discussed with Dr Augustine. Given few petechia in axilla, anemia, negative blood cultures, I suspect this represents a severe case of fat embolism syndrome. She does not appear to have much of a respiratory element to this however. CT head tomorrow. MRI to be done once marvin removed in approximately 10 days post op. (2) Encephalopathy acute: Post operative. See above. 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 (4) Airway compromise: Still without gag reflex. Monitor for now. Will get VBG with AM labs. (5) MSSA bacteremia: Now unlikely given negative blood cultures. Cultures taken after initial antibiotics, however would not suspect to have cleared from one dose of adequate antibiotics given especially since hip confirmed septic. No vegetations on TTE. (6) Septic hip: Appreciate orthopedic management. Exchange arthroplasty and Prostalac spacer placed on 01/27. (7) Spinal stenosis: s/p spinal surgery 12/08. (8) Acute blood loss anemia: Suspected blood loss from surgeries as relatively new since her operations. s/p 1 unit packed RBCs given during operation. B12 and folate WNL Iron sats 8% Discussed with Dr Moreland and in light of elevated troponin will aim Hgb > 9. Transfuse 2 units packed RBCs today. (9) Hypertension: Hold diltiazem and lisinopril given current BP. Likely having some rebound tachycardia related to holding diltiazem. (10) Pulmonary hypertension: Severe (estimated from echo) with moderate to severe tricuspid regurgitation. Suspect secondary to fat pulmonary embolism, now resolved on (11) Elevated troponin: Discussed with Dr Moreland. Suspect event happened during her operation. Troponin now downtrending. Non-specific EKG changes. Recommended (12) Sinus tachycardia: Possibly due to holding off diltiazem vs. fat embolism syndrome In setting of possible ACS will start carvedilol. (13) Cardiomyopathy: Started on carvedilol as above. (14) Electrolyte abnormality: Hypophosphatemia, hypokalemia -> will continue to replace and continue NG feeds at this time but may need slowing down if unable to replete. (15) DVT prophylaxis: Hold lovenox in setting of worsening Hgb SCDs Admission and Anticipated Discharge Date Admission Date: January 28, 2020 Subjective No acute events overnight. No significant change in mental state. Unable to give any history from patient. Review of Systems Review of Systems: Unobtainable due to reduced consciousness Physical Exam Constitutional: + altered mental status and + lethargic; no acute distress Eyes: + anicteric sclerae; no conjunctival abnormality and normal pupil size ENMT: Mouth: + dry oral mucous membranes Neck: trachea midline Respiratory: normal respiratory effort Auscultation: + rhonchi (mild b/l equal); no diminished lung sounds, no crackles and no wheezes Cardiovascular: Rate/Rhythm: regular rhythm and + tachycardic Extremities: normal capillary refill; no pedal edema Gastrointestinal (Abdomen): Inspection/Auscultation: normal bowel sounds Percussion/Palpation: abdomen soft; abdomen nontender, no guarding and abdomen not rigid Skin: Few petechiae in each axilla Neurologic: + not awake Comatose Patient: no decerebrate rigidity and no decorticate rigidity GCS E4V1M4 - 9. Eyes open but no eye movement or response to voice. PERRL. Withdraws to pain. No gag reflex. Psychiatric: Orientation: + not alert (reacts to noxious stimuli but no purposeful movements) Results & Data ([facility]) Vital Signs (Past 12 Hours) Vital Signs Temp Pulse Pulse Pulse Resp BP BP 01/31/20 14:45 36.5 C 104 H 25 H 149/82 H 01/31/20 14:15 36.6 C 103 H 23 156/93 H 01/31/20 14:00 36.5 C 102 H 22 153/93 H 01/31/20 13:45 36.9 C 102 H 22 154/84 H 01/31/20 10:46 36.7 C 99 H 27 H 151/74 H 01/31/20 07:45 36.9 C 106 H 29 H 150/87 H 01/31/20 03:50 37.2 C 105 H 30 H 149/86 H Pulse Ox 01/31/20 14:45 97 01/31/20 14:15 96 01/31/20 14:00 97 01/31/20 13:45 98 01/31/20 10:46 97 01/31/20 07:45 97 01/31/20 03:50 98 PG Care Time/CCT Total # of Minutes Spent Total Time Spent with Patient: Total time spent is greater than 50% in coordination of care (as documented) at patient's floor/unit and/or counseling patient: Coding Level of Care Code 02088 Subseq Hosp Care Lvl 2 Diagnoses Altered level of consciousness R40.4 Encephalopathy acute G93.40 Fulminant fat embolism syndrome T79.1XXA Encounter type: initial encounter Airway compromise J98.8 MSSA bacteremia R78.81; B95.61 Septic hip M00.9 Spinal stenosis M48.062 Neurogenic claudication status: with neurogenic claudication Spinal region: lumbar Acute blood loss anemia D62 Hypertension I10 Hypertension type: essential hypertension Pulmonary hypertension I27.20 Elevated troponin R79.89 Sinus tachycardia R00.0 Cardiomyopathy I42.9 Cardiomyopathy type: unspecified Electrolyte abnormality E87.8 DVT prophylaxis Z29.9 (1) Fulminant fat embolism syndrome Encounter type: initial encounter Qualified Code(s): T79.1XXA - Fat embolism (traumatic), initial encounter (2) Spinal stenosis Neurogenic claudication status: with neurogenic claudication Spinal region: lumbar Qualified Code(s): M48.062 - Spinal stenosis, lumbar region with neurogenic claudication (3) Hypertension Hypertension type: essential hypertension Qualified Code(s): I10 - Essential (primary) hypertension (4) Cardiomyopathy Cardiomyopathy type: unspecified Qualified Code(s): I42.9 - Cardiomyopathy, unspecified
[2020-01-31] MEDS ORDERED: carvediloL 6.25 MG TAB PO ONE (15:59)
[2020-01-31] MEDS ORDERED: ASPIRIN 81 MG CHEW NG ONE (16:35)
[2020-01-31 18:12] LABS: Hemoglobin 8.9 g/dL (12.0-16.0); Mean Corpuscular Hemoglobin 30.3 pg (25-34); Mean Corpuscular Hgb Conc 31.8 g/dL (32-36); Mean Corpuscular Volume 95.2 fL (80-100); Mean Platelet Volume 8.8 fL (7.4-10.4); Platelet Count 131 K/uL (130-400); RDW Coefficient of Variation 16.1 % (11.5-14.5); RDW Standard Deviation 56.5 fL (36.4-46.3); Red Blood Count 2.94 M/uL (4.2-5.4); White Blood Count 8.32 K/uL (4.8-10.8)
[2020-01-31 18:31] LABS: BUN Creatinine Ratio 29.7 (10-20); Calcium 9.6 mg/dl (8.5-10.1); Creatinine Clr Calc Pharmacy 44.7 ml/min; Est GFR (African American) 107.8; Est GFR (Non-African American) 93.1; Potassium 3.7 mmol/L (3.5-5.1)
[2020-01-31] MEDS ORDERED: carvediloL 6.25 MG TAB PO SCH (21:00)
[2020-02-01] MEDS: CEFAZOLIN 2000MG 2,000 MG/15 ML SYR IV SCH ×3 (05:11→21:20)
[2020-02-01 06:46] LABS: Base Excess VBG 10.8 mEq/L; Hematocrit (blood only) 30.1 % (37-47); Hemoglobin 9.5 g/dL (12.0-16.0); Mean Corpuscular Hemoglobin 30.1 pg (25-34); Mean Corpuscular Hgb Conc 31.6 g/dL (32-36); Mean Corpuscular Volume 95.3 fL (80-100); Mean Platelet Volume 9.5 fL (7.4-10.4); Oxygen Saturation VBG 67.3 %; Platelet Count 142 K/uL (130-400); RDW Coefficient of Variation 16.5 % (11.5-14.5); RDW Standard Deviation 57.1 fL (36.4-46.3); Red Blood Count 3.16 M/uL (4.2-5.4); pH VBG 7.49 (7.36-7.41)
[2020-02-01 07:15] LABS: Albumin Level 2.4 gm/dl (3.4-5.0); BUN Creatinine Ratio 34.7 (10-20); Calcium 9.9 mg/dl (8.5-10.1); Creatinine Clr Calc Pharmacy 46.2 ml/min; Est GFR (African American) 107.2; Est GFR (Non-African American) 92.5; Magnesium 1.9 mg/dl (1.8-2.4); Potassium 3.3 mmol/L (3.5-5.1)
[2020-02-01 07:18] LABS: Albumin Globulin Ratio 0.6 (0.9-2); Bilirubin,Total 0.5 mg/dl (0.2-1); Globulin 4.1 gm/dl (2.5-4.0); Phosphorus 2.4 mg/dl (2.5-4.9); Total Protein 6.5 gm/dl (6.4-8.2)
[2020-02-01] MEDS ORDERED: POTASSIUM PHOS 3 MMOL/1 ML INFUSION IV STA (07:28)
[2020-02-01] MEDS ORDERED: POTASSIUM PHOSPHATE 9 MMOL in SODIUM CHLORIDE 0.9% 250 ML IV ONE (07:45)
--- NOTE | 2020-02-01 08:40 | Progress Notes ---
DATE: 02/01/2020 SUBJECTIVE: Postop day #4 status post major revision for sepsis of her right hip. At this point in time, the patient definitely open her eyes more to verbal command and tracks and looks towards voice. She spontaneously moves all 4 extremities, but does not follow command. By report, she had some petechiae yesterday. LABORATORY WORK: Hematocrit stable at 30.1, white count is 8.8. Sed rate has defervesced to 47, potassium is 3.3, calcium is 9.9. Wound dressing was changed, it is attached clean, dry and intact. Hip looks located. ASSESSMENT: Remains in critical state, however, appears to be increasing her central nervous system function, albeit small as she was able to look at me when I talked to her. Sed rate is defervesced nicely. White count has defervesced nicely. Wound dressing clean, dry and intact. With petechiae being present, fat embolism definitely a factor in this whole picture. At this point in time, her pulmonary pressures have also decreased, which is likely from the fat restriction in the small vessels of her lungs. PLAN: Suggest, continue following calcium as Stimulon beads can have that escalate, and that may need to be treated. Follow daily. I will talk to designated communication contact Luis Jhaveri. JAZZ
[2020-02-01] MEDS: carvediloL 12.5 MG TAB PO SCH ×2 (09:00→21:11)
[2020-02-01] MEDS: ASPIRIN 81 MG CHEW NG SCH (09:00)
[2020-02-01] MEDS: MULTI VIT W/MINERALS LIQUID 15 ML UDP PO SCH (10:18)
--- NOTE | 2020-02-01 10:59 | Neurology Progress Note ---
Date of Service February 01, 2020 Assessment & Plan (1) Encephalopathy acute: Persistent encephalopathy following right hip exchange arthroplasty 4 days ago. No evidence of of hemorrhage or obvious evolving infarct on 2 previous head [address]s. No evidence of seizure activity on EEG. Cerebral fat embolism probable diagnosis at this point in time. Diffuse cerebral anoxia not excluded. Would recommend a repeat CT of the head today to continue to evaluate for evolving infarct/ischemic injury. Obtain brain MRI when able given presence of stainless steel surgical marvin. (2) Fulminant fat embolism syndrome: As above, suspect cerebral fat embolism. Cardiopulmonary function seems to be stabilized. As above, brain MRI would be useful to assess for associated abnormalities on diffusion-weighted imaging as well as other findings such as edema or petechial hemorrhage. Unfortunately, MRI cannot be obtained at this point due to stainless steel surgical marvin. Repeat CT of the head today as above. If neuro imaging remains negative with regards to fat embolism or ischemic infarcts then diffuse cerebral anoxia may be the more likely diagnosis. Subjective Follow-up for encephalopathy The patient remains minimally responsive following exchange arthroplasty for a septic right hip 4 days ago. She will open her eyes briefly to voice but is otherwise nonverbal and nonresponsive. She withdraws her limbs modestly to noxious stimulation. There is not appear to be much change in her clinical status since my assessment of her yesterday morning. She has been seen by cardiology regarding her elevation and cardiac biomarkers. A follow-up echocardiogram completed yesterday suggests interval development of left ventricular dysfunction and regional wall motion abnormalities compared with a previous echocardiogram done on January 27. Patient may have had a cardiac event during her hip arthroplasty. Previous neuroimaging including [address] angiography of the head and neck have been fairly unrevealing. An EEG has revealed encephalopathy. A lumbar puncture/CSF analysis was unremarkable as well. Review of Systems Review of Systems: Unobtainable due to reduced consciousness Physical Exam Physical Exam: The patient is lying quietly in bed. She is not agitated and generally motionless. She will open her eyes briefly to loud voice. She is nonverbal and does not follow commands. Pupils are equal round and reactive to light. Oculocephalic reflexes intact. Corneal reflexes intact. Muscle tone diffusely normal. There is no rigidity, spasticity, or dystonia. There are no abnormal movements, tremors or fasciculations. Patient does not display any posturing type movement. She does withdraw all 4 limbs to noxious stimulation, moderately so. Continues to withdraw the left lower limb a bit more vigorously than the right (status post exchange arthroplasty for the right hip). Patient does not localize to pain. Results & Data Vital Signs (Past 12 Hours) Vital Signs Temp Pulse Pulse Pulse Resp BP BP 02/01/20 07:01 36.7 C 92 H 24 147/92 H 02/01/20 03:47 37.1 C 86 21 135/81 01/31/20 23:12 37.4 C 80 19 134/75 Pulse Ox 02/01/20 07:01 97 02/01/20 03:47 98 01/31/20 23:12 96 Laboratory Results WBC 8.80, hemoglobin 9.5, hematocrit 30.1, platelet count 142, sodium 141, potassium 3.3, BUN 20, creatinine 0.56, glucose 149, magnesium 1.9, AST 55, ALT 17 Diagnostic Findings Patient is to head CTs, CT angiography of the head and neck have previously been described and are generally unremarkable. Images again reviewed. Patient's previous EEG revealed only on encephalopathy, no evidence of epileptiform abnormalities. Repeat echocardiogram is as described above revealing evidence of interval development of left ventricular dysfunction and regional wall motion abnormalities. Coding Level of Care Code 75813 Subseq Hosp Care Lvl 3 Diagnoses Encephalopathy acute G93.40 Fulminant fat embolism syndrome T79.1XXA Encounter type: initial encounter (1) Fulminant fat embolism syndrome Encounter type: initial encounter Qualified Code(s): T79.1XXA - Fat embolism (traumatic), initial encounter
[2020-02-01] MEDS: ENOXAPARIN INJ 30 MG/0.3 ML SYR SQ SCH (11:00)
--- NOTE | 2020-02-01 15:17 | Hospitalist Progress Note ---
Date of Service February 01, 2020 Assessment & Plan (1) Altered level of consciousness: Post-operatively unresponsive, prior baseline independent of ADLs, lives alone. GCS E4V1M4 - 9. Eyes open but no eye movement or response to voice. Withdraws to pain. No significant change in exam for me. EEG with non specific encephalopathy but no seizure. Suspected secondary to fat embolism syndrome. At this stage there has been minimal/no improvement since her operation and her prognosis is very poor. Will consult palliative care for tomorrow as will need to make decision regarding withdrawal of NG feeding and possible need for hospice. Would recommend final decisions to be made after obtaining an MRI Lumbar puncture unremarkable but with few outstanding labs at this time, isolated protein elevation but with spinal surgery in November unremarkable. Repeat CT head 01/31 - no acute intracranial abnormality. Plan: Repeat EEG - as discussed with Dr Augustine MRI to be done once marvin removed around 02/[address] Dalton. Consult palliative care (2) Encephalopathy acute: Post operative. See above. 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 Few petechia in axilla, anemia (without significant blood loss), myocardial dysfunction, right ventricular dysfunction (initially). No fever, significant hypotension, coagulopathy or significant thrombocytopenia. (4) Airway compromise: VBG, pH 7.49 but otherwise unremarkable. Patient can be moved to med/surg from this perspective (5) MSSA bacteremia: Now unlikely given negative blood cultures. Cultures taken after initial antibiotics, however would not suspect to have cleared from one dose of adequate antibiotics given especially since hip confirmed septic. Given blood cultures negative would not post exchange manager anyway since she would need 6 weeks of IV antibiotics to treat. No vegetations on TTE. (6) Septic hip: Appreciate orthopedic management. Exchange arthroplasty and Prostalac spacer placed on 01/27. Rx with IV cefazolin for total 6 weeks. (7) Spinal stenosis: s/p spinal surgery 12/08. (8) Acute blood loss anemia: Suspected blood loss from surgeries as relatively new since her operations +/- fat emboli syndrome as above. s/p 1 unit perioperatively, additional 1 unit PRBCs [01/30]. B12 and folate WNL Iron sats 8% (9) Hypertension: Started on carvedilol 01/30, will increase to 12.5mg PO BID today due to cardiomyopathy. Both HR and BP well controlled with increase. Consider Entresto if having neurological recovery. (10) Pulmonary hypertension: Severe (estimated from echo) with moderate to severe tricuspid regurgitation. Suspect secondary to fat pulmonary embolism, now resolved on repeat limited echo. (11) Elevated troponin: Discussed with Dr Moreland. Suspect secondary to paradoxical fat embolus. Troponin now downtrending. Non-specific EKG changes. Started on ASA 81mg PO daily as per cardiology recommendations via NG tube. (12) Cardiomyopathy: LVEF 30-35% with septal akinesis and apical hypokinesis. Suspected secondary to fat emboli syndrome. Possible but less likely Takotsubo. Started on carvedilol as above. Euvolemic at this time - required x2 doses of lasix post op and with blood transfusions. (13) Sinus tachycardia: Now resolved with carvedilol use. Secondary to holding diltiazem +/- fat emboli syndrome (14) Electrolyte abnormality: Hypophosphatemia, hypokalemia -> continue IV replacement and continue NG feeds at goal rate, no need to slow down at this time, as both K and phos improving. (15) DVT prophylaxis: Continue lovenox 30mg SQ daily SCDs Admission and Anticipated Discharge Date Admission Date: January 28, [address] Augustine, Sha and Aniceto. Ok to move patient to med/surg, preferably an orthopedic surgical bed. Subjective No acute events overnight. She remains non-verbal and minimally responsive. Does not follow commands. No significant change in exam. Review of Systems Review of Systems: Unobtainable due to reduced consciousness Physical Exam Constitutional: + altered mental status and + lethargic; no acute distress Eyes: + anicteric sclerae; no conjunctival abnormality and normal pupil size Neck: trachea midline Respiratory: normal respiratory effort Auscultation: + rhonchi (mild throughout); no diminished lung sounds, no crackles and no wheezes Cardiovascular: Rate/Rhythm: regular rate and regular rhythm Heart Sounds: no murmur Extremities: normal capillary refill; no pedal edema Gastrointestinal (Abdomen): Inspection/Auscultation: normal bowel sounds Percussion/Palpation: abdomen soft; abdomen nontender, no guarding and abdomen not rigid Skin: Few petechia in axilla b/l, similar to previous day Neurologic: moves all extremities; + not awake Comatose Patient: no decerebrate rigidity and no decorticate rigidity Psychiatric: Orientation: + not alert (reacts to noxious stimuli but no purposeful movements) Results & Data ([facility]) Vital Signs (Past 12 Hours) Vital Signs Temp Pulse Pulse Pulse Resp BP BP 02/01/20 11:28 36.6 C 70 24 129/76 02/01/20 08:00 87 02/01/20 07:01 36.7 C 92 H 24 147/92 H 02/01/20 03:47 37.1 C 86 21 135/81 Pulse Ox 02/01/20 11:28 98 02/01/20 08:00 02/01/20 07:01 97 02/01/20 03:47 98 PG Care Time/CCT Total # of Minutes Spent Total Time Spent with Patient: Total time spent is greater than 50% in coordination of care (as documented) at patient's floor/unit and/or counseling patient: Coding Level of Care Code 95171 Subseq Hosp Care Lvl 2 Diagnoses Altered level of consciousness R40.4 Encephalopathy acute G93.40 Fulminant fat embolism syndrome T79.1XXA Encounter type: initial encounter Airway compromise J98.8 MSSA bacteremia R78.81; B95.61 Septic hip M00.9 Spinal stenosis M48.062 Spinal region: lumbar Neurogenic claudication status: with neurogenic claudication Acute blood loss anemia D62 Hypertension I10 Hypertension type: essential hypertension Pulmonary hypertension I27.20 Elevated troponin R79.89 Cardiomyopathy I42.9 Cardiomyopathy type: unspecified Sinus tachycardia R00.0 Electrolyte abnormality E87.8 DVT prophylaxis Z29.9 (1) Fulminant fat embolism syndrome Encounter type: initial encounter Qualified Code(s): T79.1XXA - Fat embolism (traumatic), initial encounter (2) Spinal stenosis Spinal region: lumbar Neurogenic claudication status: with neurogenic claudication Qualified Code(s): M48.062 - Spinal stenosis, lumbar region with neurogenic claudication (3) Hypertension Hypertension type: essential hypertension Qualified Code(s): I10 - Essential (primary) hypertension (4) Cardiomyopathy Cardiomyopathy type: unspecified Qualified Code(s): I42.9 - Cardiomyopathy, unspecified
--- NOTE | 2020-02-01 15:42 | CT Scan Report ---
CT head/brain wo con CLINICAL HISTORY: 74 years-old Female with Altered mental state, GCS 9, f/u CT. Acutely altered ment al status TECHNIQUE: Multiple axial CT images of the head were obtained without contrast. A dose lowering tech nique was utilized adhering to the principles of ALARA. CT DOSE: 420.21 mGycm COMPARISON: Head CT 01/30/2020 FINDINGS: No acute intracranial hemorrhage, midline shift, intracranial mass, hydrocephalus, territorial ischem ia or abnormal extra-axial collection. Mild age-related involutional changes. Mild ill-defined white matter hypodensities suggest chronic microvascular ischemic disease. The calvarium is intact. Prior bilateral lens replacement. The paranasal sinuses, mastoid air cells, and middle ear cavities are clear. IMPRESSION: No acute intracranial abnormality. ACT 112: Negative or not required by law. The above report was generated using voice recognition software. It may contain grammatical, syntax o r spelling errors. Electronically signed by: Wellington Mendoza M.D. 02/01/2020 3:40 PM
--- NOTE | 2020-02-01 18:00 | Cardiology Progress Note ---
Date of Service February 01, 2020 Assessment & Plan (1) Cardiomyopathy: Her initial echocardiogram demonstrated normal wall motion and function. This was changed on her echocardiogram yesterday. Again, unclear mechanism. POssibly a stress-cardiomyopathy, but not a classic appearance on echo. Possibly a coronary event or direct injury due to the same mechanism of her brain injury. I agree with supportive care with BB and JORGE. Coronary evaluation possible if her condition improves. Monitor closely for volume overload. (2) Elevated troponin: Unclear mechanism of injury. I think a plaque-rupture event is unlikely. However, there was a justin-operative event. Possibly stress-induced or related to her brain injury. If she has a meaningful neurologic recovery or becomes hemodynamically unstable we can entertain a coronary evaluation. A daily aspirin seems like a reasonable intervention when appropriate. Admission and Anticipated Discharge Date Admission Date: January 28, 2020 Subjective She continues ot be poorly responsive. I am not sure she even responds reliably to painful stimuli. Some spontaneous movements. Review of Systems Review of Systems: Unobtainable due to cognitive status Physical Exam Physical Exam: Patient was very lethargic. Some spontaneous movements but not following commands. Not responsive to painful stimuli on my exam. HEENT: Sclerae are anicteric. Neuro: Evaluation could not be obtained due to reduce level of consciousness Lungs: Lungs are clear to auscultation but she could not participate in the examination for full evaluation. No expiratory wheezing. Increased respiratory rate Cardiac: The rhythm was regular. S1 and S2 were normal. There are no murmurs on examination. The PMI was not markedly displaced on palpation. Abdomen: The abdomen was soft and nontender. Extremities: Her right leg is bandaged to the hip. No evidence of peripheral edema. Palpable radial pulses. Skin: There are no rashes noted on examination today. Results & Data ([facility]) Vital Signs (Past 12 Hours) Vital Signs Temp Pulse Pulse Resp BP BP Pulse Ox 02/01/20 16:00 87 02/01/20 15:47 130/69 02/01/20 11:28 36.6 C 70 24 129/76 98 02/01/20 08:00 87 02/01/20 07:01 36.7 C 92 H 24 147/92 H 97 Laboratory Results Abnormal Lab Results 01/31/20 01/31/20 01/31/20 18:02 18:02 18:02 WBC 8.32 RBC 2.94 L Hgb 8.9 L Hct 28.0 L MCV 95.2 MCH 30.3 MCHC 31.8 L RDW Std Deviation 56.5 H RDW Coeff of Enedelia 16.1 H Plt Count 131 MPV 8.8 ESR 47 H VBG pH VBG pCO2 VBG pO2 VBG HCO3 VBG O2 Saturation VBG Base Excess Barometric Pressure Sodium 142 Potassium 3.7 D Chloride 105 Carbon Dioxide 34 H Anion Gap 3.0 BUN 16 Creatinine 0.55 L Est Cr Clr Drug Dosing 44.7 Est GFR ( Amer) 107.8 Est GFR (Non-Af Amer) 93.1 BUN/Creatinine Ratio 29.7 H Glucose 134 H POC Glucose Calcium 9.6 Phosphorus Magnesium Total Bilirubin AST ALT Alkaline Phosphatase Total Protein Albumin Globulin Albumin/Globulin Ratio 02/01/20 02/01/20 02/01/20 06:34 06:34 06:34 WBC 8.80 RBC 3.16 L Hgb 9.5 L Hct 30.1 L MCV 95.3 MCH 30.1 MCHC 31.6 L RDW Std Deviation 57.1 H RDW Coeff of Enedelia 16.5 H Plt Count 142 MPV 9.5 ESR VBG pH 7.49 H VBG pCO2 47 VBG pO2 36 VBG HCO3 35 VBG O2 Saturation 67.3 VBG Base Excess 10.8 Barometric Pressure 745.5 Sodium 141 Potassium 3.3 L Chloride 105 Carbon Dioxide 33 H Anion Gap 3.0 BUN 20 H Creatinine 0.56 L Est Cr Clr Drug Dosing 46.2 Est GFR ( Amer) 107.2 Est GFR (Non-Af Amer) 92.5 BUN/Creatinine Ratio 34.7 H Glucose 127 H POC Glucose Calcium 9.9 Phosphorus 2.4 L D Magnesium 1.9 Total Bilirubin 0.5 AST 55 H ALT 17 Alkaline Phosphatase 66 Total Protein 6.5 Albumin 2.4 L Globulin 4.1 H Albumin/Globulin Ratio 0.6 L 02/01/20 02/01/20 06:58 11:26 WBC RBC Hgb Hct MCV MCH MCHC RDW Std Deviation RDW Coeff of Enedelia Plt Count MPV ESR VBG pH VBG pCO2 VBG pO2 VBG HCO3 VBG O2 Saturation VBG Base Excess Barometric Pressure Sodium Potassium Chloride Carbon Dioxide Anion Gap BUN Creatinine Est Cr Clr Drug Dosing Est GFR ( Amer) Est GFR (Non-Af Amer) BUN/Creatinine Ratio Glucose POC Glucose 149 H 151 H Calcium Phosphorus Magnesium Total Bilirubin AST ALT Alkaline Phosphatase Total Protein Albumin Globulin Albumin/Globulin Ratio Diagnostic Findings Echocardiogram performed yesterday revealed reduced LV function and regional wa ll motion abnormalities. PG Care Time/CCT Total # of Minutes Spent Total Time Spent with Patient: Total time spent is greater than 50% in coordination of care (as documented) at patient's floor/unit and/or counseling patient: Coding Level of Care Code 39634 Subseq Hosp Care Lvl 3 Diagnoses Cardiomyopathy I42.9 Cardiomyopathy type: unspecified Elevated troponin R79.89 (1) Cardiomyopathy Cardiomyopathy type: unspecified Qualified Code(s): I42.9 - Cardiomyopathy, unspecified
[2020-02-02 05:57] LABS: Hematocrit (blood only) 27.4 % (37-47); Hemoglobin 8.6 g/dL (12.0-16.0); Mean Corpuscular Hemoglobin 30.4 pg (25-34); Mean Corpuscular Hgb Conc 31.4 g/dL (32-36); Mean Corpuscular Volume 96.8 fL (80-100); Mean Platelet Volume 10.1 fL (7.4-10.4); Platelet Count 157 K/uL (130-400); RDW Coefficient of Variation 16.1 % (11.5-14.5); RDW Standard Deviation 56.2 fL (36.4-46.3); Red Blood Count 2.83 M/uL (4.2-5.4); White Blood Count 7.47 K/uL (4.8-10.8)
[2020-02-02 06:27] LABS: Albumin Level 2.2 gm/dl (3.4-5.0); Calcium 9.9 mg/dl (8.5-10.1); Creatinine Clr Calc Pharmacy 50.7 ml/min; Est GFR (African American) 110.6; Est GFR (Non-African American) 95.4; Magnesium 1.9 mg/dl (1.8-2.4); Potassium 3.3 mmol/L (3.5-5.1)
[2020-02-02 06:30] LABS: Albumin Globulin Ratio 0.6 (0.9-2); Bilirubin,Total 0.4 mg/dl (0.2-1); Globulin 3.8 gm/dl (2.5-4.0); Phosphorus 2.6 mg/dl (2.5-4.9)
[2020-02-02] MEDS: CEFAZOLIN 2000MG 2,000 MG/15 ML SYR IV SCH ×3 (06:45→21:52)
[2020-02-02] MEDS: PEPTAMEN 1.5 CAL 1,000 ML BAG PO SCH (06:46)
--- NOTE | 2020-02-02 08:04 | Progress Notes ---
DATE: 02/02/2020 SUBJECTIVE: Postop day #5 status post revision/ osteotomy for sepsis of her right hip. At this point in time, the patient is sitting up in bed, breathing comfortably. She immediately open her eyes and tracks me with talking. She kept her eyes open for an extended period of time. I have asked her to do some active commands, which she did not perform such as squeezing hands and moving toes. OBJECTIVE: VITAL SIGNS: Stable. Accuracy and documentation of pulse, discussed that with the nurse. Pulse is in the 70s and 80s. Blood pressure is good at 129/84, respiratory rate 20, temperature is afebrile at 36.8, O2 sats 100% on nasal cannula. LABORATORY WORK: Hematocrit this morning is 27.4. White count has decreased to 7.45. Potassium is stable at 3.3. Creatinine stable 0.51, albumin low. ASSESSMENT: Overall, in a stable holding pattern clinically. Neurologic exam is without any gross major improvement but does continue to open up her eyes much more clearly and tracks voice better. At this point in time, we will continue with present plans. Most recent CT scan reveals mild ill-defined white matter hypodensities suggesting microvascular ischemic disease. This could be consistent with embolic phenomenon. ASSESSMENT: Status post major revision surgery with cardiac and cerebral complications. At this point in time, we will continue with present level of support. Needs better nutrition. Continue to observe neurologic status and coronary status. She is on baby aspirin. She is getting tube feeds. Discussed with family. JAZZ
[2020-02-02] MEDS: carvediloL 12.5 MG TAB PO SCH ×2 (08:11→21:52)
[2020-02-02] MEDS: ASPIRIN 81 MG CHEW NG SCH (08:11)
[2020-02-02] MEDS: ENOXAPARIN INJ 30 MG/0.3 ML SYR SQ SCH (08:12)
[2020-02-02] MEDS: MULTI VIT W/MINERALS LIQUID 15 ML UDP NG SCH (08:12)
--- NOTE | 2020-02-02 09:36 | Palliative Care Consultation ---
Date of Consultation February 02, 2020 Assessment & Plan (1) Goals of care, counseling/discussion: Ms. Jhaveri is a 74 year old female who presented initially to the [facility] for a right hip arthroplasty related to a septic hip. She is now POD #5 and continues to have altered mental status post operatively and severe encephalopathy and a worsening ejection fraction. Additional PMH includes: HTN, HLD, nephrolithiasis, lumbar spinal stenosis s/p surgery November 2019, anxiety, asthma, and recent MSSA UTI. Differential diagnosis includes a fat emboli however has not presented itself on CT scan. The CT scan did reveal bilateral hypodensities on the level of the MCPs and into bilateral occipital lobes, and no intracranial hemorrhage . An MRI is planned for SundayFebruary 03 post surgical staple removal. A RENETTA revealed a decreased EF from 60% to 30%. elevated troponin and concern for possible fat emboli syndrome. Neurology has been consulted for altered mental status evaluation who will await results of the MRI prior to further discussion/prognostication. Palliative Care was consulted for goals of care conversation. -I met with the patient who had furrowed brow and appeared she could hear me. The patient did open her eyes slightly on command, but was not able to follow other motor commands. -She did attempt to withdrawl on her right side to painful stimuli. -Patient does have a DobHoff tube placed and is receiving tube feedings. Of course, this is not a long-term solution, and will need additional conversations regarding goals of care should her mental status not improve to the point of being independent with her ADL's. -The patient does have a daughter, Haydee who lives in [place] ([phone]) who I did reach out to in order to introduce palliative care and discuss goals of care regarding long-term tube feeding/PEG placement, etc. should the anticipated need arise. I left a voice mail on her automated message system to contact Palliative care to discuss further. -As previously discussed, the patient does have an MRI planned for Saturday 02/03 in order to possibly obtain further diagnostic information that may help with prognostication. -Patient does not appear to be in apparent distress. -Patient is established as a DNR/DNI. -Palliative care will follow peripherally over the next few days unless she would decline in the meantime and will continue to reach out to the patients daughter to discuss goals of care. (2) Altered level of consciousness: (3) Septic hip: (4) Cardiomyopathy: Cardiomyopathy type: unspecified Qualified Code(s): I42.9 - Cardiomyopathy, unspecified (5) Encephalopathy acute: Supervising Physician Co-Signing Physician Notes Chart reviewed, patient seen and examined. Collaborated with TERI Jackson PE: Patient with facial grimacing, did appear to slightly nod when asked if she could hear me. No other responses during exam HEENT: NG feeding tube in place Respirations: Unlabored, clear breath sounds CV: Regular rate, no edema Abdomen: Soft, no increase grimace on palpation Neuro: Minimally responsive Agree with above note, assessment and plan as per TERI Jackson. Will continue to follow and assist family with medical decision making History of Present Illness Reason for Consultation: Goals of care Requesting Physician: Dr. Hunt Attending Physician: Vinicius Dalton MD History of Present Illness Ms. Jhaveri is a 74 year old female who presented initially to the [facility] for a right hip arthroplasty related to a septic hip. She is now POD #5 and continues to have altered mental status post operatively and severe encephalopathy and a worsening ejection fraction. Additional PMH includes: HTN, HLD, nephrolithiasis, lumbar spinal stenosis s/p surgery November 2019, anxiety, asthma, and recent MSSA UTI. Differential diagnosis includes a fat emboli however has not presented itself on CT scan. The CT scan did reveal bilateral hypodensities on the level of the MCPs and into bilateral occipital lobes, and no intracranial hemorrhage . An MRI is planned for SundayFebruary 03 post surgical staple removal. A RENETTA r evealed a decreased EF from 60% to 30%. elevated troponin and concern for possible fat emboli syndrome. Neurology has been consulted for altered mental status evaluation who will await results of the MRI prior to further discussion/prognostication. Palliative Care was consulted for goals of care conversation. Please see A/P for further details. Thank you kindly for involving the palliative care team with this unfortunate patient. Allergies Allergy/AdvReac Type Severity Reaction Status Date / Time cat dander Allergy Mild "HAYFEVER" Verified 01/28/20 05:19 dog dander Allergy Mild "HAYFEVER, Verified 01/28/20 05:19 ASTHMA SYMPTOMS" Penicillins Allergy Mild Hives Verified 01/28/20 05:19 pravastatin Allergy Mild LEG PAIN Verified 01/28/20 05:19 rosuvastatin [From Crestor] Allergy Mild LEG PAIN Verified 01/28/20 05:19 doxycycline Allergy Unknown Unknown Verified 01/28/20 05:19 warfarin [From Coumadin] AdvReac Intermediate FELT Verified 01/28/20 17:02 HOT/COLD Home Medications Home Medications Medication Instructions Recorded Confirmed Type cholecalciferol (vitamin D3) 400 unit PO DAILY 11/28/19 01/28/20 History [Vitamin D3] multivitamin 1 tab PO DAILY 11/28/19 01/28/20 History calcium carbonate [Calcium 500] 500 mg PO QAM 01/27/20 01/28/20 History diltiazem HCl 180 mg PO QAM 01/27/20 01/28/20 History lisinopril 10 mg PO QAM 01/27/20 01/28/20 History vitamin E 400 unit PO QAM 01/27/20 01/28/20 History Patient History Medical History (Updated 02/02/20 @ 09:36 by TERI Jackson) DJD (degenerative joint disease) of hip (Resolved) Goals of care, counseling/discussion History of asthma NO USE OF INHALER PER PATIENT Hyperlipidemia Hypertension Hyperthyroidism HX OF OVER YEARS AGO (NO CURRENT PROBLEM) Leg length discrepancy Nephrolithiasis Osteoporosis Surgical History Fusion of spine LUMBAR FUSION H/O section X 2 History of bilateral tubal ligation History of cataract surgery RT/LEFT History of tooth extraction History of total hip arthroplasty RT S/P carpal tunnel release Family History Brother Hypertension Mother Hypertension Sister Hypertension Denies family history of Colon cancer Ovarian cancer Prostate cancer Myocardial infarction Breast cancer Colorectal cancer Social History Preferred Language: Malawian Communication Ability: Impaired Visual Impairment: No Limitations Hearing Ability: Normal Back Gray Cloth Washer Required: No Beliefs That Will Affect Care: None marital status: Current Living Situation: Alone current occupational status: retired Feels Safe at Home: Yes Safety Concerns: Feels Safe At This Time Smoking Status: Never smoker Do You Dip or Chew Tobacco: No ; Second Hand Exposure: Yes ( A CHILD) ; Tobacco Cessation Education Requested by Patient: No Hx Alcohol Use: No Hx Substance Use: No Childhood Exposure to Second-Hand Smoke: Yes Dental Care, Regularly: Yes Physical Activity Frequency: Daily Seatbelt Use: always Sunscreen Use: No Review of Systems Review of Systems: Unobtainable due to reduced consciousness Physical Exam Constitutional: well developed and comfortable Eyes: PERRL, conjunctivae normal, anicteric sclerae ENMT: external ear and nose normal, oropharynx normal Neck: trachea midline, no thyromegaly Respiratory: normal respiratory effort, lungs clear to auscultation Cardiovascular: RRR, no murmur, no edema Gastrointestinal (Abdomen): normal bowel sounds, soft, nontender, no hepatosplenomegaly Skin: no rashes, warm and dry Psychiatric: Orientation: alert Eye Contact: + poor eye contact Results & Data Vital Signs (Past 12 Hours) Vital Signs Temp Pulse Resp BP Pulse Ox 02/02/20 07:11 36.8 C 76 20 129/84 100 02/02/20 05:50 37.4 C 77 20 105/65 99 02/02/20 01:25 21 02/01/20 23:50 37.2 C 85 18 125/71 99 PG Care Time/CCT Total # of Minutes Spent Total Time Spent with Patient: Total time spent is greater than 50% in coordination of care (as documented) at patient's floor/unit and/or counseling patient: 50 Coding Level of Care Code 68513 Inpt Consult Level 2 Diagnoses Goals of care, counseling/discussion Z71.89 Altered level of consciousness R40.4 Septic hip M00.9 Cardiomyopathy I42.9 Cardiomyopathy type: unspecified Encephalopathy acute G93.40 Time Spent (min) 50 Time Spent Midlevel Total time spent 50 minutes with > 50% of that time spent assessing the patient and attempting to reach the patients daughter to discuss goals of care.
[2020-02-02] MEDS: POTASSIUM CHLORIDE 20 MEQ/15 ML UDC NG SCH ×3 (10:32→21:52)
--- NOTE | 2020-02-02 13:35 | Neurology Progress Note ---
Date of Service February 02, 2020 Assessment & Plan (1) Cardiomyopathy: (2) Elevated troponin: (3) Encephalopathy acute: Emma Jhaveri is a 74 yo woman w/ PMH notable for HTN, HLD, nephrolithiasis, lumbar spinal stenosis s/p surgery in 11/2019, anxiety, asthma, and recent MSSA UTI who initially p/t [facility] in the setting of septic hip, now POD 5 from right hip arthroplasty. Hospital course c/b persistent severe encephalopathy, new diagnosis of decreased EF, elevated troponin and concern for possible fat emboli syndrome. Neurology consulted for ongoing AMS. Workup thus far has shown: - TTE shows EF decreased from 60 to 65% to 30 to 35% - ongoing anemia - B12/TSH WNL - CSF: 2 WBC, 290 RBC, 77 glucose, 73 protein (MS panel pending), normal Gram stain -Independent review of CT head shows bilateral hypodensities on the level of the MCPs and into bilateral occipital lobes (?PRES, but no clear cause for this), no hemorrhage - CTA/CTV unremarkable -EEG showed generalized diffuse slowing # AMS: Differential includes fat emboli syndrome however she does not have the classic triad versus anoxic injury versus septic encephalopathy, less likely PRES. -Agree with MRI brain with and without contrast on 02/03 after surgical marvin removed to better characterize cause of AMS - will await results of MRI brain to help with ongoing prognostication Thank you for this interesting consult. Plan of care discussed with primary team. Please call or text with any questions. (4) MSSA bacteremia: (5) Septic hip: Subjective NAEs overnight. Remains altered following right hip arthroplasty (POD 5). Would open eyes to voice and minimal tracking of examiner after repeated stimulation. Review of Systems Review of Systems: Unobtainable due to reduced consciousness Physical Exam Physical Exam: General Exam: GEN: NAD, lying in bed HEENT: No conjunctival injection, no rhinorrhea. CV: RRR, no peripheral edema PULM: Nonlabored respirations on 2L NC. Integ: no rash on chest or hands. No nailbed abnormalities noted. Neuro Exam: MS: Drowsy, requires repeated stimulation to keep eyes open. Tracks examiner briefly. Non-verbal, does not follow commands. CN: Pupils equal, reactive to light. + oculocephalics, + blink to threat. Facial muscles symmetric. Breathing independently. MOTOR: Normal bulk and tone. No spontaneous movements observed or movement to command. REFLEXES: 2+ at biceps, brachioradialis, patella bilaterally. Toes upgoing bilat erally. SENSORY: withdraws to noxious stimuli in the RUE/RLE, grimace to noxious stimuli in LUE/LLE but no withdrawal. COORDINATION: unable to assess 2/2 mental status GAIT: unable to assess 2/2 mental status Results & Data Vital Signs (Past 12 Hours) Vital Signs Temp Pulse Resp BP Pulse Ox 02/02/20 07:11 36.8 C 76 20 129/84 100 02/02/20 05:50 37.4 C 77 20 105/65 99 02/02/20 01:25 21 PG Care Time/CCT Total # of Minutes Spent Total Time Spent with Patient: Total time spent is greater than 50% in coordination of care (as documented) at patient's floor/unit and/or counseling patient: Coding Level of Care Code 67316 Subseq Obs Care Lvl 3 Diagnoses Cardiomyopathy I42.9 Cardiomyopathy type: unspecified Elevated troponin R79.89 Encephalopathy acute G93.40 MSSA bacteremia R78.81; B95.61 Septic hip M00.9 (1) Cardiomyopathy Cardiomyopathy type: unspecified Qualified Code(s): I42.9 - Cardiomyopathy, unspecified
--- NOTE | 2020-02-02 14:15 | Cardiology Progress Note ---
Date of Service February 02, 2020 Assessment & Plan (1) Cardiomyopathy: Unknown etiology. Currently on carvedilol. No evidence of volume overload in fact possibly volume depleted. (2) Elevated troponin: Unclear mechanism of injury. Currently on a daily aspirin. While her neurologic condition may have improved slightly, she still has significant deficits. Unclear if she will affect a good enough recovery to warrant additional cardiac evaluation. Admission and Anticipated Discharge Date Admission Date: January 28, 2020 Subjective This morning the patient opens her eyes to command. Otherwise unresponsive. She cannot answer questions. Review of Systems Review of Systems: Unobtainable due to cognitive status Physical Exam Physical Exam: The patient did open her eyes to verbal command. She did not follow any commands. She had some spontaneous movements. HEENT: Sclerae are anicteric. Neuro: Evaluation could not be obtained due to reduce level of consciousness Lungs: Lungs are clear to auscultation but she could not participate in the examination for full evaluation. No expiratory wheezing. Increased respiratory rate Cardiac: The rhythm was regular. S1 and S2 were normal. Very soft systolic murmur. The PMI was not markedly displaced on palpation. Abdomen: The abdomen was soft and nontender. Extremities: Her right leg is bandaged to the hip. No evidence of peripheral edema. Palpable radial pulses. Skin: There are no rashes noted on examination today. Results & Data ([facility]) Vital Signs (Past 12 Hours) Vital Signs Temp Pulse Resp BP Pulse Ox 02/02/20 07:11 36.8 C 76 20 129/84 100 02/02/20 05:50 37.4 C 77 20 105/65 99 Laboratory Results Abnormal Lab Results 02/02/20 02/02/20 05:22 05:22 WBC 7.47 RBC 2.83 L Hgb 8.6 L Hct 27.4 L MCV 96.8 MCH 30.4 MCHC 31.4 L RDW Std Deviation 56.2 H RDW Coeff of Enedelia 16.1 H Plt Count 157 MPV 10.1 Sodium 143 Potassium 3.3 L Chloride 104 Carbon Dioxide 35 H Anion Gap 4.0 BUN 31 H D Creatinine 0.51 L Est Cr Clr Drug Dosing 50.7 Est GFR ( Amer) 110.6 Est GFR (Non-Af Amer) 95.4 BUN/Creatinine Ratio 60.0 H Glucose 146 H Calcium 9.9 Phosphorus 2.6 Magnesium 1.9 Total Bilirubin 0.4 AST 35 ALT 11 L Alkaline Phosphatase 59 Total Protein 6.0 L Albumin 2.2 L Globulin 3.8 Albumin/Globulin Ratio 0.6 L Diagnostic Findings Repeat head CT performed yesterday revealed some presumed chronic ischemic changes. PG Care Time/CCT Total # of Minutes Spent Total Time Spent with Patient: Total time spent is greater than 50% in coordination of care (as documented) at patient's floor/unit and/or counseling patient: Coding Level of Care Code 18698 Subseq Obs Care Lvl 2 Diagnoses Cardiomyopathy I42.9 Cardiomyopathy type: unspecified Elevated troponin R79.89 (1) Cardiomyopathy Cardiomyopathy type: unspecified Qualified Code(s): I42.9 - Cardiomyopathy, unspecified
--- NOTE | 2020-02-02 15:21 | Progress Notes ---
DATE: 02/02/2020 The patient is much more animated this afternoon. When I walked in the room she had a grimace on her face. I asked her to open her eyes and she opened her eyes to command. I asked her to open her mouth and she opened her mouth to command. I asked her to move her fingers; she moves her arms but had no gross or fine movement to her fingers. Of note is that the nurses noted they put booties on her feet and she moved those off and kicked those off during the day. ASSESSMENT: At this point in time, continue with supportive care. Discussed with radiologist concerning hardware and marvin. He thinks at this point in time that MRI done after tomorrow should be okay; will be ordered according to primary care coverage, hospitalist coverage and neurology coverage. They can order the study that they deem be most appropriate in order to get it right. Continue with supportive care. JAZZ
--- NOTE | 2020-02-02 20:28 | Hospitalist Progress Note ---
Date of Service February 02, 2020 Assessment & Plan (1) Altered level of consciousness: Remains largely unresponsive with eye opening only. Spoke with Dr Dalton - during his visit she had more purposeful movement for him. EEG with non specific encephalopathy but no seizure. CT head (multiple) - no pathology. No evidence of anoxic brain injury on CT. LP w/o signs of infectious process. Other lab w/u wnl. Suspected secondary to fat embolism syndrome vs anoxic brain injury vs other. MRI head w/ and w/o contrast once marvin from right hip have been removed - either 02/02 or 02/03. palliative care consult appreciated; they will contact pt's family out of town to discuss goals of care. (2) Encephalopathy acute: as above (3) Fulminant fat embolism syndrome: Suspected cause of acute encephalopathy/current state. (4) Septic hip: s/p exchange arthroplasty and Prostalac spacer placed on 01/[address] Fagan. IV cefazolin for total [address] (5) Spinal stenosis: s/p spinal surgery 12/08. (6) Acute blood loss anemia: Acute blood loss anemia from recent surgery. s/p 1 unit perioperatively, additional 1 unit PRBCs on 01/30. B12 and folate WNL. If patient recovers neurologically will need ferrous sulfate supplementation. H/H acceptable today. (7) Hypertension: Continue coreg. (8) Pulmonary hypertension: severe - on initial echo. suspect secondary to fat pulmonary embolism, now resolved on repeat limited echo. (9) Elevated troponin: Unlikely to be ACS. Suspect secondary to paradoxical fat embolus. cont asa. (10) Cardiomyopathy: LVEF 30-35% with septal akinesis and apical hypokinesis. Suspected secondary to fat emboli syndrome. Possible but less likely Ta kotsubo/broken-heart syndrome. Cont coreg. Euvolemic on exam today. (11) Electrolyte abnormality: Low K - KCL supplementation via NG tube. repeat BMP am. (12) DVT prophylaxis: change lovenox to heparin 5000 BID care d/w orthopedics today Admission and Anticipated Discharge Date Admission Date: January 28, 2020 Subjective patient opened her eyes to me calling her name. however, she did not follow commands for me. no verbal response to any question either. Review of Systems Review of Systems: Unobtainable due to cognitive status and Unobtainable due to reduced consciousness Physical Exam Constitutional: no acute distress Eyes: PERRL ENMT: external ear and nose normal, oropharynx normal NG tube in place Respiratory: normal respiratory effort, lungs clear to auscultation Cardiovascular: Rate/Rhythm: regular rate and regular rhythm Heart Sounds: normal S1 and normal S2; no murmur Vessels: posterior tibial pulses present and dorsalis pedis pulses present; no JVD Extremities: no edema Gastrointestinal (Abdomen): normal bowel sounds, soft, nontender, no hepatosplenomegaly Neurologic: +babinski's b/l; no spontaneous movements of any limb b/l Results & Data ([facility]) Vital Signs (Past 12 Hours) Vital Signs Temp Pulse Resp BP Pulse Ox 02/02/20 15:28 36.7 C 72 16 129/77 100 Laboratory Results Laboratory Results - last 24 hr 02/02/20 02/02/20 05:22 05:22 WBC 7.47 RBC 2.83 L Hgb 8.6 L Hct 27.4 L MCV 96.8 MCH 30.4 MCHC 31.4 L RDW Std Deviation 56.2 H RDW Coeff of Enedelia 16.1 H Plt Count 157 MPV 10.1 Sodium 143 Potassium 3.3 L Chloride 104 Carbon Dioxide 35 H Anion Gap 4.0 BUN 31 H D Creatinine 0.51 L Est Cr Clr Drug Dosing 50.7 Est GFR ( Amer) 110.6 Est GFR (Non-Af Amer) 95.4 BUN/Creatinine Ratio 60.0 H Glucose 146 H Calcium 9.9 Phosphorus 2.6 Magnesium 1.9 Total Bilirubin 0.4 AST 35 ALT 11 L Alkaline Phosphatase 59 Total Protein 6.0 L Albumin 2.2 L Globulin 3.8 Albumin/Globulin Ratio 0.6 L PG Care Time/CCT Total # of Minutes Spent Total Time Spent with Patient: Total time spent is greater than 50% in coordinat ion of care (as documented) at patient's floor/unit and/or counseling patient: Coding Level of Care Code 76599 Subseq Hosp Care Lvl 2 Diagnoses Altered level of consciousness R40.4 Encephalopathy acute G93.40 Fulminant fat embolism syndrome T79.1XXA Encounter type: initial encounter Septic hip M00.9 Spinal stenosis M48.062 Neurogenic claudication status: with neurogenic claudication Spinal region: lumbar Acute blood loss anemia D62 Hypertension I10 Hypertension type: essential hypertension Pulmonary hypertension I27.20 Elevated troponin R79.89 Cardiomyopathy I42.9 Cardiomyopathy type: unspecified Electrolyte abnormality E87.8 DVT prophylaxis Z29.9 (1) Fulminant fat embolism syndrome Encounter type: initial encounter Qualified Code(s): T79.1XXA - Fat embolism (traumatic), initial encounter (2) Spinal stenosis Neurogenic claudication status: with neurogenic claudication Spinal region: lumbar Qualified Code(s): M48.062 - Spinal stenosis, lumbar region with neurogenic claudication (3) Hypertension Hypertension type: essential hypertension Qualified Code(s): I10 - Essential (primary) hypertension (4) Cardiomyopathy Cardiomyopathy type: unspecified Qualified Code(s): I42.9 - Cardiomyopathy, unspecified
--- NOTE | 2020-02-02 20:36 | Electroencephalogram ---
EEG Procedure Note Date of Service February 02, 2020 Start / End Times Start Time: 7:46pm End Time: 8:06pm Referring Physician Papito Hunt History 74 yo with prolonged post operative encephalopathy Home Medication List Home Medications Medication Instructions Recorded Confirmed Type cholecalciferol (vitamin D3) 400 unit PO DAILY 11/28/19 01/28/20 History [Vitamin D3] multivitamin 1 tab PO DAILY 11/28/19 01/28/20 History calcium carbonate [Calcium 500] 500 mg PO QAM 01/27/20 01/28/20 History diltiazem HCl 180 mg PO QAM 01/27/20 01/28/20 History lisinopril 10 mg PO QAM 01/27/20 01/28/20 History vitamin E 400 unit PO QAM 01/27/20 01/28/20 History Inpatient Medication List Acetaminophen (Tylenol) 650 mg NG Q6 PRN PRN Reason: Fever Stop: 02/29/20 04:22 Last Admin: 01/30/20 04:55 Dose: 650 mg Documented by: [id number] Aspirin (Aspirin Chew) 81 mg NG QAM [facility] Stop: 03/02/20 08:59 Last Admin: 02/02/20 08:11 Dose: 81 mg Documented by: [id number] Admin: 02/01/20 09:00 Dose: 81 mg Documented by: [id number] Bisacodyl (Dulcolax) 10 mg MD DAILY PRN PRN Reason: Constipation Stop: 02/27/20 13:42 Last Admin: 01/30/20 22:34 Dose: 10 mg Documented by: [id number] Carvedilol (Coreg) 12.5 mg PO BID [facility] Stop: 03/02/20 08:59 Last Admin: 02/02/20 08:11 Dose: 12.5 mg Documented by: [id number] Admin: 02/01/20 21:11 Dose: 12.5 mg Documented by: [id number] Admin: 02/01/20 09:00 Dose: 12.5 mg Documented by: [id number] Enteral Nutritional Formula (Peptamen 1.5 Adriano) 1,000 ml PO [facility]; Protocol Stop: 02/28/20 18:29 Last Admin: 02/02/20 06:46 Dose: 1,000 ml Documented by: [id number] Admin: 01/30/20 22:37 Dose: 1,000 ml Documented by: [id number] Admin: 01/29/20 21:15 Dose: 1,000 ml Documented by: [id number] Heparin Sodium (Beef Lung) (Heparin Sod 10 Unit/Ml Flush) 5 ml FLUSH PRN PRN PRN Reason: Flush Stop: 03/01/20 13:39 Last Admin: 02/02/20 13:27 Dose: 5 ml Documented by: [id number] Admin: 02/02/20 06:48 Dose: 5 ml Documented by: [id number] Admin: 02/01/20 22:00 Dose: 5 ml Documented by: [id number] Cefazolin Sodium (Ancef 2000mg) 2,000 mg in 15 mls @ 3.75 mls/min IV Q8 [facility]; Protocol Stop: 03/12/20 13:59 Last Admin: 02/02/20 13:26 Dose: 3.75 mls/min Documented by: [id number] Admin: 02/02/20 06:45 Dose: 3.75 mls/min Documented by: [id number] Admin: 02/01/20 21:20 Dose: 3.75 mls/min Documented by: [id number] Admin: 02/01/20 13:42 Dose: 3.75 mls/min Documented by: [id number] Admin: 02/01/20 05:11 Dose: 3.75 mls/min Documented by: [id number] Admin: 01/31/20 21:05 Dose: 3.75 mls/min Documented by: [id number] Admin: 01/31/20 13:40 Dose: 3.75 mls/min Documented by: [id number] Admin: 01/31/20 06:21 Dose: 3.75 mls/min Documented by: [id number] Admin: 01/30/20 22:34 Dose: 3.75 mls/min Documented by: [id number] Admin: 01/30/20 13:50 Dose: 3.75 mls/min Documented by: [id number] Multivitamins/Minerals (Cerovite Liquid) 15 ml NG DAILY [facility] Stop: 03/03/20 08:59 Last Admin: 02/02/20 08:12 Dose: 15 ml Documented by: [id number] Potassium Chloride (Hillary Ciel Elix) 20 meq NG TID [facility] Stop: 03/03/20 09:59 Last Admin: 02/02/20 13:27 Dose: 20 meq Documented by: [id number] Admin: 02/02/20 10:32 Dose: 20 meq Documented by: [id number] Discontinued Medications Acetaminophen (Tylenol) 1,000 mg PO Q8 [facility] Stop: 02/27/20 14:29 Last Admin: 01/29/20 06:19 Dose: Not Given Documented by: [id number] Admin: 01/28/20 21:18 Dose: Not Given Documented by: [id number] Admin: 01/28/20 14:56 Dose: Not Given Documented by: [id number] Aspirin (Aspirin Chew) 81 mg NG ONE ONE Stop: 01/31/20 16:36 Last Admin: 01/31/20 16:38 Dose: 81 mg Documented by: [id number] Bacitracin (Bacitracin) Confirm Administered Dose 50,000 units .ROUTE .STK-MED ONE Stop: 01/28/20 07:21 Last Admin: 01/28/20 10:44 Dose: 50,000 units Documented by: [id number] Calcium Carbonate (Os-Adriano 500) [facility] [place]: 02/28/20 08:59 Last Admin: 01/29/20 08:37 Dose: Not Given Documented by: [id number] Carvedilol (Coreg) 6.25 mg PO BID [facility] Stop: 03/01/20 20:59 Last Admin: 01/31/20 21:06 Dose: 6.25 mg Documented by: [id number] Carvedilol (Coreg) 6.25 mg PO ONE ONE Stop: 01/31/20 16:00 Last Admin: 01/31/20 16:39 Dose: 6.25 mg Documented by: [id number] Docusate Sodium (Colace) 100 mg PO BID [facility] Stop: 02/27/20 20:59 Last Admin: 01/29/20 08:36 Dose: Not Given Documented by: [id number] Admin: 01/28/20 21:18 Dose: Not Given Documented by: [id number] Enoxaparin Sodium (Lovenox) 30 mg SQ QAM [facility] Stop: 02/28/20 10:59 Last Admin: 02/02/20 08:12 Dose: 30 mg Documented by: [id number] Admin: 02/01/20 11:00 Dose: 30 mg Documented by: [id number] Admin: 01/30/20 08:57 Dose: 30 mg Documented by: [id number] Admin: 01/29/20 12:38 Dose: 30 mg Documented by: [id number] Gentamicin Sulfate (Garamycin) Confirm Administered Dose 240 mg .ROUTE .STK-MED ONE Stop: 01/28/20 06:36 Last Admin: 01/28/20 08:22 Dose: 240 mg Documented by: [id number] Ropivacaine 150 mg/Bupivacaine HCl 30 ml/Epinephrine HCl 0.15 mg/Ketorolac Tromethamine 30 mg/Dexamethasone 4 mg/ Ketamine HCl 10 mg/ Clonidine HCl 100 mcg/ Sodium Chloride 93.35 mls @ 0 mls/hr INFIL PREOP [facility]; Protocol Stop: 01/28/20 18:00 Last Admin: 01/28/20 08:22 Dose: Not Given Documented by: [id number] Lactated Ringer's (Lr) 1,000 mls @ 15 mls/hr IV .Q24H [facility] Stop: 01/29/20 05:59 Last Infusion: 01/28/20 07:00 Dose: 0 mls/hr Documented by: [id number] Admin: 01/28/20 05:42 Dose: 15 mls/hr Documented by: [id number] Lactated Ringer's (Lr) 1,000 mls @ 60 mls/hr IV .[id number] [facility] Stop: 01/28/20 22:39 Last Admin: 01/28/20 05:42 Dose: Not Given Documented by: [id number] Cefazolin Sodium (Ancef 2000mg) 2,000 mg in 15 mls @ 3.75 mls/min IV PREOP [facility]; Protocol Stop: 01/28/20 18:00 Last Admin: 01/28/20 07:38 Dose: 3.75 mls/min Documented by: [id number] Vancomycin HCl 750 mg/ Sodium (Chloride) 265 mls @ 250 mls/hr IV PREOP [facility] Stop: 01/28/20 18:00 Last Infusion: 01/28/20 14:56 Dose: 0 mls/hr Documented by: [id number] Admin: 01/28/20 05:42 Dose: 250 mls/hr Documented by: [id number] Tranexamic Acid (Tranexamic Acid / 0.7% Nacl) 1,000 mg in 100 mls @ 600 mls/hr IV TODAY@0600 [facility] Stop: 01/28/20 18:00 Last Infusion: 01/28/20 07:10 Dose: 0 mls/hr Documented by: [id number] Admin: 01/28/20 07:00 Dose: 600 mls/hr Documented by: [id number] Sodium Chloride (Nss 1000ml) 1,000 mls @ 100 mls/hr IV .Q10H [facility] Stop: 01/29/20 06:00 Last Infusion: 01/29/20 16:34 Dose: 0 mls/hr Documented by: [id number] Admin: 01/29/20 02:56 Dose: 100 mls/hr Documented by: [id number] Infusion: 01/29/20 02:53 Dose: 100 mls/hr Documented by: [id number] Infusion: 01/28/20 17:54 Dose: 100 mls/hr Documented by: [id number] Infusion: 01/28/20 15:50 Dose: 0 mls/hr Documented by: [id number] Admin: 01/28/20 14:49 Dose: 100 mls/hr Documented by: [id number] Tranexamic Acid (Tranexamic Acid / 0.7% Nacl) 1,000 mg in 100 mls @ 600 mls/hr IV Q6H [facility] Stop: 01/28/20 17:24 Last Infusion: 01/28/20 17:53 Dose: 0 mls/hr Documented by: [id number] Admin: 01/28/20 17:28 Dose: 600 mls/hr Documented by: [id number] Piperacillin Sod/Tazobactam (Sod 4.5 gm/ Dextrose) 120 mls @ 30 mls/hr IV NOW STA; Protocol Stop: 01/28/20 18:34 Last Infusion: 01/28/20 18:33 Dose: 0 mls/hr Documented by: [id number] Admin: 01/28/20 14:48 Dose: 30 mls/hr Documented by: [id number] Vancomycin HCl 500 mg/ Sodium (Chloride) 260 mls @ 125 mls/hr IV Q12H [facility] Stop: 01/30/20 15:59 Last Infusion: 01/30/20 06:21 Dose: 0 mls/hr Documented by: [id number] Admin: 01/30/20 04:03 Dose: 125 mls/hr Documented by: [id number] Infusion: 01/29/20 22:18 Dose: 0 mls/hr Documented by: [id number] Admin: 01/29/20 18:22 Dose: 125 mls/hr Documented by: [id number] Infusion: 01/29/20 06:00 Dose: 0 mls/hr Documented by: [id number] Admin: 01/29/20 03:49 Dose: 125 mls/hr Documented by: [id number] Infusion: 01/28/20 17:53 Dose: 0 mls/hr Documented by: [id number] Admin: 01/28/20 15:51 Dose: 125 mls/hr Documented by: [id number] Piperacillin Sod/Tazobactam (Sod 3.375 gm/ Dextrose) 115 mls @ 28.75 mls/hr IV Q8H [facility]; Protocol Stop: 01/30/20 19:59 Last Infusion: 01/30/20 08:37 Dose: 0 mls/hr Documented by: [id number] Admin: 01/30/20 04:04 Dose: 28.8 mls/hr Documented by: [id number] Infusion: 01/30/20 02:24 Dose: 0 mls/hr Documented by: [id number] Admin: 01/29/20 21:14 Dose: 28.8 mls/hr Documented by: [id number] Infusion: 01/29/20 16:34 Dose: 0 mls/hr Documented by: [id number] Admin: 01/29/20 12:38 Dose: 28.8 mls/hr Documented by: [id number] Infusion: 01/29/20 07:50 Dose: 0 mls/hr Documented by: [id number] Admin: 01/29/20 03:49 Dose: 28.8 mls/hr Documented by: [id number] Infusion: 01/29/20 01:20 Dose: 0 mls/hr Documented by: [id number] Admin: 01/28/20 21:18 Dose: 28.8 mls/hr Documented by: [id number] Potassium Chloride (K Smith / Wtr) 10 meq in 100 mls @ 100 mls/hr IV ONE ONE Stop: 01/30/20 05:14 Last Infusion: 01/30/20 06:11 Dose: 0 mls/hr Documented by: [id number] Admin: 01/30/20 04:43 Dose: 100 mls/hr Documented by: [id number] Magnesium Sulfate/Dextrose (Magnesium Sulfate / D5w) 1 gm in 100 mls @ 100 mls/hr IV ONE ONE Stop: 01/30/20 05:15 Last Infusion: 01/30/20 06:11 Dose: 0 mls/hr Documented by: [id number] Admin: 01/30/20 04:43 Dose: 100 mls/hr Documented by: [id number] Potassium Phosphate 21 mmol/ (Sodium Chloride) 507 mls @ 88 mls/hr IV ONE ONE Stop: 01/30/20 10:15 Last Infusion: 01/30/20 12:46 Dose: 0 mls/hr Documented by: [id number] Admin: 01/30/20 06:02 Dose: 88 mls/hr Documented by: [id number] Potassium Chloride (K Smith / Wtr) 10 meq in 100 mls @ 100 mls/hr IV 2000 ONE Stop: 01/30/20 20:59 Last Infusion: 01/30/20 21:21 Dose: 0 mls/hr Documented by: [id number] Admin: 01/30/20 19:58 Dose: 100 mls/hr Documented by: [id number] Furosemide 20 mg/ Syringe 2 mls @ 4 mls/min IV ONE ONE Stop: 01/31/20 10:16 Last Admin: 01/31/20 11:46 Dose: 4 mls/min Documented by: [id number] Potassium Phosphate 30 mmol/ (Sodium Chloride) 510 mls @ 102 mls/hr IV TODAY@1115 ONE Stop: 01/31/20 16:14 Last Infusion: 01/31/20 18:36 Dose: 0 mls/hr Documented by: [id number] Admin: 01/31/20 11:47 Dose: 102 mls/hr Documented by: [id number] Potassium Phosphate 9 mmol/ (Sodium Chloride) 253 mls @ 88 mls/hr IV ONE ONE Stop: 02/01/20 10:37 Last Infusion: 02/01/20 11:57 Dose: 0 mls/hr Documented by: [id number] Admin: 02/01/20 09:00 Dose: 88 mls/hr Documented by: [id number] Ioversol (Optiray 320 125ml) 119 ml IV ONCE PRN PRN Reason: Interaction Checking Stop: 02/02/20 10:57 Last Admin: 01/29/20 10:58 Dose: 119 ml Documented by: [id number] Ketorolac Tromethamine (Toradol) 15 mg IV Q6H [facility] Stop: 01/29/20 09:01 Last Admin: 01/29/20 08:37 Dose: Not Given Documented by: [id number] Admin: 01/29/20 02:57 Dose: Not Given Documented by: [id number] Admin: 01/28/20 21:25 Dose: Not Given Documented by: [id number] Admin: 01/28/20 14:58 Dose: 15 mg Documented by: [id number] Mineral Oil (Muri-Lube Oil) Confirm Administered Dose 10 ml .ROUTE .STK-MED ONE Stop: 01/28/20 06:59 Last Admin: 01/28/20 08:25 Dose: 10 ml Documented by: [id number] Miscellaneous (Ortho Joint Anesthetic) Confirm Administered Dose 1 ea .ROUTE .STK-MED ONE Stop: 01/28/20 06:35 Last Admin: 01/28/20 08:22 Dose: Not Given Documented by: [id number] Miscellaneous Information (Orthopaedic Warfarin Sliding Scale) 1 ea N/A DAILY@1400 [facility]; Protocol Stop: 02/27/20 13:59 Last Admin: 01/28/20 17:22 Dose: Not Given Documented by: [id number] Multivitamins (Multivitamin Tab) 1 tab PO DAILY [facility] Stop: 02/28/20 08:59 Last Admin: 01/29/20 08:36 Dose: Not Given Documented by: [id number] Multivitamins/Minerals (Cerovite Liquid) 15 ml PO DAILY [facility] Stop: 03/01/20 08:59 Last Admin: 02/01/20 10:18 Dose: 15 ml Documented by: [id number] Admin: 01/31/20 08:42 Dose: 15 ml Documented by: [id number] Naloxone HCl (Narcan) Confirm Administered Dose 0.4 mg .ROUTE .STK-MED ONE Stop: 01/28/20 13:15 Last Admin: 01/28/20 14:55 Dose: Not Given Documented by: [id number] Sennosides (Senokot) 17.2 mg PO HS [facility] Stop: 02/27/20 20:59 Last Admin: 01/28/20 21:18 Dose: Not Given Documented by: [id number] Vancomycin HCl (Vancomycin Hcl) Confirm Administered Dose 100 mg .ROUTE .STK-MED ONE Stop: 01/28/20 06:36 Last Admin: 01/28/20 08:24 Dose: 100 mg Documented by: [id number] Vitamin D (Vitamin D3) 400 units PO DAILY [facility] Stop: 02/28/20 08:59 Last Admin: 01/29/20 08:41 Dose: Not Given Documented by: [id number] Description This is a 21 electrode EEG with a single channel dedicated to limited EKG. The electrodes were placed in accordance with the International 10-20 system. History: 74 yo with prolonged post operative encephalopathy Rx: n/a Start/Stop: 7:46pm/8:06pm Attending reading: Josephine Baeza EEG Description: EEG background: Background was symmetric 6-7 Hz generalized theta slowing with occasional overriding 3-4 Hz delta . Towards the latter half of the recording, she achieves 8-9Hz alpha rhythm with intermixed delta and theta. No well formed posterior dominant rhythm was observed. The EEG is predominantly continuous with rare, very brief episodes of discontinuity. There is variability and reactivity present. Activation and reactivity: Photic stimulation performed without any abnormalities noted. No photic driving observed. Hyperventilation was not performed. Sleep: Patient was not drowsy and did not enter higher levels of sleep. Epileptiform discharges: No epileptiform discharges were observed. Rhythmic and periodic patterns: None Seizures: None Impression: This was an abnormal EEG due to generalized slowing suggestive of a mild to moderate encephalopathy that could be due to toxic/metabolic effects, medic ations or global cerebral injury/dysfunction. No seizures or epileptiform discharges were seen. Clinical correlation is advised. [facility] EEG Procedure Codes Indication for Procedure (1) Cardiomyopathy: (2) Elevated troponin: (3) Encephalopathy acute: (4) MSSA bacteremia: (5) Septic hip: Neurology Neurology: [id number] EEG include record awake & drowsy
[2020-02-03] MEDS: CEFAZOLIN 2000MG 2,000 MG/15 ML SYR IV SCH ×3 (05:29→21:36)
[2020-02-03 05:50] LABS: Hematocrit (blood only) 27.7 % (37-47); Hemoglobin 8.4 g/dL (12.0-16.0); Mean Corpuscular Hemoglobin 30.1 pg (25-34); Mean Corpuscular Hgb Conc 30.3 g/dL (32-36); Mean Corpuscular Volume 99.3 fL (80-100); Mean Platelet Volume 9.3 fL (7.4-10.4); Platelet Count 159 K/uL (130-400); RDW Standard Deviation 56.7 fL (36.4-46.3); Red Blood Count 2.79 M/uL (4.2-5.4); White Blood Count 7.88 K/uL (4.8-10.8)
[2020-02-03 06:22] LABS: Albumin Level 2.3 gm/dl (3.4-5.0); BUN Creatinine Ratio 51.5 (10-20); Calcium 9.9 mg/dl (8.5-10.1); Creatinine Clr Calc Pharmacy 42.3 ml/min; Est GFR (African American) 104.8; Est GFR (Non-African American) 90.4; Magnesium 2.1 mg/dl (1.8-2.4); Potassium 4.1 mmol/L (3.5-5.1)
[2020-02-03 06:30] LABS: Albumin Globulin Ratio 0.6 (0.9-2); Bilirubin,Total 0.3 mg/dl (0.2-1); Globulin 3.8 gm/dl (2.5-4.0); Phosphorus 2.3 mg/dl (2.5-4.9); Total Protein 6.1 gm/dl (6.4-8.2)
--- NOTE | 2020-02-03 08:12 | Progress Notes ---
DATE: 02/03/2020 Postop day 6 status post major reconstructive surgery of her right hip as previously noted. At this point in time, the patient has been intermittently awake documented by nurses. Tried to verbalize a few words last evening. At this point in time when I came in the room she was sleeping. I asked her to open her eyes and she did. She actually did try to mouth a few words. She does not follow commands well. Cannot answer any specific questions regarding pain. Does have a cough and gag reflex at this point in time based on secretions and observation of her coughing these and gagging on them. Vital signs are stable. She is afebrile. Still a little bit tachypneic. Well oxygenated on 2 liters. Blood pressure is 124/73, pulse is 74, respiratory rate presently is actually 16, which is excellent. Morning hematocrit is 27.7. White count is 7.88. Liver function is back to normal with her ALT and AST. Calcium is stable at 9.9. Of note is that EEG has been improved from moderate to severe to mild to moderate.MRI completed showing a picture consistent with a differential of embolic phenomenon. ASSESSMENT: Status post major hip reconstructive surgery for sepsis. At this point in time, has had comorbidities of cardiac and cerebral dysfunction. Both areas seem to be improving. At this point in time, we should really focus on trying to prevent any type of pulmonary congestion with pulmonary toilet. I will leave that up to the hospitalist. In addition, should try to prevent any contracture in the upper extremities and the left lower extremity by doing some gentle PT. I would avoid doing anything with the right hip based on the cement spacer not being as stable as a standard hip replacement. Discussed in detail last evening with Dr. Bustamante about obtaining an MRI scan, checked with Dr. Steele in radiology who said that we did not need to remove the marvin at this point in time. We will proceed with that at scheduled convenience. We discussed this morning with Luis Jhaveri, designated communicative individual with the family. JAZZ
[2020-02-03] MEDS: carvediloL 12.5 MG TAB PO SCH ×2 (09:15→21:04)
[2020-02-03] MEDS: MULTI VIT W/MINERALS LIQUID 15 ML UDP NG SCH (09:15)
[2020-02-03] MEDS: POTASSIUM CHLORIDE 20 MEQ/15 ML UDC NG SCH (09:17)
[2020-02-03] MEDS: ASPIRIN 81 MG CHEW NG SCH (09:19)
[2020-02-03] MEDS: HEPARIN SOD 5,000 UNIT/0.5 ML VIAL SQ SCH ×2 (09:20→21:10)
--- NOTE | 2020-02-03 11:24 | Cardiology Progress Note ---
Date of Service February 03, 2020 Assessment & Plan (1) Cardiomyopathy: Will continue supportive care at this time. No evidence of volume overload. (2) Elevated troponin: She did suffer some myocardial injury. The exact mechanism is unknown. I think the likelihood of an acute coronary syndrome is low. However, a daily aspirin seems reasonable. I have not seen any notable improvement in her cognitive function over few days. I think there is a plan for an MRI which may provide some additional prognostic information. Again, if she has a meaningful neurologic recovery could perform further cardiac investigations. At this point I will sign off until her prognosis is better established or there is a change in her clinical course. Admission and Anticipated Discharge Date Admission Date: January 28, 2020 Subjective Patient was not communicative this morning. Review of Systems Review of Systems: Unobtainable due to cognitive status Physical Exam Physical Exam: The patient did seem to respond to verbal stimuli by attempting to open her eyes. However, she would not track my movements or follow other commands. She did not seem to be responsive to other stimuli. She had some nonpurposeful movements. HEENT: Sclerae are anicteric. Neuro: Evaluation could not be obtained due to reduce level of consciousness Lungs: Lungs are clear to auscultation but she could not participate in the examination for full evaluation. No expiratory wheezing. Increased respiratory rate Cardiac: The rhythm was regular. S1 and S2 were normal. No murmur appreciated today. The PMI was not markedly displaced on palpation. Abdomen: The abdomen was soft and nontender. Extremities: Her right leg is bandaged to the hip. Compression stockings and SCDs in place. Palpable radial pulses. Skin: There are no rashes noted on examination today. Results & Data ([facility]) Vital Signs (Past 12 Hours) Vital Signs Temp Pulse Resp BP Pulse Ox 02/03/20 07:31 36.8 C 74 16 124/73 99 Laboratory Results Abnormal Lab Results 01/31/20 02/03/20 02/03/20 10:10 05:40 05:40 WBC 7.88 RBC 2.79 L Hgb 8.4 L Hct 27.7 L MCV 99.3 MCH 30.1 MCHC 30.3 L RDW Std Deviation 56.7 H RDW Coeff of Enedelia 16.0 H Plt Count 159 MPV 9.3 Sodium 141 Potassium 4.1 D Chloride 106 Carbon Dioxide 35 H Anion Gap 0 L BUN 31 H Creatinine 0.60 Est Cr Clr Drug Dosing 42.3 Est GFR ( Amer) 104.8 Est GFR (Non-Af Amer) 90.4 BUN/Creatinine Ratio 51.5 H Glucose 128 H Calcium 9.9 Phosphorus 2.3 L Magnesium 2.1 Total Bilirubin 0.3 AST 29 ALT 11 L Alkaline Phosphatase 60 Total Protein 6.1 L Albumin 2.3 L Globulin 3.8 Albumin/Globulin Ratio 0.6 L Crossmatch See Detail PG Care Time/CCT Total # of Minutes Spent Total Time Spent with Patient: Total time spent is greater than 50% in coordination of care (as documented) at patient's floor/unit and/or counseling patient: Coding Level of Care Code 07606 Subseq Hosp Care Lvl 2 Diagnoses Cardiomyopathy I42.9 Cardiomyopathy type: unspecified Elevated troponin R79.89 (1) Cardiomyopathy Cardiomyopathy type: unspecified Qualified Code(s): I42.9 - Cardiomyopathy, unspecified
[2020-02-03] MEDS ORDERED: GADOBUTROL 30ML VIAL IV PRN (12:50)
--- NOTE | 2020-02-03 13:11 | Magnetic Resonance Report ---
MRI OF THE BRAIN COMBO CLINICAL HISTORY: Change in mental status following hip surgery. COMPARISON STUDY: CT of the brain dated 02/01/2020. TECHNIQUE: MRI of the brain was performed utilizing various T1 and T2-weighted sequences in the axial , sagittal, and coronal planes. Contrast-enhanced sequences were acquired following the administratio n of 3 cc of Gadavist. The examination is modestly degraded by motion artifact. FINDINGS: Brain parenchyma: There are numerous tiny foci of restricted diffusion scattered throughout the subco rtical and periventricular white matter bilaterally. Punctate foci of restricted diffusion are also i dentified in the basal ganglia and thalami. There is no hemorrhage or mass effect. There is age-relat ed involutional change noting mild subcortical and periventricular microangiopathic disease. No enhan cing mass lesion is identified on the postcontrast images. No extra-axial fluid collection is seen. The cerebellar tonsils are normal in configuration. Ventricles, sulci, and cisterns: Prominent secondary to involutional change. Pituitary and sella: Unremarkable. Intracranial vasculature: Normal flow voids are maintained at the skull base. Orbits: The bony orbits are grossly intact. Orbital contents are normal in appearance noting bilatera l ocular lens implants. Sinuses and mastoids: Clear. Calvarium: Unremarkable. Cervical cord: Partially visualized cervical spinal cord is normal in morphology and signal intensity . IMPRESSION: 1. There are numerous punctate foci of restricted diffusion scattered throughout the subcortical and periventricular white matter bilaterally. This also involves the bilateral basal ganglia and thalami, and this is consistent with numerous tiny foci of acute to subacute ischemia. An embolic phenomenon is favored over watershed infarcts. 2. There is no hemorrhage or mass effect. No abnormal enhancement is identified. ACT 112: Negative or not required by law. Electronically signed by: Stan Steele M.D. 02/03/2020 1:10 PM
[2020-02-03] MEDS: PEPTAMEN 1.5 CAL 1,000 ML BAG PO SCH (13:13)
--- NOTE | 2020-02-03 13:45 | XRay Report ---
XR chest 1V portable CLINICAL HISTORY: ?RLL pneumonia; RLL crackles on exam dyspnea COMPARISON STUDY: 01/30/2020 FINDINGS: Slight improvement in aeration left lung base. Prominence of pulmonary vasculature is sligh tly improved. Small persistent bilateral pleural effusions. Nasogastric tube remains within the gastr ic fundus. IMPRESSION: Stable to slightly improved findings of pulmonary edema/congestive failure. Slight impro vement in aeration of the left lung base. ACT 112: Negative or not required by law. The above report was generated using voice recognition software. It may contain grammatical, syntax or spelling errors. Electronically signed by: Peter Garcia M.D. 02/03/2020 1:43 PM
[2020-02-03 16:10] LABS: Lyme DNA PCR CSF or Synovial Not detected (Not Detected); Lyme DNA Source CSF; VDRL Qualitative CSF Nonreactive (Nonreactive)
--- NOTE | 2020-02-03 19:44 | Hospitalist Progress Note ---
Date of Service February 03, 2020 Assessment & Plan (1) Altered level of consciousness: MRI brain today with numerous b/l strokes (fat embolism less likely) in watershed distribution. These findings explain ongoing altered MS. EEG with non specific encephalopathy but no seizure. CT head (multiple) - no pathology. LP w/o signs of infectious process. Other lab w/u wnl. Will have neurology look at MRI tomorrow and re-eval patient. Palliative care consulted. Very poor prognosis given we are 6 days out from surgery and still not making any progress. (2) Encephalopathy acute: as above see MRI results (3) Fulminant fat embolism syndrome: Suspected cause of acute encephalopathy/current state however MRI brain more c/w subacute strokes (4) Septic hip: s/p exchange arthroplasty and Prostalac spacer placed on 01/[address] Fagan. IV cefazolin for total 6 weeks if pt's family elects to cont current care plan. PICC in place. (5) Spinal stenosis: s/p spinal surgery 12/08. (6) Acute blood loss anemia: Acute blood loss anemia from recent surgery. s/p 1 unit perioperatively, additional 1 unit PRBCs on 01/30. B12 and folate WNL. If patient recovers neurologically will need ferrous sulfate supplementation. H/H acceptable today. (7) Hypertension: Continue coreg. (8) Pulmonary hypertension: severe - on initial echo. suspect secondary to fat pulmonary embolism, now resolved on repeat limited echo. (9) Elevated troponin: no evidence of ACS likely myocardial demand ischemia supportive care aspirin (10) Cardiomyopathy: LVEF 30-35% with septal akinesis and apical hypokinesis. Suspected secondary to fat emboli syndrome. Possible but less likely Takotsubo/broken-heart syndrome. Cont coreg. Euvolemic on exam today. cxr with improved pulm edema pattern. (11) Electrolyte abnormality: hypokalemia - resolved stop KCL supplementation (12) DVT prophylaxis: cont heparin 5000 BID left message for daughter this evening - no answer will attempt to call her again tomorrow after I speak with neurology Admission and Anticipated Discharge Date Admission Date: January 28, 2020 Subjective patient was sleeping heavily during my rounds. she did not awaken to her name being called. even while examining her she did not awaken. staff report no purposeful movements today. they have noted coughing. Review of Systems Review of Systems: Unobtainable due to reduced consciousness Physical Exam Constitutional: no acute distress Eyes: PERRL ENMT: external ear and nose normal, oropharynx normal Respiratory: no respiratory distress, no labored breathing and does not use accessory muscles Auscultation: + rales (right base only); no wheezes Cardiovascular: Rate/Rhythm: regular rate and regular rhythm Heart Sounds: normal S1 and normal S2; no murmur Vessels: posterior tibial pulses present and dorsalis pedis pulses present; no JVD Extremities: no edema Gastrointestinal (Abdomen): normal bowel sounds, soft, nontender, no hepatosplenomegaly Neurologic: +babinski b/l; tone increased in upper extremities b/l; no purposeful movements Results & Data ([facility]) Vital Signs (Past 12 Hours) Vital Signs Temp Pulse Resp BP Pulse Ox 02/03/20 15:12 37.0 C 72 20 130/74 100 Laboratory Results Laboratory Results - last 24 hr 01/30/20 01/31/20 02/03/20 17:46 10:10 05:40 WBC 7.88 RBC 2.79 L Hgb 8.4 L Hct 27.7 L MCV 99.3 MCH 30.1 MCHC 30.3 L RDW Std Deviation 56.7 H RDW Coeff of Enedelia 16.0 H Plt Count 159 MPV 9.3 Sodium Potassium Chloride Carbon Dioxide Anion Gap BUN Creatinine Est Cr Clr Drug Dosing Est GFR ( Amer) Est GFR (Non-Af Amer) BUN/Creatinine Ratio Glucose Calcium Phosphorus Magnesium Total Bilirubin AST ALT Alkaline Phosphatase Total Protein Albumin Globulin Albumin/Globulin Ratio Fld Lyme DNA (PCR) Not detected CSF VDRL Nonreactive Lyme Specimen Source CSF Crossmatch See Detail 02/03/20 05:40 WBC RBC Hgb Hct MCV MCH MCHC RDW Std Deviation RDW Coeff of Enedelia Plt Count MPV Sodium 141 Potassium 4.1 D Chloride 106 Carbon Dioxide 35 H Anion Gap 0 L BUN 31 H Creatinine 0.60 Est Cr Clr Drug Dosing 42.3 Est GFR ( Amer) 104.8 Est GFR (Non-Af Amer) 90.4 BUN/Creatinine Ratio 51.5 H Glucose 128 H Calcium 9.9 Phosphorus 2.3 L Magnesium 2.1 Total Bilirubin 0.3 AST 29 ALT 11 L Alkaline Phosphatase 60 Total Protein 6.1 L Albumin 2.3 L Globulin 3.8 Albumin/Globulin Ratio 0.6 L Fld Lyme DNA (PCR) CSF VDRL Lyme Specimen Source Crossmatch MRI brain -- b/l strokes, acute vs subacute, ?watershed territories? PG Care Time/CCT Total # of Minutes Spent Total Time Spent with Patient: Total time spent is greater than 50% in coordination of care (as documented) at patient's floor/unit and/or counseling patient: Coding Level of Care Code 83732 Subseq Hosp Care Lvl 2 Diagnoses Altered level of consciousness R40.4 Encephalopathy acute G93.40 Fulminant fat embolism syndrome T79.1XXA Encounter type: initial encounter Septic hip M00.9 Spinal stenosis M48.062 Neurogenic claudication status: with neurogenic claudication Spinal region: lumbar Acute blood loss anemia D62 Hypertension I10 Hypertension type: essential hypertension Pulmonary hypertension I27.20 Elevated troponin R79.89 Cardiomyopathy I42.9 Cardiomyopathy type: unspecified Electrolyte abnormality E87.8 DVT prophylaxis Z29.9 (1) Fulminant fat embolism syndrome Encounter type: initial encounter Qualified Code(s): T79.1XXA - Fat embolism (traumatic), initial encounter (2) Spinal stenosis Neurogenic claudication status: with neurogenic claudication Spinal region: lumbar Qualified Code(s): M48.062 - Spinal stenosis, lumbar region with neurogenic claudication (3) Hypertension Hypertension type: essential hypertension Qualified Code(s): I10 - Essential (primary) hypertension (4) Cardiomyopathy Cardiomyopathy type: unspecified Qualified Code(s): I42.9 - Cardiomyopathy, unspecified
[2020-02-04] MEDS: CEFAZOLIN 2000MG 2,000 MG/15 ML SYR IV SCH ×3 (05:17→21:49)
[2020-02-04 05:58] LABS: BUN Creatinine Ratio 65.9 (10-20); Calcium 9.7 mg/dl (8.5-10.1); Est GFR (African American) 113.6; Potassium 3.7 mmol/L (3.5-5.1)
[2020-02-04] MEDS: carvediloL 12.5 MG TAB PO SCH ×2 (07:46→21:54)
[2020-02-04] MEDS: ASPIRIN 81 MG CHEW NG SCH (07:46)
[2020-02-04] MEDS: MULTI VIT W/MINERALS LIQUID 15 ML UDP NG SCH (07:46)
--- NOTE | 2020-02-04 08:03 | Progress Notes ---
DATE: 02/04/2020 SUBJECTIVE: Postop day #7 status post extensive hip reconstruction, right. At this point in time, the patient is lying comfortably in bed. Still tracks with her eyes. No purposeful extremity movement. Vital signs are stable. She is afebrile. Wound dressing clean, dry and intact. MRI completed last evening awaiting neurology assessment in light of that and the most recent EEG. ASSESSMENT: Overall, remains in a very critical/guarded state in the sense of her neurologic function. Will continue with supportive care at this moment in time. We will await neurology input.
[2020-02-04] MEDS: HEPARIN SOD 5,000 UNIT/0.5 ML VIAL SQ SCH ×2 (08:24→21:54)
--- NOTE | 2020-02-04 10:22 | Neurology Progress Note ---
Date of Service February 04, 2020 Assessment & Plan (1) Encephalopathy acute: (2) Acute CVA (cerebrovascular accident): This patient underwent right septic total hip replacement on January 27. Reading the anesthesiology procedure report blood pressure was low and dropped as low as 90/50. In the recovery room she was not responding correctly barely opening her eyes to voice. She was not moving her limbs well. Later that day Dr. Dalton reports that the patient had altered mental status with no following commands. She had a elevated troponin. She has remained nonverbal, stuporous/semicomatose, with withdrawal of all 4 limbs to pain ever since. Today, her neurologic examination feels withdrawal to pain, some brief eye opening to stimuli but no ability to follow commands or to purposeful or volitional movements. There is no speech. She has reasonable cranial nerve function although I cannot ascertain upgaze with passive movement of the head as well as downgaze or horizontal gaze. MRI of the brain today shows diffuse watershed pattern infarcts in the hemispheres bilaterally as well as bi-thalamic and bi basal ganglia infarcts of small acute nature as well. The issue is whether the MRI explains her clinical picture. There is a bi thalamic stroke syndrome that can give hypersomnolence/altered consciousness with vertical gaze paresis. This is typically due to an occlusion of the artery of [place]. Given her anemia, cardiac issues, and relative hypotension during surgery, bilateral watershed infarcts have occurred. CTA was performed of the head and neck on January 28 and showed no significant vessel stenoses. No radiographic thrombectomy procedure was indicated. Recommendations: Overall, this patient has a poor prognosis and I am not sure what specifically can be done for her, neurologically, at this point. 1. We could consider treating anemia to increase her hemoglobin/hematocrit. 2. Intensive rehabilitation hospital stay for these types of patients could be considered 3. Could consider the use of stimulants Overall, I spent a total of 65 minutes with this case including review of records, review of MRI films, direct evaluation the patient at bedside, and discussing the case with nursing at bedside and Dr. Lewis, including differential diagnosis and treatment options. Subjective Patient is lying in bed, eyes closed, with little spontaneous movement. Nursing reports occasional movement of the left foot and right hand. Occasionally she will flutter her eyelids open and then close them again. Blood pressure is 125/76. Pulse is 81 and regular, and temperature 36.7. Most recent CBC shows anemia of 8.4 in 27.7. Chem profile reveals elevated BUN of 31 with a creatinine of 0.47. Glucose was 149 and calcium 9.7. Physical Exam Physical Exam: Patient was lying in bed with her eyes closed. I saw no spontaneous movement of the limbs. With shout she would open her eyes briefly and then close them. With deep pain sternal E she would open her eyes briefly and close them. Eyes were front and lids open passively. There was no nystagmus. With moving the head side to side the eye state front (positive oculocephalics). With vertical head movement eyes went down but not up bilaterally. There are positive corneal responses bilaterally. There was positive gag and cough bilaterally. She had no facial droop and tongue was midline. When she was stimulated with pain she would open her eyes more and grimace. There was a thought that she was fixating to the left on the examiner but this could not be repeated and she could not be coaxed into moving her eyes and fixate on any other object. After brief opening of her eyes she always close them again. Patient had a increased tone in her arms and to a lesser degree in the legs. Reflexes were 1/4 in the biceps, triceps, brachioradialis, quadriceps, Achilles tendons bilaterally. Toes were upgoing to plantar stimulation quickly on the left with a flexion withdrawal. Toes were upgoing and somewhat delayed on the right compared to the left. Deep pain produced left greater than right leg withdrawal flexion on the left and a lesser flexion on the right. There was a delayed flexion withdrawal to deep pain in the hands bilaterally. She would grimace during this. Results & Data Vital Signs (Past 12 Hours) Vital Signs Temp Pulse Resp BP Pulse Ox 02/04/20 07:35 36.7 C 81 20 125/76 100 02/03/20 23:33 36.6 C 72 18 115/65 100 PG Care Time/CCT Total # of Minutes Spent Total Time Spent with Patient: Total time spent is greater than 50% in coordination of care (as documented) at patient's floor/unit and/or counseling patient: Coding Level of Care Code 79881 Subseq Hosp Care Lvl 3 Diagnoses Encephalopathy acute G93.40 Acute CVA (cerebrovascular accident) I63.9 Time Spent (min) 65 [place] [address] to the [address]
--- NOTE | 2020-02-04 12:22 | Palliative Care Progress Note ---
Date of Service February 04, 2020 Assessment & Plan (1) Goals of care, counseling/discussion: -Ms. Jhaveri is now day #7 post-op and continues to not show signs of significant improvement. -MRI obtained last evening 02/02, shows numerous areas of punctate foci of acute/subacute ischemia bilaterally-- indicated watershed effect. Neurology consulted-- they state that patient likely had an episode of hypotension which caused the strokes. Unfortunately, prognosis is grim at this point as patient casiano sn't had significant recovery in a week. -Dr. Lewis and I conference called patient's daughter/POA, Haydee ([phone]), son Gibran ([phone], and patient's ex- (father to both children) Jeff Jhaveri ([phone]). We relayed the events of hospitalization, as well as the MRI results. We also shared the fact that patient's prognosis is grim and likely quite poor at this point. -Discussed difficult decisions to be made at this point: aggressive vs. non- aggressive approach. Aggressive approach would be to place PEG tube for permanent feeding. Non-aggressive approach would be to remove artificial feeding tube, allow nature to take its course. Family is all in agreement that they DO WANT PEG tube placed for more permanent feeding. -We discussed that after hospitalization, patient will need 24/7 care at nursing facility. If she continues to be in the state she is in, she will likely be long term care at a halfway, as she is unable to participate in therapy. We also discussed later down the road, if patient does not make any sort of significant recovery, family may decide to stop tube feedings at any time. They verbalize understanding. -Patient is DNR/DNI. Continue with supportive care. Obtain GI consult for possible PEG placement. -Will continue to follow and provide support to family. (2) Altered level of consciousness: (3) Septic hip: (4) Cardiomyopathy: (5) Encephalopathy acute: Subjective Ms. Jhaveri continues to be in a stuporous state with focal neurologic deficits. Neurology consulted today. See A&P. Review of Systems Review of Systems: Unobtainable due to cognitive status Physical Exam Constitutional: well developed and well nourished; no acute distress Eyes: PERRL (3mm bilaterally) Respiratory: normal respiratory effort, lungs clear to auscultation Cardiovascular: RRR, no murmur, no edema Gastrointestinal (Abdomen): Inspection/Auscultation: normal bowel sounds Percussion/Palpation: abdomen soft; abdomen nontender Neurologic: awake withdraws to noxious stimuli has hypertonia of bilateral upper extremities does not follow commands does open eyes and makes brief eye contact, does flinch to visual threat, does not track with eyes no verbal response no purposeful movement Results & Data Vital Signs (Past 12 Hours) Vital Signs Temp Pulse Resp BP Pulse Ox 02/04/20 07:35 36.7 C 81 20 125/76 100 PG Care Time/CCT Total # of Minutes Spent Total Time Spent with Patient: Total time spent is greater than 50% in coordination of care (as documented) at patient's floor/unit and/or counseling patient: 65 minutes speaking with multiple providers, and multiple family members. Prolonged Care Time Prolonged Care Time: Yes 65 minutes Coding Level of Care Code 24155 Subseq Hosp Care Lvl 3 Diagnoses Goals of care, counseling/discussion Z71.89 Altered level of consciousness R40.4 Septic hip M00.9 Cardiomyopathy I42.9 Cardiomyopathy type: unspecified Encephalopathy acute G93.40 Additional Codes Prolonged Care Time - Prolonged Care Time: Yes ([id number]) Time Spent (min) 65 (1) Cardiomyopathy Cardiomyopathy type: unspecified Qualified Code(s): I42.9 - Cardiomyopathy, unspecified
--- NOTE | 2020-02-04 15:53 | Hospitalist Progress Note ---
Date of Service February 04, 2020 Assessment & Plan (1) Altered level of consciousness: NO changes from prior exam. MRI brain 02/02 with numerous b/l strokes (fat embolism felt much less likely) in watershed distribution. These findings explain ongoing altered MS. EEG with non specific encephalopathy but no seizure. CT head (multiple) - no pathology or bleeding. LP w/o signs of infectious process. Other lab w/u wnl. Spoke with Dr Aiken from neurology - given we are 7 days out from the initial event her prognosis is quite poor given the lack of improvement. Lengthy discussion held with pt's daughter, son, and ex- by phone today. Gala from palliative care was on that phone call. see details below. (2) Encephalopathy acute: as above (3) Septic hip: s/p exchange arthroplasty and Prostalac spacer placed on 01/[address] Fagan. IV cefazolin for total 6 weeks if pt's family elects to cont current care plan. PICC in place. (4) Spinal stenosis: s/p spinal surgery 12/08. (5) Acute blood loss anemia: Acute blood loss anemia from recent surgery. s/p 1 unit perioperatively, then additional 1 unit PRBCs on 01/30. B12 and folate WNL. Repeat CBC in am. Will need Fe supplementation. Start via NG in am. (6) Hypertension: Continue coreg. (7) Pulmonary hypertension: severe - on initial echo. repeat echo showed resolution of such. (8) Elevated troponin: no evidence of ACS likely myocardial demand ischemia in setting of recent neurological event supportive care aspirin (9) Cardiomyopathy: LVEF 30-35% with septal akinesis and apical hypokinesis. Possibly 2nd to Takotsubo/broken-heart syndrome. Cannot rule out ischemia but felt less likely. Cont coreg. Euvolemic on exam today once again. If patient elects to continue doing routine care will need low-dose JORGE. Appreciate cardiology consultation and recs. (10) Electrolyte abnormality: hypokalemia - resolved (11) DVT prophylaxis: cont heparin 5000 BID 40 minute phone call today with palliative care (Gala), pt's daughter, pt's son, and pt's ex- discussed hospital course, MRI findings, lack of neurological recovery/current state, etc I told her family that I spoke with neurology today and that they feel her overall prognosis is quite poor We discussed the plan moving forward - one of palliative care/comfort vs routine/aggressive care All of her family wish for continuing care including pursuit of PEG tube When asked if she ever voiced what her desires would be in this type of situation her children did not respond but ultimately her ex- commented that she likely would not want to live in this type of state indefinitely They all collectively voiced, however, that they wanted to give her a chance of gaining some recovery We discussed that she would need 24-hour care post-d/c in a SNF plan - GI consultation for consideration for PEG tube placement - I spoke directly to Dr Nash regarding this spoke with Dr Dalton regarding the conversation with the family spoke with Dr Aiken re: MRI findings (he agrees these are likely watershed infarcts) total time today - 65 minutes (includes the phone call delineated above as well as multiple calls to multiple consultants) appreciate Gala from palliative care and her efforts Admission and Anticipated Discharge Date Admission Date: January 28, 2020 Subjective patient sleeping during my visit. I shouted her name and asked her to open her eyes. she briefly opened them. I asked her to show me her thumb and she did not move any hand. she did not follow any additional commands. staff have not noted any volitional movements other than opening her eyes. still with cough. Review of Systems Review of Systems: Unobtainable due to reduced consciousness Physical Exam Constitutional: no acute distress coughing ENMT: Mouth: + dry oral mucous membranes Respiratory: normal respiratory effort, lungs clear to auscultation no respiratory distress, no labored breathing and does not use accessory muscles Auscultation: + diminished lung sounds (bases); no crackles and no wheezes Cardiovascular: Rate/Rhythm: regular rate and regular rhythm Heart Sounds: normal S1 and normal S2; no murmur Vessels: posterior tibial pulses present and dorsalis pedis pulses present; no JVD Extremities: no edema Gastrointestinal (Abdomen): normal bowel sounds, soft, nontender, no hepatosplenomegaly Neurologic: +babinski's b/l; left leg flexes with the babinski; tone in upper extremities increased; only eye opening observed NO major changes from prior examination Results & Data Results & Data ([facility]) Vital Signs (Past 12 Hours) Vital Signs Temp Pulse Resp BP BP Pulse Ox 02/04/20 15:22 37 C 76 12 118/68 100 02/04/20 07:35 36.7 C 81 20 125/76 100 Laboratory Results Laboratory Results - last 24 hr 01/30/20 02/04/20 17:46 05:15 Sodium 139 Potassium 3.7 Chloride 103 Carbon Dioxide 35 H Anion Gap 1.0 L BUN 31 H Creatinine 0.47 L Est Cr Clr Drug Dosing 54.0 Est GFR ( Amer) 113.6 Est GFR (Non-Af Amer) 98.0 BUN/Creatinine Ratio 65.9 H Glucose 149 H Calcium 9.7 Fld Lyme DNA (PCR) Not detected CSF VDRL Nonreactive Lyme Specimen Source CSF PG Care Time/CCT Total # of Minutes Spent Total Time Spent with Patient: Total time spent is greater than 50% in coordination of care (as documented) at patient's floor/unit and/or counseling patient: Prolonged Care Time Prolonged Care Time: Yes total care time 65 minutes Coding Level of Care Code 37317 Subseq Hosp Care Lvl 3 (25 - SIGNIFICANT, SEPARATELY IDENTIFIABLE ) Diagnoses Altered level of consciousness R40.4 Encephalopathy acute G93.40 Septic hip M00.9 Spinal stenosis M48.062 Neurogenic claudication status: with neurogenic claudication Spinal region: lumbar Acute blood loss anemia D62 Hypertension I10 Hypertension type: essential hypertension Pulmonary hypertension I27.20 Elevated troponin R79.89 Cardiomyopathy I42.9 Cardiomyopathy type: unspecified Electrolyte abnormality E87.8 DVT prophylaxis Z29.9 Additional Codes Prolonged Care Time - Prolonged Care Time: Yes ([id number]) Time Spent (min) 65 (1) Spinal stenosis Neurogenic claudication status: with neurogenic claudication Spinal region: lumbar Qualified Code(s): M48.062 - Spinal stenosis, lumbar region with neurogenic claudication (2) Hypertension Hypertension type: essential hypertension Qualified Code(s): I10 - Essential (primary) hypertension (3) Cardiomyopathy Cardiomyopathy type: unspecified Qualified Code(s): I42.9 - Cardiomyopathy, unspecified
[2020-02-04] MEDS: PEPTAMEN 1.5 CAL 1,000 ML BAG PO SCH (18:47)
[2020-02-04] MEDS: ACETAMINOPHEN SOLN 650 MG/20.3 ML UDC NG PRN (22:24)
[2020-02-05] MEDS: CEFAZOLIN 2000MG 2,000 MG/15 ML SYR IV SCH ×3 (05:16→21:36)
[2020-02-05 05:53] LABS: Hematocrit (blood only) 26.6 % (37-47); Hemoglobin 8.1 g/dL (12.0-16.0); Mean Corpuscular Hemoglobin 30.7 pg (25-34); Mean Corpuscular Hgb Conc 30.5 g/dL (32-36); Mean Corpuscular Volume 100.8 fL (80-100); Mean Platelet Volume 9.3 fL (7.4-10.4); Platelet Count 203 K/uL (130-400); RDW Coefficient of Variation 15.8 % (11.5-14.5); RDW Standard Deviation 57.1 fL (36.4-46.3); Red Blood Count 2.64 M/uL (4.2-5.4); White Blood Count 8.75 K/uL (4.8-10.8)
[2020-02-05 06:22] LABS: BUN Creatinine Ratio 82.1 (10-20); Calcium 9.1 mg/dl (8.5-10.1); Creatinine Clr Calc Pharmacy 53.3 ml/min; Est GFR (African American) 115.2; Est GFR (Non-African American) 99.4; Potassium 3.7 mmol/L (3.5-5.1)
--- NOTE | 2020-02-05 08:05 | Progress Notes ---
DATE: 02/05/2020 SUBJECTIVE: Postop day 7. At this point in time, the patient is without any marked change. She opens her eyes. She does not follow commands. Wound is clean and dry. Vital signs are stable. She is afebrile. Temperature max is 37.4. The appearance of the leg looks like the hip is located. Neurologic exam reveals no gross active movement to 4 extremities on command, moves them spontaneously. Hematocrit is 26.6. White count is 8.75, potassium is 3.7. ASSESSMENT: Overall without much gross neurologic change. Detailed discussion did occur with the family yesterday via the palliative care committee and the hospitalist and neurology. At this point in time, family has decided to place a PEG tube and support her for an additional week. Continue to follow. Appreciate supportive care from the entire staff including all of the consults.Consider use of stimulants per medicine and neurology. MTDD
--- NOTE | 2020-02-05 08:30 | Neurology Progress Note ---
Date of Service February 05, 2020 Assessment & Plan (1) Acute CVA (cerebrovascular accident): (2) Encephalopathy: This patient underwent right septic total hip replacement on January 27. Reading the anesthesiology procedure report blood pressure was low and dropped into the 90/50 range. In the recovery room she was not responding correctly, barely opening her eyes to voice. She was not moving her limbs well. Later that day Dr. Daltno reports that the patient had altered mental status with no following commands. She had a elevated troponin. She has remained nonverbal, stuporous/semicomatose, with withdrawal of all 4 limbs to pain ever since. Patient had a cardiac event postoperatively as well. MRI of the brain showed a diffuse linear watershed pattern infarcts in the hemispheres bilaterally, as well as bi-thalamic/basal ganglia infarcts of a small acute nature. I reviewed these MRI films with Dr. Steele and the bi thalamic strokes seem real albeit small. Fat emboli could have produced the MRI picture but, given the pattern, we believe watershed infarcts is more likely. The bi thalamic strokes may be hypoxic ischemic or embolic. CT angiography of the head and neck (as well as echocardiogram) did not show any source of emboli. Bi-thalamic strokes can give a syndrome that produces hypersomnolence/altered consciousness with vertical gaze paresis. This is typically due to an occlusion of the artery of [place]. Given her anemia, cardiac issues, and relative hypotension during surgery, bilateral watershed as well as other infarcts have occurred. Interestingly, Her neurologic examination today is improved compared to February 03. She is tracking and fixing more seemingly more alert although she is not following commands or attempting to speak. She does not have any obvious vertical gaze paresis today as she did yesterday. Recommendations: Overall, although this patient has a relatively poor prognosis , she is making small but significant neurologic improvements compared to yesterday. 1. Consider treating anemia to increase her hemoglobin/hematocrit. 2. Intensive neuro-rehabilitation hospital could be considered 3. Could consider the use of stimulants 4. With elevated BUN, she may need further hydration. 5. I have no issue with a PEG tube at this point. Overall, I spent a total of 70 minutes with this case including review of records, review of MRI films, direct evaluation the patient at bedside, and discussing the case with nursing at bedside and Dr. Steele, and Dr. Goto, including differential diagnosis and treatment options Subjective Patient is reported to be about the same from nursing staff. She has not had any seizure activity reported. blood pressure is 136/63 this with a pulse of 77 and temperature 37.4. O2 saturation is 100 percent nasal cannula Hemoglobin is 8.1 hematocrit 26.6 today. BUN is elevated at 37. I reviewed MRI films of the brain with Dr. Steele in Radiology today. Physical Exam Physical Exam: Patient is lying comfortably in bed with her eyes closed. For these of a medium loud nature gets her to open her eyes and fix on the examiner for several seconds. She will do this to the right and to the left. I witnessed her tracking me from left to right and right to left on several occasions throughout the exam. She made no attempt to speak or respond to commands or questions. She resisted eye opening today. Pupils are 3 millimeters bilaterally and reactive to light. She resisted moving of her head particularly in the vertical plane. Horizontally she still has smooth oculocephalic movements. She also looked up and down spontaneously at times. She has positive corneal reflexes and a positive gag. There is no facial droop. She spontaneously moves her left leg withdrawing it. She moves her hands to a lesser degree. She is not moving the right lower extremity very much spontaneously. Tone is increased in the arms (symmetrically) but not in the left leg. She withdraws very quickly as well as grimacing with the pain in the left lower extremity. She grimaces and withdraws some in the right lower extremity. She grimaces and withdraws delayed in a flexed matter with deep pain in the fingers bilaterally. She has upgoing toes to plantar stimulation. Reflexes are 1/4 the arms and legs. Results & Data Vital Signs (Past 12 Hours) Vital Signs Temp Pulse Resp BP Pulse Ox 02/05/20 08:11 37.4 C 02/05/20 07:18 36.4 C L 77 16 136/63 100 02/04/20 23:47 37.4 C 66 16 105/62 99 02/04/20 21:53 37.3 C 99 H 16 127/70 99 PG Care Time/CCT Total # of Minutes Spent Total Time Spent with Patient: Total time spent is greater than 50% in coordination of care (as documented) at patient's floor/unit and/or counseling patient: Coding Level of Care Code 60744 Subseq Hosp Care Lvl 3 Diagnoses Acute CVA (cerebrovascular accident) I63.9 Encephalopathy G93.40 Time Spent (min) 70 Comment Add [id number] to the [id number]
[2020-02-05] MEDS ORDERED: SODIUM CHLORIDE 0.9% 250 ML IV PRN (09:07)
[2020-02-05] MEDS: HEPARIN SOD 5,000 UNIT/0.5 ML VIAL SQ SCH ×2 (09:10→21:35)
[2020-02-05] MEDS: MULTI VIT W/MINERALS LIQUID 15 ML UDP NG SCH (09:11)
[2020-02-05] MEDS: FERROUS SULFATE 325 MG/7.4 ML UDP NG SCH (09:11)
[2020-02-05] MEDS: carvediloL 12.5 MG TAB PO SCH ×2 (09:11→21:35)
[2020-02-05] MEDS: ASPIRIN 81 MG CHEW NG SCH (09:18)
--- NOTE | 2020-02-05 11:54 | Hospitalist Progress Note ---
Date of Service February 05, 2020 Assessment & Plan (1) Altered level of consciousness: Improving slightly today, secondary to multiple bilateral acute CVAs that occurred perioperatively Now following simple commands, tracking with eyes after 6-7 days of being unresponsive MRI brain 02/02 with numerous b/l strokes (fat embolism felt much less likely) in watershed distribution vs embolic, but Neuro feels strongly this is watershed type infarct. These findings explain ongoing altered MS. EEG with non specific encephalopathy but no seizure. CT head (multiple) - no pathology or bleeding. LP w/o signs of infectious process, some studies still pending. Other lab w/u wnl. Continue to follow clinically, supportive care, transfuse for anemia as below (2) Acute CVA (cerebrovascular accident): as above -continue ASA 81mg daily -not felt to be cardioembolic as her cardiomyopathy and reduced EF were not present until day sfater her initial event -could have had embolus from fat? Not septic emboli as is afebrile, BCxs no growth, no valvular veg on TTE--> will be on IV Ancef x 6 weeks regardless -EF on initial ECHO was normal so not likely she had an LV thrombus No indication for anticoagulation at this time, remains in normal heart rhythm h ere -Coresafe in place-continue tube feeds and place PEG in 1 more week if not waking up more and able to swallow by then -Appreciate Neuro and GI consults (3) Encephalopathy acute: as above (4) Septic hip: s/p exchange arthroplasty and Prostalac spacer placed on 01/[address] Fagan. IV cefazolin for total 6 weeks if pt's family elects to cont current care plan. PICC in place. (5) Spinal stenosis: s/p spinal surgery 12/08. (6) Acute blood loss anemia: Acute blood loss anemia from recent surgery. s/p 1 unit perioperatively, then additional 1 unit PRBCs on 01/30. B12 and folate WNL. Hgb down to 8.1 today and in setting of acute CVA--> will give 1 more unit PRBCs -continue Fe supplementation via NG in am. (7) Hypertension: Continue coreg, adding on low dose lisinopril for CM as below (8) Pulmonary hypertension: severe - on initial echo. repeat echo showed resolution of such. (9) Elevated troponin: Trop peaked at 9, may have had an embolic event to the coronary arteries as per Cardio discussion -but could also be myocardial demand ischemia in setting of recent neurological event supportive care aspirin (10) Cardiomyopathy: LVEF 30-35% with septal akinesis and apical hypokinesis. Possibly 2nd to Takotsubo/broken-heart syndrome but could have been MO. Cannot rule out ischemia but felt less likely. Cont coreg. -give lasix 20mg IV x 1 after PRBC transfusion today -start low-dose ACEi with lisinopril 2.5mg in the AM Appreciate cardiology consultation and recs. -will need repeat ECHO in a month or so (11) Electrolyte abnormality: hypokalemia - resolved -follow BMP (12) DVT prophylaxis: cont heparin 5000 BID Discussed care with daughter on phone regarding some small improvements today and plan to wait on PEG for 1 week -overall prognosis remains poor but will give more time to see if has recovery We discussed the plan moving forward - one of palliative care/comfort vs routine/aggressive care All of her family wish for continuing care including pursuit of PEG tube When asked if she ever voiced what her desires would be in this type of situation her children did not respond but ultimately her ex- commented that she likely would not want to live in this type of state indefinitely Rebab placement vs remaining here and awaiting recovery and EPG placement next week Admission and Anticipated Discharge Date Admission Date: January 28, 2020 Subjective Pt more alert today and responds to voice, tracking me around the room. Does follow some simple commands-squeezes my hand with her right hand and wiggles right toes, but left side not moving. She tries to open her mouth when asked to say "ahh" and also mouthed the word "no" when asked baout pain. She remains lethargic. Tube feeds going. Discussed case at length with Neurology, Cardiology, and GI today. Also called the daughter and discussed daily update. They wish to wait another week before PEG tube placement Review of Systems Review of Systems: Unobtainable due to cognitive status and Unobtainable due to reduced consciousness Physical Exam Constitutional: + thin; no acute distress Eyes: PERRL, conjunctivae normal, anicteric sclerae ENMT: Ears: no hearing impairment Nose: no external nose abnormality (NGT in place) Mouth: + oral mucosal abnormality (dry) Neck: trachea midline, no thyromegaly Respiratory: normal respiratory effort, lungs clear to auscultation Cardiovascular: RRR, no murmur, no edema Chest (Breasts): Chest: normal inspection of chest Gastrointestinal (Abdomen): normal bowel sounds, soft, nontender, no hepatosplenomegaly Musculoskeletal: Extremities: + extremities abnormal to inspection (right hip with dressing in place), no cyanosis and no clubbing Skin: no rashes, warm and dry Neurologic: + focal motor deficit (left side flaccid; moving RUE and wiggles rt toes) and awake (at times, but remains lethargic) Lymphatic: no lymphedema Results & Data Results & Data ([facility]) Vital Signs (Past 12 Hours) Vital Signs Temp Pulse Resp BP Pulse Ox 02/05/20 08:11 37.4 C 02/05/20 07:18 36.4 C L 77 16 136/63 100 Laboratory Results labs reviewed PG Care Time/CCT Total # of Minutes Spent Total Time Spent with Patient: Total time spent is greater than 50% in coordination of care (as documented) at patient's floor/unit and/or counseling patient: Coding Level of Care Code 26866 Subseq Hosp Care Lvl 3 Diagnoses Altered level of consciousness R40.4 Acute CVA (cerebrovascular accident) I63.9 Encephalopathy acute G93.40 Septic hip M00.9 Spinal stenosis M48.062 Neurogenic claudication status: with neurogenic claudication Spinal region: lumbar Acute blood loss anemia D62 Hypertension I10 Hypertension type: essential hypertension Pulmonary hypertension I27.20 Elevated troponin R79.89 Cardiomyopathy I42.9 Cardiomyopathy type: unspecified Electrolyte abnormality E87.8 DVT prophylaxis Z29.9 (1) Spinal stenosis Neurogenic claudication status: with neurogenic claudication Spinal region: lumbar Qualified Code(s): M48.062 - Spinal stenosis, lumbar region with neurogenic claudication (2) Hypertension Hypertension type: essential hypertension Qualified Code(s): I10 - Essential (primary) hypertension (3) Cardiomyopathy Cardiomyopathy type: unspecified Qualified Code(s): I42.9 - Cardiomyopathy, unspecified
--- NOTE | 2020-02-05 12:01 | XRay Report ---
XR chest 1V portable CLINICAL HISTORY: 74 years-old Female presenting with f/u hypoxia, pleural effusion. TECHNIQUE: Portable semiupright AP view of the chest was obtained. COMPARISON: 02/03/2020. FINDINGS: Weighted feeding catheter terminates in the body the stomach. Right upper extremity PICC terminates a t the superior cavoatrial junction. These are unchanged from prior. Atherosclerosis of the aortic arc h. Cardiac silhouette mildly enlarged. Only mild pulmonary vascular prominence is suggested. No signi ficant interstitial prominence. No focal opacity interval resolution of the prior gradient of density at the lung bases. No large effusion or pneumothorax on the current exam trace pleural effusions dif ficult to exclude.. Degenerative changes of the thoracic spine. Upper abdomen normal. IMPRESSION: 1. Mild cardiomegaly with only mild volume overload if any. No advanced congestive change. 2. While trace pleural effusions are difficult to exclude, effusions appear to have decreased or res olved. ACT 112: Negative or not required by law. Electronically signed by: Darrell Gomez M.D. 02/05/2020 11:59 AM
--- NOTE | 2020-02-05 12:06 | Gastrointestinal Consultation ---
Date of Consultation February 05, 2020 Assessment & Plan (1) Acute CVA (cerebrovascular accident): I discussed the case in detail with the patient's daughter who is her POA. She further discussed this case with her father and brother. At present, they would like to hold off for another week, to see if any meaningful improvement is noted. At that time, they will make a decision regarding the placement of a PEG tube for more permanent feeding needs. I did inform her daughter that a PEG tube, has never been shown to prolong life, however, it could provide an easier way for her to obtain medications and feedings. I discussed the risks of PEG tube placement including bleeding, perforation, or infection with the patient's daughter. Also, discussed case in detail with Dr. Swanson, and discussed that a PEG tube is clearly not an emergency procedure, and in the current times with the COVID-19 crisis, we are trying to limit elective/non-emergent procedures to maintain PPE for future use. I informed both Dr. Swanson as well as the patient's daughter, Haydee, that I will follow her clinical course and make further recommendations as needed, and will touch base with Haydee late next week for further planning. (2) Feeding difficulties: History of Present Illness Reason for Consultation: Inability to swallow secondary to CVA Attending Physician: Vinicius Dalton MD History of Present Illness Emma Jhaveri presented to the hospital on 01/27/2020 secondary to a septic hip. She underwent an exchange arthroplasty by Dr. Dalton. Cultures from her hip did return positive for MSSA. Of note, she did have a lumbar spinal fusion on 12/08/[address] Brian. Following her right hip arthroplasty, she had a significant change in mental status. She was seen by cardiology, as well as neurology. A TTE was performed and did show decreased LVEF and hypokinesis, however, no evidence of vegetations was noted. Although CT scans of her head were initially unremarkable, an MRI on 02/02 showed numerous punctate foci of acute to subacute ischemia. Radiology noted an embolic phenomenon was favored over watershed infarcts. I was asked by Dr. Lewis to see the patient in consultation for snf nutritional needs. She did have a Dobhoff feeding tube placed on 01/29, and has been receiving tube feeds since that time. Per neurology's note this AM, the patient has had a slight improvement in her symptoms overnight, and did follow a few simple commands, and tracked with her eyes. Nursing reports no fevers overnight. She has been having brown bowel movements per nursing staff periodically throughout her hospital course. The patient cannot provide any information at this time secondary to her e ncephalopathy. Allergies Allergy/AdvReac Type Severity Reaction Status Date / Time cat dander Allergy Mild "HAYFEVER" Verified 01/28/20 05:19 dog dander Allergy Mild "HAYFEVER, Verified 01/28/20 05:19 ASTHMA SYMPTOMS" Penicillins Allergy Mild Hives Verified 01/28/20 05:19 pravastatin Allergy Mild LEG PAIN Verified 01/28/20 05:19 rosuvastatin [From Crestor] Allergy Mild LEG PAIN Verified 01/28/20 05:19 doxycycline Allergy Unknown Unknown Verified 01/28/20 05:19 warfarin [From Coumadin] AdvReac Intermediate FELT Verified 01/28/20 17:02 HOT/COLD Home Medications Home Medications Medication Instructions Recorded Confirmed Type cholecalciferol (vitamin D3) 400 unit PO DAILY 11/28/19 01/28/20 History [Vitamin D3] multivitamin 1 tab PO DAILY 11/28/19 01/28/20 History calcium carbonate [Calcium 500] 500 mg PO QAM 01/27/20 01/28/20 History diltiazem HCl 180 mg PO QAM 01/27/20 01/28/20 History lisinopril 10 mg PO QAM 01/27/20 01/28/20 History vitamin E 400 unit PO QAM 01/27/20 01/28/20 History Patient History Medical History (Updated 02/05/20 @ 12:58 by Aryan Nash, DO) DJD (degenerative joint disease) of hip (Resolved) Goals of care, counseling/discussion History of asthma NO USE OF INHALER PER PATIENT Hyperlipidemia Hypertension Hyperthyroidism HX OF OVER YEARS AGO (NO CURRENT PROBLEM) Leg length discrepancy Nephrolithiasis Osteoporosis Surgical History Fusion of spine LUMBAR FUSION H/O section X 2 History of bilateral tubal ligation History of cataract surgery RT/LEFT History of tooth extraction History of total hip arthroplasty RT S/P carpal tunnel release Family History Brother Hypertension Mother Hypertension Sister Hypertension Denies family history of Colon cancer Ovarian cancer Prostate cancer Myocardial infarction Breast cancer Colorectal cancer Social History Preferred Language: Occitan Communication Ability: Impaired Visual Impairment: No Limitations Hearing Ability: Normal Boiler Washer Required: No Beliefs That Will Affect Care: None marital status: Current Living Situation: Alone current occupational status: retired Feels Safe at Home: Yes Safety Concerns: Feels Safe At This Time Smoking Status: Never smoker Do You Dip or Chew Tobacco: No ; Second Hand Exposure: Yes ( A CHILD) ; Tobacco Cessation Education Requested by Patient: No Hx Alcohol Use: No Hx Substance Use: No Childhood Exposure to Second-Hand Smoke: Yes Dental Care, Regularly: Yes Physical Activity Frequency: Daily Seatbelt Use: always Sunscreen Use: No Review of Systems Review of Systems: Unobtainable due to cognitive status Physical Exam Constitutional: WD/WN, vitals as above + thin Eyes: + anicteric sclerae Respiratory: normal respiratory effort, lungs clear to auscultation Cardiovascular: RRR, no murmur, no edema Gastrointestinal (Abdomen): normal bowel sounds, soft, nontender, no hepatosplenomegaly Skin: no rashes, warm and dry Results & Data ([facility]) Vital Signs (Past 12 Hours) Vital Signs Temp Pulse Pulse Resp BP BP Pulse Ox 02/05/20 11:59 36.7 C 80 18 131/78 100 02/05/20 08:11 37.4 C 02/05/20 07:18 36.4 C L 77 16 136/63 100 PG Care Time/CCT Total # of Minutes Spent Total Time Spent with Patient: Total time spent is greater than 50% in coordination of care (as documented) at patient's floor/unit and/or counseling patient: Coding Level of Care Code 30703 Initial Inpt Care Lvl 3 Diagnoses Acute CVA (cerebrovascular accident) I63.9 Feeding difficulties R63.3
[2020-02-05] MEDS ORDERED: FUROSEMIDE 20 MG in SYRINGE 0 ML IV ONE (12:45)
[2020-02-05] MEDS: PEPTAMEN 1.5 CAL 1,000 ML BAG PO SCH (21:36)
[2020-02-06] MEDS: CEFAZOLIN 2000MG 2,000 MG/15 ML SYR IV SCH ×3 (05:15→21:43)
--- NOTE | 2020-02-06 08:06 | Progress Notes ---
DATE: 02/06/2020 Postop day #8 status post major revision for sepsis, right hip. The patient was awake upon entering the room, tracked me with her eyes. I asked if she was in pain, she mouthed no and shook her head. Vital signs are stable. She is afebrile. Wound dressing clean, dry and intact. Hip located. No pain with axial compression of the leg. Does not do anything voluntarily on command. ASSESSMENT: Encephalopathy, less dense today, verbally responded appropriately. At this point in time, continue with supportive care, stimulant issue and feeding tube issue remain to be determined by primary care providers and consultants in those specialties. Follow carefully. BEBED
--- NOTE | 2020-02-06 08:28 | Neurology Progress Note ---
Date of Service February 06, 2020 Assessment & Plan (1) Acute CVA (cerebrovascular accident): (2) Encephalopathy: This patient underwent right septic total hip replacement on January 27. Reading the anesthesiology procedure report blood pressure was low and dropped as low as 90/50. In the recovery room she was not responding correctly barely opening her eyes to voice. She was not moving her limbs well. Later that day Dr. Dalton reports that the patient had altered mental status with no following commands. She had a elevated troponin. She has remained nonverbal, stuporous/semicomatose, with withdrawal of all 4 limbs to pain ever since. Today, her neurologic examination is improved compared to yesterday (each day seems a little better neurologically than the day before). She now can follow one-step commands and formulate words. Her speech seems soft and somewhat dysa rthric. She is moving her right side better than the left side but does withdraw to deep pain in all 4 limbs. She has no obvious cranial nerve deficits. MRI of the brain showed diffuse watershed pattern infarcts in the hemispheres bilaterally as well as bi-thalamic and bi basal ganglia infarcts of small acute nature as well. Emboli cannot be excluded, although there is no obvious source. The issue is whether the MRI explains her clinical picture. There is a bi thalamic stroke syndrome that can give hypersomnolence/altered consciousness with vertical gaze paresis. This is typically due to an occlusion of the artery of [place]. Given her anemia, cardiac issues, and relative hypotension during surgery, bilateral watershed infarcts have occurred. CTA was performed of the head and neck on January 28 and showed no significant vessel stenoses. No radiographic thrombectomy procedure was indicated. Recommendations: Overall, given her events and time frame, this patient has a relatively poor prognosis, but she is slowly making improvements neurologically each day. 1. Consider treating anemia to increase hemoglobin and hematocrit 2. Intensive rehabilitation hospital stay for these types of patients could be considered. For now, physical, occupational, and speech therapy consults. 3. Could consider the use of stimulants, but would hold off on this for now. 4. Increase activity as much as is reasonable. 5. See no indication for additional neurologic testing at this time. 6. Continue on 81 milligram aspirin tablet daily. Overall, I spent a total of 35 minutes with this case including review of records, direct evaluation the patient at bedside, and discussing the case with the patient and nursing at bedside, and Dr. Swanson, including differential diagnosis and treatment options. Subjective Patient signals to me , when asked, that she is not in any pain or having headache. She does not feel dizzy. Nursing reports no seizure activity or neurologic change overnight. Blood pressure is 129/70 and she is afebrile at 36.9. O2 saturation is 100 percent on 2 liters nasal cannula. There are no laboratory studies pending this morning. Physical Exam Physical Exam: She is lying in bed with her eyes closed. She opens her eyes and look to her left to fix on me when I called her by her name. She then looked all the way to the right to fix on the nurse who was standing on that side of the bed. When left alone, she tends to close her eyes and go back to sleep. When stimulated she will keep her eyes open and tend to track and fix. She could shake her head yes or no to several questions. She was able to tell me her name (very difficult formulating words however) which was difficult for me to understand because of some dysarthria and softness to her voice. She seemed confused with other questions and did give a response such as us trying to figure out her age and other facts. We got her to follow a few one-step commands wiggling her fingers and toes on the right. She would not wiggle her fingers or toes on the left. Extraocular eye muscles seem intact without nystagmus. Pupils are 3-4 millimeters bilaterally reactive to light. She would not stick her tongue out to command but tongue was midline. She had no facial droop. She withdrew her left lower extremity quickly to deep pain and grimaced. She said the word ouch. She had a grimace and pain response to deep pain in the left upper extremity but had a delayed withdrawal. There were reasonable withdrawals to deep pain in the right arm and leg and she 5th seem to feel pain there easily. Tone is decreased in the left upper extremity and left lower extremity. Toes are upgoing plantar stimulation bilaterally. Results & Data Vital Signs (Past 12 Hours) Vital Signs Temp Pulse Pulse Resp BP Pulse Ox 02/05/20 23:26 36.9 C 79 16 129/70 100 02/05/20 21:46 80 137/80 100 PG Care Time/CCT Total # of Minutes Spent Total Time Spent with Patient: Total time spent is greater than 50% in coordination of care (as documented) at patient's floor/unit and/or counseling patient: Coding Level of Care Code 33239 Subseq Hosp Care Lvl 3 Diagnoses Acute CVA (cerebrovascular accident) I63.9 Encephalopathy G93.40 Time Spent (min) 35
[2020-02-06 09:35] LABS: Basophils # (auto) 0.01 K/uL (0-0.2); Basophils % (auto) 0.1 %; Eosinophils # (auto) 0.17 K/uL (0-0.5); Hematocrit (blood only) 33.1 % (37-47); Hemoglobin 10.4 g/dL (12.0-16.0); Immature Granulocytes # (auto) 0.06 K/uL (0.00-0.02); Immature Granulocytes % (auto) 0.7 %; Lymphocytes # (auto) 1.25 K/uL (1.2-3.4); Lymphocytes % (auto) 14.8 %; Mean Corpuscular Hemoglobin 30.9 pg (25-34); Mean Corpuscular Hgb Conc 31.4 g/dL (32-36); Mean Corpuscular Volume 98.2 fL (80-100); Monocytes # (auto) 0.81 K/uL (0.11-0.59); Monocytes % (auto) 9.6 %; Neutrophils # (auto) 6.13 K/uL (1.4-6.5); Neutrophils % (auto) 72.8 %; Platelet Count 231 K/uL (130-400); RDW Coefficient of Variation 15.3 % (11.5-14.5); RDW Standard Deviation 54.4 fL (36.4-46.3); Red Blood Count 3.37 M/uL (4.2-5.4); White Blood Count 8.43 K/uL (4.8-10.8)
[2020-02-06 10:01] LABS: BUN Creatinine Ratio 68.7 (10-20); Calcium 9.8 mg/dl (8.5-10.1); Creatinine Clr Calc Pharmacy 69.7 ml/min; Est GFR (Non-African American) 96.7
[2020-02-06] MEDS: MULTI VIT W/MINERALS LIQUID 15 ML UDP NG SCH (10:01)
[2020-02-06] MEDS: FERROUS SULFATE 325 MG/7.4 ML UDP NG SCH (10:01)
[2020-02-06] MEDS: carvediloL 12.5 MG TAB PO SCH ×2 (10:06→21:44)
[2020-02-06] MEDS: HEPARIN SOD 5,000 UNIT/0.5 ML VIAL SQ SCH ×2 (10:08→21:43)
[2020-02-06] MEDS: ASPIRIN 81 MG CHEW NG SCH (10:11)
--- NOTE | 2020-02-06 13:43 | Palliative Care Progress Note ---
Date of Service February 06, 2020 Assessment & Plan (1) Goals of care, counseling/discussion: -Ms. Jhaveri is now day #8 post-op for sepsis and revision of right hip. Her mental status is slowly starting to improve. -MRI obtained on 02/02, shows numerous areas of punctate foci of acute/subacute ischemia bilaterally-- indicated watershed effect. Family is in agreement that they DO WANT PEG tube placed for more permanent feeding when surgery is available. Patient currently on NG feeds and tolerating well. -Patient is starting to show signs of improvement-we will likely need a longer period of time to improve enough to go to rehab -Patient is DNR/DNI. Continue with supportive care. -Will continue to follow and provide support to family and assist with medical decision making. (2) Altered level of consciousness: (3) Septic hip: (4) Cardiomyopathy: (5) Encephalopathy acute: Subjective Patient seen and examined-no family or friends at bedside Collaborated with hospitalist-Dr. Swanson Patient more responsive today on exam. Opened her eyes and responds to voice and touch. Patient did attempt to speak, but was unable to form words. Patient was able to slightly nod yes or no to a few simple questions. Patient did not know when asked if she had pain, did not yes when asked if she was comfortable, did not yes to if she was warm enough. Patient continues on NG feeds. Review of Systems Review of Systems: Unobtainable due to cognitive status Physical Exam Physical Exam: PE: No acute distress HEENT: EOMI, hearing appears to be within normal limits CV: Regular rate, no edema Abdomen: Soft nontender Extremities: Well positioned with abductor pillow as well as waffle boots in place Neuro: More responsive on exam today Results & Data Vital Signs (Past 12 Hours) Vital Signs Temp Pulse Resp BP Pulse Ox 02/06/20 10:05 97.3 F L 83 22 143/78 H 100 PG Care Time/CCT Total # of Minutes Spent Total Time Spent with Patient: Total time spent 25 minutes with greater than 50% of that time spent at bedside assessing patient's current status and collaborating with the medical team Coding Level of Care Code 70563 Subseq Hosp Care Lvl 2 Diagnoses Goals of care, counseling/discussion Z71.89 Altered level of consciousness R40.4 Septic hip M00.9 Cardiomyopathy I42.9 Cardiomyopathy type: unspecified Encephalopathy acute G93.40 Time Spent (min) 25 (1) Cardiomyopathy Cardiomyopathy type: unspecified Qualified Code(s): I42.9 - Cardiomyopathy, unspecified
[2020-02-06] MEDS ORDERED: INFLUENZA ADMINISTRATION CHARGE ONE (13:46)
[2020-02-06] MEDS ORDERED: INFLUENZA VACCINE HIGH DOSE 65+ 0.5 ML SYR IM ONE (13:46)
--- NOTE | 2020-02-06 13:54 | Hospitalist Progress Note ---
Date of Service February 06, 2020 Assessment & Plan (1) Altered level of consciousness: Improving slightly starting 02/04; secondary to multiple bilateral acute CVAs that occurred perioperatively Now following simple commands, tracking with eyes after 6-7 days of being unresponsive, but remains quite lethargic and with left hemiparesis MRI brain 02/02 with numerous b/l strokes (fat embolism felt much less likely) in watershed distribution vs embolic, but Neuro feels strongly this is watershed type infarct. These findings explain ongoing altered MS. EEG with non specific encephalopathy but no seizure. CT head (multiple) - no pathology or bleeding. LP w/o signs of infectious process, some studies still pending like oligoclonal bands. Other lab w/u wnl. Continue to follow clinically, supportive care, transfused for anemia as below (2) Acute CVA (cerebrovascular accident): as above -continue ASA 81mg daily -not felt to be cardioembolic as her cardiomyopathy and reduced EF were not present until day sfater her initial event -could have had embolus from fat? Not septic emboli as is afebrile, BCxs no growth, no valvular veg on TTE--> will be on IV Ancef x 6 weeks regardless -EF on initial ECHO was normal so not likely she had an LV thrombus No indication for anticoagulation at this time, remains in normal heart rhythm here -Coresafe in place-continue tube feeds and place PEG in 1 more week if not waking up more and able to swallow by then -Appreciate Neuro and GI consults -consult PT/OT/Speech--> needs to start aggressive Neuro rehab now that is starting to wake up somewhat and can follow simple commands at times (3) Encephalopathy acute: as above (4) Septic hip: s/p exchange arthroplasty and Prostalac spacer placed on 01/[address] Vish eugene. IV cefazolin for total 6 weeks if pt's family elects to cont current care plan. PICC in place. (5) Acute blood loss anemia: Acute blood loss anemia from recent surgery. s/p 1 unit perioperatively, then additional 1 unit PRBCs on 01/30. B12 and folate WNL. Hgb down to 8.1 on 02/04 and in setting of acute CVA--> gave 1 more unit PRBCs and now hgb up to 10.4 -continue Fe supplementation via NG in am. (6) Spinal stenosis: s/p spinal surgery 12/08. (7) Hypertension: BPs controlled -Continue coreg -added on low dose lisinopril for CM as below (8) Pulmonary hypertension: severe - on initial echo. repeat echo showed resolution of such. (9) Elevated troponin: Trop peaked at 9, may have had an embolic event to the coronary arteries as per Cardio discussion -but could also be myocardial demand ischemia in setting of recent neurological event supportive care , no ischemic eval given current state of significant unresponsiveness aspirin (10) Cardiomyopathy: LVEF 30-35% with septal akinesis and apical hypokinesis. Possibly 2nd to Takotsubo/broken-heart syndrome but could have been [place]. Cannot rule out ischemia but felt less likely. Cont coreg. -gave lasix 20mg IV x 1 after PRBC transfusion Seems euvolemic -started low-dose ACEi with lisinopril 2.5mg in the AM-don't want to drop BP too low in setting of recent watershed infarcts Appreciate cardiology consultation and recs. -will need repeat ECHO in a month or so (11) Electrolyte abnormality: hypokalemia - resolved -follow BMP (12) Metabolic alkalosis: HCO3 trending upward to 35 Possibly due to poor ventilation? COuld be from IV lasix? Oxygenating well No h/o COPD -will follow and if worsens, consider ABG (13) DVT prophylaxis: cont heparin 5000 BID Discussed care with daughter on phone regarding some small improvements recently and plan to wait on PEG for 1 week -overall prognosis remains poor but will give more time to see if has recovery We discussed the plan moving forward - one of palliative care/comfort vs rou deshaun/aggressive care All of her family wish for continuing care including pursuit of PEG tube When asked if she ever voiced what her desires would be in this type of situation her children did not respond but ultimately her ex- commented that she likely would not want to live in this type of state indefinitely Rehab placement vs remaining here and awaiting recovery and PEG placement next week Admission and Anticipated Discharge Date Admission Date: January 28, 2020 Subjective Pt was seen in early afternoon and was lethargic but did open her eyes a few times briefly but continued to fall back asleep easily. She did mouth some words to me that were unintelligible when I asked how she was doing, but then fell back asleep. Sh shannanas too lethargic to follow any commands today but did spontaneously move her right arm. I discussed her case with Neurology Review of Systems Review of Systems: Unobtainable due to cognitive status and Unobtainable due to reduced consciousness Physical Exam Constitutional: + thin; no acute distress Eyes: PERRL, conjunctivae normal, anicteric sclerae ENMT: Ears: no hearing impairment Nose: no external nose abnormality (NGT in place) Mouth: + oral mucosal abnormality (dry) Neck: trachea midline, no thyromegaly Respiratory: normal respiratory effort, lungs clear to auscultation Cardiovascular: RRR, no murmur, no edema Chest (Breasts): Chest: normal inspection of chest Gastrointestinal (Abdomen): normal bowel sounds, soft, nontender, no hepatosplenomegaly Musculoskeletal: Extremities: + extremities abnormal to inspection (right hip with dressing in place), no cyanosis and no clubbing Skin: no rashes, warm and dry Neurologic: + focal motor deficit (left side flaccid;not following commands today); + not awake Lymphatic: no lymphedema Results & Data Results & Data ([facility]) Vital Signs (Past 12 Hours) Vital Signs Temp Pulse Resp BP Pulse Ox 02/06/20 10:05 36.3 C L 83 22 143/78 H 100 Laboratory Results 02/06/20 02/06/20 Range/Units 09:25 09:25 WBC 8.43 (4.8-10.8) K/uL RBC 3.37 L (4.2-5.4) M/uL Hgb 10.4 L (12.0-16.0) g/dL Hct 33.1 L (37-47) % MCV 98.2 (80-100) fL MCH 30.9 (25-34) pg MCHC 31.4 L (32-36) g/dL RDW Std Deviation 54.4 H (36.4-46.3) fL RDW Coeff of [place] 15.3 H (11.5-14.5) % Plt Count 231 (130-400) K/uL MPV 9.0 (7.4-10.4) fL Immature Gran % (Auto) 0.7 % Neut % (Auto) 72.8 % Lymph % (Auto) 14.8 % [place] % (Auto) 9.6 % Eos % (Auto) 2.0 % Baso % (Auto) 0.1 % Immature Gran # (Auto) 0.06 H (0.00-0.02) K/uL Neut # (Auto) 6.13 (1.4-6.5) K/uL Lymph # (Auto) 1.25 (1.2-3.4) K/uL [place] # (Auto) 0.81 H (0.11-0.59) K/uL Eos # (Auto) 0.17 (0-0.5) K/uL Baso # (Auto) 0.01 (0-0.2) K/uL Sodium 137 (136-145) mmol/L Potassium 4.0 (3.5-5.1) mmol/L Chloride 101 (98-107) mmol/L Carbon Dioxide 35 H (21-32) mmol/L Anion Gap 1.0 L (3-11) BUN 33 H (7-18) mg/dl Creatinine 0.49 L (0.6-1.2) mg/dl Est Cr Clr Drug Dosing 69.7 ml/min Est GFR ( Amer) 112.0 Est GFR (Non-Af Amer) 96.7 BUN/Creatinine Ratio 68.7 H (10-20) Glucose 127 H (70-99) mg/dl Calcium 9.8 (8.5-10.1) mg/dl PG Care Time/CCT Total # of Minutes Spent Total Time Spent with Patient: Total time spent is greater than 50% in coordination of care (as documented) at patient's floor/unit and/or counseling patient: Coding Level of Care Code 65964 Subseq Hosp Care Lvl 2 Diagnoses Altered level of consciousness R40.4 Acute CVA (cerebrovascular accident) I63.9 Encephalopathy acute G93.40 Septic hip M00.9 Acute blood loss anemia D62 Spinal stenosis M48.062 Neurogenic claudication status: with neurogenic claudication Spinal region: lumbar Hypertension I10 Hypertension type: essential hypertension Pulmonary hypertension I27.20 Elevated troponin R79.89 Cardiomyopathy I42.9 Cardiomyopathy type: unspecified Electrolyte abnormality E87.8 Metabolic alkalosis E87.3 DVT prophylaxis Z29.9 (1) Spinal stenosis Neurogenic claudication status: with neurogenic claudication Spinal region: lumbar Qualified Code(s): M48.062 - Spinal stenosis, lumbar region with neurogenic claudication (2) Hypertension Hypertension type: essential hypertension Qualified Code(s): I10 - Essential (primary) hypertension (3) Cardiomyopathy Cardiomyopathy type: unspecified Qualified Code(s): I42.9 - Cardiomyopathy, unspecified
[2020-02-06] MEDS: PEPTAMEN 1.5 CAL 1,000 ML BAG PO SCH (21:58)
[2020-02-07 05:00] LABS: Albumin 2.5 g/dL (3.2-4.6); Albumin, CSF 25.8 mg/dL (8.0-42.0); IgG CSF 5.4 mg/dL (0.8-7.7); IgG Index, CSF 0.55 (<0.66); IgG Serum 951 mg/dL (600-1540); Myelin Basic Protein <2.0 mcg/L (2.0-4.0); Synthesis Rate, IgG CSF 1.9 mg/24 h (-9.9-3.3)
[2020-02-07] MEDS: CEFAZOLIN 2000MG 2,000 MG/15 ML SYR IV SCH ×3 (05:50→22:50)
[2020-02-07 06:33] LABS: Base Excess ABG 8.7 mEq/L (-9-1.8); HCO3 ABG 33 mmol/L (19-24); PCO2 ABG 46 mmHg (35-46); PO2 ABG 112 mmHg (80-95); pH ABG 7.48 (7.35-7.45)
[2020-02-07 06:34] LABS: Allen Test Pos (Pos)
[2020-02-07 06:46] LABS: Basophils # (auto) 0.02 K/uL (0-0.2); Basophils % (auto) 0.2 %; Eosinophils # (auto) 0.13 K/uL (0-0.5); Eosinophils % (auto) 1.3 %; Hematocrit (blood only) 31.4 % (37-47); Hemoglobin 9.8 g/dL (12.0-16.0); Immature Granulocytes # (auto) 0.06 K/uL (0.00-0.02); Immature Granulocytes % (auto) 0.6 %; Lymphocytes # (auto) 1.12 K/uL (1.2-3.4); Lymphocytes % (auto) 10.8 %; Mean Corpuscular Hgb Conc 31.2 g/dL (32-36); Mean Corpuscular Volume 99.4 fL (80-100); Mean Platelet Volume 8.9 fL (7.4-10.4); Monocytes # (auto) 0.89 K/uL (0.11-0.59); Monocytes % (auto) 8.6 %; Neutrophils # (auto) 8.14 K/uL (1.4-6.5); Neutrophils % (auto) 78.5 %; Platelet Count 277 K/uL (130-400); RDW Coefficient of Variation 15.1 % (11.5-14.5); RDW Standard Deviation 54.3 fL (36.4-46.3); Red Blood Count 3.16 M/uL (4.2-5.4); White Blood Count 10.36 K/uL (4.8-10.8)
[2020-02-07 07:18] LABS: Albumin Level 2.5 gm/dl (3.4-5.0); BUN Creatinine Ratio 64.1 (10-20); Calcium 9.4 mg/dl (8.5-10.1); Creatinine Clr Calc Pharmacy 65.7 ml/min; Est GFR (African American) 109.9; Est GFR (Non-African American) 94.8; Magnesium 2.4 mg/dl (1.8-2.4)
[2020-02-07 07:21] LABS: Bilirubin Direct 0.1 mg/dl (0-0.2); Bilirubin,Total 0.4 mg/dl (0.2-1); Total Protein 7.3 gm/dl (6.4-8.2)
[2020-02-07] MEDS: MULTI VIT W/MINERALS LIQUID 15 ML UDP NG SCH (08:03)
[2020-02-07] MEDS: carvediloL 12.5 MG TAB PO SCH ×2 (08:04→20:55)
[2020-02-07] MEDS: FERROUS SULFATE 325 MG/7.4 ML UDP NG SCH (08:04)
[2020-02-07] MEDS: HEPARIN SOD 5,000 UNIT/0.5 ML VIAL SQ SCH ×2 (08:13→21:01)
[2020-02-07] MEDS: ASPIRIN 81 MG CHEW NG SCH (08:13)
--- NOTE | 2020-02-07 09:43 | Progress Notes ---
DATE: 02/07/2020 SUBJECTIVE: Postop day 9 status post extensive right hip procedure as previously documented. At this point in time,walked in the patient's room, she was wide awake. She tracked me visually. When I addressed her and asked if she was in pain, she smiled with the word no and shook her head. I asked her to squeeze fingers on her right hand of mine, she did very firmly on the right but on the left trace, moves both lower extremities; moves right to command with extension and flexion of her toes. Wound is clean and dry. Hip is located. Abdomen soft, nontender. Vital signs are stable. She is afebrile. Hematocrit this morning was 31.4. White count is 10.36. Electrolytes are good. Albumin is increasing. ASSESSMENT: Overall has had significant slow steady gains in her neurologic function. Her nutrition is at least stable at this point in time but would definitely benefit from additional calories. Need to continue to maximally support the infection treatment. I have talked in detail this morning to Dr. Aiken. Discussed with him the potential of getting another EEG sometime early next week, he was in agreement. At this point in time, we should maximize care for Emma, she is making significant gains neurologically. We all realized that still has significant ground to recover; however, with the improvement that has occurred over the last 3-4 days, we should continue with supporting her to the best of our ability. This was discussed in detail with the designated contact for me, Wang Jhaveri. [facility]ALTHHarvey
--- NOTE | 2020-02-07 12:40 | Hospitalist Progress Note ---
Date of Service February 07, 2020 Assessment & Plan (1) Altered level of consciousness: Improving slightly starting 02/04; secondary to multiple bilateral acute CVAs that occurred perioperatively Now following simple commands, tracking with eyes after 6-7 days of being unresponsive, but remains quite lethargic and with left hemiparesis MRI brain 02/02 with numerous b/l strokes (fat embolism felt much less likely) in watershed distribution vs embolic, but Neuro feels strongly this is watershed type infarct. These findings explain ongoing altered MS. EEG with non specific encephalopathy but no seizure. CT head (multiple) - no pathology or bleeding. LP w/o signs of infectious process, some studies still pending like oligoclonal bands. Other lab w/u wnl. Appreciate neurology input from 02/05, likely watershed infarct from perioperative hypotension. Recommending rehab along with low-dose aspirin which is being given. He does note a relatively poor prognosis. Continue to follow clinically, supportive care, transfused for anemia as below (2) Acute CVA (cerebrovascular accident): as above -continue ASA 81mg daily No indication for anticoagulation at this time, remains in normal heart rhythm here -Keofeed in place-continue tube feeds and place PEG in 1 more week if not waking up more and able to swallow by then -Appreciate Neuro and GI consults -consult PT/OT/Speech--> needs to start aggressive Neuro rehab now that is starting to wake up somewhat and can follow simple commands at times (3) Encephalopathy acute: as above (4) Septic hip: s/p exchange arthroplasty and Prostalac spacer placed on 01/[address] Fagan. IV cefazolin for total 6 weeks if pt's family elects to cont current care plan. PICC in place. (5) Acute blood loss anemia: Acute blood loss anemia from recent surgery. s/p 1 unit perioperatively, then additional 1 unit PRBCs on 01/30. B12 and folate WNL. Hgb down to 8.1 on 02/04 and in setting of acute CVA--> gave 1 more unit PRBCs 02/05 and now hgb up to 10.4 -continue Fe supplementation via NG in am. -Continue to follow H&H daily (6) Spinal stenosis: s/p spinal surgery 12/08. (7) Hypertension: BPs controlled -Continue coreg -added on low dose lisinopril for CM as below (8) Pulmonary hypertension: severe - on initial echo. repeat echo showed resolution of such. (9) Elevated troponin: Trop peaked at 9, may have had an embolic event to the coronary arteries as per Cardio discussion -but could also be myocardial demand ischemia in setting of recent neurological event supportive care , no ischemic eval given current state of significant unresponsiveness aspirin (10) Cardiomyopathy: LVEF 30-35% with septal akinesis and apical hypokinesis. Possibly 2nd to Takotsubo/broken-heart syndrome but could have been OK. Cannot rule out ischemia but felt less likely. Cont coreg. -gave lasix 20mg IV x 1 after PRBC transfusion Seems euvolemic -Previously started low-dose ACEi with lisinopril 2.5mg in the AM-don't want to drop BP too low in setting of recent watershed infarcts Appreciate cardiology consultation and recs. -will need repeat ECHO in a month or so (11) Electrolyte abnormality: hypokalemia - resolved -follow BMP (12) Metabolic alkalosis: ABG noted, has primary metabolic alkalosis. May be from diuretics. Will continue to monitor. No respiratory issues at this time. (13) DVT prophylaxis: cont heparin 5000 BID I do note involvement of palliative care, family is opting for PEG placement if patient does not recover ability to take p.o. medications and nutrition. GI has been consulted and has been following. Patient does have documented neurologic recovery but if does not regain ability to swallow, suspect patient will need PEG placed early next week. Eventual plan for acute rehab after nutrition issues resolved. Admission and Anticipated Discharge Date Admission Date: January 28, 2020 Subjective Patient is awake. She seems to be alert she is able to follow commands. She is nonverbal. She does track me with her eyes as they move around the room. She does not appear to be in any distress. She has a Keofeed tube in place which she is to be infusing tube feeds without difficulty. Physical Exam Constitutional: cooperative; no acute distress Neck: trachea midline, no thyromegaly Respiratory: normal respiratory effort Auscultation: lungs clear to auscultation bilaterally; no crackles, no rales, no rhonchi and no wheezes Limited exam Cardiovascular: Rate/Rhythm: regular rate and regular rhythm Heart Sounds: normal S1 and normal S2 Gastrointestinal (Abdomen): Inspection/Auscultation: abdomen normal to inspection Percussion/Palpation: abdomen soft; abdomen nontender, no guarding, abdomen not rigid and no hepatosplenomegaly Skin: no rashes, warm and dry Neurologic: Aphasic, left upper extremity flaccid Results & Data Results & Data ([facility]) Vital Signs (Past 12 Hours) Vital Signs Temp Pulse Resp BP Pulse Ox 02/07/20 07:28 36.5 C 77 16 119/70 92 Laboratory Results WBCs of 10.3, hemoglobin of 9.8 with hematocrit of 31.4, ABG this morning shows a pH of 7.48 with a CO2 of 46 and a P O2 of 112. Sodium is 135, potassium 4, chloride 100, CO2 33. BUN is 33 with a creatinine 0.52 which is about her baseline. Glucose 137, calcium 9.4. Magnesium 2.4. LFTs are normal. PG Care Time/CCT Total # of Minutes Spent Total Time Spent with Patient: Total time spent is greater than 50% in coordination of care (as documented) at patient's floor/unit and/or counseling patient: Coding Level of Care Code 24906 Subseq Hosp Care Lvl 2 Diagnoses Altered level of consciousness R40.4 Acute CVA (cerebrovascular accident) I63.9 Encephalopathy acute G93.40 Septic hip M00.9 Acute blood loss anemia D62 Spinal stenosis M48.062 Spinal region: lumbar Neurogenic claudication status: with neurogenic claudication Hypertension I10 Hypertension type: essential hypertension Pulmonary hypertension I27.20 Elevated troponin R79.89 Cardiomyopathy I42.9 Cardiomyopathy type: unspecified Electrolyte abnormality E87.8 Metabolic alkalosis E87.3 DVT prophylaxis Z29.9 (1) Spinal stenosis Spinal region: lumbar Neurogenic claudication status: with neurogenic claudication Qualified Code(s): M48.062 - Spinal stenosis, lumbar region with neurogenic claudication (2) Hypertension Hypertension type: essential hypertension Qualified Code(s): I10 - Essential (primary) hypertension (3) Cardiomyopathy Cardiomyopathy type: unspecified Qualified Code(s): I42.9 - Cardiomyopathy, unspecified
[2020-02-08] MEDS: CEFAZOLIN 2000MG 2,000 MG/15 ML SYR IV SCH ×3 (05:44→21:04)
[2020-02-08 06:27] LABS: Basophils # (auto) 0.01 K/uL (0-0.2); Basophils % (auto) 0.1 %; Eosinophils # (auto) 0.14 K/uL (0-0.5); Eosinophils % (auto) 1.4 %; Hematocrit (blood only) 29.4 % (37-47); Immature Granulocytes # (auto) 0.05 K/uL (0.00-0.02); Immature Granulocytes % (auto) 0.5 %; Lymphocytes # (auto) 1.01 K/uL (1.2-3.4); Lymphocytes % (auto) 10.1 %; Mean Corpuscular Hemoglobin 30.4 pg (25-34); Mean Corpuscular Hgb Conc 30.6 g/dL (32-36); Mean Corpuscular Volume 99.3 fL (80-100); Mean Platelet Volume 8.8 fL (7.4-10.4); Monocytes # (auto) 0.86 K/uL (0.11-0.59); Monocytes % (auto) 8.6 %; Neutrophils # (auto) 7.91 K/uL (1.4-6.5); Neutrophils % (auto) 79.3 %; Platelet Count 283 K/uL (130-400); RDW Coefficient of Variation 14.9 % (11.5-14.5); RDW Standard Deviation 53.9 fL (36.4-46.3); Red Blood Count 2.96 M/uL (4.2-5.4); White Blood Count 9.98 K/uL (4.8-10.8)
[2020-02-08 07:01] LABS: BUN Creatinine Ratio 76.1 (10-20); Calcium 9.3 mg/dl (8.5-10.1); Est GFR (African American) 110.6; Est GFR (Non-African American) 95.4; Magnesium 2.4 mg/dl (1.8-2.4)
[2020-02-08] MEDS: ASPIRIN 81 MG CHEW NG SCH (08:47)
[2020-02-08] MEDS: FERROUS SULFATE 325 MG/7.4 ML UDP NG SCH (08:48)
[2020-02-08] MEDS: carvediloL 12.5 MG TAB PO SCH ×2 (08:48→20:47)
[2020-02-08] MEDS: MULTI VIT W/MINERALS LIQUID 15 ML UDP NG SCH (08:48)
[2020-02-08] MEDS: HEPARIN SOD 5,000 UNIT/0.5 ML VIAL SQ SCH ×2 (09:02→21:05)
--- NOTE | 2020-02-08 10:25 | Progress Notes ---
DATE: 02/08/2020 SUBJECTIVE: Postop day #10, status post extensive right hip surgery. The patient is napping. Easily aroused. Tracks well. Verbalizes yes/no to pain and other issues easily. Moves her right hand to command. Nods off easily. Vital signs are stable. She is afebrile. Hematocrit stable at 29.4 range, white count 9.98. Electrolytes are good. Wound clean and dry. Neurovascular check distally grossly as noted previously. No new issues. Hips feels located. ASSESSMENT AND PLAN: Continues to have increasing lucid periods of mentation. Per report with family, with Face Call, the patient was able to answer questions to her daughter with complex responses like names of grandchildren. At this point in time, things are relatively slow but steady and change in the way of improvement. Remains stable clinically. Plan is to continue with present level of support. Plan is for repeat EEG sometime in the near future as discussed with Dr. Aiken. Nutrition needs to be supplemented.
--- NOTE | 2020-02-08 11:25 | Hospitalist Progress Note ---
Date of Service February 08, 2020 Assessment & Plan (1) Altered level of consciousness: Improving slightly starting 02/04; secondary to multiple bilateral acute CVAs that occurred perioperatively Now following simple commands, tracking with eyes after 6-7 days of being unresponsive, but remains quite lethargic and with left hemiparesis MRI brain 02/02 with numerous b/l strokes (fat embolism felt much less likely) in watershed distribution vs embolic, but Neuro feels strongly this is watershed type infarct. These findings explain ongoing altered MS. EEG with non specific encephalopathy but no seizure. CT head (multiple) - no pathology or bleeding. LP w/o signs of infectious process, some studies still pending like oligoclonal bands. Other lab w/u wnl. Appreciate neurology input from 02/05, likely watershed infarct from perioperative hypotension. Recommending rehab along with low-dose aspirin which is being given. He does note a relatively poor prognosis. Repeat EEG is mentioned for the near future. Continue to follow clinically, supportive care (2) Acute CVA (cerebrovascular accident): as above -continue ASA 81mg daily No indication for anticoagulation at this time, remains in normal heart rhythm here -Keofeed in place-continue tube feeds and place PEG in 1 more week if not waking up more and able to swallow by then -Appreciate Neuro and GI consults -consult PT/OT/Speech--> needs to start aggressive Neuro rehab now that is starting to wake up somewhat and can follow simple commands at times (3) Encephalopathy acute: as above (4) Septic hip: s/p exchange arthroplasty and Prostalac spacer placed on 01/[address] Fagan. IV cefazolin for total 6 weeks if pt's family elects to cont current care plan. PICC in place. (5) Acute blood loss anemia: Acute blood loss anemia from recent surgery. s/p 1 unit perioperatively, then additional 1 unit PRBCs on 01/30. B12 and folate WNL. Hgb down to 8.1 on 02/04 and in setting of acute CVA--> gave 1 more unit PRBCs 02/05 with hemoglobin up to 10.4. However, now down to 9 with hematocrit of 29.4. Consider slow GI bleed versus equilibration after blood loss from surgery. GI is following and will defer for possible work-up. -Continue to follow H&H daily (6) Spinal stenosis: s/p spinal surgery 12/08. (7) Hypertension: BPs controlled -Continue coreg -added on low dose lisinopril for CM as below (8) Pulmonary hypertension: severe - on initial echo. repeat echo showed resolution of such. (9) Elevated troponin: Trop peaked at 9, may have had an embolic event to the coronary arteries as per Cardio discussion -but could also be myocardial demand ischemia in setting of recent neurological event supportive care , no ischemic eval given current state of significant unresponsiveness aspirin (10) Cardiomyopathy: LVEF 30-35% with septal akinesis and apical hypokinesis. Possibly 2nd to Takotsubo/broken-heart syndrome but could have been [place]. Cannot rule out ischemia but felt less likely. Cont coreg. -gave lasix 20mg IV x 1 after PRBC transfusion Seems euvolemic -Previously started low-dose ACEi with lisinopril 2.5mg in the AM-don't want to drop BP too low in setting of recent watershed infarcts Appreciate cardiology consultation and recs. -will need repeat ECHO in a month or so (11) Electrolyte abnormality: hypokalemia - resolved -follow BMP (12) Metabolic alkalosis: ABG noted, has primary metabolic alkalosis. May be from diuretics. Will continue to monitor. No respiratory issues at this time. (13) DVT prophylaxis: cont heparin 5000 BID I do note involvement of palliative care, family is opting for PEG placement if patient does not recover ability to take p.o. medications and nutrition. GI has been consulted and has been following. Patient does have documented neurologic recovery but if does not regain ability to swallow, suspect patient will need PEG placed early next week. Eventual plan for acute rehab after nutrition issues resolved. Admission and Anticipated Discharge Date Admission Date: January 28, 2020 Subjective Patient asleep when I entered, did not attempt to wake. Has Keofeed in place and continues to infuse tube feeds without difficulty. Nurse reports the patient continues to improve, may have spoken a few words earlier in the morning. Patient was previously aphasic and this would represent an improvement. Physical Exam Constitutional: no acute distress Asleep Neck: trachea midline, no thyromegaly Respiratory: normal respiratory effort Auscultation: lungs clear to auscultation bilaterally; no crackles, no rales, no rhonchi and no wheezes Limited exam Cardiovascular: Rate/Rhythm: regular rate and regular rhythm Heart Sounds: normal S1 and normal S2 Limited exam Gastrointestinal (Abdomen): Inspection/Auscultation: abdomen normal to inspection Percussion/Palpation: abdomen soft; abdomen nontender, no guarding, abdomen not rigid and no hepatosplenomegaly Skin: no rashes, warm and dry Results & Data Results & Data ([facility]) Vital Signs (Past 12 Hours) Vital Signs Temp Pulse Resp BP Pulse Ox 02/08/20 07:15 36.5 C 75 16 114/67 100 Laboratory Results WBCs of 9.9, hemoglobin of 9 with hematocrit of 29.4, platelets of 283. Sodium 136, potassium of 4, chloride 99, CO2 33, BUN 39 with a creatinine of 0.51. Glucose of 132. PG Care Time/CCT Total # of Minutes Spent Total Time Spent with Patient: Total time spent is greater than 50% in coordination of care (as documented) at patient's floor/unit and/or counseling patient: Coding Level of Care Code 38665 Subseq Hosp Care Lvl 2 Diagnoses Altered level of consciousness R40.4 Acute CVA (cerebrovascular accident) I63.9 Encephalopathy acute G93.40 Septic hip M00.9 Acute blood loss anemia D62 Spinal stenosis M48.062 Spinal region: lumbar Neurogenic claudication status: with neurogenic claudication Hypertension I10 Hypertension type: essential hypertension Pulmonary hypertension I27.20 Elevated troponin R79.89 Cardiomyopathy I42.9 Cardiomyopathy type: unspecified Electrolyte abnormality E87.8 Metabolic alkalosis E87.3 DVT prophylaxis Z29.9 (1) Spinal stenosis Spinal region: lumbar Neurogenic claudication status: with neurogenic claudication Qualified Code(s): M48.062 - Spinal stenosis, lumbar region with neurogenic claudication (2) Hypertension Hypertension type: essential hypertension Qualified Code(s): I10 - Essential (primary) hypertension (3) Cardiomyopathy Cardiomyopathy type: unspecified Qualified Code(s): I42.9 - Cardiomyopathy, unspecified
[2020-02-08] MEDS: SODIUM CHLORIDE 0.9% 1000ML 1,000 ML IV SCH (16:00)
[2020-02-09] MEDS: CEFAZOLIN 2000MG 2,000 MG/15 ML SYR IV SCH ×3 (05:52→21:15)
[2020-02-09] MEDS: PEPTAMEN 1.5 CAL 1,000 ML BAG PO SCH (06:05)
[2020-02-09 06:09] LABS: Basophils # (auto) 0.01 K/uL (0-0.2); Basophils % (auto) 0.1 %; Eosinophils # (auto) 0.11 K/uL (0-0.5); Eosinophils % (auto) 1.2 %; Hematocrit (blood only) 27.9 % (37-47); Hemoglobin 8.6 g/dL (12.0-16.0); Immature Granulocytes # (auto) 0.03 K/uL (0.00-0.02); Immature Granulocytes % (auto) 0.3 %; Lymphocytes # (auto) 0.86 K/uL (1.2-3.4); Lymphocytes % (auto) 9.4 %; Mean Corpuscular Hemoglobin 30.6 pg (25-34); Mean Corpuscular Hgb Conc 30.8 g/dL (32-36); Mean Corpuscular Volume 99.3 fL (80-100); Mean Platelet Volume 8.6 fL (7.4-10.4); Monocytes # (auto) 0.75 K/uL (0.11-0.59); Monocytes % (auto) 8.2 %; Neutrophils % (auto) 80.8 %; Platelet Count 301 K/uL (130-400); RDW Coefficient of Variation 14.5 % (11.5-14.5); RDW Standard Deviation 52.7 fL (36.4-46.3); Red Blood Count 2.81 M/uL (4.2-5.4); White Blood Count 9.16 K/uL (4.8-10.8)
[2020-02-09 06:42] LABS: BUN Creatinine Ratio 75.9 (10-20); Calcium 8.7 mg/dl (8.5-10.1); Creatinine Clr Calc Pharmacy 87.6 ml/min; Est GFR (African American) 120.8; Est GFR (Non-African American) 104.2
--- NOTE | 2020-02-09 07:33 | Progress Notes ---
DATE: 02/09/2020 ORTHOPEDICS PROGRESS NOTE SUBJECTIVE: Postop day 11 status post complex right hip replacement. At this point in time, the patient is awake and alert. Answers questions appropriately. Denies using any pain. OBJECTIVE: VITAL SIGNS: Stable. She is afebrile. NEUROLOGIC: Reveals active voluntary recognition of orders to move extremities, moves all 4 extremities, right upper, right lower, and left lower are stronger, left hand a little bit weaker. Denies any headache. Hematocrit has drifted down to 27.9, likely based on IV hydration. There is no active blood loss in her leg, obviously look for GI source if needed, but this is probably due to hemodilution, poor nutrition and poor marrow supplementation. Wound is clean and dry. Hip is located on exam. ASSESSMENT: The patient is making significant neurologic improvement. Plan is to continue with support. We should do some trial feeding and see how she does with that. If not, she will likely still need the PEG in order to improve her nutrition. Continue treatment of infection. Should try to minimize blood draws as necessary based on her marrow trying to catch up. We will discuss with family, Luis Jhaveri, this morning.
[2020-02-09] MEDS: SODIUM CHLORIDE 0.9% 1000ML 1,000 ML IV SCH (08:14)
[2020-02-09] MEDS: MULTI VIT W/MINERALS LIQUID 15 ML UDP NG SCH (08:58)
[2020-02-09] MEDS: FERROUS SULFATE 325 MG/7.4 ML UDP NG SCH (08:58)
[2020-02-09] MEDS: ASPIRIN 81 MG CHEW NG SCH (08:59)
[2020-02-09] MEDS: carvediloL 12.5 MG TAB NG SCH ×2 (08:59→21:09)
[2020-02-09] MEDS: LANSOPRAZOLE 30 MG SOLTAB NG SCH (09:00)
[2020-02-09] MEDS: HEPARIN SOD 5,000 UNIT/0.5 ML VIAL SQ SCH ×2 (09:13→21:10)
[2020-02-09] MEDS: bisacodyL 10 MG SUPP PR PRN (09:45)
[2020-02-09] MEDS: THIAMINE HCL 100 MG TAB NG SCH (11:00)
[2020-02-09] MEDS ORDERED: ACETAMINOPHEN SOLN 650 MG/20.3 ML UDC NG PRN (11:15)
--- NOTE | 2020-02-09 13:05 | Neurology Progress Note ---
Date of Service February 09, 2020 Assessment & Plan (1) Cardiomyopathy: (2) Elevated troponin: (3) Encephalopathy acute: Emma Jhaveri is a 74 yo woman w/ PMH notable for HTN, HLD, nephrolithiasis, lumbar spinal stenosis s/p surgery in 11/2019, anxiety, asthma, and recent MSSA UTI who initially p/t [facility] in the setting of septic hip, now POD 11 from right hip arthroplasty. Hospital course c/b persistent severe encephalopathy, new diagnosis of decreased EF, elevated troponin and concern for possible fat emboli syndrome. Neurology consulted for ongoing AMS. 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 Differential includes HIE vs toxic-metabolic encephalopathy with watershed infarcts vs slow re- emergence from anesthesia given low BMI, no signs of PRES or fat emboli on MRI from 02/03/20 - continue with tube feeds for now, advance to PO as tolerated - delirium precautions, lights on during the day/off at night, frequent reorientation, see if family can bring in pictures from home - continue PT/OT/speech as already doing - continue thiamine/MV, could consider B12 1000mcg daily as well - avoid benzos/opiates/anti-cholinergics - repeat EEG pending, no need for AEDs at this time - defer to PMR in rehab for need to start neurostimulants as she has been improving without medication at this time (amantadine, methylphenidate, modafanil, etc) Thank you for this interesting consult. Plan of care discussed with primary team. Please call or text with any questions. (4) Septic hip: Subjective NAEs overnight. She is looking much better than when I saw her last week. She is answering questions and following commands, though not always correctly. Review of Systems Review of Systems: Unobtainable due to reduced consciousness Physical Exam Physical Exam: General Exam: GEN: NAD, lying in bed HEENT: No conjunctival injection, no rhinorrhea. CV: RRR, no peripheral edema PULM: Nonlabored respirations on 2L NC. Integ: no rash on chest or hands. No nailbed abnormalities noted. Neuro Exam: MS: Awake, alert. Oriented to self, being in a hospital but not month or year. Speech is fluent without dysarthria. Able to repeat simple phrases but has difficulty with more complex phrases. Intermittently comprehends, able to name high-frequency words. Mildly inattentive. No neglect. CN: Visual liao full. No extinction to double simultaneous stimuli. Unable to visualize fundi on fundoscopic exam. PERRLA OU. EOMI without nystagmus. Facial sensation intact to LT. Facial muscles full and symmetric. Hearing intact to conversation. Uvula midline with symmetric palatal elevation. Shoulder shrug normal. Tongue midline. MOTOR: Normal bulk and tone. No pronator drift in the RUE. RUE antigravity without drift, able to wiggle toes in bilateral lower extremities however unable to elevate lower extremities proximally, holds left upper extremity in a flexed position with immediate drift to bed upon elevation. REFLEXES: 2+ at biceps, triceps, brachioradialis, patella and Achilles bilaterally. Flexor plantar responses bilaterally. SENSORY: Intact to LT without extinction to double simultaneous stimuli. Vibration and temperature intact throughout. COORDINATION: No dysmetria or ataxia on [id number] in the right upper extremity. GAIT: Deferred given physical status Results & Data Vital Signs (Past 12 Hours) Vital Signs Temp Pulse Resp BP Pulse Ox 02/09/20 07:08 36.7 C 79 18 120/68 100 PG Care Time/CCT Total # of Minutes Spent Total Time Spent with Patient: Total time spent is greater than 50% in coordination of care (as documented) at patient's floor/unit and/or counseling patient: Coding Level of Care Code 65751 Subseq Hosp Care Lvl 3 Diagnoses Cardiomyopathy I42.9 Cardiomyopathy type: unspecified Elevated troponin R79.89 Encephalopathy acute G93.40 Septic hip M00.9 (1) Cardiomyopathy Cardiomyopathy type: unspecified Qualified Code(s): I42.9 - Cardiomyopathy, unspecified
--- NOTE | 2020-02-09 14:22 | Palliative Care Progress Note ---
Date of Service February 09, 2020 Assessment & Plan (1) Goals of care, counseling/discussion: -Ms. Jhaveri is now day #11 post-op for sepsis and revision of right hip. Her mental status is slowly starting to improve. -MRI obtained on 02/02, shows numerous areas of punctate foci of acute/subacute ischemia bilaterally-- indicated watershed effect. Family is in agreement that they DO WANT PEG tube placed for more permanent feeding when surgery is available. Patient currently on NG feeds and tolerating well. [employer] involved-pured meal tray delivered -Patient is starting to show signs of improvement-we will likely need a longer period of time to improve enough to go to rehab -Patient is DNR/DNI. Continue with supportive care. -Will continue to follow and provide support to family and assist with medical decision making. 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 Patient was able to move her right upper extremity - 2-/5, left upper extremity flaccid, bilateral lower extremities 1/5 Review of Systems Review of Systems: Unobtainable due to cognitive status Physical Exam Physical Exam: PE: Patient awake, appears comfortable HEENT: EOMI, hearing appears to be within normal limits, NG tube in place Respiratory: Unlabored, clear breath sounds, on O2 at 2 L CV: Regular rate, no edema Abdomen: Soft, no grimace with palpation Extremities: Moving right upper extremity slightly, left upper extremity flaccid, bilateral lower extremities able to wiggle her toes and flex at the ankle Neuro: More alert Results & Data Vital Signs (Past 12 Hours) Vital Signs Temp Pulse Resp BP Pulse Ox 02/09/20 07:08 98.1 F 79 18 120/68 100 PG Care Time/CCT Total # of Minutes Spent Total Time Spent with Patient: Total time spent 25 minutes with greater than 50% of the time spent at bedside assessing patient's current status and collaborating with attending physician on unit Coding Level of Care Code 04804 Subseq Hosp Care Lvl 2 Diagnoses Goals of care, counseling/discussion Z71.89 Altered level of consciousness R40.4 Septic hip M00.9 Cardiomyopathy I42.9 Cardiomyopathy type: unspecified Encephalopathy acute G93.40 Time Spent (min) 25 (1) Cardiomyopathy Cardiomyopathy type: unspecified Qualified Code(s): I42.9 - Cardiomyopathy, unspecified
--- NOTE | 2020-02-09 16:31 | Electroencephalogram ---
EEG Procedure Note Date of Service February 09, 2020 Start / End Times Start Time: 12:49pm End Time: 13:09pm Referring Physician Ryan Aiken History 74 yo woman with AMS post-op Home Medication List Home Medications Medication Instructions Recorded Confirmed Type cholecalciferol (vitamin D3) 400 unit PO DAILY 11/28/19 01/28/20 History [Vitamin D3] multivitamin 1 tab PO DAILY 11/28/19 01/28/20 History calcium carbonate [Calcium 500] 500 mg PO QAM 01/27/20 01/28/20 History diltiazem HCl 180 mg PO QAM 01/27/20 01/28/20 History lisinopril 10 mg PO QAM 01/27/20 01/28/20 History vitamin E 400 unit PO QAM 01/27/20 01/28/20 History Inpatient Medication List Aspirin (Aspirin Chew) 81 mg NG QAM [facility] Stop: 03/02/20 08:59 Last Admin: 02/09/20 08:59 Dose: 81 mg Documented by: [id number] Admin: 02/08/20 08:47 Dose: 81 mg Documented by: [id number] Admin: 02/07/20 08:13 Dose: 81 mg Documented by: [id number] Admin: 02/06/20 10:11 Dose: 81 mg Documented by: [id number] Admin: 02/05/20 09:18 Dose: 81 mg Documented by: [id number] Admin: 02/04/20 07:46 Dose: 81 mg Documented by: [id number] Admin: 02/03/20 09:19 Dose: 81 mg Documented by: [id number] Admin: 02/02/20 08:11 Dose: 81 mg Documented by: [id number] Admin: 02/01/20 09:00 Dose: 81 mg Documented by: [id number] Bisacodyl (Dulcolax) 10 mg WA DAILY PRN PRN Reason: Constipation Stop: 02/27/20 13:42 Last Admin: 02/09/20 09:45 Dose: 10 mg Documented by: [id number] Admin: 01/30/20 22:34 Dose: 10 mg Documented by: [id number] Carvedilol (Coreg) 12.5 mg NG BID [facility] Stop: 03/10/20 08:59 Last Admin: 02/09/20 08:59 Dose: 12.5 mg Documented by: [id number] Enteral Nutritional Formula (Peptamen 1.5 Adriano) 1,000 ml PO UD BRITTANY; Protocol Stop: 02/28/20 18:29 Last Admin: 02/09/20 06:05 Dose: 1,000 ml Documented by: [id number] Admin: 02/06/20 21:58 Dose: 1,000 ml Documented by: [id number] Admin: 02/05/20 21:36 Dose: 1,000 ml Documented by: [id number] Admin: 02/04/20 18:47 Dose: 1,000 ml Documented by: [id number] Admin: 02/03/20 13:13 Dose: 1,000 ml Documented by: [id number] Admin: 02/02/20 06:46 Dose: 1,000 ml Documented by: [id number] Admin: 01/30/20 22:37 Dose: 1,000 ml Documented by: [id number] Admin: 01/29/20 21:15 Dose: 1,000 ml Documented by: [id number] Ferrous S[facility] (Feosol) [facility] Stop: 03/06/20 08:59 Last Admin: 02/09/20 08:58 Dose: 325 mg Documented by: [id number] Admin: 02/08/20 08:48 Dose: 325 mg Documented by: [id number] Admin: 02/07/20 08:04 Dose: 325 mg Documented by: [id number] Admin: 02/06/20 10:01 Dose: 325 mg Documented by: [id number] Admin: 02/05/20 09:11 Dose: 325 mg Documented by: [id number] Heparin Sodium (Beef Lung) (Heparin Sod 10 Unit/Ml Flush) 5 ml FLUSH PRN PRN PRN Reason: Flush Stop: 03/01/20 13:39 Last Admin: 02/09/20 14:18 Dose: 5 ml Documented by: [id number] Admin: 02/09/20 10:56 Dose: 5 ml Documented by: [id number] Admin: 02/08/20 13:25 Dose: 5 ml Documented by: [id number] Admin: 02/08/20 05:46 Dose: 5 ml Documented by: [id number] Admin: 02/07/20 22:52 Dose: 5 ml Documented by: [id number] Admin: 02/07/20 13:38 Dose: 5 ml Documented by: [id number] Admin: 02/07/20 06:02 Dose: 5 ml Documented by: [id number] Admin: 02/06/20 14:19 Dose: 5 ml Documented by: [id number] Admin: 02/06/20 07:22 Dose: 5 ml Documented by: [id number] Admin: 02/06/20 05:15 Dose: 5 ml Documented by: [id number] Admin: 02/05/20 15:38 Dose: 5 ml Documented by: [id number] Admin: 02/05/20 05:16 Dose: 5 ml Documented by: [id number] Admin: 02/05/20 04:59 Dose: 5 ml Documented by: [id number] Admin: 02/04/20 21:58 Dose: 5 ml Documented by: [id number] Admin: 02/04/20 14:02 Dose: 5 ml Documented by: [id number] Admin: 02/04/20 05:15 Dose: 5 ml Documented by: [id number] Admin: 02/03/20 13:16 Dose: 5 ml Documented by: [id number] Admin: 02/03/20 05:40 Dose: 5 ml Documented by: [id number] Admin: 02/02/20 21:53 Dose: 5 ml Documented by: [id number] Admin: 02/02/20 13:27 Dose: 5 ml Documented by: [id number] Admin: 02/02/20 06:48 Dose: 5 ml Documented by: [id number] Admin: 02/01/20 22:00 Dose: 5 ml Documented by: [id number] Heparin Sodium (Porcine) (Heparin Sodium (Porcine)) 5,000 units SQ Q12 [facility] Stop: 03/04/20 08:59 Last Admin: 02/09/20 09:13 Dose: 5,000 units Documented by: [id number] Cosigned by: [id number] Admin: 02/08/20 21:05 Dose: 5,000 units Documented by: [id number] Cosigned by: [id number] Admin: 02/08/20 09:02 Dose: 5,000 units Documented by: [id number] Cosigned by: [id number] Admin: 02/07/20 21:01 Dose: 5,000 units Documented by: [id number] Cosigned by: [id number] Admin: 02/07/20 08:13 Dose: 5,000 units Documented by: [id number] Cosigned by: [id number] Admin: 02/06/20 21:43 Dose: 5,000 units Documented by: [id number] Cosigned by: [id number] Admin: 02/06/20 10:08 Dose: 5,000 units Documented by: [id number] Cosigned by: [id number] Admin: 02/05/20 21:35 Dose: 5,000 units Documented by: [id number] Cosigned by: [id number] Admin: 02/05/20 09:10 Dose: 5,000 units Documented by: [id number] Cosigned by: [id number] Admin: 02/04/20 21:54 Dose: 5,000 units Documented by: [id number] Cosigned by: [id number] Admin: 02/04/20 08:24 Dose: 5,000 units Documented by: [id number] Cosigned by: [id number] Admin: 02/03/20 21:10 Dose: 5,000 units Documented by: [id number] Cosigned by: [id number] Admin: 02/03/20 09:20 Dose: 5,000 units Documented by: [id number] Cosigned by: [id number] Cefazolin Sodium (Ancef 2000mg) 2,000 mg in 15 mls @ 3.75 mls/min IV Q8 [facility]ANY; Protocol Stop: 03/12/20 13:59 Last Admin: 02/09/20 14:18 Dose: 3.75 mls/min Documented by: [id number] Admin: 02/09/20 05:52 Dose: 3.75 mls/min Documented by: [id number] Admin: 02/08/20 21:04 Dose: 3.75 mls/min Documented by: [id number] Admin: 02/08/20 13:25 Dose: 3.75 mls/min Documented by: [id number] Admin: 02/08/20 05:44 Dose: 3.75 mls/min Documented by: [id number] Admin: 02/07/20 22:50 Dose: 3.75 mls/min Documented by: [id number] Admin: 02/07/20 13:38 Dose: 3.75 mls/min Documented by: [id number] Admin: 02/07/20 05:50 Dose: 3.75 mls/min Documented by: [id number] Admin: 02/06/20 21:43 Dose: 3.75 mls/min Documented by: [id number] Admin: 02/06/20 14:19 Dose: 3.75 mls/min Documented by: [id number] Admin: 02/06/20 05:15 Dose: 3.75 mls/min Documented by: [id number] Admin: 02/05/20 21:36 Dose: 3.75 mls/min Documented by: [id number] Admin: 02/05/20 15:38 Dose: 3.75 mls/min Documented by: [id number] Admin: 02/05/20 05:16 Dose: 3.75 mls/min Documented by: [id number] Admin: 02/04/20 21:49 Dose: 3.75 mls/min Documented by: [id number] Admin: 02/04/20 14:00 Dose: 3.75 mls/min Documented by: [id number] Admin: 02/04/20 05:17 Dose: 3.75 mls/min Documented by: [id number] Admin: 02/03/20 21:36 Dose: 3.75 mls/min Documented by: [id number] Admin: 02/03/20 13:16 Dose: 3.75 mls/min Documented by: [id number] Admin: 02/03/20 05:29 Dose: 3.75 mls/min Documented by: [id number] Admin: 02/02/20 21:52 Dose: 3.75 mls/min Documented by: [id number] Admin: 02/02/20 13:26 Dose: 3.75 mls/min Documented by: [id number] Admin: 02/02/20 06:45 Dose: 3.75 mls/min Documented by: [id number] Admin: 02/01/20 21:20 Dose: 3.75 mls/min Documented by: [id number] Admin: 02/01/20 13:42 Dose: 3.75 mls/min Documented by: [id number] Admin: 02/01/20 05:11 Dose: 3.75 mls/min Documented by: [id number] Admin: 01/31/20 21:05 Dose: 3.75 mls/min Documented by: [id number] Admin: 01/31/20 13:40 Dose: 3.75 mls/min Documented by: [id number] Admin: 01/31/20 06:21 Dose: 3.75 mls/min Documented by: [id number] Admin: 01/30/20 22:34 Dose: 3.75 mls/min Documented by: [id number] Admin: 01/30/20 13:50 Dose: 3.75 mls/min Documented by: [id number] Lansoprazole (Prevacid) 30 mg NG QAM [facility] Stop: 03/10/20 08:59 Last Admin: 02/09/20 09:00 Dose: 30 mg Documented by: [id number] Lisinopril (Zestril) 2.5 mg PO QAM [facility] Stop: 03/07/20 08:59 Last Admin: 02/09/20 08:58 Dose: 2.5 mg Documented by: [id number] Admin: 02/08/20 08:48 Dose: 2.5 mg Documented by: [id number] Admin: 02/07/20 08:04 Dose: 2.5 mg Documented by: [id number] Admin: 02/06/20 10:01 Dose: 2.5 mg Documented by: [id number] Multivitamins/Minerals (Cerovite Liquid) 15 ml NG DAILY [facility] Stop: 03/03/20 08:59 Last Admin: 02/09/20 08:58 Dose: 15 ml Documented by: [id number] Admin: 02/08/20 08:48 Dose: 15 ml Documented by: [id number] Admin: 02/07/20 08:03 Dose: 15 ml Documented by: [id number] Admin: 02/06/20 10:01 Dose: 15 ml Documented by: [id number] Admin: 02/05/20 09:11 Dose: 15 ml Documented by: [id number] Admin: 02/04/20 07:46 Dose: 15 ml Documented by: [id number] Admin: 02/03/20 09:15 Dose: 15 ml Documented by: [id number] Admin: 02/02/20 08:12 Dose: 15 ml Documented by: [id number] Thiamine HCl (Vitamin B-1) 100 mg NG QAM [facility] Stop: 03/10/20 09:44 Last Admin: 02/09/20 11:00 Dose: 100 mg Documented by: [id number] Discontinued Medications Acetaminophen (Tylenol) 1,000 mg PO Q8 [facility] Stop: 02/27/20 14:29 Last Admin: 01/29/20 06:19 Dose: Not Given Documented by: [id number] Admin: 01/28/20 21:18 Dose: Not Given Documented by: [id number] Admin: 01/28/20 14:56 Dose: Not Given Documented by: [id number] Acetaminophen (Tylenol Soln) 650 mg NG Q6 PRN PRN Reason: Fever Stop: 02/29/20 04:22 Last Admin: 02/04/20 22:24 Dose: 650 mg Documented by: [id number] Admin: 01/30/20 04:55 Dose: 650 mg Documented by: [id number] Aspirin (Aspirin Chew) 81 mg NG [facility] Stop: 01/31/20 16:36 Last Admin: 01/31/20 16:38 Dose: 81 mg Documented by: [id number] Bacitracin (Bacitracin) Confirm Administered Dose 50,000 units .ROUTE .STK-MED ONE Stop: 01/28/20 07:21 Last Admin: 01/28/20 10:44 Dose: 50,000 units Documented by: [id number] Calcium Carbonate (Os-Adriano 500) 1,[facility] Stop: 02/28/20 08:59 Last Admin: 01/29/20 08:37 Dose: Not Given Documented by: [id number] Carvedilol (Coreg) 6.25 mg PO BID [facility] Stop: 03/01/20 20:59 Last Admin: 01/31/20 21:06 Dose: 6.25 mg Documented by: [id number] Carvedilol (Coreg) 6.25 mg PO [facility] Stop: 01/31/20 16:00 Last Admin: 01/31/20 16:39 Dose: 6.25 mg Documented by: [id number] Carvedilol (Coreg) 12.5 mg PO BID [facility] Stop: 03/02/20 08:59 Last Admin: 02/08/20 20:47 Dose: 12.5 mg Documented by: [id number] Admin: 02/08/20 08:48 Dose: 12.5 mg Documented by: [id number] Admin: 02/07/20 20:55 Dose: 12.5 mg Documented by: [id number] Admin: 02/07/20 08:04 Dose: 12.5 mg Documented by: [id number] Admin: 02/06/20 21:44 Dose: 12.5 mg Documented by: [id number] Admin: 02/06/20 10:06 Dose: 12.5 mg Documented by: [id number] Admin: 02/05/20 21:35 Dose: 12.5 mg Documented by: [id number] Admin: 02/05/20 09:11 Dose: 12.5 mg Documented by: [id number] Admin: 02/04/20 21:54 Dose: 12.5 mg Documented by: [id number] Admin: 02/04/20 07:46 Dose: 12.5 mg Documented by: [id number] Admin: 02/03/20 21:04 Dose: 12.5 mg Documented by: [id number] Admin: 02/03/20 09:15 Dose: 12.5 mg Documented by: [id number] Admin: 02/02/20 21:52 Dose: 12.5 mg Documented by: [id number] Admin: 02/02/20 08:11 Dose: 12.5 mg Documented by: [id number] Admin: 02/01/20 21:11 Dose: 12.5 mg Documented by: [id number] Admin: 02/01/20 09:00 Dose: 12.5 mg Documented by: [id number] Docusate Sodium (Colace) 100 mg PO BID [facility] Stop: 02/27/20 20:59 Last Admin: 01/29/20 08:36 Dose: Not Given Documented by: [id number] Admin: 01/28/20 21:18 Dose: Not Given Documented by: [id number] Enoxaparin Sodium (Lovenox) 30 mg SQ QAM [facility] Stop: 02/28/20 10:59 Last Admin: 02/02/20 08:12 Dose: 30 mg Documented by: [id number] Admin: 02/01/20 11:00 Dose: 30 mg Documented by: [id number] Admin: 01/30/20 08:57 Dose: 30 mg Documented by: [id number] Admin: 01/29/20 12:38 Dose: 30 mg Documented by: [id number] Gadobutrol (Gadavist 30ml) 3 ml IV ONCE PRN PRN Reason: Interaction Checking Stop: 02/07/20 12:49 Last Admin: 02/03/20 12:51 Dose: 3 ml Documented by: [id number] Gentamicin Sulfate (Garamycin) Confirm Administered Dose 240 mg .ROUTE .STK-MED ONE Stop: 01/28/20 06:36 Last Admin: 01/28/20 08:22 Dose: 240 mg Documented by: [id number] Ropivacaine 150 mg/Bupivacaine HCl 30 ml/Epinephrine HCl 0.15 mg/Ketorolac Tromethamine 30 mg/Dexamethasone 4 mg/ Ketamine HCl 10 mg/ Clonidine HCl 100 mcg/ Sodium Chloride 93.35 mls @ 0 mls/hr INFIL PREOP BRITTANY; Protocol Stop: 01/28/20 18:00 Last Admin: 01/28/20 08:22 Dose: Not Given Documented by: [id number] Lactated Ringer's (Lr) 1,000 mls @ 15 mls/hr IV .Q24H [facility] Stop: 01/29/20 05:59 Last Infusion: 01/28/20 07:00 Dose: 0 mls/hr Documented by: [id number] Admin: 01/28/20 05:42 Dose: 15 mls/hr Documented by: [id number] Lactated Ringer's (Lr) 1,000 mls @ 60 mls/hr IV .[id number] [facility] Stop: 01/28/20 22:39 Last Admin: 01/28/20 05:42 Dose: Not Given Documented by: [id number] Cefazolin Sodium (Ancef 2000mg) 2,000 mg in 15 mls @ 3.75 mls/min IV PREOP BRITTANY; Protocol Stop: 01/28/20 18:00 Last Admin: 01/28/20 07:38 Dose: 3.75 mls/min Documented by: [id number] Vancomycin HCl 750 mg/ Sodium (Chloride) 265 mls @ 250 mls/hr IV PREOP [facility]ANY Stop: 01/28/20 18:00 Last Infusion: 01/28/20 14:56 Dose: 0 mls/hr Documented by: [id number] Admin: 01/28/20 05:42 Dose: 250 mls/hr Documented by: [id number] Tranexamic Acid (Tranexamic Acid / 0.7% Nacl) 1,000 mg in 100 mls @ 600 mls/hr IV TODAY@0600 [facility] Stop: 01/28/20 18:00 Last Infusion: 01/28/20 07:10 Dose: 0 mls/hr Documented by: [id number] Admin: 01/28/20 07:00 Dose: 600 mls/hr Documented by: [id number] Sodium Chloride (Nss 1000ml) 1,000 mls @ 100 mls/hr IV .Q10H [facility]ITTANY Stop: 01/29/20 06:00 Last Infusion: 01/29/20 16:34 Dose: 0 mls/hr Documented by: [id number] Admin: 01/29/20 02:56 Dose: 100 mls/hr Documented by: [id number] Infusion: 01/29/20 02:53 Dose: 100 mls/hr Documented by: [id number] Infusion: 01/28/20 17:54 Dose: 100 mls/hr Documented by: [id number] Infusion: 01/28/20 15:50 Dose: 0 mls/hr Documented by: [id number] Admin: 01/28/20 14:49 Dose: 100 mls/hr Documented by: [id number] Tranexamic Acid (Tranexamic Acid / 0.7% Nacl) 1,000 mg in 100 mls @ 600 mls/hr IV Q6H [facility]ANY Stop: 01/28/20 17:24 Last Infusion: 01/28/20 17:53 Dose: 0 mls/hr Documented by: [id number] Admin: 01/28/20 17:28 Dose: 600 mls/hr Documented by: [id number] Piperacillin Sod/Tazobactam (Sod 4.5 gm/ Dextrose) 120 mls @ 30 mls/hr IV NOW STA; Protocol Stop: 01/28/20 18:34 Last Infusion: 01/28/20 18:33 Dose: 0 mls/hr Documented by: [id number] Admin: 01/28/20 14:48 Dose: 30 mls/hr Documented by: [id number] Vancomycin HCl 500 mg/ Sodium (Chloride) 260 mls @ 125 mls/hr IV Q12H [facility]ITTANY Stop: 01/30/20 15:59 Last Infusion: 01/30/20 06:21 Dose: 0 mls/hr Documented by: [id number] Admin: 01/30/20 04:03 Dose: 125 mls/hr Documented by: [id number] Infusion: 01/29/20 22:18 Dose: 0 mls/hr Documented by: [id number] Admin: 01/29/20 18:22 Dose: 125 mls/hr Documented by: [id number] Infusion: 01/29/20 06:00 Dose: 0 mls/hr Documented by: [id number] Admin: 01/29/20 03:49 Dose: 125 mls/hr Documented by: [id number] Infusion: 01/28/20 17:53 Dose: 0 mls/hr Documented by: [id number] Admin: 01/28/20 15:51 Dose: 125 mls/hr Documented by: [id number] Piperacillin Sod/Tazobactam (Sod 3.375 gm/ Dextrose) 115 mls @ 28.75 mls/hr IV Q8H BRITTANY; Protocol Stop: 01/30/20 19:59 Last Infusion: 01/30/20 08:37 Dose: 0 mls/hr Documented by: [id number] Admin: 01/30/20 04:04 Dose: 28.8 mls/hr Documented by: [id number] Infusion: 01/30/20 02:24 Dose: 0 mls/hr Documented by: [id number] Admin: 01/29/20 21:14 Dose: 28.8 mls/hr Documented by: [id number] Infusion: 01/29/20 16:34 Dose: 0 mls/hr Documented by: [id number] Admin: 01/29/20 12:38 Dose: 28.8 mls/hr Documented by: [id number] Infusion: 01/29/20 07:50 Dose: 0 mls/hr Documented by: [id number] Admin: 01/29/20 03:49 Dose: 28.8 mls/hr Documented by: [id number] Infusion: 01/29/20 01:20 Dose: 0 mls/hr Documented by: [id number] Admin: 01/28/20 21:18 Dose: 28.8 mls/hr Documented by: [id number] Potassium Chloride (K Smith / Wtr) 10 meq in 100 mls @ 100 mls/hr IV ONE ONE Stop: 01/30/20 05:14 Last Infusion: 01/30/20 06:11 Dose: 0 mls/hr Documented by: [id number] Admin: 01/30/20 04:43 Dose: 100 mls/hr Documented by: [id number] Magnesium Sulfate/Dextrose (Magnesium Sulfate / D5w) 1 gm in 100 mls @ 100 mls/hr IV ONE ONE Stop: 01/30/20 05:15 Last Infusion: 01/30/20 06:11 Dose: 0 mls/hr Documented by: [id number] Admin: 01/30/20 04:43 Dose: 100 mls/hr Documented by: [id number] Potassium Phosphate 21 mmol/ (Sodium Chloride) 507 mls @ 88 mls/hr IV ONE ONE Stop: 01/30/20 10:15 Last Infusion: 01/30/20 12:46 Dose: 0 mls/hr Documented by: [id number] Admin: 01/30/20 06:02 Dose: 88 mls/hr Documented by: [id number] Potassium Chloride (K Smith / Wtr) 10 meq in 100 mls @ 100 mls/hr IV 2000 ONE Stop: 01/30/20 20:59 Last Infusion: 01/30/20 21:21 Dose: 0 mls/hr Documented by: [id number] Admin: 01/30/20 19:58 Dose: 100 mls/hr Documented by: [id number] Furosemide 20 mg/ Syringe 2 mls @ 4 mls/min IV ONE ONE Stop: 01/31/20 10:16 Last Admin: 01/31/20 11:46 Dose: 4 mls/min Documented by: [id number] Potassium Phosphate 30 mmol/ (Sodium Chloride) 510 mls @ 102 mls/hr IV TODAY@1115 ONE Stop: 01/31/20 16:14 Last Infusion: 01/31/20 18:36 Dose: 0 mls/hr Documented by: [id number] Admin: 01/31/20 11:47 Dose: 102 mls/hr Documented by: [id number] Potassium Phosphate 9 mmol/ (Sodium Chloride) 253 mls @ 88 mls/hr IV ONE ONE Stop: 02/01/20 10:37 Last Infusion: 02/01/20 11:57 Dose: 0 mls/hr Documented by: [id number] Admin: 02/01/20 09:00 Dose: 88 mls/hr Documented by: [id number] Furosemide 20 mg/ Syringe 2 mls @ 4 mls/min IV TODAY@1245 ONE Stop: 02/05/20 12:46 Last Admin: 02/05/20 15:38 Dose: 4 mls/min Documented by: [id number] Sodium Chloride (Nss 1000ml) 1,000 mls @ 60 mls/hr IV .[id number] [facility]ITT[facility] Stop: 03/09/20 15:29 Last Infusion: 02/09/20 10:58 Dose: 0 mls/hr Documented by: [id number] Admin: 02/09/20 08:14 Dose: 60 mls/hr Documented by: [id number] Infusion: 02/09/20 08:14 Dose: 60 mls/hr Documented by: [id number] Infusion: 02/09/20 05:55 Dose: 60 mls/hr Documented by: [id number] Admin: 02/08/20 16:00 Dose: 60 mls/hr Documented by: [id number] Influenza Virus Vaccine (Fluzone High-Dose Pf) 0.5 ml IM .ONCE ONE Stop: 02/06/20 13:47 Last Admin: 02/08/20 21:53 Dose: Not Given Documented by: [id number] Ioversol (Optiray 320 125ml) 119 ml IV ONCE PRN PRN Reason: Interaction Checking Stop: 02/02/20 10:57 Last Admin: 01/29/20 10:58 Dose: 119 ml Documented by: [id number] Ketorolac Tromethamine (Toradol) 15 mg IV Q6H [facility] Stop: 01/29/20 09:01 Last Admin: 01/29/20 08:37 Dose: Not Given Documented by: [id number] Admin: 01/29/20 02:57 Dose: Not Given Documented by: [id number] Admin: 01/28/20 21:25 Dose: Not Given Documented by: [id number] Admin: 01/28/20 14:58 Dose: 15 mg Documented by: [id number] Mineral Oil (Muri-Lube Oil) Confirm Administered Dose 10 ml .ROUTE .STK-MED ONE Stop: 01/28/20 06:59 Last Admin: 01/28/20 08:25 Dose: 10 ml Documented by: [id number] Miscellaneous (Ortho Joint Anesthetic) Confirm Administered Dose 1 ea .ROUTE .STK-MED ONE Stop: 01/28/20 06:35 Last Admin: 01/28/20 08:22 Dose: Not Given Documented by: [id number] Miscellaneous Information (Orthopaedic Warfarin Sliding Scale) 1 ea N/A ANN-MARIE LY@1400 [facility]; Protocol Stop: 02/27/20 13:59 Last Admin: 01/28/20 17:22 Dose: Not Given Documented by: [id number] Multivitamins (Multivitamin Tab) 1 tab PO DAILY [facility] Stop: 02/28/20 08:59 Last Admin: 01/29/20 08:36 Dose: Not Given Documented by: [id number] Multivitamins/Minerals (Cerovite Liquid) 15 ml PO DAILY [facility] Stop: 03/01/20 08:59 Last Admin: 02/01/20 10:18 Dose: 15 ml Documented by: [id number] Admin: 01/31/20 08:42 Dose: 15 ml Documented by: [id number] Naloxone HCl (Narcan) Confirm Administered Dose 0.4 mg .ROUTE .STK-MED ONE Stop: 01/28/20 13:15 Last Admin: 01/28/20 14:55 Dose: Not Given Documented by: [id number] Potassium Chloride (Hillary Ciel Elix) 20 meq NG TID [facility] Stop: 03/03/20 09:59 Last Admin: 02/03/20 09:17 Dose: 20 meq Documented by: [id number] Admin: 02/02/20 21:52 Dose: 20 meq Documented by: [id number] Admin: 02/02/20 13:27 Dose: 20 meq Documented by: [id number] Admin: 02/02/20 10:32 Dose: 20 meq Documented by: [id number] Sennosides (Senokot) 17.2 mg PO HS [facility] Stop: 02/27/20 20:59 Last Admin: 01/28/20 21:18 Dose: Not Given Documented by: [id number] Vancomycin HCl (Vancomycin Hcl) Confirm Administered Dose 100 mg .ROUTE .[facility] Stop: 01/28/20 06:36 Last Admin: 01/28/20 08:24 Dose: 100 mg Documented by: [id number] Vitamin D (Vitamin D3) 400 units PO DAILY [facility] Stop: 02/28/20 08:59 Last Admin: 01/29/20 08:41 Dose: Not Given Documented by: [id number] Description This is a 21 electrode EEG with a single channel dedicated to limited EKG. The electrodes were placed in accordance with the International 10-20 system. History: 74 yo woman with AMS post-op Rx: n/a Start/Stop: 12:49pm/13:09pm Attending reading: Josephine Baeza EEG Description: EEG background: Background was symmetric admixed theta and alpha rhythm. A brief well formed 8-9 Hz posterior dominant rhythm was observed. The EEG is continuous. There is variability and reactivity present. Activation and reactivity: Photic stimulation performed without any abnormalities noted. No photic driving observed. Hyperventilation was not performed. Sleep: Patient was not drowsy and did not enter higher levels of sleep. Epileptiform discharges: No clear epileptiform discharges were observed within the constraints of the study given extent of muscle artifact. Rhythmic and periodic patterns: None Seizures: None Impression: This was a mildly abnormal EEG given mild generalized slowing that can be seen in many causes of toxic-metabolic encephalopathy, HIE or medication side effect. No seizures or epileptiform discharges were seen within the constraints of the study. [facility] Procedure Codes Indication for Procedure (1) Encephalopathy acute: (2) Septic hip: Neurology Neurology: 10975 EEG include record awake & drowsy
--- NOTE | 2020-02-09 16:44 | Hospitalist Progress Note ---
Date of Service February 09, 2020 Assessment & Plan (1) Altered level of consciousness: Improving slightly starting 02/04; secondary to multiple bilateral acute CVAs that occurred perioperatively Mild improvement since the operation but certainly an improvement since I last saw her on 01/31. 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 These findings explain ongoing AMS. EEG with non specific encephalopathy but no seizure. CT head (multiple) - no pathology or bleeding. LP w/o signs of infectious process. 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 IV cefazolin for total 6 weeks if pt's family elects to cont current care plan, started [01/27] stop date [03/09] PICC in place. (5) Acute blood loss anemia: Acute blood loss anemia from recent surgery. B12 and folate WNL. s/p 1 unit perioperatively, additional 1 unit [01/30] in light of elevated troponin and relative anemia, additional 1 unit [02/04] with Hgb 8.1 in setting of acute CVA. Continues to trend down, Hgb 8.6 today (?due to IV NSS given, now stopped) Repeat iron studies and reticulocyte count in AM to determine benefit from iron transfusions rather than repeat blood transfusions. Repeat FOB (initially negative on 01/30) -Continue to follow H&H daily (6) Spinal stenosis: s/p spinal surgery 12/08. (7) Hypertension: BPs controlled -Switch carvedilol to metoprolol succinate due to low normal BPs. -added on low dose lisinopril for CM as below (8) Pulmonary hypertension: severe - on initial echo. repeat echo showed resolution of such. (9) Elevated troponin: Trop peaked at 9, may have had an embolic event to the coronary arteries as per Cardio discussion Possible myocardial demand ischemia in setting of recent neurological event supportive care , no ischemic eval given current state of significant unresponsiveness Continue ASA 81mg PO daily (10) Cardiomyopathy: LVEF 30-35% with septal akinesis and apical hypokinesis. Possibly 2nd to Takotsubo, ACS felt less likely. Will switch carvedilol for metoprolol succinate in light of watershed infarcts and low normal BP. Appears euvolemic. Repeat ECHO in approximately 4 weeks. (11) Electrolyte abnormality: hypokalemia - resolved -follow BMP (12) Metabolic alkalosis: ABG noted, has primary metabolic alkalosis. Now off lasix should continue to improve. (13) DVT prophylaxis: Continue heparin 5000 BID Admission and Anticipated Discharge Date Admission Date: January 28, 2020 Continued inpatient stay due to NG feeds and until she is able to participate in PT/OT adequately enough for discharge. Subjective Patient awake and alert at lunch time when entered. Able to speak some words but with clear word finding difficulty. Denies any pain a this time. Unable to comprehend much that has happened to her or repeat what I have send therefore continues to lack capacity to make her own even basic decisions at this stage. Updated her daughter Haydee over the phone. Review of Systems Review of Systems: Unobtainable due to cognitive status Physical Exam Constitutional: + altered mental status; no acute distress and not lethargic Eyes: + anicteric sclerae and PERRL; normal pupil size ENMT: Mouth: + dry oral mucous membranes Neck: trachea midline Respiratory: normal respiratory effort; no respiratory distress, no labored breathing and does not use accessory muscles Auscultation: lungs clear to auscultation bilaterally and + diminished lung sounds (bases); no crackles, no rales, no rhonchi and no wheezes Cardiovascular: Rate/Rhythm: regular rate and regular rhythm Vessels: no JVD Extremities: normal capillary refill; no pedal edema and no edema Gastrointestinal (Abdomen): Inspection/Auscultation: abdomen normal to inspection and normal bowel sounds Percussion/Palpation: abdomen soft; abdomen nontender, no guarding and abdomen not rigid Skin: no rashes, warm and dry Neurologic: awake Comatose Patient: no decerebrate rigidity and no decorticate rigidity Inattention, does not follow fingers with eye movements on exam, flaccid LUE, moving toes b/l, flexor plantars b/l, Psychiatric: Orientation: alert and oriented to person (self); + not oriented to place and + not oriented to time Results & Data Results & Data ([facility]) Vital Signs (Past 12 Hours) Vital Signs Temp Pulse Resp BP Pulse Ox 02/09/20 15:53 36.9 C 80 18 116/64 96 02/09/20 07:08 36.7 C 79 18 120/68 100 PG Care Time/CCT Total # of Minutes Spent Total Time Spent with Patient: Total time spent is greater than 50% in coordination of care (as documented) at patient's floor/unit and/or counseling patient: Coding Level of Care Code 98953 Subseq Hosp Care Lvl 2 Diagnoses Altered level of consciousness R40.4 Acute CVA (cerebrovascular accident) I63.9 Encephalopathy acute G93.40 Septic hip M00.9 Acute blood loss anemia D62 Spinal stenosis M48.062 Neurogenic claudication status: with neurogenic claudication Spinal region: lumbar Hypertension I10 Hypertension type: essential hypertension Pulmonary hypertension I27.20 Elevated troponin R79.89 Cardiomyopathy I42.9 Cardiomyopathy type: unspecified Electrolyte abnormality E87.8 Metabolic alkalosis E87.3 DVT prophylaxis Z29.9 (1) Spinal stenosis Neurogenic claudication status: with neurogenic claudication Spinal region: lumbar Qualified Code(s): M48.062 - Spinal stenosis, lumbar region with neurogenic claudication (2) Hypertension Hypertension type: essential hypertension Qualified Code(s): I10 - Essential (primary) hypertension (3) Cardiomyopathy Cardiomyopathy type: unspecified Qualified Code(s): I42.9 - Cardiomyopathy, unspecified
[2020-02-09] MEDS: ONDANSETRON INJ 2 MG/ML 2 ML VIAL IV PRN (18:18)
[2020-02-10] MEDS: CEFAZOLIN 2000MG 2,000 MG/15 ML SYR IV SCH ×3 (06:12→21:26)
[2020-02-10 06:24] LABS: Hematocrit (blood only) 27.7 % (37-47); Hemoglobin 8.8 g/dL (12.0-16.0); Mean Corpuscular Hemoglobin 30.7 pg (25-34); Mean Corpuscular Hgb Conc 31.8 g/dL (32-36); Mean Corpuscular Volume 96.5 fL (80-100); Mean Platelet Volume 8.2 fL (7.4-10.4); Platelet Count 300 K/uL (130-400); RDW Coefficient of Variation 14.5 % (11.5-14.5); RDW Standard Deviation 51.5 fL (36.4-46.3); Red Blood Count 2.87 M/uL (4.2-5.4); Reticulocyte % 1.9 % (0.5-2.0); Reticulocytes # 0.05 10^6/uL (0.02-0.10); White Blood Count 6.15 K/uL (4.8-10.8)
[2020-02-10 06:59] LABS: BUN Creatinine Ratio 57.1 (10-20); C Reactive Protein 5.14 mg/dl (0-0.29); Calcium 8.7 mg/dl (8.5-10.1); Creatinine Clr Calc Pharmacy 87.6 ml/min; Est GFR (African American) 120.8; Est GFR (Non-African American) 104.2; Magnesium 2.2 mg/dl (1.8-2.4); Potassium 3.8 mmol/L (3.5-5.1)
[2020-02-10 07:05] LABS: Phosphorus 3.1 mg/dl (2.5-4.9)
--- NOTE | 2020-02-10 08:17 | Progress Notes ---
DATE: 02/10/2020 SUBJECTIVE: Postop day 12 status post extensive hip surgery as previously documented. The patient is sitting up in bed, clearly moving both lower extremities, actively right arm and trace in the left arm. She denies any pain. She denies any headache. She denies any fever or chills. OBJECTIVE: Vital signs are stable. She is afebrile. Neurovascular check reveals that she moves right arm and leg well. Left leg is improving nicely. The left arm is starting to move actively under command as well and has markedly improved from yesterday. Her facial appearance is excellent. She states she is hungry. Laboratory work is stable. ASSESSMENT: Overall, doing markedly better. Will need to be considered for rehabilitation facility such as [facility] or equivalent. She needs to be strict nonweightbearing on the right lower extremity due to the cement spacer. Needs to have precautions for hip, needs to keep the hip abductor pillow in place to minimize risk for dislocation of the spacer. We will consider staple removal in the next 48 hours, potentially prior to any transfer. It is unclear whether or not she has had any significant oral calories; however, that decision needs to be made soon so that we can maximize healing and infection control potentials. Discussed with Luis Jhaveri this morning.
[2020-02-10] MEDS: LANSOPRAZOLE 30 MG SOLTAB NG SCH (09:19)
[2020-02-10] MEDS: THIAMINE HCL 100 MG TAB NG SCH (09:21)
[2020-02-10] MEDS: CYANOCOBALAMIN (VITAMIN B-12) 100 MCG TABLET PO SCH (09:22)
[2020-02-10] MEDS: FERROUS SULFATE 325 MG/7.4 ML UDP NG SCH (09:27)
[2020-02-10] MEDS: MULTI VIT W/MINERALS LIQUID 15 ML UDP NG SCH (09:36)
[2020-02-10] MEDS: ASPIRIN 81 MG CHEW NG SCH (09:42)
[2020-02-10] MEDS: METOPROLOL SUCC 50MG EXT REL TAB PO SCH (09:44)
[2020-02-10] MEDS: HEPARIN SOD 5,000 UNIT/0.5 ML VIAL SQ SCH ×2 (09:51→21:26)
--- NOTE | 2020-02-10 14:46 | Palliative Care Progress Note ---
Date of Service February 10, 2020 Assessment & Plan (1) Goals of care, counseling/discussion: -Ms. Jhaveri is now day #12 post-op for sepsis and revision of right hip. Her mental status is improving daily. -MRI obtained on 02/02, shows numerous areas of punctate foci of acute/subacute ischemia bilaterally-- indicated watershed effect. Family is in agreement that they DO WANT PEG tube placed -this will likely not be needed as patient is able to take p.o. without difficulty. -Patient is making progress daily and cognitive function-will benefit from inpatient rehab therapies for her remaining significant physical and cognitive deficits -Patient is DNR/DNI. Continue with supportive care. -Will continue to follow and provide support to family and assist with medical decision making. (2) Altered level of consciousness: (3) Septic hip: (4) Cardiomyopathy: (5) Encephalopathy acute: Subjective Patient awake and alert, no acute distress. Patient able to answer simple questions verbally. Patient's speech is improving. Patient was evaluated by [facility] P-patient able to take p.o.-patient insisting on feeding herself. Patient still with significant expressive aphasia-patient stated she had 2 children and that they both live in [place]-neither of her children live in [place]. Patient's NG tube was removed. Patient had an EEG that showed mild generalized slowing, no focal seizure activity. Patient with significant improvement in the past 24 hours-goal is for patient to go to rehab when medically stable. Review of Systems Review of Systems: ROS limited due to patient's cognitive deficits Patient denied pain, fever, chills, chest pain, shortness of breath, or abdominal pain She did report mild pain with movement of her right lower extremity. Physical Exam Physical Exam: PE: Patient awake, more alert, verbal on exam earlier this afternoon HEENT: EOMI, hearing within normal limits Respirations: Unlabored, clear breath sounds CV: Regular rate, no edema Abdomen: Soft, nontender Extremities: Left upper extremity weakness primarily convex grinder strength, able to flex both lower extremities at ankle, abduction wedge in place Neuro: Improving Results & Data Vital Signs (Past 12 Hours) Vital Signs Temp Pulse Resp BP Pulse Ox 02/10/20 09:18 79 123/71 02/10/20 07:25 98.1 F 69 16 128/71 97 PG Care Time/CCT Total # of Minutes Spent Total Time Spent with Patient: Total time spent 35 minutes with greater than 50% of the time spent at bedside assessing patient's current status and in coordination of care (as documented) at patient's floor/unit Coding Level of Care Code 06257 Subseq Hosp Care Lvl 3 Diagnoses Goals of care, counseling/discussion Z71.89 Altered level of consciousness R40.4 Septic hip M00.9 Cardiomyopathy I42.9 Cardiomyopathy type: unspecified Encephalopathy acute G93.40 Time Spent (min) 35 (1) Cardiomyopathy Cardiomyopathy type: unspecified Qualified Code(s): I42.9 - Cardiomyopathy, unspecified
--- NOTE | 2020-02-10 15:57 | Hospitalist Progress Note ---
Date of Service February 10, 2020 Assessment & Plan (1) Altered level of consciousness: Encouraging continued daily improvement since 02/04, especially with RUE strength, alertness and ability to swallow. Secondary to multiple bilateral acute CVAs that occurred perioperatively. HIE vs toxic-metabolic encephalopathy with watershed infarcts. No evidence of fat embolism on MRI. EEG with non specific encephalopathy but no seizure. CT head (multiple) - no pathology or bleeding. LP w/o signs of infectious process. (2) Acute CVA (cerebrovascular accident): Continue ASA 81mg daily No indication for anticoagulation at this time, remains RRR NG tube removed, tolerating oral feeding at this time (3) Encephalopathy acute: as above (4) Septic hip: s/p exchange arthroplasty and Prostalac spacer placed on 01/[address] Fagan. IV cefazolin for total 6 weeks if pt's family elects to cont current care plan, started [01/27] stop date [03/09] PICC in place. (5) Acute blood loss anemia: Acute blood loss anemia from recent surgery. B12 and folate WNL. Iron studies now WNL. s/p 1 unit perioperatively, additional 1 unit [01/30] in light of elevated troponin and relative anemia, additional 1 unit [02/04] with Hgb 8.1 in setting of acute CVA. Will change to Q2D blood draws to reduce blood loss from this. Reassuringly her reticulocyte count is normal. (6) Spinal stenosis: s/p spinal surgery 12/08 (7) Hypertension: BPs controlled -Continue metoprolol succinate 100 mg PO daily -Continue low dose lisinopril 2.5mg PO daily (8) Pulmonary hypertension: severe - on initial echo. repeat echo showed resolution of such. (9) Elevated troponin: Trop peaked at 9, may have had an embolic event to the coronary arteries as per Cardio discussion Possible myocardial demand ischemia in setting of recent neurological event supportive care , no ischemic eval given current state of significant unresponsiveness Continue ASA 81mg PO daily (10) Cardiomyopathy: LVEF 30-35% with septal akinesis and apical hypokinesis. Possibly 2nd to Takotsubo, ACS felt less likely. Continue metoprolol succinate and lisinopril as above. Continues to appear euvolemic. Repeat ECHO in approximately 4 weeks. (11) Electrolyte abnormality: Resolved at this time. Continue to monitor BMP, Mg, PO; Q2D (12) DVT prophylaxis: Switch heparin to Lovenox to minimize injection burden Admission and Anticipated Discharge Date Admission Date: January 28, 2020 Subjective Patient awake and alert. NG tube came out last night and not re-inserted as patient was eating > 50% of her meals. Today she was apparently able to feed herself using her right arm. Able to appropriately answers some questions but still with word finding difficulty and general confusion. Denies any pain a this time. Continues to lack capacity to make her own even basic decisions at this stage as lacks ability to retain and weigh up information given to her. Review of Systems Review of Systems: Unobtainable due to cognitive status Physical Exam Constitutional: well developed, well nourished and + altered mental status (generalized confusion); no acute distress Eyes: + anicteric sclerae and PERRL; normal pupil size ENMT: Mouth: + dry oral mucous membranes (white coating of tongue not present elsewhere in her mouth) Neck: trachea midline Respiratory: normal respiratory effort; no respiratory distress, no labored breathing and does not use accessory muscles Auscultation: lungs clear to auscultation bilaterally; no crackles, no rales, no rhonchi and no wheezes Cardiovascular: Rate/Rhythm: regular rate and regular rhythm Heart Sounds: no murmur Vessels: no JVD Extremities: normal capillary refill; no pedal edema Gastrointestinal (Abdomen): Inspection/Auscultation: abdomen normal to inspection and normal bowel sounds Percussion/Palpation: abdomen soft; abdomen nontender, no guarding and abdomen not rigid Skin: no rashes, warm and dry Neurologic: moves all extremities, + focal motor deficit (limited probation agent of LUE otherwise flaccid, 4/5 strength RUE), awake and + confused Speech / Cognition: + expressive aphasia; no receptive aphasia Motor/Sensory: no tremor Cranial Nerves: PERRL, EOM intact bilaterally (good tracking today, denies diplopia), normal facial strength, tongue midline, able to rotate head bilaterally, able to elevate shoulders bilaterally and no nystagmus Comatose Patient: no decerebrate rigidity and no decorticate rigidity Psychiatric: Orientation: alert and oriented to person (self); + not oriented to place and + not oriented to time Results & Data Results & Data ([facility]) Vital Signs (Past 12 Hours) Vital Signs Temp Pulse Pulse Resp BP Pulse Ox 02/10/20 15:15 36.7 C 64 16 127/71 96 02/10/20 09:18 79 123/71 02/10/20 07:25 36.7 C 69 16 128/71 97 PG Care Time/CCT Total # of Minutes Spent Total Time Spent with Patient: Total time spent is greater than 50% in coordination of care (as documented) at patient's floor/unit and/or counseling patient: Coding Level of Care Code 19730 Subseq Hosp Care Lvl 2 Diagnoses Altered level of consciousness R40.4 Acute CVA (cerebrovascular accident) I63.9 Encephalopathy acute G93.40 Septic hip M00.9 Acute blood loss anemia D62 Spinal stenosis M48.062 Spinal region: lumbar Neurogenic claudication status: with neurogenic claudication Hypertension I10 Hypertension type: essential hypertension Pulmonary hypertension I27.20 Elevated troponin R79.89 Cardiomyopathy I42.9 Cardiomyopathy type: unspecified Electrolyte abnormality E87.8 DVT prophylaxis Z29.9 (1) Spinal stenosis Spinal region: lumbar Neurogenic claudication status: with neurogenic claudication Qualified Code(s): M48.062 - Spinal stenosis, lumbar region with neurogenic claudication (2) Hypertension Hypertension type: essential hypertension Qualified Code(s): I10 - Essential (primary) hypertension (3) Cardiomyopathy Cardiomyopathy type: unspecified Qualified Code(s): I42.9 - Cardiomyopathy, unspecified
[2020-02-10] MEDS ORDERED: ACETAMINOPHEN 325 MG TAB PO PRN (16:02)
[2020-02-10] MEDS: NYSTATIN SUSP 500,000 U/5 ML UDC PO SCH ×2 (16:27→21:26)
[2020-02-11] MEDS: CEFAZOLIN 2000MG 2,000 MG/15 ML SYR IV SCH ×3 (06:03→21:19)
--- NOTE | 2020-02-11 07:40 | Progress Notes ---
DATE: 02/11/2020 SUBJECTIVE: Postop day #13, hospital admission 14 status post complex right hip procedure as documented previously. The patient is sitting up in bed, is comfortable. She has no pain. She denies any chest pain, shortness of breath, fever, chills, nausea, vomiting or headache. OBJECTIVE: Vital signs are stable. She is afebrile. Wound is clean and dry. Detailed neurologic examination reveals all 4 extremities have intact neurologic function. Left upper extremity remains lagging behind the other in the sense of overall excursion and strength. Can picker and sorter load and unload her hands easily to her face bilaterally. Wound is clean and dry. Neurovascular check distally in the right reveals intact sciatic nerve function both deep and superficial peroneal. Gentle range of motion is pain free. ASSESSMENT: At this point in time, will take marvin out and place Steri-Strips on. She will continue her IV antibiotic management for infection. She is continuing to eat. Looks like at this point in time, the PEG tube will not be necessary. She continues to get adequate caloric intake. Transferred to rehab is okay from orthopedic perspective. Transfer per hospitalists and rehabilitation. Discussed with family, contact Luis Jhaveri.
[2020-02-11] MEDS: ASPIRIN 81 MG ECTAB PO SCH (09:17)
[2020-02-11] MEDS: NYSTATIN SUSP 500,000 U/5 ML UDC PO SCH ×4 (09:17→21:19)
[2020-02-11] MEDS: CEROVITE ADV FORMULA TAB PO SCH (09:17)
[2020-02-11] MEDS: METOPROLOL SUCC 50MG EXT REL TAB PO SCH (09:18)
[2020-02-11] MEDS: CYANOCOBALAMIN (VITAMIN B-12) 100 MCG TABLET PO SCH (09:24)
[2020-02-11] MEDS: THIAMINE HCL 100 MG TAB NG SCH (09:25)
[2020-02-11] MEDS: HEPARIN SOD 5,000 UNIT/0.5 ML VIAL SQ SCH ×2 (09:26→21:20)
--- NOTE | 2020-02-11 11:06 | Orthopedic Progress Note ---
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 Anticipate transfer to [facility] tomorrow-spoke with Medicine and psychosocial rehabilitation counselor this morning Continue total hip precautions Continue NWB status on R leg Continue PT/OT Continue IV Abx for a full 6 week treatment Admission and Anticipated Discharge Date Admission Date: January 28, 2020 Subjective patient is seen in her room this morning. Sitting up, eating breakfast. Lightly conversive. Has no complaints. Physical Exam Physical Exam: General: Thin, elderly female, feeding herself. Follows commands. Flat affect. Musculoskeletal: Right hip incision looks very good. No ecchymosis, edema, redne ss, or warmth. [place] intact with a well healed wound. No drainage. Neuro: sensation intact to the lower extremities by soft touch. Weak LUE. Results & Data ([facility]) Vital Signs (Past 12 Hours) Vital Signs Temp Pulse Pulse Resp BP Pulse Ox 02/11/20 06:50 36.6 C 60 18 145/76 H 97 02/10/20 23:16 36.7 C 62 20 146/72 H 99 Laboratory Results Sed rate yesterday was 74.
[2020-02-11] MEDS: SIMETHICONE 80 MG CHEW PO PRN ×2 (17:01→23:55)
--- NOTE | 2020-02-11 18:37 | Hospitalist Progress Note ---
Date of Service February 11, 2020 Assessment & Plan (1) Altered level of consciousness: Encouraging continued daily improvement since 02/04, now moving both upper extremities but clearly right > left sided. Eating by herself and now orientated x3. HIE vs toxic-metabolic encephalopathy with watershed infarcts vs. slow re- emergence from anesthesia given low BMI in setting of septic hip. No evidence of fat embolism on MRI. EEG with non specific encephalopathy but no seizure. CT head (multiple) - no pathology or bleeding. LP w/o signs of infectious process. Blood cultures were negative however these were taken after perioperative antibiotics and I am concerned the hip became infected due to MSSA bacteremia and the hardware is likely compromised in her back. Unable to perform much of a neurological exam to assess this. As above LP negative for infection. Since an epidural abscess would private branch exchange service adviser discussed case with Dr Brian and advised to get MRI lumbar spine without contrast for baseline. Doubtful of any abscess since her blood cultures would have been persistently positive but given risk of recurrence of MSSA after antibiotics stopped due to hardware in back this would be useful as a baseline regardless. (2) Acute CVA (cerebrovascular accident): Watershed infarcts on MRI; cannot rule out embolus. Continue ASA 81mg daily No indication for anticoagulation at this time, remains RRR Discussed with Dr Baeza, will repeat HbA1C and lipid panel but unlikely to private branch exchange service adviser, would not recommend statin at this time given potential side effect of myalgias which could significantly impact her rehabilitation and no atherosclerotic disease on imaging. (3) Encephalopathy acute: as above (4) Septic hip: s/p exchange arthroplasty and Prostalac spacer placed on 01/[address] Dalton. IV cefazolin for total 6 weeks, started [01/27] stop date [03/09]. Course can be completed outside of hospital. Recommend repeat blood cultures to be taken 1 week after finishing antibiotics or any deterioration of mental state given risk of recurrence PICC in place. (5) Acute blood loss anemia: Acute blood loss anemia from recent surgery. B12 and folate WNL. Iron studies now WNL. Reticulocyte count normal. s/p 3 units during admission. Recommend repeating CBC 1 week after discharge. (6) Spinal stenosis: s/p spinal surgery 12/[address] discussed with Dr Brian. Will get MRI of lumbar spine without contrast. (7) Hypertension: BPs controlled -Continue metoprolol succinate 100 mg PO daily -Continue low dose lisinopril 2.5mg PO daily (8) Pulmonary hypertension: severe - on initial echo. repeat echo showed resolution of such. (9) Elevated troponin: Trop peaked at 9, may have had an embolic event to the coronary arteries as per Cardio discussion Possible myocardial demand ischemia in setting of recent neurological event supportive care , no ischemic eval given current state of significant unresponsiveness Continue ASA 81mg PO daily Will have cardiology sign off prior to discharge. Does not need cardiac cath in light of currently treating for septic hip but possible need for repeat imaging and certainly will need follow up. (10) Cardiomyopathy: LVEF 30-35% with septal akinesis and apical hypokinesis. Possibly 2nd to Takotsubo, ACS felt less likely. Continue metoprolol succinate and lisinopril as above. Continues to appear euvolemic. Will have cardiology see prior to discharge. (11) Electrolyte abnormality: Resolved at this time. Continue to monitor BMP, Mg, PO; Q2D (12) DVT prophylaxis: Heparin 5000 units Q12H Admission and Anticipated Discharge Date Admission Date: January 28, 2020 Pending labs in the morning being stable she can likely be discharged to rehabilitation tomorrow if bed is available. Anticipated date of discharge: 02/12/20 Subjective Patient able to have a full conversation. Still remains confused about recent events and . Review of Systems Review of Systems: All systems reviewed & are unremarkable except as noted in HPI & below Physical Exam Constitutional: well developed, well nourished and + altered mental status (improving generalized confusion); no acute distress Eyes: + anicteric sclerae; normal pupil size ENMT: external ear and nose normal, oropharynx normal Neck: trachea midline Respiratory: normal respiratory effort; no respiratory distress, no labored breathing and does not use accessory muscles Auscultation: lungs clear to auscultation bilaterally; no crackles, no rales, no rhonchi and no wheezes Cardiovascular: Rate/Rhythm: regular rate and regular rhythm Heart Sounds: no murmur Vessels: no JVD Extremities: normal capillary refill; no pedal edema Gastrointestinal (Abdomen): Inspection/Auscultation: abdomen normal to inspection and normal bowel sounds Percussion/Palpation: abdomen soft; abdomen nontender, no guarding and abdomen not rigid Neurologic: moves all extremities, + focal motor deficit (improving LUE strength 3/5, RUE 4/5), awake and + confused Speech / Cognition: + expressive aphasia (much improved); no receptive aphasia Motor/Sensory: no tremor Cranial Nerves: EOM intact bilaterally, normal facial strength and no nystagmus Comatose Patient: no decerebrate rigidity and no decorticate rigidity Psychiatric: Orientation: alert, oriented to person (self), oriented to place and oriented to time (year and month) Results & Data Results & Data ([facility]) Vital Signs (Past 12 Hours) Vital Signs Temp Pulse Resp BP Pulse Ox 02/11/20 16:22 36.8 C 63 17 126/76 98 02/11/20 06:50 36.6 C 60 18 145/76 H 97 PG Care Time/CCT Total # of Minutes Spent Total Time Spent with Patient: Total time spent is greater than 50% in coordination of care (as documented) at patient's floor/unit and/or counseling patient: Coding Level of Care Code 74157 Subseq Hosp Care Lvl 2 Diagnoses Altered level of consciousness R40.4 Acute CVA (cerebrovascular accident) I63.9 Encephalopathy acute G93.40 Septic hip M00.9 Acute blood loss anemia D62 Spinal stenosis M48.062 Neurogenic claudication status: with neurogenic claudication Spinal region: lumbar Hypertension I10 Hypertension type: essential hypertension Pulmonary hypertension I27.20 Elevated troponin R79.89 Cardiomyopathy I42.9 Cardiomyopathy type: unspecified Electrolyte abnormality E87.8 DVT prophylaxis Z29.9 (1) Spinal stenosis Neurogenic claudication status: with neurogenic claudication Spinal region: lumbar Qualified Code(s): M48.062 - Spinal stenosis, lumbar region with neurogenic claudication (2) Hypertension Hypertension type: essential hypertension Qualified Code(s): I10 - Essential (primary) hypertension (3) Cardiomyopathy Cardiomyopathy type: unspecified Qualified Code(s): I42.9 - Cardiomyopathy, unspecified
--- NOTE | 2020-02-11 21:57 | Magnetic Resonance Report ---
LUMBAR SPINE MRI HISTORY: Back pain. MSSA, possible bacteremia ?epidural abscess TECHNIQUE: Multiplanar multisequence MRI of the lumbar spine was performed without the use of contras t. COMPARISON: Lumbar spine MRI 11/28/2019. FINDINGS: For the purpose of the report the L5-S1 disc space will be located on axial image 24 of 34. Mild dextroscoliosis. Interval posterior decompression fusion from L4 through S1 with pedicle screws and rods. Mild to moderate disc space narrowing throughout the lower thoracic and lumbar spine is aga in noted. The conus terminates at the L1-L2 disc space level. There are 2 gallstones with the largest measuring 13 mm. No paravertebral or epidural fluid collections identified on this noncontrast study . Motion artifact results in suboptimal evaluation. [id number]-tizlbckk facet degenerative changes throu ghout the lumbar spine. There is subcutaneous and soft tissue edema posterior to the laminectomy site s which favors postoperative change. There is a 3.0 x 2.0 x 1.0 cm septated fluid collection at the l aminectomy sites. This has the typical appearance for a postoperative seroma. A pseudomeningocele or abscess could also have a similar appearance but are considered less likely. No fracture or subluxati on within the lumbar spine. Mild presacral edema is noted. No erosive changes to suggest a discitis/o steomyelitis. There are disc spaces at L4-5 and L5-S1 which appear in good position. L1-L2: Small broad-based posterior disc bulge resulting in minimal central canal narrowing. There is mild left-sided neural foraminal narrowing. L2-L3: Small broad-based posterior disc bulge with ligamentum and facet hypertrophy resulting in mild central canal narrowing. There is mild right and moderate left neural foraminal narrowing. L3-L4: Broad-based posterior disc bulge with mild central canal narrowing. There is mild right and mo derate left neural foraminal narrowing. 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 Mild to moderate bilateral neural foraminal narrowing. L5-S1: No significant central canal narrowing due to the posterior decompression. Severe right and mi ld left neural foraminal narrowing. IMPRESSION: 1. Interval posterior decompression and fusion from L4 through S1. 2. There is a 3.0 x 2.0 x 1.2 cm septated fluid collection at the laminectomy sites. This has the typ ical appearance for postoperative seroma. A pseudomeningocele or abscess could also have a similar ap pearance but are considered less likely. 3. Degenerative changes as described above. 4. Mild dextroscoliosis. 5. Cholelithiasis. 6. Mild presacral edema. ACT 112: Negative or not required by law. Electronically signed by: Jules Wang M.D. 02/11/2020 9:56 PM
[2020-02-12] MEDS: CEFAZOLIN 2000MG 2,000 MG/15 ML SYR IV SCH ×3 (05:37→21:42)
[2020-02-12 06:11] LABS: Basophils # (auto) 0.02 K/uL (0-0.2); Basophils % (auto) 0.3 %; Eosinophils # (auto) 0.08 K/uL (0-0.5); Eosinophils % (auto) 1.3 %; Hemoglobin 9.4 g/dL (12.0-16.0); Immature Granulocytes # (auto) 0.01 K/uL (0.00-0.02); Immature Granulocytes % (auto) 0.2 %; Lymphocytes # (auto) 1.19 K/uL (1.2-3.4); Lymphocytes % (auto) 19.4 %; Mean Corpuscular Hemoglobin 30.6 pg (25-34); Mean Corpuscular Hgb Conc 31.3 g/dL (32-36); Mean Corpuscular Volume 97.7 fL (80-100); Mean Platelet Volume 8.6 fL (7.4-10.4); Monocytes # (auto) 0.53 K/uL (0.11-0.59); Monocytes % (auto) 8.6 %; Neutrophils % (auto) 70.2 %; Platelet Count 369 K/uL (130-400); RDW Coefficient of Variation 14.5 % (11.5-14.5); RDW Standard Deviation 51.6 fL (36.4-46.3); Red Blood Count 3.07 M/uL (4.2-5.4); White Blood Count 6.13 K/uL (4.8-10.8)
[2020-02-12 06:57] LABS: Estimated Average Glucose 100 mg/dl; Hemoglobin A1C 5.1 % (4.5-5.6)
[2020-02-12 07:08] LABS: BUN Creatinine Ratio 60.7 (10-20); Calcium 8.7 mg/dl (8.5-10.1); Creatinine Clr Calc Pharmacy 81.4 ml/min; Est GFR (African American) 117.9; Est GFR (Non-African American) 101.7; Magnesium 2.3 mg/dl (1.8-2.4); Potassium 3.4 mmol/L (3.5-5.1)
[2020-02-12 07:10] LABS: Phosphorus 2.8 mg/dl (2.5-4.9)
[2020-02-12] MEDS ORDERED: POTASSIUM CHLORIDE 20 MEQ TABCR PO STA (07:50)
--- NOTE | 2020-02-12 08:04 | Progress Notes ---
DATE: 02/12/2020 SUBJECTIVE: Postop day 14, extensive hip procedure as previously documented. At this point in time, the patient is sitting up in bed. She recently just had a cardiac echo for followup. She states that she is quite hungry "starving." She denies any chest pain, shortness of breath, fever, chills, nausea, vomiting, or headache. OBJECTIVE: Vital signs are stable. She is afebrile. Hematocrit stable at 30. White count is good, in the 6 range. Detailed neurologic examination reveals all 4 extremities move. She has increasing left upper extremity strength as well. Facial expressions and cranial nerves all functioning well. Wound clean and dry. Legs normally sit in internal rotation, it has been her baseline even prior to her initial procedure. Wound clean and dry. No sign of any collections, no real pain to surface touch. Has some minor tenderness over the incision. No drainage. Hip is located. Sciatic nerve functioning bilaterally. ASSESSMENT AND PLAN: Overall stable from orthopedic perspective. Laboratory work looks good today. Will await cardiac echo results and then potential transfer to [facility] today. She needs to be strict nonweightbearing on the right lower extremity until further notice. Needs continued treatment for septic excisional arthroplasty of right total hip replacement. Will need followup in the office in roughly 3-4 weeks.
[2020-02-12] MEDS: NYSTATIN SUSP 500,000 U/5 ML UDC PO SCH ×4 (08:37→21:42)
[2020-02-12] MEDS: CEROVITE ADV FORMULA TAB PO SCH (08:37)
[2020-02-12] MEDS: THIAMINE HCL 100 MG TAB NG SCH (08:38)
[2020-02-12] MEDS: CYANOCOBALAMIN (VITAMIN B-12) 100 MCG TABLET PO SCH (08:38)
[2020-02-12] MEDS: METOPROLOL SUCC 50MG EXT REL TAB PO SCH (08:38)
[2020-02-12] MEDS: ASPIRIN 81 MG ECTAB PO SCH (08:39)
[2020-02-12] MEDS: HEPARIN SOD 5,000 UNIT/0.5 ML VIAL SQ SCH ×2 (08:39→21:42)
--- NOTE | 2020-02-12 09:51 | XCELERA ---
[id number] \\[id number]\[id number]
--- NOTE | 2020-02-12 12:21 | Cardiology Progress Note ---
Date of Service February 12, 2020 Assessment & Plan (1) Cardiomyopathy: Suspect she experience a stress-induced cardiomyopathy. Fortunately, ejection fraction has normalized. There are no wall motion abnormalities. (2) Elevated troponin: Likely related to her acute decompensation just following her surgery. No further evaluation at this time. (3) LVH (left ventricular hypertrophy): Mild in degree on her current echocardiogram. Admission and Anticipated Discharge Date Admission Date: January 28, 2020 Anticipated date of discharge: 02/12/20 Subjective The patient denies chest pain and dyspnea. Physical Exam Physical Exam: In general this is a well-developed well-nourished female in no acute distress. HEENT exam is negative. Neck is supple with full carotid upstrokes. There are no carotid bruits. Jugular venous pressure is flat at 90. There is no thyromegaly. Cardiovascular exam reveals a regular rhythm with a normal S1 and S2. No S3, S4, or murmurs are noted. Lungs are clear without rales, rhonchi, or wheezes. Abdomen is soft and nontender without bruits. Extremities reveal intact radial artery pulses bilaterally. There is no peripheral edema. Results & Data ([facility]) Vital Signs (Past 12 Hours) Vital Signs Temp Pulse Resp BP Pulse Ox 02/12/20 06:58 36.9 C 58 L 18 129/73 99 Diagnostic Findings Echocardiogram notes low-normal systolic function with ejection fraction of 50- 55%. There are no wall motion abnormalities. There is mild LVH. PG Care Time/CCT Total # of Minutes Spent Total Time Spent with Patient: Total time spent is greater than 50% in coordination of care (as documented) at patient's floor/unit and/or counseling patient: Coding Level of Care Code 65029 Subseq Hosp Care Lvl 3 Diagnoses Cardiomyopathy I42.9 Cardiomyopathy type: unspecified Elevated troponin R79.89 LVH (left ventricular hypertrophy) I51.7 (1) Cardiomyopathy Cardiomyopathy type: unspecified Qualified Code(s): I42.9 - Cardiomyopathy, unspecified
--- NOTE | 2020-02-12 12:38 | Hospitalist Progress Note ---
Date of Service February 12, 2020 Assessment & Plan (1) Altered level of consciousness: Continues to have aging continued daily improvement since 02/04. HIE vs toxic-metabolic encephalopathy with watershed infarcts vs. slow re- emergence from anesthesia given low BMI in setting of septic hip. No evidence of fat embolism on MRI. EEG with non specific encephalopathy but no seizure. CT head (multiple) - no pathology or bleeding. LP w/o signs of infectious process. (2) Acute CVA (cerebrovascular accident): Watershed infarcts on MRI; cannot rule out embolus. No indication for anticoagulation at this time, remains RRR Deferred statin due to concern for myalgia in setting of needing intensive rehabilitation (prior leg pain with Crestor) and no atherosclerotic disease on imaging. (3) Encephalopathy acute: as above (4) Septic hip: s/p exchange arthroplasty and Prostalac spacer placed on 01/[address] Dalton. IV cefazolin for total 6 weeks, started [01/27] stop date [03/09]. Course can be completed outside of hospital. Recommend repeat blood cultures to be taken 1 week after finishing antibiotics or any deterioration of mental state given risk of recurrence PICC in place. (5) Acute blood loss anemia: Acute blood loss anemia from recent surgery. B12 and folate WNL. Repeat iron studies WNL. Reticulocyte count normal. s/p 3 units during admission. Hgb stable. Recommend repeating CBC 1 week after discharge. (6) Spinal stenosis: s/p spinal surgery 12/08 Discussed MRI findings with Dr Brian. Non-concerning for infection. Seroma expected finding. Follow up in 8 weeks. (7) Hypertension: BPs controlled -Reduce metoprolol succinate to 50mg daily given improvement in cardiomyopathy. -Continue low dose lisinopril 2.5mg PO daily (8) Pulmonary hypertension: severe - on initial echo. repeat echo showed resolution of such. 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 Discussed with Dr Velez. Repeat TTE with no wall motion abnormalities and improved LVEF suggestive of stress-induced cardiomyopathy - no plans on outpatient ischemic workup. Continues to appear euvolemic. (11) Electrolyte abnormality: KCl 40meq given this morning. Recommend BMP in 1 week after discharge. (12) DVT prophylaxis: Heparin 5000 units Q12H Admission and Anticipated Discharge Date Admission Date: January 28, 2020 Patient is medically stable for discharge once bed available at [facility]. Awaiting authorization. Thank you for the consult we will continue to follow with chart checks and occasional visits at this time. Please contact before she is discharged and we will update discharge instructions. Anticipated date of discharge: 02/12/20 Subjective Continues to make mild improvements every day. Left sided movements much improved. Still confused about events and diagnoses; mainly just repeating what I say back to her, however this is a vast improvement even from 2 days ago. Still tires easily as per physical therapy notes however this is unsurprising given the length of time she has taken to recover from what was a large operation in the first place. Review of Systems Review of Systems: All systems reviewed & are unremarkable except as noted in HPI & below Physical Exam Constitutional: well developed and + altered mental status (improving disorientation); no acute distress Eyes: + anicteric sclerae; normal pupil size ENMT: external ear and nose normal, oropharynx normal (white coating of tongue now resolved) Neck: trachea midline Respiratory: normal respiratory effort; no respiratory distress, no labored breathing and does not use accessory muscles Auscultation: lungs clear to auscultation bilaterally; no crackles, no rales, no rhonchi and no wheezes Cardiovascular: Rate/Rhythm: regular rate and regular rhythm Heart Sounds: no murmur Vessels: no JVD Extremities: normal capillary refill; no pedal edema Gastrointestinal (Abdomen): Inspection/Auscultation: normal bowel sounds Percussion/Palpation: abdomen soft; abdomen nontender, no guarding and abdomen not rigid Musculoskeletal: Mild Left > right UE weakness, slowly improving lower extr emity strength but very limited on operated side. Skin: no rashes, warm and dry Neurologic: moves all extremities, + focal motor deficit (improving LUE strength 4/5, RUE 4+/5), awake and + confused Speech / Cognition: no expressive aphasia and no receptive aphasia Motor/Sensory: no tremor Cranial Nerves: EOM intact bilaterally and no nystagmus Psychiatric: Orientation: alert, oriented to person (self), oriented to place and oriented to time (year and month) Genitourinary: + CVA tenderness Results & Data Results & Data ([facility]) Vital Signs (Past 12 Hours) Vital Signs Temp Pulse Resp BP Pulse Ox 02/12/20 06:58 36.9 C 58 L 18 129/73 99 PG Care Time/CCT Total # of Minutes Spent Total Time Spent with Patient: Total time spent is greater than 50% in coordination of care (as documented) at patient's floor/unit and/or counseling patient: Coding Level of Care Code 08642 Subseq Hosp Care Lvl 2 Diagnoses Altered level of consciousness R40.4 Acute CVA (cerebrovascular accident) I63.9 Encephalopathy acute G93.40 Septic hip M00.9 Acute blood loss anemia D62 Spinal stenosis M48.062 Neurogenic claudication status: with neurogenic claudication Spinal region: lumbar Hypertension I10 Hypertension type: essential hypertension Pulmonary hypertension I27.20 Elevated troponin R79.89 Cardiomyopathy I42.9 Cardiomyopathy type: unspecified Electrolyte abnormality E87.8 DVT prophylaxis Z29.9 (1) Spinal stenosis Neurogenic claudication status: with neurogenic claudication Spinal region: lumbar Qualified Code(s): M48.062 - Spinal stenosis, lumbar region with neurogenic claudication (2) Hypertension Hypertension type: essential hypertension Qualified Code(s): I10 - Essential (primary) hypertension (3) Cardiomyopathy Cardiomyopathy type: unspecified Qualified Code(s): I42.9 - Cardiomyopathy, unspecified
--- NOTE | 2020-02-12 14:05 | Palliative Care Progress Note ---
Date of Service February 12, 2020 Assessment & Plan (1) Goals of care, counseling/discussion: -Ms. Jhaveri is now day #14 post-op for sepsis and revision of right hip. Her mental status is improving daily. -MRI obtained on 02/02, shows numerous areas of punctate foci of acute/subacute ischemia bilaterally-- indicated watershed effect. -Patient now on a regular diet, taking p.o. well -Patient is making progress daily and cognitive function-will benefit from inpatient rehab therapies for her remaining significant physical and cognitive deficits -Patient is DNR/DNI. Continue with supportive care. -Will continue to follow and provide support to family and assist with medical decision making. (2) Altered level of consciousness: (3) Septic hip: (4) Cardiomyopathy: (5) Encephalopathy acute: Subjective Patient awake and alert, no acute distress. Patient more conversational on exam today-eating a regular diet without difficulty. Patient agreeable to short rehab stay to improve strength and function Review of Systems Review of Systems: Patient denies fever, chills, chest pain, shortness of breath, or abdominal pain. Patient does report mild pain with movement of right lower extremity. Physical Exam Physical Exam: PE: Patient awake and alert, no acute distress HEENT: EOMI, hearing within normal limits Respirations: Lungs clear bilaterally CV: Regular rate Abdomen: Soft, nontender, normal bowel sounds Extremities: Improved strength all 4 extremities Neuro: Alert and oriented Results & Data Vital Signs (Past 12 Hours) Vital Signs Temp Pulse Resp BP Pulse Ox 02/12/20 06:58 98.4 F 58 L 18 129/73 99 PG Care Time/CCT Total # of Minutes Spent Total Time Spent with Patient: Total time spent 25 minutes with greater than 50% of the time spent at bedside assessing patient's current status and discussing plan of care Coding Level of Care Code 88439 Subseq Hosp Care Lvl 2 Diagnoses Goals of care, counseling/discussion Z71.89 Altered level of consciousness R40.4 Septic hip M00.9 Cardiomyopathy I42.9 Cardiomyopathy type: unspecified Encephalopathy acute G93.40 Time Spent (min) 25 (1) Cardiomyopathy Cardiomyopathy type: unspecified Qualified Code(s): I42.9 - Cardiomyopathy, unspecified
--- NOTE | 2020-02-12 17:26 | Neurology Progress Note ---
Date of Service February 12, 2020 Assessment & Plan (1) Encephalopathy acute: Emma Jhaveri is a 74 yo woman w/ PMH notable for HTN, HLD, nephrolithiasis, lumbar spinal stenosis s/p surgery in 11/2019, anxiety, asthma, and recent MSSA UTI who initially p/t [facility] in the setting of septic hip, now POD 11 from right hip arthroplasty. Hospital course c/b persistent severe encephalopathy, new diagnosis of decreased EF, elevated troponin and concern for possible fat emboli syndrome. Neurology consulted for ongoing AMS. Workup thus far has shown: - TTE shows EF decreased from 60 to 65% to 30 to 35% - ongoing anemia - B12/TSH WNL - CSF: 2 WBC, 290 RBC, 77 glucose, 73 protein (MS panel pending), normal Gram stain -Independent review of CT head shows bilateral hypodensities on the level of the MCPs and into bilateral occipital lobes, no hemorrhage - CTA/CTV unremarkable -Independent review of MRI brain shows small/punctuate infarcts in watershed distribution in the right>left JESUS/MCA and MCA/ASSOCIATE DEAN territories, punctuate DWI hyperintensity in bilateral thalami without clear ADC correlate, small bilateral basal ganglia infarcts, moderate SVID, mild generalized atrophy -EEG showed generalized diffuse slowing x3 which has improved on most recent EEG on 02/09/20 # AMS: Slowly improving, no longer minimally conscious. Most likely 2/2 combination of toxic/metabolic/septic encephalopathy combined with slow re- emergence from anesthesia given low BMI and punctuate watershed infarcts from possible hypotension with some level of hospital acquired delirium at this time. - continue with delirium precautions, lights on during the day/off at night, frequent reorientation, see if family can bring in pictures from home - continue PT/OT/speech as already doing - continue thiamine/MV/B12 1000mcg daily - avoid benzos/opiates/anti-cholinergics - defer to PMR for need to start any neurostimulants as she has been improving without medication at this time - anticipate that she may be able to make a reasonable recovery but this may take weeks or months. Given prolonged AMS/delirium, she is at increased risk of MCI or cognitive impairment going forward. Thank you for this interesting consult. Plan of care discussed with primary team. Please call or text with any questions. We will sign off at this time. (2) Septic hip: Subjective NAEs overnight. Doing well this afternoon, no complaints. Was asking about rehab and what that entails. Review of Systems Review of Systems: Limited due to cognitive status. Reports mild pain in the left shoulder and right hip. Physical Exam Physical Exam: General Exam: GEN: NAD, lying in bed HEENT: No conjunctival injection, no rhinorrhea. CV: RRR, no peripheral edema PULM: Nonlabored respirations on room air Neuro Exam: MS: Awake, alert. Oriented to self, not oriented to month/year or location. Speech is fluent without dysarthria. Able to repeat simple phrases but has difficulty with more complex phrases. Intermittently comprehends, able to name high-frequency words. Mildly inattentive. No neglect. CN: Visual liao full. No extinction to double simultaneous stimuli. Unable to visualize fundi on fundoscopic exam. PERRLA OU. EOMI without nystagmus. Facial sensation intact to LT. Facial muscles full and symmetric. Hearing intact to conversation. Uvula midline with symmetric palatal elevation. Shoulder shrug normal. Tongue midline. MOTOR: Normal bulk and tone. No pronator drift in the RUE. RUE antigravity without drift, able to wiggle toes and bend both knees in bilateral lower extremities, LUE antigravity with slow drift to bed. REFLEXES: 2+ at biceps, triceps, brachioradialis, patella and Achilles bilaterally. Flexor plantar responses bilaterally. SENSORY: Intact to LT without extinction to double simultaneous stimuli. COORDINATION: No dysmetria or ataxia on [id number] in the right upper extremity. GAIT: Deferred given physical status Results & Data Vital Signs (Past 12 Hours) Vital Signs Temp Pulse Pulse Resp BP Pulse Ox 02/12/20 15:27 36.6 C 56 L 16 137/74 97 02/12/20 06:58 36.9 C 58 L 18 129/73 99 PG Care Time/CCT Total # of Minutes Spent Total Time Spent with Patient: Total time spent is greater than 50% in coordination of care (as documented) at patient's floor/unit and/or counseling patient: Coding Level of Care Code 45806 Subseq Hosp Care Lvl 2 Diagnoses Encephalopathy acute G93.40 Septic hip M00.9
[2020-02-13] MEDS: CEFAZOLIN 2000MG 2,000 MG/15 ML SYR IV SCH ×3 (06:35→22:26)
[2020-02-13] MEDS: CYANOCOBALAMIN (VITAMIN B-12) 100 MCG TABLET PO SCH (08:19)
[2020-02-13] MEDS: CEROVITE ADV FORMULA TAB PO SCH (08:19)
[2020-02-13] MEDS: ASPIRIN 81 MG ECTAB PO SCH (08:19)
[2020-02-13] MEDS: THIAMINE HCL 100 MG TAB NG SCH (08:19)
[2020-02-13] MEDS: NYSTATIN SUSP 500,000 U/5 ML UDC PO SCH ×4 (08:21→22:32)
[2020-02-13] MEDS: METOPROLOL SUCC 50MG EXT REL TAB PO SCH (08:26)
[2020-02-13] MEDS: HEPARIN SOD 5,000 UNIT/0.5 ML VIAL SQ SCH ×2 (08:27→22:23)
--- NOTE | 2020-02-13 08:50 | Progress Notes ---
DATE: 02/13/2020 The patient is with no issues overnight. At this point in time, it is unclear what authorization is being held up for. She is status post major orthopedic procedure with secondary issue being brain dysfunction. At this point in time, she needs intensive rehabilitation for both areas. She has been cleared medically. Just waiting for insurance authorization to be transferred to facility. No change in orthopedic plans. Prepare for discharge/transfer today.
[2020-02-14] MEDS: CEFAZOLIN 2000MG 2,000 MG/15 ML SYR IV SCH ×3 (05:37→21:09)
[2020-02-14 06:01] LABS: Hematocrit (blood only) 29.2 % (37-47); Hemoglobin 9.2 g/dL (12.0-16.0); Mean Corpuscular Hemoglobin 30.7 pg (25-34); Mean Corpuscular Hgb Conc 31.5 g/dL (32-36); Mean Corpuscular Volume 97.3 fL (80-100); Mean Platelet Volume 8.1 fL (7.4-10.4); Platelet Count 308 K/uL (130-400); RDW Coefficient of Variation 14.5 % (11.5-14.5); RDW Standard Deviation 51.6 fL (36.4-46.3); White Blood Count 6.25 K/uL (4.8-10.8)
[2020-02-14 06:34] LABS: BUN Creatinine Ratio 32.1 (10-20); Calcium 8.5 mg/dl (8.5-10.1); Creatinine Clr Calc Pharmacy 63.3 ml/min; Est GFR (African American) 108.5; Est GFR (Non-African American) 93.6; Magnesium 2.1 mg/dl (1.8-2.4); Potassium 3.7 mmol/L (3.5-5.1)
[2020-02-14 06:35] LABS: Phosphorus 2.8 mg/dl (2.5-4.9)
[2020-02-14] MEDS: ASPIRIN 81 MG ECTAB PO SCH (08:22)
[2020-02-14] MEDS: CEROVITE ADV FORMULA TAB PO SCH (08:22)
[2020-02-14] MEDS: THIAMINE HCL 100 MG TAB NG SCH (08:22)
[2020-02-14] MEDS: CYANOCOBALAMIN (VITAMIN B-12) 100 MCG TABLET PO SCH (08:22)
[2020-02-14] MEDS: NYSTATIN SUSP 500,000 U/5 ML UDC PO SCH ×4 (08:23→20:54)
[2020-02-14] MEDS: METOPROLOL SUCC 50MG EXT REL TAB PO SCH (08:24)
[2020-02-14] MEDS: HEPARIN SOD 5,000 UNIT/0.5 ML VIAL SQ SCH ×2 (08:24→20:54)
--- NOTE | 2020-02-14 09:14 | Progress Notes ---
DATE: 02/14/2020 SUBJECTIVE: Postop status post extensive right hip procedure, previously documented. The patient is awake and alert. She denies any chest pain, shortness of breath, fever, chills, nausea, vomiting or headache. She states she is hungry. Vital signs are stable. She is afebrile. Laboratory work reveals hematocrit stable in the 29-30 range over several days. Potassium is stable at 3.7. White count is 6.25. PHYSICAL EXAMINATION: Reveals that all 4 extremities are starting to move extremely well. She is moving around in bed. She has strength that is at least 4/5 in all extremities. Abdomen soft, nontender. Calves nontender. Wound clean and dry. Hip located. Axial compression produces no pain. ASSESSMENT: Overall continues to improve neurologically and orthopedically. Unfortunately for whatever reason in their judgment, the insurance company did not feel that she was an appropriate rehab candidate. This is missing an opportunity for her; however, she will need to go to a [facility] facility that offers rehab as a backup. We will continue to support. We will discuss with family.
--- NOTE | 2020-02-14 15:06 | Hospitalist Progress Note ---
Date of Service February 14, 2020 Assessment & Plan (1) Altered level of consciousness: Continued daily improvement since 02/04. HIE vs toxic-metabolic encephalopathy with watershed infarcts vs. slow re- emergence from anesthesia given low BMI in setting of septic hip. No evidence of fat embolism on MRI. EEG with non specific encephalopathy but no seizure. CT head (multiple) - no pathology or bleeding. LP w/o signs of infectious process. (2) Acute CVA (cerebrovascular accident): Watershed infarcts on MRI; cannot rule out embolus. No indication for anticoagulation at this time, remains RRR Deferred statin due to concern for myalgia in setting of needing intensive rehabilitation (prior leg pain with Crestor) and no atherosclerotic disease on imaging. (3) Encephalopathy acute: as above (4) Septic hip: s/p exchange arthroplasty and Prostalac spacer placed on 01/[address] Dalton. IV cefazolin for total 6 weeks, started [01/27] stop date [03/09]. Course can be completed outside of hospital. Recommend repeat blood cultures to be taken 1 week after finishing antibiotics or any deterioration of mental state given risk of recurrence PICC in place. (5) Acute blood loss anemia: Acute blood loss anemia from recent surgery. B12 and folate WNL. Repeat iron studies WNL. Reticulocyte count normal. s/p 3 units during admission. Hgb stable. Recommend repeating CBC 1 week after discharge. (6) Spinal stenosis: s/p spinal surgery 12/[address]iscuss[address] MRI findings with Dr Brian. Non-concerning for infection. Seroma expected finding. Follow up in 8 weeks. (7) Hypertension: BPs controlled -Continue metoprolol succinate to 50mg. -Continue low dose lisinopril 2.5mg PO daily (8) Pulmonary hypertension: severe - on initial echo. repeat echo showed resolution of such. 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 Discussed with Dr Velez. Repeat TTE with no wall motion abnormalities and improved LVEF suggestive of stress-induced cardiomyopathy - no plans on outpatient ischemic workup. Continues to appear euvolemic. (11) Electrolyte abnormality: K 3.7. Start 20meq KCl daily Recommend BMP in 1 week after discharge. (12) DVT prophylaxis: Continue Heparin 5000 units Q12H Admission and Anticipated Discharge Date Admission Date: January 28, 2020 Thank you for the consult the patient continues to be medically stable awaiting rehabilitation at this time therefore the medicine team will sign off. Please contact the medicine team if you would like us to review her again. Unfortunately declined by insurance for [facility] with peer to peer with Dr Dalton as per my understanding and awaiting placement at either [facility] or [facility]. Please contact the medicine team on discharge to update her discharge medications. Anticipated date of discharge: 02/16/20 Subjective Appears much the same as 2 days ago. Asking when she can go home (we discussed going to rehab on multiple occasions previously). Orientated to year, place and self. Left arm strength appears somewhat improved. Review of Systems Review of Systems: All systems reviewed & are unremarkable except as noted in HPI & below Physical Exam Constitutional: well developed and + altered mental status (some short term memory loss apparent); no acute distress Respiratory: no respiratory distress Gastrointestinal (Abdomen): Percussion/Palpation: abdomen soft Skin: no rashes, warm and dry Neurologic: + focal motor deficit (improving LUE strength 4/5, RUE 4+/5), awake and + confused (clear short term memory difficulties ongoing) Psychiatric: Orientation: alert, oriented to person (self), oriented to place and oriented to time (year and month) Lymphatic: no cervical or axillary lymphadenopathy Results & Data Results & Data ([facility]) Vital Signs (Past 12 Hours) Vital Signs Temp Pulse Resp BP Pulse Ox 02/14/20 07:19 37.0 C 68 16 132/76 98 PG Care Time/CCT Total # of Minutes Spent Total Time Spent with Patient: Total time spent is greater than 50% in coordination of care (as documented) at patient's floor/unit and/or counseling patient: Coding Level of Care Code 00037 Subseq Hosp Care Lvl 1 Diagnoses Altered level of consciousness R40.4 Acute CVA (cerebrovascular accident) I63.9 Encephalopathy acute G93.40 Septic hip M00.9 Acute blood loss anemia D62 Spinal stenosis M48.062 Spinal region: lumbar Neurogenic claudication status: with neurogenic claudication Hypertension I10 Hypertension type: essential hypertension Pulmonary hypertension I27.20 Elevated troponin R79.89 Cardiomyopathy I42.9 Cardiomyopathy type: unspecified Electrolyte abnormality E87.8 DVT prophylaxis Z29.9 (1) Spinal stenosis Spinal region: lumbar Neurogenic claudication status: with neurogenic claudication Qualified Code(s): M48.062 - Spinal stenosis, lumbar region with neurogenic claudication (2) Hypertension Hypertension type: essential hypertension Qualified Code(s): I10 - Essential (primary) hypertension (3) Cardiomyopathy Cardiomyopathy type: unspecified Qualified Code(s): I42.9 - Cardiomyopathy, unspecified
[2020-02-14] MEDS: ONDANSETRON INJ 2 MG/ML 2 ML VIAL IV PRN (21:24)
[2020-02-15] MEDS: CEFAZOLIN 2000MG 2,000 MG/15 ML SYR IV SCH ×3 (06:22→21:35)
[2020-02-15] MEDS: HEPARIN SOD 5,000 UNIT/0.5 ML VIAL SQ SCH ×2 (08:50→20:37)
[2020-02-15] MEDS: POTASSIUM CHLORIDE 20 MEQ TABCR PO SCH (08:51)
[2020-02-15] MEDS: NYSTATIN SUSP 500,000 U/5 ML UDC PO SCH ×4 (08:51→20:37)
[2020-02-15] MEDS: METOPROLOL SUCC 50MG EXT REL TAB PO SCH (08:52)
[2020-02-15] MEDS: CYANOCOBALAMIN (VITAMIN B-12) 100 MCG TABLET PO SCH (08:52)
[2020-02-15] MEDS: THIAMINE HCL 100 MG TAB NG SCH (08:52)
[2020-02-15] MEDS: ASPIRIN 81 MG ECTAB PO SCH (08:53)
[2020-02-15] MEDS: CEROVITE ADV FORMULA TAB PO SCH (08:53)
--- NOTE | 2020-02-15 11:20 | Progress Notes ---
DATE: 02/15/2020 SUBJECTIVE: The patient continues to improve. Sitting up, eating breakfast, has no complaints of any pain. She denies any chest pain, shortness of breath, fever, chills, nausea, vomiting or headache. OBJECTIVE: Vital signs are stable. She asks appropriate questions and answers questions well. She can move all 4 extremities. Wound is clean and dry. Calves are nontender. ASSESSMENT: Overall continues to improve daily. At this point in time, awaiting transition of care issues. I do not see any notes from Equipment Operating Engineer or Case Management over the weekend. Hopefully, this will be rectified and the patient will be able to be transferred on Sunday. Continue with present level of care.
[2020-02-15] MEDS: DOCUSATE SODIUM 100 MG CAP PO SCH (20:37)
[2020-02-16] MEDS: CEFAZOLIN 2000MG 2,000 MG/15 ML SYR IV SCH ×2 (05:28→13:03)
[2020-02-16 06:22] LABS: Creatinine Clr Calc Pharmacy 65.7 ml/min; Est GFR (African American) 109.9; Est GFR (Non-African American) 94.8
--- NOTE | 2020-02-16 08:32 | Progress Notes ---
DATE: 02/16/2020 SUBJECTIVE: The patient is doing well postop extensive right hip procedure. She denies any chest pain, shortness of breath, fever, chills, nausea, vomiting or headache. OBJECTIVE: Vital signs are stable. She is afebrile. Wound is clean and dry. Neurovascular check without change. ASSESSMENT: Overall, doing well. Continue with postop. Plans of trying to get her transferred were denied by [facility] Insurance restrictions. Hopefully, will be able to get to a correction facility with physical therapy today or tomorrow. Orders were placed for stat case management consult and discharge order.
[2020-02-16] MEDS ORDERED: THIAMINE HCL 100 MG TAB PO SCH (09:00)
[2020-02-16] MEDS ORDERED: ENOXAPARIN INJ 40 MG/0.4 ML SYR SQ SCH (09:00)
[2020-02-16] MEDS ORDERED: CYANOCOBALAMIN 500 MCG TABLET (VITAMIN B-12) PO SCH (09:00)
[2020-02-16] MEDS: DOCUSATE SODIUM 100 MG CAP PO SCH (09:16)
[2020-02-16] MEDS: ASPIRIN 81 MG ECTAB PO SCH (09:16)
[2020-02-16] MEDS: POTASSIUM CHLORIDE 20 MEQ TABCR PO SCH (09:17)
[2020-02-16] MEDS: CEROVITE ADV FORMULA TAB PO SCH (09:19)
[2020-02-16] MEDS: NYSTATIN SUSP 500,000 U/5 ML UDC PO SCH ×2 (09:21→13:04)
[2020-02-16] MEDS: METOPROLOL SUCC 50MG EXT REL TAB PO SCH (09:21)
[2020-02-16] MEDS: HEPARIN SOD 5,000 UNIT/0.5 ML VIAL SQ SCH (09:29)
--- NOTE | 2020-02-16 14:39 | Discharge Summary (DS) ---
CHIEF COMPLAINT ON ADMISSION: Right hip infection, pain. DISCHARGE DIAGNOSIS: Resolving infection, history of cerebrovascular insult (?)fat embolism versus watershed infarct. HISTORY OF PRESENT ILLNESS: The patient was admitted for emergent treatment of a draining sinus from a total hip replacement that was seeded secondary from a MSSA Staph aureus urinary tract infection following the procedure in October. This was unrelated to her hip replacement. At this point in time, the patient presented with 3-1/2 to 4 weeks of increasing pain, swelling and drainage. Culture at that time in the office on Sunday revealed substantial bacteria and Staph aureus. She was admitted on Sunday for treatment. Her sed rate and CRP were elevated. HOSPITAL COURSE: Surgical procedure went uneventful despite that in the immediate postop period, the patient developed increasing metabolic and dysfunctional encephalopathy of her brain, being in a coma for multiple days. Over the ensuing time frame, her mentation has cleared. She is now oriented to person, place and occasionally time. She does not have any focal deficiencies in her extremities of any nerve dysfunction there. Her cranial nerves are all intact. Her limitations are as follows with weightbearing on the right leg based on the cement spacer being placed. She is on chronic IV antibiotic treatment. She is finishing week 3. She required an extended trochanteric osteotomy to get the femoral implant out and as such needs to be limited weightbearing on the right. She also needs to have extreme postural indiscretion precautions based on the stability of the cement spacers not being as good as normal hip replacements. Her hospital course again was complicated by her cerebrovascular dysfunction. She was in the ICU and then the step down ICU for multiple days and ultimately on the floor. She has been in the hospital for roughly 18 days. At this point in time, she has resolved nicely. Can get up with the assist of 2 with a walker and is getting stronger everyday. PAST MEDICAL HISTORY: Remarkable for degenerative arthritis, hyperlipidemia, hypertension, hyperthyroidism, nephrolithiasis, osteoporosis, history of lumbar spine fusion, history of MSSA urinary tract infection, history of tubal ligation, history of cataract surgery, history of right total hip replacement over 2 years ago, status post carpal tunnel release. FAMILY HISTORY: Remarkable for hypertension in her brother, mother, sister. Denies family history of ovarian, or prostate cancer. no History of myocardial infarction, breast cancer, colorectal cancer. SOCIAL HISTORY: Reveals that she is , lives alone, has multiple children. They live a distance from here. PREADMISSION MEDICATIONS: Include vitamin D, cephalexin t.i.d., calcium carbonate, diltiazem, linosopril, vitamin E. ALLERGIES: SHE HAS AN ALLERGY TO PENICILLIN, but can take cephalosporins just fine. SHE HAS ALLERGIES TO COUMADIN, CAT AND DOG DANDER, PRAVASTATIN, LOVASTATIN, AND DOXYCYCLINE. Multiple diagnostic tests were performed. EEG over progression revealed marked improvement of brain function. CT scans multiple did not reveal any hemorrhagic lesion. MRI scan revealed watershed versus embolic type phenomenon. Multiple echocardiograms revealed wall motion dysfunction and pulmonary hypertension, that has since resolved. This could likely be consistent with an embolic phenomenon or fat embolism. Laboratory work reveals a stable hematocrit. She is now in the 29-31 range. White count has been good. The renal function has been excellent. Microbiology reveals Staphylococcus aureus MSSA consistent with urinary tract infection previously. Multiple consultations were obtained including palliative care when things were not quite as good neurologically, hospitalist, neurology, cardiology. At this point in time, all have cleared her for discharge. ASSESSMENT: Status post complex right hip procedure complicated by metabolic encephalopathy/cerebrovascular injury. At this point in time, she is resolving. She will be discharged to correction facility with rehabilitation capabilities. She will need to be protected weightbearing on the right lower extremity. DISCHARGE MEDICATIONS: Please see medication reconciliation list. Please note that she needs to finish an additional 3-1/2 weeks of IV antibiotics. Would suggest obtaining sed rate, CRP and get results to me in 1 week. Please keep limited weightbearing toe touch at most to the right lower extremity with postural precautions for the right cemented hip spacer. She should see me in roughly 3 weeks for an office visit. Pending pandemic issues, we can always change that. DVT prophylaxis per institution. Continue her cefazolin. All other medications per med reconciliation sheet and per medicine. BEBED
== END 2020-02-16 14:13 | DRG 463 ==
LOC: ASU 04:50 → 1E 11:16 → 2E 01-30 15:03 → 3E 02-01 16:01